=== PATIENT | male | born 1950 | race Caucasian/White ===

== ENCOUNTER 2017-01-22 14:55 | Inpatient (IN) | payer MEDICAID, SELFPAY ==
[2017-01-22 14:55] VITALS: BMI 32.1
[2017-01-22] MEDS ORDERED: Albuterol-Ipratrop 3 mg / 0.5 (3 ml) UD ONE (15:00)
[2017-01-22] MEDS ORDERED: Albuterol-Ipratrop 3 mg / 0.5 (3 ml) UD IH STA (15:12)
[2017-01-22] MEDS ORDERED: Albuterol 0.083% Inhal Sol (2.5 mg/3 mL) UD IH STA (15:12)
[2017-01-22 15:21] LABS: BASO # 0.1 K/uL (0.0-0.2); BASO % 0.5 % (0.0-2.0); EOS % 0.1 % (0.0-4.0); HEMATOCRIT 55.3 % (35.0-51.0); LYMPH % 15.7 % (20.0-40.0); MEAN CELL VOLUME 87.2 fL (80.0-94.0); MEAN CORPUSCULAR HEMOGLOBIN 28.4 pg (27.0-31.0); MEAN CORPUSCULAR HGB CONC 32.5 g/dL (33.0-37.0); MEAN PLATELET VOLUME 9.4 fL (7.2-11.7); MONO # 1.3 K/uL (0.0-0.8); MONO % 10.6 % (0.0-10.0); NRBC % 0.1 % (0.0-2.0); RED CELL DISTRIBUTION WIDTH 14.6 % (11.5-14.5); WHITE BLOOD COUNT 12.6 K/uL (4.8-10.8)
[2017-01-22 15:28] LABS: CHLORIDE 91 mmol/L (98-107); POTASSIUM 3.4 mmol/L (3.6-5.2); SODIUM 140 mmol/L (132-148)
[2017-01-22 15:31] LABS: ALB/GLOB RATIO 0.9 (1.0-2.1); ALKALINE PHOSPHATASE 74 U/L (38-126); ALT/SGPT 24 U/L (21-72); AST/SGOT 30 U/L (17-59); BILIRUBIN,TOTAL 0.9 mg/dL (0.2-1.3); BLOOD UREA NITROGEN 16 mg/dL (9-20); CALCIUM 8.9 mg/dl (8.6-10.4); CARBON DIOXIDE 33 mmol/L (22-30); GFR AFRICAN-AMERICAN > 60; GLUCOSE,RANDOM 203 mg/dL (75-110); TOTAL PROTEIN 8.8 g/dL (6.3-8.3)
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
--- NOTE | 2017-01-22 16:11 | RAD ---
PROCEDURE: CHEST RADIOGRAPH, 1 VIEW HISTORY: SOB COMPARISON: 01/13/2017 FINDINGS: LUNGS: Hazy opacity in the lung bases. Increased vascular congestion. PLEURA: No pneumothorax or pleural fluid seen. CARDIOVASCULAR: Enlarged cardiomediastinal silhouette, stable. OSSEOUS STRUCTURES: The osseous structures demonstrate degenerative changes. VISUALIZED UPPER ABDOMEN: Upper abdomen is suboptimally evaluated. OTHER FINDINGS: Left-sided pacemaker. IMPRESSION: Hazy opacity in the lung bases, likely atelectasis. Increased vascular congestion. Stable cardiomegaly.
[2017-01-22] MEDS ORDERED: Potassium Chloride 20 mEq ER Tab PO STA ×2 (17:37→21:34)
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
[2017-01-22] MEDS ORDERED: (Novolin R) Insulin Human Regular 100 units/ml vial SC SCH (22:00)
[2017-01-22] MEDS: Rosuvastatin Calcium 2.5 mg Tab PO SCH (22:09)
[2017-01-22] MEDS: Pantoprazole 40 mg EC Tab PO SCH (22:09)
[2017-01-22] MEDS: Econazole 1% Cream(15 gm) TOP SCH (22:26)
[2017-01-22] MEDS: (Novolin R) Insulin Human Regular 100 units/ml vial SC SCH (22:27)
[2017-01-23 06:41] LABS: CHLORIDE 88 mmol/L (98-107); POTASSIUM 4.2 mmol/L (3.6-5.2); SODIUM 138 mmol/L (132-148)
[2017-01-23 06:43] LABS: ALB/GLOB RATIO 0.8 (1.0-2.1); AST/SGOT 38 U/L (17-59); BILIRUBIN,TOTAL 1.5 mg/dL (0.2-1.3); CARBON DIOXIDE 37 mmol/L (22-30); CHOLESTEROL 145 mg/dL (0-199); GFR AFRICAN-AMERICAN > 60; TOTAL PROTEIN 8.3 g/dL (6.3-8.3)
[2017-01-23 06:44] LABS: ALKALINE PHOSPHATASE 74 U/L (38-126); ALT/SGPT 37 U/L (21-72); BLOOD UREA NITROGEN 19 mg/dL (9-20); CALCIUM 8.5 mg/dl (8.6-10.4); GLUCOSE,RANDOM 162 mg/dL (75-110)
[2017-01-23 07:15] LABS: THYROID STIMULATING HORMONE 1.64 mIU/L (0.46-4.68)
[2017-01-23 07:24] LABS: BASO % 0.2 % (0.0-2.0); HEMATOCRIT 52.7 % (35.0-51.0); LYMPH # 1.1 K/uL (1.0-4.3); LYMPH % 9.5 % (20.0-40.0); MEAN CORPUSCULAR HEMOGLOBIN 29.4 pg (27.0-31.0); MEAN CORPUSCULAR HGB CONC 33.8 g/dL (33.0-37.0); MEAN PLATELET VOLUME 9.2 fL (7.2-11.7); MONO # 0.7 K/uL (0.0-0.8); MONO % 6.1 % (0.0-10.0); NRBC % 0.3 % (0.0-2.0); PLATELET COUNT 118 K/uL (130-400); RED CELL DISTRIBUTION WIDTH 14.2 % (11.5-14.5)
--- NOTE | 2017-01-23 07:55 | CP.PCM.CON ---
<Loly Brewster - Last Filed: 01/23/17 11:11> History of Present Illness - History of Present Illness History of Present Illness: Cardiology progress note for Dr Amin. Reason for consult: acute on chronic chf. Patient is a 66 y/o with pmh of HTN, dilated cardiomyopathy with LVEF of 10% s/ p AICD, superimposed with diabolic HF, AFib, DM and hld presenting with shortness of breath. Patient was recently discharged about a week ago. Pt denies being non compliance with his meds, denies increased salt intake. States he was diagnosed with shingles of his left forehead, and was prescribed acyclovir and po prednisone, and thinks the shortness of breath is worsened when he started taking these 2 new meds. Currently, patient's seating comfortably, wearing a high flow oxygen at fio2 of 50%, denies cp, reports the shortness of breath has improved. Patient denies palpitation, fever, chills, n/v/d. PMH: HTN, dilated cardiomyopathy with LVEF of 10% s/p biventricular ICD, superimposed with diabolic HF, AFib, DM and hld. PSHx: Rib surgery, spine surgery, stomach surgery, left arm surgery FMHx:2 brothers due to [place] (50 yr old & 60 yr old) Social: denies h/o tobacco, alcohol and illicit drug use. allergies: denies Home meds: please see emr for full list. Review of Systems - Review of Systems All systems: reviewed and no additional remarkable complaints except Review of Systems: As mentioned in HPI. Past Patient History - Infectious Disease Hx of Infectious Diseases: None - Tetanus Immunizations Tetanus Immunization: Unknown - Past Medical History & Family History Past Medical History?: Yes - Past Social History Smoking Status: Never Smoked Alcohol: None Drugs: Denies Home Situation {Lives}: With Family - CARDIAC Hx Cardia Arrhythmia: Yes (atrial flutter) Hx Congestive Heart Failure: Yes Hx Hypercholesterolemia: Yes Hx Hypertension: Yes Hx Pacemaker: Yes (left side) Hx Peripheral Edema: Yes - PULMONARY Hx Asthma: Yes - NEUROLOGICAL Hx Transient Ischemic Attacks (TIA): No - HEENT Hx HEENT Problems: No - RENAL Hx Chronic Kidney Disease: No - ENDOCRINE/METABOLIC Hx Diabetes Mellitus Type 2: Yes - HEMATOLOGICAL/ONCOLOGICAL Hx Blood Disorders: No - INTEGUMENTARY Hx Dermatological Problems: Yes Other/Comment: BLE with brownish discoloration - MUSCULOSKELETAL/RHEUMATOLOGICAL Hx Falls: No - GASTROINTESTINAL Hx Gall Bladder Disease: Yes - GENITOURINARY/GYNECOLOGICAL Hx Genitourinary Disorders: No - PSYCHIATRIC Hx Substance Use: No - SURGICAL HISTORY Hx Cholecystectomy: Yes - ANESTHESIA Hx Anesthesia: Yes Hx Anesthesia Reactions: No Hx Malignant Hyperthermia: No Meds Allergies/Adverse Reactions: Allergies Allergy/AdvReac Type Severity Reaction Status Date / Time No Known Allergies Allergy Verified 01/22/17 15:08 - Medications Medications: Current Medications Acyclovir (Zovirax) 800 mg PO 5XD [facility] Last Admin: 01/22/17 22:25 Dose: 800 mg Aspirin (Ecotrin) 81 mg PO DAILY [facility] Carvedilol (Coreg) 6.25 mg PO BID [facility] Last Admin: 01/22/17 22:09 Dose: 6.25 mg Econazole Nitrate (Spectazole Cr) 1 gm TOP BID [facility] Last Admin: 01/22/17 22:26 Dose: 1 gm Gabapentin (Neurontin) 100 mg PO TID [facility] Last Admin: 01/22/17 22:08 Dose: 100 mg Heparin Sodium (Porcine) (Heparin) 5,000 units SC Q8H [facility] Last Admin: 01/23/17 02:27 Dose: 5,000 units Insulin Human Regular (Novolin R) 0 unit SC ACHS [facility] PRN Reason: Protocol Last Admin: 01/22/17 22:27 Dose: Not Given Losartan Potassium (Cozaar) 50 mg PO DAILY [facility] Oxycodone/Acetaminophen (Percocet 5/325 Mg Tab) 1 tab PO Q4H PRN PRN Reason: Pain, moderate (4-7) Stop: 01/25/17 17:41 Pantoprazole Sodium (Protonix Ec Tab) 40 mg PO DAILY [facility] Last Admin: 01/22/17 22:09 Dose: 40 mg Prednisone (Prednisone Tab) 20 mg PO BID [facility] Last Admin: 01/22/17 22:09 Dose: 20 mg Rivaroxaban (Xarelto) 20 mg PO DAILY [facility] Rosuvastatin Calcium (Crestor) 2.5 mg PO HS [facility] Last Admin: 01/22/17 22:09 Dose: 2.5 mg Spironolactone (Aldactone) 12.5 mg PO BID [facility] Last Admin: 01/22/17 22:25 Dose: 12.5 mg Physical Exam - Constitutional Appears: No Acute Distress, Older Than Stated Age, Chronically Ill - Head Exam Head Exam: ATRAUMATIC, NORMAL INSPECTION, NORMOCEPHALIC - Eye Exam Eye Exam: Normal appearance, PERRL. absent: Scleral icterus - ENT Exam ENT Exam: Mucous Membranes Moist - Neck Exam Neck exam: Positive for: Normal Inspection - Respiratory Exam Respiratory Exam: Clear to Auscultation Bilateral, NORMAL BREATHING PATTERN. absent: Rales, Rhonchi, Wheezes, Respiratory Distress, Stridor - Cardiovascular Exam Cardiovascular Exam: Irregular Rhythm, REGULAR RHYTHM, +S1, +S2 - GI/Abdominal Exam GI & Abdominal Exam: Distended, Firm, Normal Bowel Sounds, Soft. absent: Guarding, Tenderness Additional comments: obese abdomen. - Extremities Exam Extremities exam: Positive for: pedal edema (+2) - Neurological Exam Neurological exam: Alert, Oriented x3 - Psychiatric Exam Psychiatric exam: Normal Affect, Normal Mood - Skin Skin Exam: Dry, Normal Color, Rash (crusted, shingles lesions around the trigeminal nerve distributations, V1.), Warm Results - Vital Signs Recent Vital Signs: Last Vital Signs Temp 98.9 F 01/22/17 23:10 Pulse 74 01/22/17 23:30 Resp 20 01/23/17 03:58 BP 154/91 H 01/22/17 23:10 Pulse Ox 100 01/22/17 23:10 - Labs Result Diagrams: 01/23/17 06:09 01/23/17 06:09 Labs: Laboratory Results - last 24 hr 01/22/17 01/22/17 01/23/17 21:01 21:59 05:29 WBC RBC Hgb Hct MCV MCH MCHC RDW Plt Count MPV Neut % (Auto) Lymph % (Auto) Richardson % (Auto) Eos % (Auto) Baso % (Auto) Neut # Lymph # Richardson # Eos # Baso # Sodium Potassium Chloride Carbon Dioxide Anion Gap BUN Creatinine Est GFR ( Amer) Est GFR (Non-Af Amer) POC Glucose (mg/dL) 143 H Random Glucose Calcium Total Bilirubin AST ALT Alkaline Phosphatase Total Creatine Kinase 43 L 49 L CK-MB (Mass) 1.15 0.97 Troponin I, Quant 0.0840 0.0800 Total Protein Albumin Globulin Albumin/Globulin Ratio Triglycerides Cholesterol LDL Cholesterol Direct HDL Cholesterol TSH 3rd Generation 01/23/17 01/23/17 06:09 06:23 WBC 12.0 H RBC 6.06 H Hgb 17.8 Hct 52.7 H MCV 87.0 MCH 29.4 MCHC 33.8 RDW 14.2 Plt Count 118 L MPV 9.2 Neut % (Auto) 84.2 H Lymph % (Auto) 9.5 L Richardson % (Auto) 6.1 Eos % (Auto) 0.0 Baso % (Auto) 0.2 Neut # 10.1 H Lymph # 1.1 Richardson # 0.7 Eos # 0.0 Baso # 0.0 Sodium 138 Potassium 4.2 Chloride 88 L Carbon Dioxide 37 H Anion Gap 17 BUN 19 Creatinine 1.0 Est GFR ( Amer) > 60 Est GFR (Non-Af Amer) > 60 POC Glucose (mg/dL) 135 H Random Glucose 162 H Calcium 8.5 L Total Bilirubin 1.5 H AST 38 ALT 37 Alkaline Phosphatase 74 Total Creatine Kinase 50 L CK-MB (Mass) 0.94 Troponin I, Quant 0.0770 Total Protein 8.3 Albumin 3.8 Globulin 4.5 H Albumin/Globulin Ratio 0.8 L Triglycerides 106 D Cholesterol 145 LDL Cholesterol Direct 79 HDL Cholesterol 34 TSH 3rd Generation 1.64 - EKG Data EKG Interpreted by: Myself (afib, with left bundle branch blocks, with occasional pvs, with biventricular paced rhythm.) Assessment & Plan - Assessment and Plan (Free Text) Assessment: Patient is a 66 y/o with pmh of HTN, dilated cardiomyopathy with LVEF of 10% s/ p biventricular ICD, superimposed with diabolic HF, AFib, DM and hld readmitted with shortness of breath likely secondary to chf exacerbation. 1) CHF exacerbation 2) Poor EF with LEVF of 10%, and diastolic HF s/p biventricular AICD. 3) htn 4) DM 5) Shingles Plan: - Pro bnp of 4980, with troponin normal x3, ekg with paced ventricular rhythm with occasional PVCs. - Last echo with LVEF of 10%, diastolic dysfunction. - Chest x-ray with vascular congestions - Patient is s/p 80 mg IVP Lasix yesterday, and is saturating well with non rebreather. - will resume lasix at 40 mg bid, continue aldactone, cozaar. - Patient is on crestor for hld, asa and xaretlo for afib/flutter. - Patient is also on acyclovir and prednisone po for shingles. - on protonix for gi prophylaxis, and heparin sc for dvt prophylaxis. Patient seen, examined, will discuss with Dr Bradford. - Date & Time Date: 01/23/17 Time: 07:45 <Quin Bradford - Last Filed: 01/24/17 08:24> Meds - Medications Medications: Current Medications Acyclovir (Zovirax) 800 mg PO 5XD [facility] Last Admin: 01/24/17 08:03 Dose: 800 mg Aspirin (Ecotrin) 81 mg PO DAILY [facility] Last Admin: 01/23/17 10:00 Dose: 81 mg Carvedilol (Coreg) 6.25 mg PO BID [facility] Last Admin: 01/23/17 17:41 Dose: 6.25 mg Econazole Nitrate (Spectazole Cr) 1 gm TOP BID [facility] Last Admin: 01/23/17 17:44 Dose: 1 gm Furosemide (Lasix) 40 mg PO BID [facility] Last Admin: 01/23/17 17:41 Dose: 40 mg Gabapentin (Neurontin) 100 mg PO TID [facility] Last Admin: 01/23/17 17:41 Dose: 100 mg Insulin Human Regular (Novolin R) 0 unit SC ACHS [facility] PRN Reason: Protocol Last Admin: 01/24/17 08:03 Dose: 2 unit Losartan Potassium (Cozaar) 50 mg PO DAILY [facility] Last Admin: 01/23/17 10:00 Dose: 50 mg Oxycodone/Acetaminophen (Percocet 5/325 Mg Tab) 1 tab PO Q4H PRN PRN Reason: Pain, moderate (4-7) Stop: 01/25/17 17:41 Pantoprazole Sodium (Protonix Ec Tab) 40 mg PO DAILY [facility] Last Admin: 01/23/17 10:00 Dose: 40 mg Prednisone (Prednisone Tab) 20 mg PO BID [facility] Last Admin: 01/23/17 17:41 Dose: 20 mg Rivaroxaban (Xarelto) 20 mg PO DAILY [facility] Last Admin: 01/23/17 10:00 Dose: 20 mg Rosuvastatin Calcium (Crestor) 2.5 mg PO HS [facility] Last Admin: 01/23/17 21:25 Dose: 2.5 mg Spironolactone (Aldactone) 12.5 mg PO BID [facility] Last Admin: 01/23/17 17:40 Dose: 12.5 mg Results - Vital Signs Recent Vital Signs: Last Vital Signs Temp 98.0 F 01/23/17 23:05 Pulse 64 01/23/17 23:05 Resp 18 01/24/17 05:09 BP 123/65 01/23/17 23:05 Pulse Ox 97 01/23/17 23:05 - Labs Result Diagrams: 01/23/17 06:09 01/23/17 06:09 Labs: Laboratory Results - last 24 hr 01/23/17 01/23/17 01/23/17 06:09 11:24 16:39 Neutrophils % (Manual) 80 H Band Neutrophils % 9 H Lymphocytes % (Manual) 4 L Reactive Lymphs % 1 H Monocytes % (Manual) 6 Platelet Estimate Slightly decreased L Large Platelets Present Giant Platelets Present RBC Morphology Normal POC Glucose (mg/dL) 136 H 145 H Hemoglobin A1c 8.1 H 01/23/17 01/24/17 20:56 06:19 Neutrophils % (Manual) Band Neutrophils % Lymphocytes % (Manual) Reactive Lymphs % Monocytes % (Manual) Platelet Estimate Large Platelets Giant Platelets RBC Morphology POC Glucose (mg/dL) 188 H 163 H Hemoglobin A1c Attending/Attestation - Attestation I have personally seen and examined this patient.: Yes I have fully participated in the care of the patient.: Yes I have reviewed all pertinent clinical information: Yes Notes (Text): 01/24/17 08:24 aggressive diuresis bnp elevated cont tx zoster
[2017-01-23] MEDS: (Novolin R) Insulin Human Regular 100 units/ml vial SC SCH ×4 (08:07→21:23)
--- NOTE | 2017-01-23 08:35 | RAD ---
PROCEDURE: CHEST RADIOGRAPH, 1 VIEW HISTORY: CHF COMPARISON: 01/22/2017 FINDINGS: LUNGS: Clear. PLEURA: No pneumothorax or pleural fluid seen. CARDIOVASCULAR: Moderate to severe cardiomegaly. OSSEOUS STRUCTURES: No significant abnormalities. VISUALIZED UPPER ABDOMEN: Normal. OTHER FINDINGS: Dual lead pacemaker IMPRESSION: No active disease.
[2017-01-23] MEDS: Pantoprazole 40 mg EC Tab PO SCH (10:00)
[2017-01-23] MEDS: Econazole 1% Cream(15 gm) TOP SCH ×2 (10:11→17:44)
[2017-01-23 11:05] LABS: GIANT PLATELETS PRESENT; LARGE PLATELETS PRESENT; NEUTROPHIL 80 % (50-75); REACTIVE LYMPHOCYTES 1 % (0-0); TOTAL CELLS COUNTED 100
--- NOTE | 2017-01-23 16:11 | CARD ---
APPROVED REPORT EKG Measurement Heart [id number] ID [id number] <Conclusion> Atral sensed, Bi- Ventricular-paced rhythm with occasional premature ventricular complexes Abnormal ECG
--- NOTE | 2017-01-23 17:22 | CP.PCM.PN ---
Subjective - Date & Time of Evaluation Date of Evaluation: 01/23/17 Time of Evaluation: 09:00 - Subjective Subjective: Internal medicine progress note for Dr. Suleman Snider, PGY-1 Pt S & E at bedside. Pt reports use of high flow O2 overnight, rested comfortably. Continues to be unable to open left eye, continues with pain w/pressure. Denies N/V/F/C, SOB, CP, abdominal pain, lower extremity pain. Objective - Vital Signs/Intake and Output Vital Signs (last 24 hours): Temp Pulse Resp BP Pulse Ox 98.4 F 66 20 127/74 99 01/23/17 15:51 01/23/17 16:00 01/23/17 15:51 01/23/17 15:51 01/23/17 15:51 Intake and Output: 01/23/17 01/23/17 06:59 18:59 Intake Total 640 450 Output Total 1500 525 Balance -860 -75 - Medications Medications: Current Medications Acyclovir (Zovirax) 800 mg PO 5XD [facility] Last Admin: 01/23/17 14:59 Dose: 800 mg Aspirin (Ecotrin) 81 mg PO DAILY [facility] Last Admin: 01/23/17 10:00 Dose: 81 mg Carvedilol (Coreg) 6.25 mg PO BID [facility] Last Admin: 01/23/17 10:00 Dose: 6.25 mg Econazole Nitrate (Spectazole Cr) 1 gm TOP BID [facility] Last Admin: 01/23/17 10:11 Dose: 1 gm Furosemide (Lasix) 40 mg PO BID [facility] Last Admin: 01/23/17 10:43 Dose: 40 mg Gabapentin (Neurontin) 100 mg PO TID [facility] Last Admin: 01/23/17 14:59 Dose: 100 mg Insulin Human Regular (Novolin R) 0 unit SC ACHS [facility] PRN Reason: Protocol Last Admin: 01/23/17 12:16 Dose: Not Given Losartan Potassium (Cozaar) 50 mg PO DAILY [facility] Last Admin: 01/23/17 10:00 Dose: 50 mg Oxycodone/Acetaminophen (Percocet 5/325 Mg Tab) 1 tab PO Q4H PRN PRN Reason: Pain, moderate (4-7) Stop: 01/25/17 17:41 Pantoprazole Sodium (Protonix Ec Tab) 40 mg PO DAILY [facility] Last Admin: 01/23/17 10:00 Dose: 40 mg Prednisone (Prednisone Tab) 20 mg PO BID [facility] Last Admin: 01/23/17 10:00 Dose: 20 mg Rivaroxaban (Xarelto) 20 mg PO DAILY [facility] Last Admin: 01/23/17 10:00 Dose: 20 mg Rosuvastatin Calcium (Crestor) 2.5 mg PO HS [facility] Last Admin: 01/22/17 22:09 Dose: 2.5 mg Spironolactone (Aldactone) 12.5 mg PO BID [facility] Last Admin: 01/23/17 10:00 Dose: 12.5 mg - Labs Labs: 01/23/17 06:09 01/23/17 06:09 - Constitutional Appears: Non-toxic, No Acute Distress - Head Exam Additional comments: Left periorbital area with multiple patches of erythematous skin some with scabs , some with vesicles with light yellow fluid in them, area is swollen and tender. Eye is crusted shut. - Eye Exam Additional comments: Unable to assess eyes due to inability to open left eye, Right eye EOMI- pupil reactive - ENT Exam ENT Exam: Mucous Membranes Moist, Normal Exam - Neck Exam Neck Exam: Full ROM, Normal Inspection - Respiratory Exam Respiratory Exam: Decreased Breath Sounds, NORMAL BREATHING PATTERN. absent: Rales, Rhonchi, Wheezes, Respiratory Distress - Cardiovascular Exam Cardiovascular Exam: REGULAR RHYTHM, +S1, +S2 - GI/Abdominal Exam GI & Abdominal Exam: Soft, Normal Bowel Sounds. absent: Distended (obese), Firm , Guarding, Rigid, Tenderness - Extremities Exam Extremities Exam: Full ROM, Normal Inspection - Neurological Exam Neurological Exam: Alert, Awake, Oriented x3 - Psychiatric Exam Psychiatric exam: Normal Affect, Normal Mood - Skin Skin Exam: Dry, Intact, Vesicles (Left periorbital area and Left forehead ), Warm Assessment and Plan - Assessment and Plan (Free Text) Assessment: 1.CHF exacerbation Last Echocardiogram (01/24): Technically difficult study showing dilated LA and LV with severe LV hypokinesia. Estimated LVEF about 10%. Right side catheter artifact noted. Tissue doppler imaging revelas moderate left ventricular diastolic dysfunction. BNP 4980 compared to 3760 on last visit CXR in ER shows moderate venous congestion, cardiomegaly and large hiatal hernia (portable CXR) Repeat AM CXR- No active disease, Trops neg x 3 Cards recs- resum Lasix 40mg BID, cont aldactone, cont cozaar; cont current mgmt Lasix 40mg PO BID Daily weights fluid restriction 1.25L monitor I/Os Head of bed at 45 degrees Cont Aldactone 12.5mg PO BID 2. Herpes Zoster infection Gabapentin 100mg PO TID Continue Acyclovir and Prednisone Percocet 1 Q4H PRN Econazole 1% top BID to area Evaluated by optho outpatient 3.Diabetes 01/14/17: HgbA1C 7.8 A1c 8.1 holding home glimepiride ISS medium dose Accuchecks ACHS 4.HTN (Hypertension) continue home carvedilol 6.25mg BID continue home cozaar 50mg daily 5.HLD (Hyperlipidemia) will give crestor 2.5mg- home medication is simvastatin 10mg Lipid panel: TG 106, Chol 145, LDL 79, HDL 34 6.History of A.flutter continue xarelto 20mg daily per clinic documentation Cont ASA 81mg PO Daily TSH 1.64 7.Prophylaxis no SCDs due to edema patient is on xarelto Protonix 40mg daily 8. Dispo Cont current mgmt Pt still on High Flow O2 DW attending
[2017-01-23] MEDS: Rosuvastatin Calcium 2.5 mg Tab PO SCH (21:25)
[2017-01-24] MEDS: (Novolin R) Insulin Human Regular 100 units/ml vial SC SCH ×4 (08:03→21:50)
--- NOTE | 2017-01-24 08:44 | CP.PCM.PN ---
Subjective - Date & Time of Evaluation Date of Evaluation: 01/24/17 Time of Evaluation: 07:50 - Subjective Subjective: Cardiology progress note for Dr Bradford. Patient denies chest pain, states shortness of breath is improving. Patient c/o left forehead pain, burning sensation. No acute overnight events on tele. On high flow oxygen at 50% fio2. Objective - Vital Signs/Intake and Output Vital Signs (last 24 hours): Temp Pulse Resp BP Pulse Ox 97.8 F 65 20 98/63 L 97 01/24/17 07:35 01/24/17 07:35 01/24/17 07:35 01/24/17 07:35 01/24/17 07:35 Intake and Output: 01/24/17 01/24/17 06:59 18:59 Intake Total 240 Output Total 550 Balance -550 240 - Medications Medications: Current Medications Acyclovir (Zovirax) 800 mg PO 5XD [facility] Last Admin: 01/24/17 08:03 Dose: 800 mg Aspirin (Ecotrin) 81 mg PO DAILY [facility] Last Admin: 01/23/17 10:00 Dose: 81 mg Carvedilol (Coreg) 6.25 mg PO BID [facility] Last Admin: 01/23/17 17:41 Dose: 6.25 mg Econazole Nitrate (Spectazole Cr) 1 gm TOP BID [facility] Last Admin: 01/23/17 17:44 Dose: 1 gm Furosemide (Lasix) 40 mg PO BID [facility] Last Admin: 01/23/17 17:41 Dose: 40 mg Gabapentin (Neurontin) 100 mg PO TID [facility] Last Admin: 01/23/17 17:41 Dose: 100 mg Insulin Human Regular (Novolin R) 0 unit SC ACHS [facility] PRN Reason: Protocol Last Admin: 01/24/17 08:03 Dose: 2 unit Losartan Potassium (Cozaar) 50 mg PO DAILY [facility] Last Admin: 01/23/17 10:00 Dose: 50 mg Oxycodone/Acetaminophen (Percocet 5/325 Mg Tab) 1 tab PO Q4H PRN PRN Reason: Pain, moderate (4-7) Stop: 01/25/17 17:41 Pantoprazole Sodium (Protonix Ec Tab) 40 mg PO DAILY [facility] Last Admin: 01/23/17 10:00 Dose: 40 mg Prednisone (Prednisone Tab) 20 mg PO BID [facility] Last Admin: 01/23/17 17:41 Dose: 20 mg Rivaroxaban (Xarelto) 20 mg PO DAILY [facility] Last Admin: 01/23/17 10:00 Dose: 20 mg Rosuvastatin Calcium (Crestor) 2.5 mg PO HS [facility] Last Admin: 01/23/17 21:25 Dose: 2.5 mg Spironolactone (Aldactone) 12.5 mg PO BID [facility] Last Admin: 01/23/17 17:40 Dose: 12.5 mg - Labs Labs: 01/23/17 06:09 01/23/17 06:09 - Constitutional Appears: No Acute Distress - Head Exam Head Exam: ATRAUMATIC, NORMAL INSPECTION, NORMOCEPHALIC - Eye Exam Eye Exam: EOMI, Normal appearance, PERRL. absent: Scleral icterus - ENT Exam ENT Exam: Mucous Membranes Moist - Neck Exam Neck Exam: Normal Inspection - Respiratory Exam Respiratory Exam: Wheezes, NORMAL BREATHING PATTERN. absent: Rales, Rhonchi, Respiratory Distress, Stridor - Cardiovascular Exam Cardiovascular Exam: Irregular Rhythm, REGULAR RHYTHM, +S1, +S2 - GI/Abdominal Exam GI & Abdominal Exam: Soft, Normal Bowel Sounds. absent: Tenderness - Extremities Exam Extremities Exam: Pedal Edema. absent: Tenderness - Neurological Exam Neurological Exam: Alert, Awake, Oriented x3 - Psychiatric Exam Psychiatric exam: Normal Affect, Normal Mood - Skin Skin Exam: Abrasion, Normal Color, Rash (on the left forhead. ), Warm Additional comments: abrasions on b/l lower extremities. Assessment and Plan - Assessment and Plan (Free Text) Assessment: Patient is a 66 y/o with pmh of HTN, dilated cardiomyopathy with LVEF of 10% s/ p biventricular ICD, superimposed with diabolic HF, AFib, DM and hld readmitted with shortness of breath likely secondary to chf exacerbation from . 1) CHF exacerbation 2) Poor EF with LEVF of 10%, and diastolic HF s/p biventricular AICD. 3) htn 4) DM 5) Shingles Plan: - Continue Lasix at 40 mg bid, continue aldactone, cozaar, asa and crestor. - Continue xaretlo for afib/flutter. - Patient is also on acyclovir, prednisone po and gabapentin for shingles. - on protonix for gi prophylaxis, and heparin sc for dvt prophylaxis. Patient seen, examined, case discussed with Dr Bradford.
[2017-01-24] MEDS: Pantoprazole 40 mg EC Tab PO SCH (10:42)
[2017-01-24] MEDS: Econazole 1% Cream(15 gm) TOP SCH ×2 (10:44→17:08)
[2017-01-24 13:20] LABS: BASO # 0.1 K/uL (0.0-0.2); BASO % 0.5 % (0.0-2.0); HEMATOCRIT 52.8 % (35.0-51.0); LYMPH # 1.4 K/uL (1.0-4.3); LYMPH % 14.5 % (20.0-40.0); MEAN CORPUSCULAR HEMOGLOBIN 29.5 pg (27.0-31.0); MEAN CORPUSCULAR HGB CONC 33.8 g/dL (33.0-37.0); MEAN PLATELET VOLUME 9.3 fL (7.2-11.7); MONO # 0.9 K/uL (0.0-0.8); MONO % 8.8 % (0.0-10.0); RED CELL DISTRIBUTION WIDTH 14.5 % (11.5-14.5)
[2017-01-24 13:28] LABS: CHLORIDE 85 mmol/L (98-107); SODIUM 138 mmol/L (132-148)
[2017-01-24 13:31] LABS: ALB/GLOB RATIO 0.9 (1.0-2.1); ALKALINE PHOSPHATASE 66 U/L (38-126); ALT/SGPT 20 U/L (21-72); AST/SGOT 27 U/L (17-59); BILIRUBIN,TOTAL 1.2 mg/dL (0.2-1.3); BLOOD UREA NITROGEN 31 mg/dL (9-20); CALCIUM 8.2 mg/dl (8.6-10.4); CARBON DIOXIDE 39 mmol/L (22-30); GFR AFRICAN-AMERICAN > 60; GLUCOSE,RANDOM 162 mg/dL (75-110); TOTAL PROTEIN 8.6 g/dL (6.3-8.3)
[2017-01-24] MEDS: Oxycodone/Acetaminophen 5/325 mg Tab PO PRN (14:37)
--- NOTE | 2017-01-24 16:45 | CP.PCM.PN ---
Subjective - Date & Time of Evaluation Date of Evaluation: 01/24/17 Time of Evaluation: 16:27 - Subjective Subjective: PGY-1 note for medicine service Pt seen and examined at bedside. Pt states that his breathing feels better today. He states that he had high flow on throughout the night. Pt's only complaint is of the shingles on his face. He states that the pain is getting to the point of not being tolerable. Denies any fevers, chills, chest pain, nausea vomiting. Objective - Vital Signs/Intake and Output Vital Signs (last 24 hours): Temp Pulse Resp BP Pulse Ox 97.4 F L 61 20 110/70 96 01/24/17 15:56 01/24/17 15:56 01/24/17 15:56 01/24/17 15:56 01/24/17 15:56 Intake and Output: 01/24/17 01/24/17 06:59 18:59 Intake Total 890 Output Total 550 600 Balance -550 290 - Medications Medications: Current Medications Acyclovir (Zovirax) 800 mg PO 5XD [facility] Last Admin: 01/24/17 13:33 Dose: 800 mg Aspirin (Ecotrin) 81 mg PO DAILY [facility] Last Admin: 01/24/17 10:42 Dose: 81 mg Carvedilol (Coreg) 6.25 mg PO BID [facility] Last Admin: 01/24/17 10:46 Dose: 6.25 mg Econazole Nitrate (Spectazole Cr) 1 gm TOP BID [facility] Last Admin: 01/24/17 10:44 Dose: 1 gm Furosemide (Lasix) 40 mg PO BID [facility] Last Admin: 01/24/17 10:46 Dose: 40 mg Gabapentin (Neurontin) 300 mg PO BID [facility] Insulin Human Regular (Novolin R) 0 unit SC ACHS [facility] PRN Reason: Protocol Last Admin: 01/24/17 11:54 Dose: Not Given Losartan Potassium (Cozaar) 50 mg PO DAILY [facility] Last Admin: 01/24/17 10:46 Dose: 50 mg Oxycodone/Acetaminophen (Percocet 5/325 Mg Tab) 1 tab PO Q4H PRN PRN Reason: Pain, moderate (4-7) Stop: 01/25/17 17:41 Last Admin: 01/24/17 14:37 Dose: 1 tab Pantoprazole Sodium (Protonix Ec Tab) 40 mg PO DAILY [facility] Last Admin: 01/24/17 10:42 Dose: 40 mg Prednisone (Prednisone Tab) 20 mg PO BID [facility] Last Admin: 01/24/17 10:43 Dose: 20 mg Rivaroxaban (Xarelto) 20 mg PO DAILY [facility] Last Admin: 01/24/17 10:43 Dose: 20 mg Rosuvastatin Calcium (Crestor) 2.5 mg PO HS [facility] Last Admin: 01/23/17 21:25 Dose: 2.5 mg Spironolactone (Aldactone) 12.5 mg PO BID [facility] Last Admin: 01/24/17 10:42 Dose: 12.5 mg - Labs Labs: 01/24/17 13:17 01/24/17 13:17 - Constitutional Appears: Non-toxic, In Acute Distress - Head Exam Head Exam: ATRAUMATIC, NORMOCEPHALIC - Eye Exam Additional comments: herpes zoster rash extends over his left eye - ENT Exam ENT Exam: Mucous Membranes Moist - Respiratory Exam Respiratory Exam: Decreased Breath Sounds, Clear to Ausculation Bilateral, NORMAL BREATHING PATTERN - Cardiovascular Exam Cardiovascular Exam: +S1, +S2 - GI/Abdominal Exam GI & Abdominal Exam: Soft, Normal Bowel Sounds - Neurological Exam Neurological Exam: Alert, Awake - Skin Skin Exam: Dry, Warm Assessment and Plan - Assessment and Plan (Free Text) Assessment: 1.CHF exacerbation - SOB resolved, no rales on exam - Last Echocardiogram (01/24): Technically difficult study showing dilated LA and LV with severe LV hypokinesia. Estimated LVEF about 10%. Right side catheter artifact noted. Tissue doppler imaging revelas moderate left ventricular diastolic dysfunction. - BNP 4980 compared to 3760 on last visit - CXR in ER shows moderate venous congestion, cardiomegaly and large hiatal hernia (portable CXR) - Repeat AM CXR- No active disease, - Trops neg x 3 - Cards recs- resum Lasix 40mg BID, cont aldactone, cont cozaar; cont current mgmt - Lasix 40mg PO BID - Daily weights - fluid restriction 1.25L - monitor I/Os - Head of bed at 45 degrees - Cont Aldactone 12.5mg PO BID 2. Herpes Zoster infection - Gabapentin 100mg TID increased to 300mg BID - Continue Acyclovir and Prednisone - Percocet 1 Q4H PRN - Econazole 1% top BID to area - Evaluated by optho outpatient 3.Diabetes - 01/14/17: HgbA1C 7.8 - A1c 8.1 - holding home glimepiride - ISS medium dose - Accuchshruthi ROSENS 4.HTN (Hypertension) - continue home carvedilol 6.25mg BID - continue home cozaar 50mg daily 5.HLD (Hyperlipidemia) - will give crestor 2.5mg- home medication is simvastatin 10mg - Lipid panel: TG 106, Chol 145, LDL 79, HDL 34 6.History of A.flutter - continue xarelto 20mg daily per clinic documentation - Cont ASA 81mg PO Daily - TSH 1.64 7.Prophylaxis - no SCDs due to edema - patient is on xarelto - Protonix 40mg daily 8. Dispo Cont current mgmt Pt still on High Flow O2 - f/u with RT DW attending
[2017-01-24] MEDS: Rosuvastatin Calcium 2.5 mg Tab PO SCH (21:50)
[2017-01-25 07:19] LABS: BASO % 0.3 % (0.0-2.0); HEMATOCRIT 52.1 % (35.0-51.0); LYMPH % 16.4 % (20.0-40.0); MEAN CELL VOLUME 87.9 fL (80.0-94.0); MEAN CORPUSCULAR HEMOGLOBIN 28.9 pg (27.0-31.0); MEAN CORPUSCULAR HGB CONC 32.9 g/dL (33.0-37.0); MEAN PLATELET VOLUME 9.6 fL (7.2-11.7); MONO % 8.2 % (0.0-10.0); NRBC % 0.1 % (0.0-2.0); RED CELL DISTRIBUTION WIDTH 14.3 % (11.5-14.5); WHITE BLOOD COUNT 12.1 K/uL (4.8-10.8)
[2017-01-25 07:31] LABS: CHLORIDE 87 mmol/L (98-107)
[2017-01-25 07:32] LABS: POTASSIUM 3.9 mmol/L (3.6-5.2); SODIUM 136 mmol/L (132-148)
[2017-01-25 07:34] LABS: CARBON DIOXIDE 37 mmol/L (22-30); GFR AFRICAN-AMERICAN > 60
[2017-01-25 07:35] LABS: ALB/GLOB RATIO 0.9 (1.0-2.1); ALKALINE PHOSPHATASE 66 U/L (38-126); ALT/SGPT 24 U/L (21-72); AST/SGOT 27 U/L (17-59); BILIRUBIN,TOTAL 0.8 mg/dL (0.2-1.3); BLOOD UREA NITROGEN 37 mg/dL (9-20); GLUCOSE,RANDOM 142 mg/dL (75-110); TOTAL PROTEIN 8.1 g/dL (6.3-8.3)
[2017-01-25] MEDS: (Novolin R) Insulin Human Regular 100 units/ml vial SC SCH ×4 (08:05→22:00)
--- NOTE | 2017-01-25 08:08 | CP.PCM.PN ---
Subjective - Date & Time of Evaluation Date of Evaluation: 01/25/17 Time of Evaluation: 08:00 Objective - Vital Signs/Intake and Output Vital Signs (last 24 hours): Temp Pulse Resp BP Pulse Ox 97.6 F 61 20 135/79 98 01/25/17 07:41 01/25/17 07:41 01/25/17 08:04 01/25/17 07:41 01/25/17 07:41 Intake and Output: 01/25/17 01/25/17 06:59 18:59 Intake Total 120 Output Total 600 Balance -480 - Medications Medications: Current Medications Acyclovir (Zovirax) 800 mg PO 5XD [facility] Last Admin: 01/24/17 19:41 Dose: 800 mg Aspirin (Ecotrin) 81 mg PO DAILY [facility] Last Admin: 01/24/17 10:42 Dose: 81 mg Carvedilol (Coreg) 6.25 mg PO BID [facility] Last Admin: 01/24/17 17:08 Dose: 6.25 mg Econazole Nitrate (Spectazole Cr) 1 gm TOP BID [facility] Last Admin: 01/24/17 17:08 Dose: 1 gm Furosemide (Lasix) 40 mg PO BID [facility] Last Admin: 01/24/17 17:06 Dose: 40 mg Gabapentin (Neurontin) 300 mg PO BID [facility] Last Admin: 01/24/17 17:06 Dose: 300 mg Insulin Human Regular (Novolin R) 0 unit SC ACHS [facility] PRN Reason: Protocol Last Admin: 01/24/17 21:50 Dose: 3 unit Losartan Potassium (Cozaar) 50 mg PO DAILY [facility] Last Admin: 01/24/17 10:46 Dose: 50 mg Oxycodone/Acetaminophen (Percocet 5/325 Mg Tab) 1 tab PO Q4H PRN PRN Reason: Pain, moderate (4-7) Stop: 01/25/17 17:41 Last Admin: 01/24/17 14:37 Dose: 1 tab Pantoprazole Sodium (Protonix Ec Tab) 40 mg PO DAILY [facility] Last Admin: 01/24/17 10:42 Dose: 40 mg Prednisone (Prednisone Tab) 20 mg PO BID [facility] Last Admin: 01/24/17 17:06 Dose: 20 mg Rivaroxaban (Xarelto) 20 mg PO DAILY [facility] Last Admin: 01/24/17 10:43 Dose: 20 mg Rosuvastatin Calcium (Crestor) 2.5 mg PO [facility] Last Admin: 01/24/17 21:50 Dose: 2.5 mg Spironolactone (Aldactone) 12.5 mg PO BID [facility] Last Admin: 01/24/17 17:06 Dose: 12.5 mg - Labs Labs: 01/25/17 06:30 01/25/17 06:30
--- NOTE | 2017-01-25 08:16 | CP.PCM.PN ---
Subjective - Date & Time of Evaluation Date of Evaluation: 01/25/17 Time of Evaluation: 09:19 - Subjective Subjective: Internal medicine progress note for Dr. Mary Snider, PGY-1 Pt S & E at bedside. Pt reports left forehead pain, feels that left eye pain and swelling has improved, LE swelling is better. Did not sleep well. Is eating ok. Denies N/V/ F/C, SOB, CP, abdominal pain, LE pain. Objective - Vital Signs/Intake and Output Vital Signs (last 24 hours): Temp Pulse Resp BP Pulse Ox 97.6 F 61 20 135/79 98 01/25/17 07:41 01/25/17 07:41 01/25/17 08:04 01/25/17 07:41 01/25/17 07:41 Intake and Output: 01/25/17 01/25/17 06:59 18:59 Intake Total 120 Output Total 600 Balance -480 - Medications Medications: Current Medications Acyclovir (Zovirax) 800 mg PO 5XD [facility] Last Admin: 01/24/17 19:41 Dose: 800 mg Aspirin (Ecotrin) 81 mg PO DAILY [facility] Last Admin: 01/24/17 10:42 Dose: 81 mg Carvedilol (Coreg) 6.25 mg PO BID [facility] Last Admin: 01/24/17 17:08 Dose: 6.25 mg Econazole Nitrate (Spectazole Cr) 1 gm TOP BID [facility] Last Admin: 01/24/17 17:08 Dose: 1 gm Furosemide (Lasix) 40 mg PO BID [facility] Last Admin: 01/24/17 17:06 Dose: 40 mg Gabapentin (Neurontin) 300 mg PO BID [facility] Last Admin: 01/24/17 17:06 Dose: 300 mg Insulin Human Regular (Novolin R) 0 unit SC ACHS [facility] PRN Reason: Protocol Last Admin: 01/24/17 21:50 Dose: 3 unit Losartan Potassium (Cozaar) 50 mg PO DAILY [facility] Last Admin: 01/24/17 10:46 Dose: 50 mg Oxycodone/Acetaminophen (Percocet 5/325 Mg Tab) 1 tab PO Q4H PRN PRN Reason: Pain, moderate (4-7) Stop: 01/25/17 17:41 Last Admin: 01/24/17 14:37 Dose: 1 tab Pantoprazole Sodium (Protonix Ec Tab) 40 mg PO DAILY [facility] Last Admin: 01/24/17 10:42 Dose: 40 mg Prednisone (Prednisone Tab) 20 mg PO BID [facility] Last Admin: 01/24/17 17:06 Dose: 20 mg Rivaroxaban (Xarelto) 20 mg PO DAILY [facility] Last Admin: 01/24/17 10:43 Dose: 20 mg Rosuvastatin Calcium (Crestor) 2.5 mg PO HS [facility] Last Admin: 01/24/17 21:50 Dose: 2.5 mg Spironolactone (Aldactone) 12.5 mg PO BID [facility] Last Admin: 01/24/17 17:06 Dose: 12.5 mg - Labs Labs: 01/25/17 06:30 01/25/17 06:30 - Constitutional Appears: Non-toxic, No Acute Distress - Head Exam Head Exam: ATRAUMATIC, NORMAL INSPECTION, NORMOCEPHALIC - Eye Exam Eye Exam: EOMI, Normal appearance, Periorbital tenderness (of left eye- swelling improved) Pupil Exam: NORMAL ACCOMODATION - ENT Exam ENT Exam: Mucous Membranes Moist, Normal Exam - Neck Exam Neck Exam: Full ROM, Normal Inspection - Respiratory Exam Respiratory Exam: Decreased Breath Sounds, Clear to Ausculation Bilateral, NORMAL BREATHING PATTERN. absent: Rales, Rhonchi, Wheezes, Respiratory Distress - Cardiovascular Exam Cardiovascular Exam: REGULAR RHYTHM, +S1, +S2 - GI/Abdominal Exam GI & Abdominal Exam: Soft, Normal Bowel Sounds. absent: Distended (obese), Tenderness - Extremities Exam Extremities Exam: Normal Inspection, Pedal Edema (B/L +1 pitting edema ) - Neurological Exam Neurological Exam: Alert, Awake, CN II-XII Intact, Oriented x3 - Psychiatric Exam Psychiatric exam: Normal Affect, Normal Mood - Skin Skin Exam: Dry, Intact, Rash (over left eye/forehead w/scabbed vesicles, no filled vesicles visible, areas of erythema decreasing, plaster machine tender over rash. Eye crusted shut, eyelid with pain, erythema, and edema- improving), Warm Assessment and Plan - Assessment and Plan (Free Text) Assessment: 1.CHF exacerbation - Continues on Hi Flow O2 - SOB resolved - Last Echocardiogram (01/24): Technically difficult study showing dilated LA and LV with severe LV hypokinesia. Estimated LVEF about 10%. Right side catheter artifact noted. Tissue doppler imaging revelas moderate left ventricular diastolic dysfunction. - BNP 4980 compared to 3760 on last visit - CXR in ER shows moderate venous congestion, cardiomegaly and large hiatal hernia (portable CXR) - Repeat AM CXR- No active disease, - Trops neg x 3 - Cards recs- resum Lasix 40mg BID, cont aldactone, cont cozaar; cont current mgmt - Lasix 40mg PO BID - Daily weights - fluid restriction 1.25L - monitor I/Os - Head of bed at 45 degrees - Cont Aldactone 12.5mg PO BID 2. Herpes Zoster infection -WBC 12.1 from 10 - Gabapentin 100mg TID increased to 300mg BID - Continue Acyclovir and Prednisone - Percocet 1 Q4H PRN - Econazole 1% top BID to area - Evaluated by optho outpatient 3.Diabetes - 01/14/17: HgbA1C 7.8 - A1c 8.1 - holding home glimepiride - ISS medium dose - Accuchecks ACHS 4.HTN (Hypertension) - continue home carvedilol 6.25mg BID - continue home cozaar 50mg daily 5.HLD (Hyperlipidemia) - will give crestor 2.5mg- home medication is simvastatin 10mg - Lipid panel: TG 106, Chol 145, LDL 79, HDL 34 6.History of A.flutter - continue xarelto 20mg daily per clinic documentation - Cont ASA 81mg PO Daily - TSH 1.64 7.Prophylaxis - no SCDs due to edema - patient is on xarelto - Protonix 40mg daily 8. Dispo Cont current mgmt Pt continues on High Flow O2 - f/u with RT DW attending
[2017-01-25] MEDS: Pantoprazole 40 mg EC Tab PO SCH (10:02)
[2017-01-25] MEDS: Oxycodone/Acetaminophen 5/325 mg Tab PO PRN ×2 (10:02→19:39)
[2017-01-25] MEDS: Econazole 1% Cream(15 gm) TOP SCH ×2 (10:06→17:46)
[2017-01-25] MEDS: Rosuvastatin Calcium 2.5 mg Tab PO SCH (22:24)
--- NOTE | 2017-01-26 00:08 | CP.PCM.PN ---
<Silvana Snider - Last Filed: 01/26/17 00:13> Subjective - Date & Time of Evaluation Date of Evaluation: 01/26/17 Time of Evaluation: 00:05 - Subjective Subjective: Internal medicine progress note for Dr. Conde-Silvana Snider, PGY-1 Pt S & E at bedside. Pt reports pain over left forehead, very tender to palpation, LE swollen, reports high urine output. No other complaints. Denies N/V/F/C, SOB, CP, abdominal pain, LE pain. Is eating ok. Having difficulty sleeping during night. Has been napping during day. Tolerating diet. Encourage pt to ask for pain medications as it is PRN. Objective - Vital Signs/Intake and Output Vital Signs (last 24 hours): Temp Pulse Resp BP Pulse Ox 97.5 F L 65 20 126/76 96 01/25/17 15:24 01/25/17 23:00 01/25/17 15:24 01/25/17 17:44 01/25/17 15:24 Intake and Output: 01/25/17 01/26/17 18:59 06:59 Output Total 900 Balance -900 - Medications Medications: Current Medications Acyclovir (Zovirax) 800 mg PO 5XD [facility] Last Admin: 01/25/17 19:41 Dose: 800 mg Aspirin (Ecotrin) 81 mg PO DAILY [facility] Last Admin: 01/25/17 10:02 Dose: 81 mg Carvedilol (Coreg) 6.25 mg PO BID [facility] Last Admin: 01/25/17 17:45 Dose: 6.25 mg Econazole Nitrate (Spectazole Cr) 1 gm TOP BID [facility] Last Admin: 01/25/17 17:46 Dose: 1 gm Furosemide (Lasix) 40 mg PO BID [facility] Last Admin: 01/25/17 17:44 Dose: 40 mg Gabapentin (Neurontin) 300 mg PO BID [facility] Last Admin: 01/25/17 17:44 Dose: 300 mg Insulin Human Regular (Novolin R) 0 unit SC ACHS [facility] PRN Reason: Protocol Last Admin: 01/25/17 17:44 Dose: 3 unit Losartan Potassium (Cozaar) 50 mg PO DAILY [facility] Last Admin: 01/25/17 10:01 Dose: 50 mg Oxycodone/Acetaminophen (Percocet 5/325 Mg Tab) 1 tab PO Q4H PRN PRN Reason: Pain, moderate (4-7) Stop: 01/28/17 19:26 Last Admin: 01/25/17 19:39 Dose: 1 tab Pantoprazole Sodium (Protonix Ec Tab) 40 mg PO DAILY [facility] Last Admin: 01/25/17 10:02 Dose: 40 mg Prednisone (Prednisone Tab) 20 mg PO BID [facility] Last Admin: 01/25/17 17:44 Dose: 20 mg Rivaroxaban (Xarelto) 20 mg PO DAILY [facility] Last Admin: 01/25/17 10:02 Dose: 20 mg Rosuvastatin Calcium (Crestor) 2.5 mg PO HS [facility] Last Admin: 01/25/17 22:24 Dose: 2.5 mg Spironolactone (Aldactone) 12.5 mg PO BID [facility] Last Admin: 01/25/17 17:49 Dose: 12.5 mg - Labs Labs: 01/25/17 06:30 01/25/17 06:30 - Constitutional Appears: Non-toxic, No Acute Distress - Head Exam Head Exam: NORMOCEPHALIC. absent: NORMAL INSPECTION Additional comments: Left forehead with erythematous patchy lesions w/scabs, L eye swollen/ erythematous- improving, tender to palpation, pt above to open eye a little- improved from previous. - Eye Exam Eye Exam: Periorbital tenderness - ENT Exam ENT Exam: Mucous Membranes Moist, Normal Exam - Neck Exam Neck Exam: Full ROM, Normal Inspection - Respiratory Exam Respiratory Exam: Decreased Breath Sounds, Clear to Ausculation Bilateral, NORMAL BREATHING PATTERN. absent: Rales, Rhonchi, Wheezes, Respiratory Distress Additional comments: On high flow O2 - Cardiovascular Exam Cardiovascular Exam: REGULAR RHYTHM, +S1, +S2 - GI/Abdominal Exam GI & Abdominal Exam: Soft, Normal Bowel Sounds. absent: Distended (obese), Tenderness - Extremities Exam Extremities Exam: Pedal Edema. absent: Normal Inspection (B/L 2+ pittting edema w/chronic venous stasis changes of skin) - Neurological Exam Neurological Exam: Alert, Awake, Oriented x3 - Psychiatric Exam Psychiatric exam: Normal Affect, Normal Mood - Skin Skin Exam: Dry, Intact, Normal Color (Excluding chronic venous stasis changes of LE B/L), Warm Assessment and Plan - Assessment and Plan (Free Text) Assessment: 1.CHF exacerbation - Con Hi Flow O2 - Cont Lasix 40mg PO BID - Daily weights - fluid restriction 1.25L - monitor I/Os - Head of bed at 45 degrees - Cont Aldactone 12.5mg PO BID - Last Echocardiogram (01/24): Technically difficult study showing dilated LA and LV with severe LV hypokinesia. Estimated LVEF about 10%. Right side catheter artifact noted. Tissue doppler imaging revelas moderate left ventricular diastolic dysfunction. - BNP 4980 compared to 3760 on last visit - CXR in ER shows moderate venous congestion, cardiomegaly and large hiatal hernia (portable CXR) - Repea CXR- No active disease - Trops neg x 3 - Cards recs- resume Lasix 40mg BID, cont aldactone, cont cozaar; cont current mgmt 2. Herpes Zoster infection - Gabapentin 100mg TID increased to 300mg BID - Continue Acyclovir and Prednisone -Leukocytosis likely 2/2 prednisone - Econazole 1% top BID to area - Percocet 1 Q4H PRN - Encouraged pt to ask for pain medication as needed 3.Diabetes - 01/14/17 - A1C 7.8 - A1c 8.1 - holding home glimepiride - ISS medium dose - Accuchecks ACHS 4.HTN (Hypertension) - B/P 126/76 - continue home carvedilol 6.25mg BID - continue home cozaar 50mg daily 5.HLD - Crestor 2.5mg- home medication is simvastatin 10mg - Lipid panel: TG 106, Chol 145, LDL 79, HDL 34 6.History of A.flutter - continue xarelto 20mg daily per clinic documentation - Cont ASA 81mg PO Daily - TSH 1.64 7.Prophylaxis - no SCDs due to edema - Xarelto - Protonix 40mg daily 8. Dispo Cont current mgmt Cont w/High flow O2 Will DW attending <Maral Gregory V - Last Filed: 01/26/17 09:42> Objective - Vital Signs/Intake and Output Vital Signs (last 24 hours): Temp Pulse Resp BP Pulse Ox 97.6 F 64 18 139/75 97 01/26/17 08:57 01/26/17 08:57 01/26/17 08:57 01/26/17 08:57 01/26/17 08:57 Intake and Output: 01/26/17 01/26/17 06:59 18:59 Output Total 1300 Balance -1300 - Medications Medications: Current Medications Acyclovir (Zovirax) 800 mg PO 5XD [facility] Last Admin: 01/25/17 19:41 Dose: 800 mg Aspirin (Ecotrin) 81 mg PO DAILY [facility] Last Admin: 01/25/17 10:02 Dose: 81 mg Carvedilol (Coreg) 6.25 mg PO BID [facility] Last Admin: 01/25/17 17:45 Dose: 6.25 mg Econazole Nitrate (Spectazole Cr) 1 gm TOP BID [facility] Last Admin: 01/25/17 17:46 Dose: 1 gm Furosemide (Lasix) 40 mg PO BID [facility] Last Admin: 01/25/17 17:44 Dose: 40 mg Gabapentin (Neurontin) 300 mg PO BID [facility] Last Admin: 01/25/17 17:44 Dose: 300 mg Insulin Human Regular (Novolin R) 0 unit SC ACHS [facility] PRN Reason: Protocol Last Admin: 01/25/17 17:44 Dose: 3 unit Losartan Potassium (Cozaar) 50 mg PO DAILY [facility] Last Admin: 01/25/17 10:01 Dose: 50 mg Oxycodone/Acetaminophen (Percocet 5/325 Mg Tab) 1 tab PO Q4H PRN PRN Reason: Pain, moderate (4-7) Stop: 01/28/17 19:26 Last Admin: 01/25/17 19:39 Dose: 1 tab Pantoprazole Sodium (Protonix Ec Tab) 40 mg PO DAILY [facility] Last Admin: 01/25/17 10:02 Dose: 40 mg Prednisone (Prednisone Tab) 20 mg PO BID [facility] Last Admin: 01/25/17 17:44 Dose: 20 mg Rivaroxaban (Xarelto) 20 mg PO DAILY [facility] Last Admin: 01/25/17 10:02 Dose: 20 mg Rosuvastatin Calcium (Crestor) 2.5 mg PO HS [facility] Last Admin: 01/25/17 22:24 Dose: 2.5 mg Spironolactone (Aldactone) 12.5 mg PO BID [facility] Last Admin: 01/25/17 17:49 Dose: 12.5 mg - Labs Labs: 01/26/17 06:13 01/26/17 06:13 Attending/Attestation - Attestation I have personally seen and examined this patient.: Yes I have fully participated in the care of the patient.: Yes I have reviewed all pertinent clinical information, including history, physical exam and plan: Yes Notes (Text): Patient seen, examined, and case discussed with day-time resident. Patient reports mild left pain surrounding eye and going into the scalp. Patient reports he is taking the pain medications. On exam, there is mild redness over the eye. Lesions appears crusting over. Patient is wearing high flow oxygen for comfort. He reports adequate bowel movements. Assessment/Plan 1.Congestive Heart Failure exacerbation, acute on chronic mixed systolic and diastolic * Hi Flow PRnN; Switched to nasal cannula Oxygen 3L * Cont Lasix 40mg PO BID * Cont Aldactone 12.5mg PO BID * Daily weights * fluid restriction 1.25L * monitor I/Os * Head of bed at 45 degrees * Last Echocardiogram (01/24): Technically difficult study showing dilated LA and LV with severe LV hypokinesia. Estimated LVEF about 10%. Right side catheter artifact noted. Tissue doppler imaging revelas moderate left ventricular diastolic dysfunction. * CXR in ER shows moderate venous congestion, cardiomegaly and large hiatal hernia (portable CXR) * Repea CXR (01/23)- No active disease * Trops neg x 3 * Aspirin 81mg PO daily * Coreg 6.25mg PO bid * Cozaar 50mg PO daily * Crestor 2.5mg PO qHS * Cardiology (Dr. Bradford) on board 2. Herpes Zoster infection * Increase Gabapentin 300mg from 2x/day to 3x/day; monitor GFR * Acyclovir 800mg PO 5x a day started on 01/22/17) for 7 days; monitor BUN/Cr * Prednisone 20mg PO bid (started on 01/22/17) * Econazole 1% top BID to area * Percocet 5/325 1 tab Q4H PRN * Encouraged pt to ask for pain medication as needed 3. Diabetes * Uncontrolled; 01/23/17 A1c 8.1 * holding home glimepiride * ISS medium dose * Accuchecks ACHS * Sugars may be influenced while on prednsione * Mid 100s' sugars 4. HTN (Hypertension) * Monitor Vital signs * carvedilol 6.25mg BID hold SBP<100 and HR<60 * Cozaar 50mg daily Hodl SBP,100 5.Hyperlipidemia * Crestor 2.5mg- home medication is simvastatin 10mg * Lipid panel: TG 106, Chol 145, LDL 79, HDL 34 * Will need recommendation for [place]-3 Fa supplementation and encourage exerperience 6.History of Atrialflutter * continue xarelto 20mg daily * Cont ASA 81mg PO Daily * carvedilol 6.25mg BID hold SBP<100 and HR<60 * Thyroid level normal on admission 7.Prophylaxis * no SCDs due to edema * DVT ppx: Xarelto 20mg PO daily * GI ppx: Protonix 40mg daily
[2017-01-26 06:19] LABS: BASO % 0.2 % (0.0-2.0); HEMATOCRIT 51.6 % (35.0-51.0); LYMPH # 1.5 K/uL (1.0-4.3); LYMPH % 13.8 % (20.0-40.0); MEAN CORPUSCULAR HEMOGLOBIN 29.6 pg (27.0-31.0); MEAN CORPUSCULAR HGB CONC 34.1 g/dL (33.0-37.0); MEAN PLATELET VOLUME 9.1 fL (7.2-11.7); MONO # 0.6 K/uL (0.0-0.8); MONO % 5.4 % (0.0-10.0); NRBC % 0.2 % (0.0-2.0); RED CELL DISTRIBUTION WIDTH 14.4 % (11.5-14.5); WHITE BLOOD COUNT 10.7 K/uL (4.8-10.8)
[2017-01-26 06:32] LABS: CHLORIDE 89 mmol/L (98-107); SODIUM 135 mmol/L (132-148)
[2017-01-26 06:33] LABS: POTASSIUM 4.4 mmol/L (3.6-5.2)
[2017-01-26 06:35] LABS: ALB/GLOB RATIO 0.8 (1.0-2.1); ALKALINE PHOSPHATASE 60 U/L (38-126); ALT/SGPT 29 U/L (21-72); AST/SGOT 25 U/L (17-59); BILIRUBIN,TOTAL 0.9 mg/dL (0.2-1.3); BLOOD UREA NITROGEN 30 mg/dL (9-20); CARBON DIOXIDE 36 mmol/L (22-30); GFR AFRICAN-AMERICAN > 60; GLUCOSE,RANDOM 167 mg/dL (75-110); TOTAL PROTEIN 8.2 g/dL (6.3-8.3)
[2017-01-26] MEDS: (Novolin R) Insulin Human Regular 100 units/ml vial SC SCH ×3 (08:00→18:00)
--- NOTE | 2017-01-26 08:58 | CP.PCM.PN ---
Subjective - Date & Time of Evaluation Date of Evaluation: 01/26/17 Time of Evaluation: 08:30 Objective - Vital Signs/Intake and Output Vital Signs (last 24 hours): Temp Pulse Resp BP Pulse Ox 97.6 F 64 18 139/75 97 01/26/17 08:57 01/26/17 08:57 01/26/17 08:57 01/26/17 08:57 01/26/17 08:57 Intake and Output: 01/26/17 01/26/17 06:59 18:59 Output Total 1300 Balance -1300 - Medications Medications: Current Medications Acyclovir (Zovirax) 800 mg PO 5XD [facility] Last Admin: 01/25/17 19:41 Dose: 800 mg Aspirin (Ecotrin) 81 mg PO DAILY [facility] Last Admin: 01/25/17 10:02 Dose: 81 mg Carvedilol (Coreg) 6.25 mg PO BID [facility] Last Admin: 01/25/17 17:45 Dose: 6.25 mg Econazole Nitrate (Spectazole Cr) 1 gm TOP BID [facility] Last Admin: 01/25/17 17:46 Dose: 1 gm Furosemide (Lasix) 40 mg PO BID [facility] Last Admin: 01/25/17 17:44 Dose: 40 mg Gabapentin (Neurontin) 300 mg PO BID [facility] Last Admin: 01/25/17 17:44 Dose: 300 mg Insulin Human Regular (Novolin R) 0 unit SC ACHS [facility] PRN Reason: Protocol Last Admin: 01/25/17 17:44 Dose: 3 unit Losartan Potassium (Cozaar) 50 mg PO DAILY [facility] Last Admin: 01/25/17 10:01 Dose: 50 mg Oxycodone/Acetaminophen (Percocet 5/325 Mg Tab) 1 tab PO Q4H PRN PRN Reason: Pain, moderate (4-7) Stop: 01/28/17 19:26 Last Admin: 01/25/17 19:39 Dose: 1 tab Pantoprazole Sodium (Protonix Ec Tab) 40 mg PO DAILY [facility] Last Admin: 01/25/17 10:02 Dose: 40 mg Prednisone (Prednisone Tab) 20 mg PO BID [facility] Last Admin: 01/25/17 17:44 Dose: 20 mg Rivaroxaban (Xarelto) 20 mg PO DAILY [facility] Last Admin: 01/25/17 10:02 Dose: 20 mg Rosuvastatin Calcium (Crestor) 2.5 mg PO HS [facility] Last Admin: 01/25/17 22:24 Dose: 2.5 mg Spironolactone (Aldactone) 12.5 mg PO BID [facility] Last Admin: 01/25/17 17:49 Dose: 12.5 mg - Labs Labs: 01/26/17 06:13 01/26/17 06:13
[2017-01-26] MEDS: Oxycodone/Acetaminophen 5/325 mg Tab PO PRN (10:49)
[2017-01-26] MEDS: Pantoprazole 40 mg EC Tab PO SCH (10:50)
[2017-01-26] MEDS: Econazole 1% Cream(15 gm) TOP SCH ×2 (10:56→18:04)
[2017-01-26 15:47] VITALS: PULSE 63; RESP 20; TEMP 98.2; O2SAT 94
[2017-01-26 18:07] VITALS: BP 140/82
--- NOTE | 2017-01-26 20:40 | CP.PCM.DIS ---
Provider - Provider Date of Admission: 01/22/17 17:47 Attending physician: Dr. Maral Gregory Primary care physician: Dr. Medina Consults: Cardio- Dr. Bradford Time Spent in preparation of Discharge (in minutes): 45 Diagnosis - Discharge Diagnosis (1) CHF, acute on chronic Status: Acute Comment: Tolerating PO oxygen. Cont Lasix 40mg PO BID. Cont Aldactone 12.5mg PO BID. Last Echocardiogram (01/24): Technically difficult study showing dilated LA and LV with severe LV hypokinesia. Estimated LVEF about 10%. Right side catheter artifact noted. Tissue doppler imaging revelas moderate left ventricular diastolic dysfunction. CXR in ER shows moderate venous congestion, cardiomegaly and large hiatal hernia (portable CXR). Repea CXR (01/23)- No active disease. Trops neg x 3. Aspirin 81mg PO daily. Coreg 6.25mg PO bid. Cozaar 50mg PO daily. Crestor 2.5mg PO qHS. Cardiology (Dr. Bradford) on board - cleared to go home from Dr. Bradford' standpoint (2) Herpes zoster ophthalmicus Status: Acute Comment: Increase Gabapentin 300mg from 2x/day to 3x/day; monitor GFR. Acyclovir 800mg PO 5x a day, to continue until 01/28/17. Percocet 5/325 1 tab Q4H PRN. Encouraged pt to ask for pain medication as needed Hospital Course - Lab Results Lab Results: Most Recent Lab Values WBC 10.7 K/uL (4.8-10.8) 01/26/17 06:13 RBC 5.93 Mil/uL (4.40-5.90) H 01/26/17 06:13 Hgb 17.6 g/dL (12.0-18.0) 01/26/17 06:13 Hct 51.6 % (35.0-51.0) H 01/26/17 06:13 MCV 87.0 fL (80.0-94.0) 01/26/17 06:13 MCH 29.6 pg (27.0-31.0) 01/26/17 06:13 MCHC 34.1 g/dL (33.0-37.0) 01/26/17 06:13 RDW 14.4 % (11.5-14.5) 01/26/17 06:13 Plt Count 148 K/uL (130-400) 01/26/17 06:13 MPV 9.1 fL (7.2-11.7) 01/26/17 06:13 Neut % (Auto) 80.6 % (50.0-75.0) H 01/26/17 06:13 Lymph % (Auto) 13.8 % (20.0-40.0) L 01/26/17 06:13 [place] % (Auto) 5.4 % (0.0-10.0) 01/26/17 06:13 Eos % (Auto) 0.0 % (0.0-4.0) 01/26/17 06:13 Baso % (Auto) 0.2 % (0.0-2.0) 01/26/17 06:13 Neut # 8.6 K/uL (1.8-7.0) H 01/26/17 06:13 Lymph # 1.5 K/uL (1.0-4.3) 01/26/17 06:13 [place] # 0.6 K/uL (0.0-0.8) 01/26/17 06:13 Eos # 0.0 K/uL (0.0-0.7) 01/26/17 06:13 Baso # 0.0 K/uL (0.0-0.2) 01/26/17 06:13 Neutrophils % (Manual) 80 % (50-75) H 01/23/17 06:09 Band Neutrophils % 9 % (0-2) H 01/23/17 06:09 Lymphocytes % (Manual) 4 % (20-40) L 01/23/17 06:09 Reactive Lymphs % 1 % (0-0) H 01/23/17 06:09 Monocytes % (Manual) 6 % (0-10) 01/23/17 06:09 Platelet Estimate Slightly decreased (NORMAL) L 01/23/17 06:09 Large Platelets Present 01/23/17 06:09 Giant Platelets Present 01/23/17 06:09 RBC Morphology Normal 01/23/17 06:09 Sodium 135 mmol/L (132-148) 01/26/17 06:13 Potassium 4.4 mmol/L (3.6-5.2) 01/26/17 06:13 Chloride 89 mmol/L (98-107) L 01/26/17 06:13 Carbon Dioxide 36 mmol/L (22-30) H 01/26/17 06:13 Anion Gap 14 (10-20) 01/26/17 06:13 BUN 30 mg/dL (9-20) H 01/26/17 06:13 Creatinine 0.9 MG/DL (0.8-1.5) 01/26/17 06:13 Est GFR ( Amer) > 60 01/26/17 06:13 Est GFR (Non-Af Amer) > 60 01/26/17 06:13 POC Glucose (mg/dL) 189 mg/dL (65-110) H 01/26/17 16:43 Random Glucose 167 mg/dL (75-110) H 01/26/17 06:13 Hemoglobin A1c 8.1 % (4.2-6.5) H 01/23/17 06:09 Calcium 8.0 mg/dl (8.6-10.4) L 01/26/17 06:13 Total Bilirubin 0.9 mg/dL (0.2-1.3) 01/26/17 06:13 AST 25 U/L (17-59) 01/26/17 06:13 ALT 29 U/L (21-72) 01/26/17 06:13 Alkaline Phosphatase 60 U/L (38-126) 01/26/17 06:13 Total Creatine Kinase 50 U/L (55-170) L 01/23/17 06:09 CK-MB (Mass) 0.94 ng/mL (0.0-3.38) 01/23/17 06:09 Troponin I 0.0650 ng/mL (0.00-0.120) 01/22/17 15:17 Troponin I, Quant 0.0770 ng/mL (0.00-0.120) 01/23/17 06:09 NT-Pro-B Natriuret Pep 4980 pg/mL (0-900) H 01/22/17 15:17 Total Protein 8.2 g/dL (6.3-8.3) 01/26/17 06:13 Albumin 3.6 g/dL (3.5-5.0) 01/26/17 06:13 Globulin 4.5 gm/dL (2.2-3.9) H 01/26/17 06:13 Albumin/Globulin Ratio 0.8 (1.0-2.1) L 01/26/17 06:13 Triglycerides 106 mg/dL (0-149) D 01/23/17 06:09 Cholesterol 145 mg/dL (0-199) 01/23/17 06:09 LDL Cholesterol Direct 79 mg/dL (0-129) 01/23/17 06:09 HDL Cholesterol 34 mg/dL (30-70) 01/23/17 06:09 TSH 3rd Generation 1.64 mIU/L (0.46-4.68) 01/23/17 06:09 - Hospital Course Hospital Course: As per admission documentation: Patient is a 66 year old male with PMHx of HTN, CHF with AICD placement, CAD, Atrial flutter, diabetes, Hyperlipidemia. Patient presents to the hospital today for worsening SOB over the past 3 or 4 days. Patient says he was diagnosed with herpes infection of his left eye. He started acyclovir and prednisone. Patient saw research and development manager who said to continue medications. Patient says whenever he takes the medications he feels more short of breath and dizzy. Patient denies drinking more water than usual. Patient reports being able to walk 3 blocks now, previously able to walk 10 blocks slowly. Patient always sleeps with many pillows. Patient has chronic, mild chest pain. Patient reports associated cough productive of white phlegm. Patient reports blue lips chronically. Patient denies increased leg swelling. Patient denies fever, chills, abdominal pain, nausea, vomiting, diarrhea, constipation, dysuria. Patient was admitted to the hospital for CHF exacerbation management. ROMIs returned negative x 3. BNP elevated at 4980. CXR showed moderate venous congestion initially, but after management showed no active disease. Patient was continued on treatment for his Herpes Zoster infeciton from prior to admission, acyclovir and prednisone, Percocet and econazole. Patient showed improvement of symptoms and was discharged with instructions to followup with Dr. Bradford in 1 week. Patient is to continue acyclovir for 2 more days. Discharge Exam - Head Exam Head Exam: NORMOCEPHALIC. absent: NORMAL INSPECTION - Eye Exam Eye Exam: EOMI, PERRL Pupil Exam: NORMAL ACCOMODATION, PERRL Additional comments: rash still present around eye and along left side of head - Respiratory Exam Respiratory Exam: Clear to PA & Lateral, NORMAL BREATHING PATTERN, UNREMARKABLE. absent: Rales, Rhonchi, Wheezes - Cardiovascular Exam Cardiovascular Exam: REGULAR RHYTHM, +S1, +S2 - GI/Abdominal Exam GI & Abdominal Exam: Normal Bowel Sounds, Soft, Unremarkable. absent: Distended , Firm, Tenderness - Extremities Exam Extremities exam: normal capillary refill, pedal pulses present - Neurological Exam Neurological exam: Alert, CN II-XII Intact, Oriented x3 - Psychiatric Exam Psychiatric exam: Normal Affect, Normal Mood - Skin Skin Exam: Dry, Intact, Normal Color, Warm Discharge Plan - Discharge Medications Prescriptions: Furosemide [Lasix] 40 mg PO BID #60 tablet Gabapentin [Neurontin] 300 mg PO Q8H #90 cap oxyCODONE/Acetaminophen [Percocet 5/325 mg Tab] 1 tab PO Q4H PRN #12 tab PRN Reason: Pain, Moderate (4-7) Acyclovir [Zovirax] 800 mg PO 5XD #10 tab - Follow Up Plan Condition: FAIR Disposition: HOME/ ROUTINE Additional Instructions: Please discharge patient home, as per Dr. Gregory. Patient is followup with his PMD in 1 week. Patient is to followup with cardiology, Dr. Bradford, as per his instructions, on 02/03/17. Patient is to continue taking meds as instructed. If symptoms worsen, please return to the hospital for further evaluation and treatment. Referrals: Quin Bradford MD [Staff Provider] -
--- NOTE | 2017-01-26 20:52 | PCM.HF ---
Heart Failure Core Measure - Heart Failure Ejection Fraction: Less Than 40 % Left Ventricular Function to be assessed after discharge: Yes JOSELUIS Inhibitor Prescribed: No Contraindication/Reason for not providing: ARB given Beta-Elissa Prescribed: Carvedilol Angiotensin II Receptor Elissa Prescribed: Yes AnticoagulationTherapy for Atrial Fibrillation/Atrialflutter: No Contraindication/Reason for not providing: not present Aldosterone Antagonist Prescribed: Yes Hydralazine Nitrate Prescribed: No Contraindication/Reason for not providing: not indicated Implantable Cardioverter Defibrillator Therapy: Yes Cardiac Resynchronization Therapy Prescribed: No Contraindication/Reason for not providing: not indicated - Follow up Will be discharged to: Home Follow Up Date (must be within 7 days from discharge): 02/03/17 Follow Up Time: 09:00
== END 2017-01-26 21:00 | disposition home or self-care (01) | DRG 292 ==
LOC: C.ER 14:55 → C.9E 17:20 → OBSVTOIN 17:47 → C.6T 18:26
PROVIDERS: ADMIT Internal Medicine; ATTEND Internal Medicine
DX: I11.0 Hypertensive heart disease with heart failure (principal); B02.30 Zoster ocular disease, unspecified; I48.91 Unspecified atrial fibrillation; I42.0 Dilated cardiomyopathy; I50.43 Acute on chronic combined systolic (congestive) and diastolic (congestive) heart failure; Z95.810 Presence of automatic (implantable) cardiac defibrillator; I25.10 Atherosclerotic heart disease of native coronary artery without angina pectoris; E11.65 Type 2 diabetes mellitus with hyperglycemia; E78.5 Hyperlipidemia, unspecified; Z79.01 Long term (current) use of anticoagulants; K44.9 Diaphragmatic hernia without obstruction or gangrene; E78.00 Pure hypercholesterolemia, unspecified; J45.909 Unspecified asthma, uncomplicated; D72.829 Elevated white blood cell count, unspecified; T38.0X5A Adverse effect of glucocorticoids and synthetic analogues, initial encounter; Z90.49 Acquired absence of other specified parts of digestive tract; Z79.4 Long term (current) use of insulin

== ENCOUNTER 2017-04-14 12:07 | Inpatient (IN) | payer OTHER ==
[2017-04-14 12:07] VITALS: BMI 32.1
[2017-04-14 13:42] LABS: BASO # 0.1 K/uL (0.0-0.2); BASO % 0.7 % (0.0-2.0); EOS % 0.3 % (0.0-4.0); HEMATOCRIT 48.8 % (35.0-51.0); LYMPH # 1.7 K/uL (1.0-4.3); LYMPH % 16.7 % (20.0-40.0); MEAN CELL VOLUME 88.3 fL (80.0-94.0); MEAN CORPUSCULAR HEMOGLOBIN 29.2 pg (27.0-31.0); MEAN CORPUSCULAR HGB CONC 33.1 g/dL (33.0-37.0); MEAN PLATELET VOLUME 9.3 fL (7.2-11.7); MONO # 0.9 K/uL (0.0-0.8); MONO % 9.2 % (0.0-10.0); RED CELL DISTRIBUTION WIDTH 15.2 % (11.5-14.5)
[2017-04-14 13:49] LABS: CHLORIDE 94 mmol/L (98-107); SODIUM 136 mmol/L (132-148)
[2017-04-14 13:51] LABS: ALKALINE PHOSPHATASE 72 U/L (38-126); AST/SGOT 30 U/L (17-59); BILIRUBIN,TOTAL 2.1 mg/dL (0.2-1.3); CARBON DIOXIDE 35 mmol/L (22-30); GFR AFRICAN-AMERICAN > 60; INR 1.2
[2017-04-14 13:52] LABS: ALB/GLOB RATIO 0.9 (1.0-2.1); ALT/SGPT 16 U/L (21-72); BLOOD UREA NITROGEN 16 mg/dL (9-20); CALCIUM 8.1 mg/dl (8.6-10.4); GLUCOSE,RANDOM 107 mg/dL (75-110); TOTAL PROTEIN 7.5 g/dL (6.3-8.3)
--- NOTE | 2017-04-14 15:08 | RAD ---
PROCEDURE: CHEST RADIOGRAPH, 1 VIEW HISTORY: SOB COMPARISON: None available. FINDINGS: LUNGS: Linear opacity at left base likely subsegmental atelectasis. No pulmonary infiltrate. PLEURA: Nonspecific elevation of left hemidiaphragm. No pleural effusion or pneumothorax. CARDIOVASCULAR: Normal heart size. Permanent pacemaker. OSSEOUS STRUCTURES: No significant abnormalities. VISUALIZED UPPER ABDOMEN: Normal. OTHER FINDINGS: None. IMPRESSION: Possible subsegmental atelectasis at left lung base. No acute infiltrate. No evidence of pulmonary edema.
[2017-04-14 15:20] LABS: RBC URINE < 1 /hpf (0-3); URINE BILIRUBIN NEGATIVE (NEGATIVE); URINE BLOOD NEGATIVE (NEGATIVE); URINE COLOR Straw (YELLOW); URINE GLUCOSE (UA) NORMAL (Normal); URINE KETONE NEGATIVE (NEGATIVE); URINE LEUKOCYTE ESTERASE NEG Leu/uL (Negative); URINE PROTEIN NEGATIVE (NEGATIVE); URINE UROBILINOGEN NORMAL mg/dL (0.2-1.0); WBC URINE < 1 /hpf (0-5)
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
[2017-04-14] MEDS: Rosuvastatin Calcium 2.5 mg Tab PO SCH (21:59)
[2017-04-14] MEDS: (Novolin R) Insulin Human Regular 100 units/ml vial SC SCH (22:01)
[2017-04-15 07:32] LABS: BASO % 0.5 % (0.0-2.0); EOS % 0.6 % (0.0-4.0); HEMATOCRIT 49.2 % (35.0-51.0); LYMPH # 1.8 K/uL (1.0-4.3); LYMPH % 19.8 % (20.0-40.0); MEAN CORPUSCULAR HEMOGLOBIN 29.5 pg (27.0-31.0); MEAN CORPUSCULAR HGB CONC 33.1 g/dL (33.0-37.0); MEAN PLATELET VOLUME 9.9 fL (7.2-11.7); MONO # 1.1 K/uL (0.0-0.8); MONO % 12.7 % (0.0-10.0); NRBC % 0.1 % (0.0-2.0); RED CELL DISTRIBUTION WIDTH 15.3 % (11.5-14.5)
[2017-04-15] MEDS: (Novolin R) Insulin Human Regular 100 units/ml vial SC SCH ×4 (07:54→22:08)
[2017-04-15 08:00] LABS: CHLORIDE 92 mmol/L (98-107)
[2017-04-15 08:01] LABS: POTASSIUM 3.8 mmol/L (3.6-5.2); SODIUM 137 mmol/L (132-148)
[2017-04-15 08:02] LABS: CHOLESTEROL 165 mg/dL (0-199)
[2017-04-15 08:03] LABS: ALB/GLOB RATIO 0.9 (1.0-2.1); ALKALINE PHOSPHATASE 74 U/L (38-126); ALT/SGPT 17 U/L (21-72); AST/SGOT 25 U/L (17-59); BILIRUBIN,TOTAL 1.7 mg/dL (0.2-1.3); BLOOD UREA NITROGEN 21 mg/dL (9-20); CARBON DIOXIDE 39 mmol/L (22-30); GFR AFRICAN-AMERICAN > 60; GLUCOSE,RANDOM 126 mg/dL (75-110); TOTAL PROTEIN 7.6 g/dL (6.3-8.3)
[2017-04-15 08:04] LABS: MAGNESIUM 2.2 mg/dL (1.6-2.3); PHOSPHOROUS 4.1 mg/dL (2.5-4.5)
[2017-04-15 08:25] LABS: THYROID STIMULATING HORMONE 2.92 mIU/L (0.46-4.68)
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
--- NOTE | 2017-04-15 11:48 | CARD ---
APPROVED REPORT EKG Measurement Heart [id number] <Conclusion> Atrial-sensed ventricular-paced rhythm with prolonged AV conduction Abnormal ECG
--- NOTE | 2017-04-15 11:56 | CARD ---
APPROVED REPORT EKG Measurement Heart [id number] <Conclusion> Ventricular-paced rhythm Abnormal ECG
--- NOTE | 2017-04-15 15:16 | CP.PCM.PN ---
<ReinaldoJane - Last Filed: 04/15/17 15:12> Subjective - Date & Time of Evaluation Date of Evaluation: 04/15/17 Time of Evaluation: 07:20 - Subjective Subjective: Patient seen and examined at bedside. Pt reports he can usually walk 3 blocks before becoming SOB but now has difficulty walking due to pain in the left foot. He is severely tender to touch on the left foot. Pt reports associated orthopnea, needing several pillows, cough productive of white phlegm, and dizziness (room spinning). Pt denies fever, chills, chest pain, SOB, palpitations, SOB. Objective - Vital Signs/Intake and Output Vital Signs (last 24 hours): Temp Pulse Resp BP Pulse Ox 97.8 F 75 20 106/59 L 97 04/15/17 07:25 04/15/17 12:30 04/15/17 07:25 04/15/17 09:48 04/15/17 11:42 Intake and Output: 04/15/17 04/15/17 06:59 18:59 Intake Total 420 Output Total 1450 Balance -1030 - Medications Medications: Current Medications Aspirin (Ecotrin) 81 mg PO DAILY [facility] Last Admin: 04/15/17 09:50 Dose: 81 mg Carvedilol (Coreg) 6.25 mg PO BID [facility] Last Admin: 04/15/17 09:51 Dose: 6.25 mg Famotidine (Pepcid) 20 mg PO BID [facility] Last Admin: 04/15/17 09:51 Dose: 20 mg Furosemide (Lasix) 40 mg IVP BID [facility] Last Admin: 04/15/17 09:48 Dose: 40 mg Gabapentin (Neurontin) 300 mg PO Q8H [facility] Last Admin: 04/15/17 09:51 Dose: 300 mg Glimepiride (Amaryl) 2 mg PO DAILY [facility] Last Admin: 04/15/17 09:51 Dose: 2 mg Vancomycin HCl 1 gm/ Sodium (Chloride) 250 mls @ 166.7 mls/hr IVPB Q24H [facility] Last Admin: 04/15/17 14:15 Dose: 166.7 mls/hr Insulin Human Regular (Novolin R) 0 unit SC ACHS [facility] PRN Reason: Protocol Last Admin: 04/15/17 12:41 Dose: 2 unit Losartan Potassium (Cozaar) 50 mg PO DAILY [facility] Last Admin: 04/15/17 09:51 Dose: 50 mg Rivaroxaban (Xarelto) 20 mg PO DAILY [facility] Last Admin: 04/15/17 09:50 Dose: 20 mg Rosuvastatin Calcium (Crestor) 2.5 mg PO HS [facility] Last Admin: 04/14/17 21:59 Dose: 2.5 mg Spironolactone (Aldactone) 12.5 mg PO BID [facility] Last Admin: 04/15/17 09:50 Dose: 12.5 mg Tramadol HCl (Ultram) 50 mg PO Q8H PRN PRN Reason: Pain, moderate (4-7) Last Admin: 04/15/17 09:48 Dose: 50 mg - Labs Labs: 04/15/17 07:15 04/15/17 07:15 PT 13.3 SECONDS (9.7-12.2) H 04/14/17 13:29 INR 1.2 04/14/17 13:29 APTT 34 SECONDS (21-34) 04/14/17 13:29 - Constitutional Appears: Non-toxic, No Acute Distress - Head Exam Head Exam: ATRAUMATIC, NORMAL INSPECTION - Eye Exam Eye Exam: EOMI - ENT Exam ENT Exam: Mucous Membranes Moist - Respiratory Exam Respiratory Exam: Clear to Ausculation Bilateral, NORMAL BREATHING PATTERN. absent: Rales - Cardiovascular Exam Cardiovascular Exam: Irregular Rhythm, REGULAR RHYTHM, +S1, +S2 - GI/Abdominal Exam GI & Abdominal Exam: Soft, Normal Bowel Sounds. absent: Distended, Firm, Guarding, Tenderness - Extremities Exam Additional comments: Change in Pigmentation, Dry Skin. Left leg warm to touch, good pulses, sensation in tact, very tender to touch. - Back Exam Back Exam: NORMAL INSPECTION. absent: CVA tenderness (L), CVA tenderness (R), paraspinal tenderness - Neurological Exam Neurological Exam: Alert, Awake, Oriented x3 - Psychiatric Exam Psychiatric exam: Normal Affect, Normal Mood - Skin Skin Exam: Dry, Intact, Normal Color, Warm Assessment and Plan - Assessment and Plan (Free Text) Assessment: 67 year old male, with PMHx of HTN, CHF with AICD placement, CAD, Atrial flutter, diabetes, Hyperlipidemia, presenting with SOB, leg edema, productive cough with white phlegm x 3 days. Plan: LLE edema Left > Right, Chronic venous changes noted Discolored yellow due to "salt use" US VDL LLE (04.14.17): negative for DVT D-dimer 234 Added Vanc 1gm IVPB daily Podiatry consulted, Dr. Pina help appreciated f/u venous and arterial dopplers CHF exacerbation Admit to tele - Daily weights - fluid restriction 1L - monitor I/Os - Head of bed at 45 degrees - BNP 924 (previous admissions: 12,500, 10,700, 5000, 3760 on last visit) - CXR (04/14/17): atelectasis left lower base. No infiltrate. No pulmonary edema ( see full report) - Trops negative x1, f/u Q6H x 2 - D-dimer 234 - EKG: Rate 80 bpm, ventricularly paced, No acute ST/T wave changes; f/u Q6h x 2 - Cont Aldactone 12.5mg PO BID - Cont Lasix 40mg PO BID - continue home carvedilol 6.25mg BID - continue home cozaar 50mg daily - Last Echocardiogram (01/24): Technically difficult study showing dilated LA and LV with severe LV hypokinesia. Estimated LVEF about 10%. Right side catheter artifact noted. Tissue doppler imaging reveals moderate left ventricular diastolic dysfunction. - Cardiology, Dr. Bradford consulted, help appreciated - f.u reccs Type two Diabetes Mellitus - A1C 7.0 - glimepiride 2mg PO daily - ISS medium - Accuchecks ACHS HTN (Hypertension) - well controlled in ED - continue home carvedilol 6.25mg BID - continue home cozaar 50mg daily - start Lasix 40mng IV BID HLD - Crestor 2.5mg- home medication is simvastatin 10mg History of A.flutter - continue xarelto 20mg daily per clinic documentation - Cont ASA 81mg PO Daily - TSH wnl Prophylaxis - SCDs contraindicated due to edema - Xarelto 20 mg PO Daily - Pepcid 20mg BID <Navin Dorsey - Last Filed: 04/15/17 15:41> Objective - Vital Signs/Intake and Output Vital Signs (last 24 hours): Temp Pulse Resp BP Pulse Ox 97.8 F 75 20 106/59 L 97 04/15/17 07:25 04/15/17 12:30 04/15/17 07:25 04/15/17 09:48 04/15/17 11:42 Intake and Output: 04/15/17 04/15/17 06:59 18:59 Intake Total 420 Output Total 1450 Balance -1030 - Medications Medications: Current Medications Aspirin (Ecotrin) 81 mg PO DAILY [facility] Last Admin: 04/15/17 09:50 Dose: 81 mg Carvedilol (Coreg) 6.25 mg PO BID [facility] Last Admin: 04/15/17 09:51 Dose: 6.25 mg Famotidine (Pepcid) 20 mg PO BID [facility] Last Admin: 04/15/17 09:51 Dose: 20 mg Furosemide (Lasix) 40 mg IVP BID [facility] Last Admin: 04/15/17 09:48 Dose: 40 mg Gabapentin (Neurontin) 300 mg PO Q8H [facility] Last Admin: 04/15/17 09:51 Dose: 300 mg Glimepiride (Amaryl) 2 mg PO DAILY [facility] Last Admin: 04/15/17 09:51 Dose: 2 mg Vancomycin HCl 1 gm/ Sodium (Chloride) 250 mls @ 166.7 mls/hr IVPB Q24H [facility] Last Admin: 04/15/17 14:15 Dose: 166.7 mls/hr Insulin Human Regular (Novolin R) 0 unit SC ACHS [facility] PRN Reason: Protocol Last Admin: 04/15/17 12:41 Dose: 2 unit Losartan Potassium (Cozaar) 50 mg PO DAILY [facility] Last Admin: 04/15/17 09:51 Dose: 50 mg Rivaroxaban (Xarelto) 20 mg PO DAILY [facility] Last Admin: 04/15/17 09:50 Dose: 20 mg Rosuvastatin Calcium (Crestor) 2.5 mg PO HS [facility] Last Admin: 04/14/17 21:59 Dose: 2.5 mg Spironolactone (Aldactone) 12.5 mg PO BID [facility] Last Admin: 04/15/17 09:50 Dose: 12.5 mg Tramadol HCl (Ultram) 50 mg PO Q8H PRN PRN Reason: Pain, moderate (4-7) Last Admin: 04/15/17 09:48 Dose: 50 mg - Labs Labs: 04/15/17 07:15 04/15/17 07:15 PT 13.3 SECONDS (9.7-12.2) H 04/14/17 13:29 INR 1.2 04/14/17 13:29 APTT 34 SECONDS (21-34) 04/14/17 13:29 Attending/Attestation - Attestation I have personally seen and examined this patient.: Yes I have fully participated in the care of the patient.: Yes I have reviewed all pertinent clinical information, including history, physical exam and plan: Yes Notes (Text): 04/15/17 15:33 Patient seen and examined at bedside with the resident Complains of for swelling of the lower extremities and pain in the left foot We will request podiatry consult extremity and start vancomycin for possible cellulitis Further workup or imaging studies as per podiatry Cardiology evaluation seen in appreciated. I discussed the plan of care with the resident I agree with the above history and physical and assessment/plan by the resident.
--- NOTE | 2017-04-15 16:15 | VASCLAB ---
PROCEDURE: Left Lower Extremity Venous Duplex Exam. HISTORY: L>R swell/tender PRIORS: None. TECHNIQUE: Left common femoral, femoral, popliteal and posterior tibial, peroneal and great saphenous veins were evaluated. Flow was assessed with color Doppler, compressibility, assessment of phasic flow and augmentation response. Report prepared by VEENA Ryder, RVT.. FINDINGS: LEFT: 1. Common Femoral Vein: 1.1. Compressibility - Fully compressible: Thrombus - None : Flow - Phasic: Augmentation -Normal: Reflux - None. 2. Femoral Vein: 2.1. Compressibility - Fully compressible: Thrombus - None: Flow - Phasic: Augmentation -Normal: Reflux - None. 3. Popliteal Vein: 3.1. Compressibility - Fully compressible: Thrombus - None: Flow - Phasic: Augmentation -Normal: Reflux - None. 4. Posterior Tibial Vein: 4.1. Compressibility - Fully compressible: Thrombus - None: Flow - Phasic: Augmentation -Normal: Reflux - None. 5. Peroneal Vein: 5.1. Compressibility - Fully compressible: Thrombus - None: Flow - Phasic: Augmentation -Normal: Reflux - None. 6. Great Saphenous Vein: 6.1. Compressibility - Fully compressible: Thrombus - None: Flow - Phasic: Augmentation - Normal: Reflux - None. OTHER FINDINGS: IMPRESSION: No evidence of deep or superficial vein thrombosis of the left lower extremity with excellent venous flow. Normal valve function noted of the left side. Normal venous flow noted in the right common femoral vein.
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
[2017-04-15] MEDS: Lidocaine 5% Patch TD SCH (19:12)
[2017-04-15] MEDS: Rosuvastatin Calcium 2.5 mg Tab PO SCH (21:19)
[2017-04-16 07:20] LABS: BASO % 0.4 % (0.0-2.0); EOS # 0.1 K/uL (0.0-0.7); EOS % 1.2 % (0.0-4.0); HEMATOCRIT 46.6 % (35.0-51.0); LYMPH # 1.9 K/uL (1.0-4.3); LYMPH % 23.7 % (20.0-40.0); MEAN CELL VOLUME 89.1 fL (80.0-94.0); MEAN CORPUSCULAR HEMOGLOBIN 29.7 pg (27.0-31.0); MEAN CORPUSCULAR HGB CONC 33.3 g/dL (33.0-37.0); MEAN PLATELET VOLUME 9.7 fL (7.2-11.7); MONO # 0.9 K/uL (0.0-0.8); MONO % 11.6 % (0.0-10.0); NRBC % 0.1 % (0.0-2.0); RED CELL DISTRIBUTION WIDTH 15.2 % (11.5-14.5); WHITE BLOOD COUNT 8.1 K/uL (4.8-10.8)
[2017-04-16] MEDS: (Novolin R) Insulin Human Regular 100 units/ml vial SC SCH ×4 (07:28→22:00)
[2017-04-16 07:48] LABS: CHLORIDE 91 mmol/L (98-107)
[2017-04-16 07:49] LABS: POTASSIUM 3.9 mmol/L (3.6-5.2); SODIUM 133 mmol/L (132-148)
[2017-04-16 07:51] LABS: ALB/GLOB RATIO 0.9 (1.0-2.1); ALKALINE PHOSPHATASE 71 U/L (38-126); ALT/SGPT 12 U/L (21-72); AST/SGOT 29 U/L (17-59); BILIRUBIN,TOTAL 1.2 mg/dL (0.2-1.3); BLOOD UREA NITROGEN 30 mg/dL (9-20); CARBON DIOXIDE 33 mmol/L (22-30); GFR AFRICAN-AMERICAN > 60; GLUCOSE,RANDOM 121 mg/dL (75-110); TOTAL PROTEIN 7.6 g/dL (6.3-8.3); URIC ACID 11.3 mg/dL (3.5-8.5)
[2017-04-16 07:52] LABS: CALCIUM 7.9 mg/dl (8.6-10.4); MAGNESIUM 2.1 mg/dL (1.6-2.3); PHOSPHOROUS 4.1 mg/dL (2.5-4.5)
--- NOTE | 2017-04-16 09:34 | RAD ---
PROCEDURE: Left Foot Radiographs. HISTORY: left foot pain COMPARISON: None. FINDINGS: BONES: There is no acute fracture or bone destruction. Bone alignment is normal. Diffuse bone demineralization. JOINTS: There is mild degenerative osteoarthrosis in the 1st MTP joint. The remaining joint spaces are preserved. SOFT TISSUES: There is mild dorsal soft tissue swelling. OTHER FINDINGS: There are atherosclerotic vascular calcifications. IMPRESSION: No acute fracture or dislocation. Mild dorsal soft tissue swelling.
--- NOTE | 2017-04-16 13:43 | CP.PCM.PN ---
<ReinaldoJane - Last Filed: 04/16/17 13:41> Subjective - Date & Time of Evaluation Date of Evaluation: 04/16/17 Time of Evaluation: 07:30 - Subjective Subjective: Patient seen and examined at bedside. He reports that the pain in his L foot has improved but only by a small amount. He is able to bear weight on the extremity. He states the lidocaine patch that was applied yesterday is helping the pain. He also reports that he is dizzy. Per nursing overnight his sbp was low. His BP meds were held this morning. Pt reports associated orthopnea, needing several pillows, cough productive of white phlegm, and dizziness (room spinning). Pt denies fever, chills, chest pain, SOB, palpitations, SOB. Objective - Vital Signs/Intake and Output Vital Signs (last 24 hours): Temp Pulse Resp BP Pulse Ox 98.0 F 72 18 104/52 L 99 04/16/17 07:10 04/16/17 08:54 04/16/17 07:10 04/16/17 09:13 04/16/17 07:10 Intake and Output: 04/16/17 04/16/17 06:59 18:59 Intake Total 390 Output Total 600 Balance -210 - Medications Medications: Current Medications Aspirin (Ecotrin) 81 mg PO DAILY [facility] Last Admin: 04/16/17 09:08 Dose: 81 mg Carvedilol (Coreg) 6.25 mg PO BID [facility] Last Admin: 04/15/17 17:42 Dose: 6.25 mg Famotidine (Pepcid) 20 mg PO BID [facility] Last Admin: 04/16/17 09:09 Dose: 20 mg Furosemide (Lasix) 20 mg IVP BID [facility] Gabapentin (Neurontin) 300 mg PO Q8H [facility] Last Admin: 04/16/17 09:08 Dose: 300 mg Glimepiride (Amaryl) 2 mg PO DAILY [facility] Last Admin: 04/16/17 09:08 Dose: 2 mg Vancomycin HCl 1 gm/ Sodium (Chloride) 250 mls @ 166.7 mls/hr IVPB Q24H [facility] Last Admin: 04/15/17 14:15 Dose: 166.7 mls/hr Insulin Human Regular (Novolin R) 0 unit SC ACHS [facility] PRN Reason: Protocol Last Admin: 04/16/17 07:28 Dose: Not Given Lidocaine (Lidoderm) 1 ea TD DAILY [facility] Last Admin: 04/15/17 19:12 Dose: 1 ea Losartan Potassium (Cozaar) 50 mg PO DAILY [facility] Last Admin: 04/15/17 09:51 Dose: 50 mg Rivaroxaban (Xarelto) 20 mg PO DAILY [facility] Last Admin: 04/16/17 09:08 Dose: 20 mg Rosuvastatin Calcium (Crestor) 2.5 mg PO HS [facility] Last Admin: 04/15/17 21:19 Dose: 2.5 mg Spironolactone (Aldactone) 12.5 mg PO BID [facility] Last Admin: 04/16/17 09:14 Dose: 12.5 mg Tramadol HCl (Ultram) 50 mg PO Q8H PRN PRN Reason: Pain, moderate (4-7) Last Admin: 04/15/17 09:48 Dose: 50 mg - Labs Labs: 04/16/17 07:06 04/16/17 07:06 PT 13.3 SECONDS (9.7-12.2) H 04/14/17 13:29 INR 1.2 04/14/17 13:29 APTT 34 SECONDS (21-34) 04/14/17 13:29 - Constitutional Appears: Non-toxic, No Acute Distress, Chronically Ill - Head Exam Head Exam: ATRAUMATIC, NORMAL INSPECTION - Eye Exam Eye Exam: EOMI, Normal appearance, PERRL Pupil Exam: NORMAL ACCOMODATION - ENT Exam ENT Exam: Mucous Membranes Moist - Respiratory Exam Respiratory Exam: Clear to Ausculation Bilateral, NORMAL BREATHING PATTERN. absent: Accessory Muscle Use, Rales, Wheezes, Respiratory Distress - Cardiovascular Exam Cardiovascular Exam: REGULAR RHYTHM, +S1, +S2 - GI/Abdominal Exam GI & Abdominal Exam: Soft, Normal Bowel Sounds. absent: Distended, Firm, Guarding, Tenderness - Extremities Exam Extremities Exam: Pedal Edema, Tenderness Additional comments: Chronic venous stasis changes to lower extremities b/l. Pain on palpation of left lower ankle area. + pulses, ROM intact, sensation intact, decreased erythema and edema compared to yesterday. - Back Exam Back Exam: NORMAL INSPECTION. absent: CVA tenderness (L), CVA tenderness (R), paraspinal tenderness - Neurological Exam Neurological Exam: Alert, Awake, Oriented x3 - Psychiatric Exam Psychiatric exam: Normal Affect, Normal Mood - Skin Skin Exam: Dry, Normal Color, Warm Assessment and Plan - Assessment and Plan (Free Text) Assessment: Assessment: 67 year old male, with PMHx of HTN, CHF with AICD placement, CAD, Atrial flutter, diabetes, Hyperlipidemia, presenting with SOB, leg edema, productive cough with white phlegm x 3 days. Plan: LLE edema Left > Right, Chronic venous changes noted Discolored yellow due to "salt use" D-dimer 234 Added Vanc 1gm IVPB daily (started 04/16) Podiatry consulted, Dr. Pina help appreciated Venous dopplers negative X ray negative f/u arterial dopplers Uric acid 11 CHF exacerbation Admit to tele - Daily weights - fluid restriction 1L - monitor I/Os - Head of bed at 45 degrees - BNP 924 (previous admissions: 12,500, 10,700, 5000, 3760 on last visit) - CXR (04/14/17): atelectasis left lower base. No infiltrate. No pulmonary edema ( see full report) - Trops negative x1, f/u Q6H x 2 - D-dimer 234 - EKG: Rate 80 bpm, ventricularly paced, No acute ST/T wave changes; f/u Q6h x 2 - Cont Aldactone 12.5mg PO BID - Cont Lasix 20mg PO IVPB - decreased dose today per lower Bp readings - continue home carvedilol 6.25mg BID - continue home cozaar 50mg daily - Last Echocardiogram (01/24): Technically difficult study showing dilated LA and LV with severe LV hypokinesia. Estimated LVEF about 10%. Right side catheter artifact noted. Tissue doppler imaging reveals moderate left ventricular diastolic dysfunction. - Cardiology, Dr. Bradford consulted, help appreciated - cleared per cardiology Type two Diabetes Mellitus - A1C 7.0 - glimepiride 2mg PO daily - ISS medium - Accuchecks ACHS HTN (Hypertension) - Low sbp overnight alternating with normal Bp readings , will decrease Lasix dose - continue home carvedilol 6.25mg BID - continue home cozaar 50mg daily - start Lasix 20 IV BID - HOLD BP meds for SBP <100 HLD - Crestor 2.5mg- home medication is simvastatin 10mg History of A.flutter - continue xarelto 20mg daily per clinic documentation - Cont ASA 81mg PO Daily - TSH wnl Prophylaxis - SCDs contraindicated due to edema - Xarelto 20 mg PO Daily - Pepcid 20mg BID <SunitaKyleighnita Garber - Last Filed: 04/16/17 14:15> Objective - Vital Signs/Intake and Output Vital Signs (last 24 hours): Temp Pulse Resp BP Pulse Ox 98.0 F 72 18 104/52 L 99 04/16/17 07:10 04/16/17 08:54 04/16/17 07:10 04/16/17 09:13 04/16/17 07:10 Intake and Output: 04/16/17 04/16/17 06:59 18:59 Intake Total 390 Output Total 600 Balance -210 - Medications Medications: Current Medications Aspirin (Ecotrin) 81 mg PO DAILY [facility] Last Admin: 04/16/17 09:08 Dose: 81 mg Carvedilol (Coreg) 6.25 mg PO BID [facility] Last Admin: 04/16/17 13:50 Dose: Not Given Famotidine (Pepcid) 20 mg PO BID [facility] Last Admin: 04/16/17 09:09 Dose: 20 mg Furosemide (Lasix) 20 mg IVP BID [facility] Gabapentin (Neurontin) 300 mg PO Q8H [facility] Last Admin: 04/16/17 09:08 Dose: 300 mg Glimepiride (Amaryl) 2 mg PO DAILY [facility] Last Admin: 04/16/17 09:08 Dose: 2 mg Vancomycin HCl 1 gm/ Sodium (Chloride) 250 mls @ 166.7 mls/hr IVPB Q24H [facility] Last Admin: 04/15/17 14:15 Dose: 166.7 mls/hr Insulin Human Regular (Novolin R) 0 unit SC ACHS [facility] PRN Reason: Protocol Last Admin: 04/16/17 13:50 Dose: Not Given Lidocaine (Lidoderm) 1 ea TD DAILY [facility] Last Admin: 04/15/17 19:12 Dose: 1 ea Losartan Potassium (Cozaar) 50 mg PO DAILY [facility] Last Admin: 04/16/17 13:50 Dose: Not Given Rivaroxaban (Xarelto) 20 mg PO DAILY [facility] Last Admin: 04/16/17 09:08 Dose: 20 mg Rosuvastatin Calcium (Crestor) 2.5 mg PO HS [facility] Last Admin: 04/15/17 21:19 Dose: 2.5 mg Spironolactone (Aldactone) 12.5 mg PO BID [facility] Last Admin: 04/16/17 09:14 Dose: 12.5 mg Tramadol HCl (Ultram) 50 mg PO Q8H PRN PRN Reason: Pain, moderate (4-7) Last Admin: 04/15/17 09:48 Dose: 50 mg - Labs Labs: 04/16/17 07:06 04/16/17 07:06 PT 13.3 SECONDS (9.7-12.2) H 04/14/17 13:29 INR 1.2 04/14/17 13:29 APTT 34 SECONDS (21-34) 04/14/17 13:29 Attending/Attestation - Attestation I have personally seen and examined this patient.: Yes I have fully participated in the care of the patient.: Yes I have reviewed all pertinent clinical information, including history, physical exam and plan: Yes Notes (Text): 04/16/17 14:14 Patient was seen and examined at bedside with the resident. Denies any shortness of breath but complains of for pain in the left leg. Pain has improved to slightly since yesterday. We will continue antibiotics Patient is evaluated by podiatry and will follow-up recommendations I discussed the plan of care with the resident and agree with the above history and physical and assessment/plan by the resident.
--- NOTE | 2017-04-16 16:54 | CP.PCM.PN ---
Subjective - Date & Time of Evaluation Date of Evaluation: 04/16/17 Time of Evaluation: 16:52 - Subjective Subjective: Pt seen and examined at bedside. Pt with no acute events overnight. Pt resting comfortably with no acute issues. Pt states SOB is much improved along with his foot pain. Denies CP, N/V/D, fevers, chills, headaches. Objective - Vital Signs/Intake and Output Vital Signs (last 24 hours): Temp Pulse Resp BP Pulse Ox 98.1 F 75 20 117/65 94 L 04/16/17 15:13 04/16/17 15:13 04/16/17 15:13 04/16/17 15:13 04/16/17 15:13 Intake and Output: 04/16/17 04/16/17 06:59 18:59 Intake Total 390 Output Total 600 Balance -210 - Medications Medications: Current Medications Aspirin (Ecotrin) 81 mg PO DAILY [facility] Last Admin: 04/16/17 09:08 Dose: 81 mg Carvedilol (Coreg) 6.25 mg PO BID [facility] Last Admin: 04/16/17 13:50 Dose: Not Given Famotidine (Pepcid) 20 mg PO BID [facility] Last Admin: 04/16/17 09:09 Dose: 20 mg Furosemide (Lasix) 20 mg IVP BID [facility] Gabapentin (Neurontin) 300 mg PO Q8H [facility] Last Admin: 04/16/17 09:08 Dose: 300 mg Glimepiride (Amaryl) 2 mg PO DAILY [facility] Last Admin: 04/16/17 09:08 Dose: 2 mg Vancomycin HCl 1 gm/ Sodium (Chloride) 250 mls @ 166.7 mls/hr IVPB Q24H [facility] Last Admin: 04/15/17 14:15 Dose: 166.7 mls/hr Insulin Human Regular (Novolin R) 0 unit SC ACHS [facility] PRN Reason: Protocol Last Admin: 04/16/17 13:50 Dose: Not Given Lidocaine (Lidoderm) 1 ea TD DAILY [facility] Last Admin: 04/15/17 19:12 Dose: 1 ea Losartan Potassium (Cozaar) 50 mg PO DAILY [facility] Last Admin: 04/16/17 13:50 Dose: Not Given Rivaroxaban (Xarelto) 20 mg PO DAILY [facility] Last Admin: 04/16/17 09:08 Dose: 20 mg Rosuvastatin Calcium (Crestor) 2.5 mg PO HS [facility] Last Admin: 04/15/17 21:19 Dose: 2.5 mg Spironolactone (Aldactone) 12.5 mg PO BID [facility] Last Admin: 04/16/17 09:14 Dose: 12.5 mg Tramadol HCl (Ultram) 50 mg PO Q8H PRN PRN Reason: Pain, moderate (4-7) Last Admin: 04/15/17 09:48 Dose: 50 mg - Labs Labs: 04/16/17 07:06 04/16/17 07:06 PT 13.3 SECONDS (9.7-12.2) H 04/14/17 13:29 INR 1.2 04/14/17 13:29 APTT 34 SECONDS (21-34) 04/14/17 13:29 - Constitutional Appears: Well, No Acute Distress - Head Exam Head Exam: ATRAUMATIC, NORMAL INSPECTION, NORMOCEPHALIC - ENT Exam ENT Exam: Mucous Membranes Moist - Respiratory Exam Respiratory Exam: Clear to Ausculation Bilateral, NORMAL BREATHING PATTERN. absent: Rales, Rhonchi - Cardiovascular Exam Cardiovascular Exam: RRR, +S1, +S2 - GI/Abdominal Exam GI & Abdominal Exam: Soft, Normal Bowel Sounds. absent: Tenderness - Extremities Exam Extremities Exam: Pedal Edema Additional comments: +1 edema b/l, chronic venous stasis skin changes b/l - Neurological Exam Neurological Exam: Alert, Awake, Oriented x3 - Psychiatric Exam Psychiatric exam: Normal Affect, Normal Mood - Skin Skin Exam: Intact, Warm Assessment and Plan (1) CHF exacerbation Assessment & Plan: Improvement in symptoms Continue current medical management Pt will follow up as an outpt Status: Acute (2) Cellulitis Assessment & Plan: Continue care as per medical team Status: Acute
[2017-04-16] MEDS: Rosuvastatin Calcium 2.5 mg Tab PO SCH (22:32)
[2017-04-17 06:40] LABS: BASO % 0.6 % (0.0-2.0); EOS # 0.1 K/uL (0.0-0.7); EOS % 1.4 % (0.0-4.0); HEMATOCRIT 45.5 % (35.0-51.0); LYMPH # 1.9 K/uL (1.0-4.3); LYMPH % 23.6 % (20.0-40.0); MEAN CELL VOLUME 88.5 fL (80.0-94.0); MEAN CORPUSCULAR HGB CONC 32.8 g/dL (33.0-37.0); MEAN PLATELET VOLUME 9.6 fL (7.2-11.7); MONO % 12.7 % (0.0-10.0); RED CELL DISTRIBUTION WIDTH 15.2 % (11.5-14.5); WHITE BLOOD COUNT 7.9 K/uL (4.8-10.8)
[2017-04-17 07:04] LABS: CHLORIDE 93 mmol/L (98-107); SODIUM 135 mmol/L (132-148)
[2017-04-17 07:05] LABS: POTASSIUM 3.8 mmol/L (3.6-5.2)
[2017-04-17 07:07] LABS: ALKALINE PHOSPHATASE 79 U/L (38-126); ALT/SGPT 15 U/L (21-72); AST/SGOT 24 U/L (17-59); BILIRUBIN,TOTAL 0.8 mg/dL (0.2-1.3); BLOOD UREA NITROGEN 30 mg/dL (9-20); CARBON DIOXIDE 34 mmol/L (22-30); GFR AFRICAN-AMERICAN > 60; GLUCOSE,RANDOM 114 mg/dL (75-110); PHOSPHOROUS 3.3 mg/dL (2.5-4.5); TOTAL PROTEIN 7.1 g/dL (6.3-8.3)
[2017-04-17 07:08] LABS: CALCIUM 8.1 mg/dl (8.6-10.4); MAGNESIUM 2.1 mg/dL (1.6-2.3)
[2017-04-17] MEDS ORDERED: Sodium Chloride 0.9% 500 ML IV ONE (07:30)
[2017-04-17] MEDS ORDERED: Sodium Chloride 0.9% 250 ML IV ONE (07:45)
[2017-04-17] MEDS: (Novolin R) Insulin Human Regular 100 units/ml vial SC SCH ×4 (08:14→23:00)
--- NOTE | 2017-04-17 10:01 | CP.PCM.PN ---
Subjective - Date & Time of Evaluation Date of Evaluation: 04/17/17 Time of Evaluation: 09:58 - Subjective Subjective: Progress Note for Dr. Bradford Pt seen and examined at bedside. 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 Pt was given NS 250 cc bolus. He improved with only mild residual dizziness. Before this episode, pt states he felt well with no issues. Denies CP, SOB, N/V/D. Objective - Vital Signs/Intake and Output Vital Signs (last 24 hours): Temp Pulse Resp BP Pulse Ox 98.2 F 70 20 149/78 99 04/17/17 07:25 04/17/17 07:25 04/17/17 07:25 04/17/17 07:50 04/17/17 07:25 Intake and Output: 04/17/17 04/17/17 06:59 18:59 Intake Total 640 Output Total 1300 Balance -660 - Medications Medications: Current Medications Aspirin (Ecotrin) 81 mg PO DAILY [facility] Last Admin: 04/16/17 09:08 Dose: 81 mg Carvedilol (Coreg) 6.25 mg PO BID [facility] Last Admin: 04/16/17 18:50 Dose: 6.25 mg Famotidine (Pepcid) 20 mg PO BID [facility] Last Admin: 04/16/17 18:50 Dose: 20 mg Gabapentin (Neurontin) 300 mg PO Q8H [facility] Last Admin: 04/17/17 01:30 Dose: 300 mg Glimepiride (Amaryl) 2 mg PO DAILY [facility] Last Admin: 04/16/17 09:08 Dose: 2 mg Vancomycin HCl 1 gm/ Sodium (Chloride) 250 mls @ 166.7 mls/hr IVPB Q24H [facility] Last Admin: 04/15/17 14:15 Dose: 166.7 mls/hr Insulin Human Regular (Novolin R) 0 unit SC ACHS [facility] PRN Reason: Protocol Last Admin: 04/17/17 08:14 Dose: Not Given Lidocaine (Lidoderm) 1 ea TD DAILY [facility] Last Admin: 04/15/17 19:12 Dose: 1 ea Losartan Potassium (Cozaar) 50 mg PO DAILY [facility] Last Admin: 04/16/17 13:50 Dose: Not Given Rivaroxaban (Xarelto) 20 mg PO DAILY [facility] Last Admin: 04/16/17 09:08 Dose: 20 mg Rosuvastatin Calcium (Crestor) 2.5 mg PO HS [facility] Last Admin: 04/16/17 22:32 Dose: 2.5 mg Spironolactone (Aldactone) 12.5 mg PO BID [facility] Last Admin: 04/16/17 18:50 Dose: 12.5 mg Tramadol HCl (Ultram) 50 mg PO Q8H PRN PRN Reason: Pain, moderate (4-7) Last Admin: 04/15/17 09:48 Dose: 50 mg - Labs Labs: 04/17/17 06:26 04/17/17 06:26 PT 13.3 SECONDS (9.7-12.2) H 04/14/17 13:29 INR 1.2 04/14/17 13:29 APTT 34 SECONDS (21-34) 04/14/17 13:29 - Constitutional Appears: Non-toxic, No Acute Distress - Head Exam Head Exam: ATRAUMATIC, NORMAL INSPECTION, NORMOCEPHALIC - Respiratory Exam Respiratory Exam: Clear to Ausculation Bilateral, NORMAL BREATHING PATTERN. absent: Rales, Rhonchi - Cardiovascular Exam Cardiovascular Exam: RRR, +S1, +S2 - GI/Abdominal Exam GI & Abdominal Exam: Soft, Normal Bowel Sounds. absent: Tenderness - Extremities Exam Extremities Exam: absent: Pedal Edema - Neurological Exam Neurological Exam: Alert, Awake, Oriented x3 - Skin Skin Exam: Intact, Warm Additional comments: Chronic venous stasis skin changes in lower extremities b/l Assessment and Plan (1) CHF exacerbation Assessment & Plan: Hypotensive episode likely due to overdiuresis Will hold lasix at this time due to hypotension When resuming lasix, we will switch to oral lasix Continue current medical management otherwise Status: Acute (2) Cellulitis Assessment & Plan: Continue abx Continue care as per medical team Status: Acute
[2017-04-17] MEDS: Lidocaine 5% Patch TD SCH (10:13)
--- NOTE | 2017-04-17 12:06 | CARD ---
APPROVED REPORT EKG Measurement Heart [id number] CA P231 [id number] <Conclusion> Ventricular-paced rhythm with frequent premature ventricular complexes Abnormal ECG
--- NOTE | 2017-04-17 12:20 | CP.PCM.PN ---
Subjective - Date & Time of Evaluation Date of Evaluation: 04/17/17 Time of Evaluation: 12:16 - Subjective Subjective: 67 y/o male seen beside for bilateral leg pain and left foot pain. Pt appears to be resting comfortably in NAD and is AAOx3. Pt denies of any acute overnight events. Pt denies of any recent F/N/V/C/SOB or chest pain. Pt seen with lidoderm patch on left foot. Objective - Vital Signs/Intake and Output Vital Signs (last 24 hours): Temp Pulse Resp BP Pulse Ox 98.2 F 70 20 149/78 99 04/17/17 07:25 04/17/17 11:03 04/17/17 07:25 04/17/17 07:50 04/17/17 07:25 Intake and Output: 04/17/17 04/17/17 06:59 18:59 Intake Total 640 Output Total 1300 Balance -660 - Medications Medications: Current Medications Aspirin (Ecotrin) 81 mg PO DAILY [facility] Last Admin: 04/17/17 10:14 Dose: 81 mg Carvedilol (Coreg) 6.25 mg PO BID [facility] Last Admin: 04/17/17 10:14 Dose: 6.25 mg Famotidine (Pepcid) 20 mg PO BID [facility] Last Admin: 04/17/17 10:14 Dose: 20 mg Gabapentin (Neurontin) 300 mg PO Q8H [facility] Last Admin: 04/17/17 10:14 Dose: 300 mg Glimepiride (Amaryl) 2 mg PO DAILY [facility] Last Admin: 04/17/17 10:14 Dose: 2 mg Vancomycin HCl 1 gm/ Sodium (Chloride) 250 mls @ 166.7 mls/hr IVPB Q24H [facility] Last Admin: 04/15/17 14:15 Dose: 166.7 mls/hr Insulin Human Regular (Novolin R) 0 unit SC ACHS [facility] PRN Reason: Protocol Last Admin: 04/17/17 08:14 Dose: Not Given Lidocaine (Lidoderm) 1 ea TD DAILY [facility] Last Admin: 04/17/17 10:13 Dose: 1 ea Losartan Potassium (Cozaar) 50 mg PO DAILY [facility] Last Admin: 04/17/17 10:14 Dose: Not Given Rivaroxaban (Xarelto) 20 mg PO DAILY [facility] Last Admin: 04/17/17 10:13 Dose: 20 mg Rosuvastatin Calcium (Crestor) 2.5 mg PO HS [facility] Last Admin: 04/16/17 22:32 Dose: 2.5 mg Spironolactone (Aldactone) 12.5 mg PO BID [facility] Last Admin: 04/17/17 10:13 Dose: 12.5 mg Tramadol HCl (Ultram) 50 mg PO Q8H PRN PRN Reason: Pain, moderate (4-7) Last Admin: 04/15/17 09:48 Dose: 50 mg - Labs Labs: 04/17/17 06:26 04/17/17 06:26 PT 13.3 SECONDS (9.7-12.2) H 04/14/17 13:29 INR 1.2 04/14/17 13:29 APTT 34 SECONDS (21-34) 04/14/17 13:29 - Constitutional Appears: Well, Non-toxic, No Acute Distress - Extremities Exam Additional comments: Bilateral lower extremity exam: VASC- DP pulses palpable BL, skin temp runs warm to warm bl (no increased calor) , cap refill < 3 sec to all digits, 2+ pitting edema noted to distal 1/3 of legs and dorsal feet BL (L>R), mild tenderness on palpation of the posterior calf NEURO- pedal sensation is grossly intact DERM- hyperpigmentation changes noted to anterior shins bl (brawny in color), no open wounds or ulcerations, yellow-tinge discoloration noted to left foot diffusely, no erythema, no ascending cellulitis, no areas of fluctance, no malodor ORTHO- tenderness noted on palpation of dorsal and medial aspect of left 1st MTPJ, tenderness also noted on palpation of dorsum of foot diffusely. - Neurological Exam Neurological Exam: Alert, Awake, Oriented x3 Assessment and Plan - Assessment and Plan (Free Text) Assessment: 67 y/o male seen bedside for bilateral leg pain, left foot pain secondary to gout Plan: Pt evaluated and chart reviewed All questions answered Pt discussed with attending Dr. Pina Labs and vitals reviewed- Uric acid levels continues to stay high (11.3) Pt needs medications for gout Pt does not require any dressing at this point Podiatry to follow patient while in-house
--- NOTE | 2017-04-17 13:57 | CARD ---
APPROVED REPORT EKG Measurement Heart [id number] P73 [id number] <Conclusion> Atrial sensed Ventricular-paced rhythm Frequent PVCs Abnormal ECG
--- NOTE | 2017-04-17 16:22 | CP.PCM.PN ---
<Jane Najera - Last Filed: 04/17/17 16:15> Subjective - Date & Time of Evaluation Date of Evaluation: 04/17/17 Time of Evaluation: 07:10 - Subjective Subjective: Patient seen and examined at bedside. He reports that the pain in his L foot has improved especially with the lidocaine patch. He is able to bear weight on the extremity. He also reports that he is dizzy. Pt reports associated orthopnea, needing several pillows, cough productive of white phlegm, and dizziness (room spinning). Pt denies fever, chills, chest pain, SOB, palpitations, SOB. Rapid Response was called this morning for low bp. First check was 77/42. HR on the monitor was in the 30s. Patient was noted to be paced in the 70s on the radiology orderly. Patient was given a bolus of 250cc NS. His BP improved to 89/ 41 then 150/80. Patient denied SOB or chest pain. Patient was alert and oriented speaking in full sentences on exam. Lungs were clear, HR normal did not sound bradycardic. Likely patient has been over diuresis. We will decrease his dose of Lasix and monitor. Objective - Vital Signs/Intake and Output Vital Signs (last 24 hours): Temp Pulse Resp BP Pulse Ox 98.2 F 70 20 149/78 99 04/17/17 07:25 04/17/17 11:03 04/17/17 07:25 04/17/17 07:50 04/17/17 07:25 Intake and Output: 04/17/17 04/17/17 06:59 18:59 Intake Total 640 Output Total 1300 Balance -660 - Medications Medications: Current Medications Aspirin (Ecotrin) 81 mg PO DAILY [facility] Last Admin: 04/17/17 10:14 Dose: 81 mg Carvedilol (Coreg) 6.25 mg PO BID [facility] Last Admin: 04/17/17 10:14 Dose: 6.25 mg Famotidine (Pepcid) 20 mg PO BID [facility] Last Admin: 04/17/17 10:14 Dose: 20 mg Gabapentin (Neurontin) 300 mg PO Q8H [facility] Last Admin: 04/17/17 10:14 Dose: 300 mg Glimepiride (Amaryl) 2 mg PO DAILY [facility] Last Admin: 04/17/17 10:14 Dose: 2 mg Insulin Human Regular (Novolin R) 0 unit SC [facility] PRN Reason: Protocol Last Admin: 04/17/17 14:38 Dose: Not Given Lidocaine (Lidoderm) 1 ea TD DAILY [facility] Last Admin: 04/17/17 10:13 Dose: 1 ea Losartan Potassium (Cozaar) 50 mg PO DAILY [facility] Last Admin: 04/17/17 10:14 Dose: Not Given Prednisone (Prednisone Tab) 40 mg PO DAILY [facility] Last Admin: 04/17/17 16:10 Dose: 40 mg Rivaroxaban (Xarelto) 20 mg PO DAILY [facility] Last Admin: 04/17/17 10:13 Dose: 20 mg Rosuvastatin Calcium (Crestor) 2.5 mg PO HS [facility] Last Admin: 04/16/17 22:32 Dose: 2.5 mg Spironolactone (Aldactone) 12.5 mg PO BID [facility] Last Admin: 04/17/17 10:13 Dose: 12.5 mg Tramadol HCl (Ultram) 50 mg PO Q8H PRN PRN Reason: Pain, moderate (4-7) Last Admin: 04/15/17 09:48 Dose: 50 mg - Labs Labs: 04/17/17 06:26 04/17/17 06:26 PT 13.3 SECONDS (9.7-12.2) H 04/14/17 13:29 INR 1.2 04/14/17 13:29 APTT 34 SECONDS (21-34) 04/14/17 13:29 - Constitutional Appears: Non-toxic, No Acute Distress, Chronically Ill - Head Exam Head Exam: ATRAUMATIC, NORMAL INSPECTION - Eye Exam Eye Exam: EOMI, Normal appearance, PERRL Pupil Exam: NORMAL ACCOMODATION - ENT Exam ENT Exam: Mucous Membranes Dry - Respiratory Exam Respiratory Exam: Clear to Ausculation Bilateral, NORMAL BREATHING PATTERN. absent: Accessory Muscle Use, Rales, Rhonchi, Wheezes, Respiratory Distress - Cardiovascular Exam Cardiovascular Exam: REGULAR RHYTHM, +S1. absent: Bradycardia, Tachycardia - GI/Abdominal Exam GI & Abdominal Exam: Soft, Normal Bowel Sounds. absent: Distended, Firm, Guarding, Tenderness - Extremities Exam Extremities Exam: Pedal Edema. absent: Calf Tenderness Additional comments: + L foot tenderness, erythema and edema have improved, sensation and ROM intact. palpable pulses - Back Exam Back Exam: NORMAL INSPECTION. absent: CVA tenderness (L), CVA tenderness (R), paraspinal tenderness - Neurological Exam Neurological Exam: Alert, Awake, Oriented x3 - Psychiatric Exam Psychiatric exam: Normal Affect, Normal Mood - Skin Skin Exam: Dry, Intact, Normal Color, Warm Assessment and Plan - Assessment and Plan (Free Text) Assessment: Assessment: 67 year old male, with PMHx of HTN, CHF with AICD placement, CAD, Atrial flutter, diabetes, Hyperlipidemia, presenting with SOB, leg edema, productive cough with white phlegm x 3 days. Plan: GOUT Will start Prednisone 40mg PO daily and Cholicine 1.2 mg PO x 1 dose Left > Right, Chronic venous changes noted Discolored yellow due to "salt use" D-dimer 234 Added Vanc 1gm IVPB daily (started 04/16) - discontinued 04/17 Podiatry consulted, Dr. Pina help appreciated Venous dopplers negative X ray negative f/u arterial dopplers Uric acid 11 CHF exacerbation Admit to tele - Daily weights - fluid restriction 1L - monitor I/Os - Head of bed at 45 degrees - BNP 924 (previous admissions: 12,500, 10,700, 5000, 3760 on last visit) - CXR (04/14/17): atelectasis left lower base. No infiltrate. No pulmonary edema ( see full report) - Trops negative x1, f/u Q6H x 2 - D-dimer 234 - EKG: Rate 80 bpm, ventricularly paced, No acute ST/T wave changes; f/u Q6h x 2 - Cont Aldactone 12.5mg PO BID - Cont Lasix 20mg PO BID - continue home carvedilol 6.25mg BID - continue home cozaar 50mg daily - Last Echocardiogram (01/24): Technically difficult study showing dilated LA and LV with severe LV hypokinesia. Estimated LVEF about 10%. Right side catheter artifact noted. Tissue doppler imaging reveals moderate left ventricular diastolic dysfunction. - Cardiology, Dr. Bradford consulted, help appreciated - cleared per cardiology Type two Diabetes Mellitus - A1C 7.0 - glimepiride 2mg PO daily - ISS medium - Accuchecks ACHS HTN (Hypertension) - Low sbp overnight alternating with normal Bp readings , will decrease Lasix dose - continue home carvedilol 6.25mg BID - continue home cozaar 50mg daily - Lasix 20mg PO BID - HOLD BP meds for SBP <100 HLD - Crestor 2.5mg- home medication is simvastatin 10mg History of A.flutter - continue xarelto 20mg daily per clinic documentation - Cont ASA 81mg PO Daily - TSH wnl Prophylaxis - SCDs contraindicated due to edema - Xarelto 20 mg PO Daily - Pepcid 20mg BID <Navin Dorsey M - Last Filed: 04/17/17 16:37> Objective - Vital Signs/Intake and Output Vital Signs (last 24 hours): Temp Pulse Resp BP Pulse Ox 98.2 F 70 20 149/78 99 04/17/17 07:25 04/17/17 11:03 04/17/17 07:25 04/17/17 07:50 04/17/17 07:25 Intake and Output: 04/17/17 04/17/17 06:59 18:59 Intake Total 640 Output Total 1300 Balance -660 - Medications Medications: Current Medications Aspirin (Ecotrin) 81 mg PO DAILY [facility] Last Admin: 04/17/17 10:14 Dose: 81 mg Carvedilol (Coreg) 6.25 mg PO BID [facility] Last Admin: 04/17/17 10:14 Dose: 6.25 mg Colchicine (Colocrys) 0.6 mg PO DAILY [facility] Famotidine (Pepcid) 20 mg PO BID [facility] Last Admin: 04/17/17 10:14 Dose: 20 mg Gabapentin (Neurontin) 300 mg PO Q8H [facility] Last Admin: 04/17/17 10:14 Dose: 300 mg Glimepiride (Amaryl) 2 mg PO DAILY [facility] Last Admin: 04/17/17 10:14 Dose: 2 mg Insulin Human Regular (Novolin R) 0 unit SC [facility] PRN Reason: Protocol Last Admin: 04/17/17 14:38 Dose: Not Given Lidocaine (Lidoderm) 1 ea TD DAILY [facility] Last Admin: 04/17/17 10:13 Dose: 1 ea Losartan Potassium (Cozaar) 50 mg PO DAILY [facility] Last Admin: 04/17/17 10:14 Dose: Not Given Prednisone (Prednisone Tab) 40 mg PO DAILY [facility] Last Admin: 04/17/17 16:10 Dose: 40 mg Rivaroxaban (Xarelto) 20 mg PO DAILY [facility] Last Admin: 04/17/17 10:13 Dose: 20 mg Rosuvastatin Calcium (Crestor) 2.5 mg PO HS [facility] Last Admin: 04/16/17 22:32 Dose: 2.5 mg Spironolactone (Aldactone) 12.5 mg PO BID [facility] Last Admin: 04/17/17 10:13 Dose: 12.5 mg Tramadol HCl (Ultram) 50 mg PO Q8H PRN PRN Reason: Pain, moderate (4-7) Last Admin: 04/15/17 09:48 Dose: 50 mg - Labs Labs: 04/17/17 06:26 04/17/17 06:26 PT 13.3 SECONDS (9.7-12.2) H 04/14/17 13:29 INR 1.2 04/14/17 13:29 APTT 34 SECONDS (21-34) 04/14/17 13:29 Attending/Attestation - Attestation I have personally seen and examined this patient.: Yes I have fully participated in the care of the patient.: Yes I have reviewed all pertinent clinical information, including history, physical exam and plan: Yes Notes (Text): 04/17/17 16:36 Patient was seen and examined at bedside with the resident Left foot pain is improving However we will start the patient on treatment for acute gout We will stop the antibiotics for cellulitis Patient had a rapid response today when he was dizzy. He was found to be hypotensive earlier today. We will stop the IV Lasix and start the patient on by mouth Lasix as he was taking at home I discussed the plan of care with the resident and agree with the above history and physical and assessment/plan but the resident
[2017-04-17] MEDS: Rosuvastatin Calcium 2.5 mg Tab PO SCH (23:01)
[2017-04-18 07:21] LABS: BASO % 0.2 % (0.0-2.0); HEMATOCRIT 47.6 % (35.0-51.0); LYMPH # 1.2 K/uL (1.0-4.3); LYMPH % 12.5 % (20.0-40.0); MEAN CORPUSCULAR HEMOGLOBIN 29.8 pg (27.0-31.0); MEAN CORPUSCULAR HGB CONC 33.5 g/dL (33.0-37.0); MEAN PLATELET VOLUME 9.6 fL (7.2-11.7); MONO # 0.6 K/uL (0.0-0.8); MONO % 6.5 % (0.0-10.0)
[2017-04-18 07:24] LABS: CHLORIDE 95 mmol/L (98-107); POTASSIUM 4.9 mmol/L (3.6-5.2); SODIUM 139 mmol/L (132-148)
[2017-04-18 07:26] LABS: GFR AFRICAN-AMERICAN > 60
[2017-04-18 07:27] LABS: ALKALINE PHOSPHATASE 101 U/L (38-126); ALT/SGPT 19 U/L (21-72); AST/SGOT 34 U/L (17-59); BILIRUBIN,TOTAL 0.9 mg/dL (0.2-1.3); BLOOD UREA NITROGEN 24 mg/dL (9-20); CARBON DIOXIDE 32 mmol/L (22-30); GLUCOSE,RANDOM 239 mg/dL (75-110); PHOSPHOROUS 2.4 mg/dL (2.5-4.5); TOTAL PROTEIN 8.2 g/dL (6.3-8.3)
[2017-04-18 07:28] LABS: CALCIUM 8.7 mg/dl (8.6-10.4); MAGNESIUM 2.4 mg/dL (1.6-2.3)
[2017-04-18] MEDS: (Novolin R) Insulin Human Regular 100 units/ml vial SC SCH ×2 (08:05→12:15)
[2017-04-18 08:14] VITALS: RESP 18; TEMP 97.4
--- NOTE | 2017-04-18 09:20 | CP.PCM.PN ---
Subjective - Date & Time of Evaluation Date of Evaluation: 04/18/17 Time of Evaluation: 09:16 - Subjective Subjective: Progress Note for Dr. Bradford Pt seen and examined at bedside. Pt with no acute events overnight. Pt doing much better than yesterday when [employer] was called. Denies CP, SOB, N/V/D. Objective - Vital Signs/Intake and Output Vital Signs (last 24 hours): Temp Pulse Resp BP Pulse Ox 97.4 F L 64 18 143/79 99 04/18/17 07:15 04/18/17 07:15 04/18/17 07:15 04/18/17 07:15 04/18/17 07:15 Intake and Output: 04/18/17 04/18/17 06:59 18:59 Intake Total 350 Output Total 750 Balance -400 - Medications Medications: Current Medications Aspirin (Ecotrin) 81 mg PO DAILY [facility] Last Admin: 04/17/17 10:14 Dose: 81 mg Carvedilol (Coreg) 6.25 mg PO BID [facility] Last Admin: 04/17/17 17:41 Dose: 6.25 mg Colchicine (Colocrys) 0.6 mg PO DAILY [facility] Famotidine (Pepcid) 20 mg PO BID [facility] Last Admin: 04/17/17 17:41 Dose: 20 mg Furosemide (Lasix) 40 mg PO BID [facility] Gabapentin (Neurontin) 300 mg PO Q8H [facility] Last Admin: 04/18/17 01:54 Dose: 300 mg Glimepiride (Amaryl) 2 mg PO DAILY [facility] Last Admin: 04/17/17 10:14 Dose: 2 mg Insulin Human Regular (Novolin R) 0 unit SC ACHS [facility] PRN Reason: Protocol Last Admin: 04/18/17 08:05 Dose: 3 unit Lidocaine (Lidoderm) 1 ea TD DAILY [facility] Last Admin: 04/17/17 10:13 Dose: 1 ea Losartan Potassium (Cozaar) 50 mg PO DAILY [facility] Last Admin: 04/17/17 10:14 Dose: Not Given Prednisone (Prednisone Tab) 40 mg PO DAILY [facility] Last Admin: 04/17/17 16:10 Dose: 40 mg Rivaroxaban (Xarelto) 20 mg PO DAILY [facility] Last Admin: 04/17/17 10:13 Dose: 20 mg Rosuvastatin Calcium (Crestor) 2.5 mg PO HS [facility] Last Admin: 04/17/17 23:01 Dose: 2.5 mg Spironolactone (Aldactone) 12.5 mg PO BID [facility] Last Admin: 04/17/17 23:06 Dose: 12.5 mg Tramadol HCl (Ultram) 50 mg PO Q8H PRN PRN Reason: Pain, moderate (4-7) Last Admin: 04/15/17 09:48 Dose: 50 mg - Labs Labs: 04/18/17 07:03 04/18/17 07:03 PT 13.3 SECONDS (9.7-12.2) H 04/14/17 13:29 INR 1.2 04/14/17 13:29 APTT 34 SECONDS (21-34) 04/14/17 13:29 - Constitutional Appears: Well, No Acute Distress - Head Exam Head Exam: ATRAUMATIC, NORMAL INSPECTION, NORMOCEPHALIC - Respiratory Exam Respiratory Exam: Clear to Ausculation Bilateral, NORMAL BREATHING PATTERN. absent: Rales - Cardiovascular Exam Cardiovascular Exam: RRR, +S1, +S2 - GI/Abdominal Exam GI & Abdominal Exam: Soft, Normal Bowel Sounds. absent: Tenderness - Extremities Exam Extremities Exam: Pedal Edema (+1 b/l). absent: Calf Tenderness - Neurological Exam Neurological Exam: Alert, Awake, Oriented x3 - Skin Additional comments: Chronic venous stasis skin changes b/l Assessment and Plan (1) CHF exacerbation Assessment & Plan: Pt improved, now asymptomatic Restart home lasix 40 mg BID Continue current medical regimen Follow up as outpt in 1 month Status: Acute (2) Cellulitis Assessment & Plan: Care as per medical team Status: Acute
[2017-04-18] MEDS: Lidocaine 5% Patch TD SCH (09:44)
[2017-04-18 09:48] VITALS: BP 137/77
--- NOTE | 2017-04-18 11:36 | CP.PCM.PN ---
Subjective - Date & Time of Evaluation Date of Evaluation: 04/18/17 Time of Evaluation: 11:32 - Subjective Subjective: 67 y/o male seen beside for bilateral leg pain and left foot pain secondary to Gout. Pt appears to be resting comfortably in NAD and is AAOx3. Pt denies of any acute overnight events. Pt denies of any recent F/N/V/C/SOB or chest pain. Pt seen with lidoderm patch on left foot. Objective - Vital Signs/Intake and Output Vital Signs (last 24 hours): Temp Pulse Resp BP Pulse Ox 97.4 F L 64 18 137/77 99 04/18/17 07:15 04/18/17 07:15 04/18/17 07:15 04/18/17 09:46 04/18/17 07:15 Intake and Output: 04/18/17 04/18/17 06:59 18:59 Intake Total 350 Output Total 750 Balance -400 - Medications Medications: Current Medications Aspirin (Ecotrin) 81 mg PO DAILY [facility] Last Admin: 04/18/17 09:46 Dose: 81 mg Carvedilol (Coreg) 6.25 mg PO BID [facility] Last Admin: 04/18/17 09:45 Dose: 6.25 mg Colchicine (Colocrys) 0.6 mg PO DAILY [facility] Last Admin: 04/18/17 09:46 Dose: 0.6 mg Famotidine (Pepcid) 20 mg PO BID [facility] Last Admin: 04/18/17 09:45 Dose: 20 mg Furosemide (Lasix) 40 mg PO BID [facility] Last Admin: 04/18/17 09:46 Dose: 40 mg Gabapentin (Neurontin) 300 mg PO Q8H [facility] Last Admin: 04/18/17 09:45 Dose: 300 mg Glimepiride (Amaryl) 2 mg PO DAILY [facility] Last Admin: 04/18/17 09:45 Dose: 2 mg Insulin Human Regular (Novolin R) 0 unit SC ACHS [facility] PRN Reason: Protocol Last Admin: 04/18/17 08:05 Dose: 3 unit Lidocaine (Lidoderm) 1 ea TD DAILY [facility] Last Admin: 04/18/17 09:44 Dose: 1 ea Losartan Potassium (Cozaar) 50 mg PO DAILY [facility] Last Admin: 04/18/17 09:46 Dose: 50 mg Prednisone (Prednisone Tab) 40 mg PO DAILY [facility] Last Admin: 04/18/17 09:48 Dose: 40 mg Rivaroxaban (Xarelto) 20 mg PO DAILY [facility] Last Admin: 04/18/17 09:45 Dose: 20 mg Rosuvastatin Calcium (Crestor) 2.5 mg PO HS [facility] Last Admin: 04/17/17 23:01 Dose: 2.5 mg Spironolactone (Aldactone) 12.5 mg PO BID [facility] Last Admin: 04/18/17 09:46 Dose: 12.5 mg Tramadol HCl (Ultram) 50 mg PO Q8H PRN PRN Reason: Pain, moderate (4-7) Last Admin: 04/15/17 09:48 Dose: 50 mg - Labs Labs: 04/18/17 07:03 04/18/17 07:03 PT 13.3 SECONDS (9.7-12.2) H 04/14/17 13:29 INR 1.2 04/14/17 13:29 APTT 34 SECONDS (21-34) 04/14/17 13:29 - Constitutional Appears: Well, Non-toxic, No Acute Distress - Extremities Exam Additional comments: Bilateral lower extremity exam: VASC- DP pulses palpable BL, skin temp runs warm to warm bl (no increased calor) , cap refill < 3 sec to all digits, 2+ pitting edema noted to distal 1/3 of legs and dorsal feet BL (L>R), mild tenderness on palpation of the posterior calf NEURO- pedal sensation is grossly intact DERM- hyperpigmentation changes noted to anterior shins bl (brawny in color), no open wounds or ulcerations, yellow-tinge discoloration noted to left foot diffusely, no erythema, no ascending cellulitis, no areas of fluctance, no malodor ORTHO- tenderness noted on palpation of dorsal and medial aspect of left 1st MTPJ, tenderness also noted on palpation of dorsum of foot diffusely. - Neurological Exam Neurological Exam: Alert, Awake - Psychiatric Exam Psychiatric exam: Normal Affect, Normal Mood Assessment and Plan - Assessment and Plan (Free Text) Assessment: 67 y/o male seen bedside for bilateral leg pain, left foot pain secondary to gout Plan: Patient seen and evaluated at bedside All the questions and concerns were addressed Patient looks clinically better today Patient is stable to be discharged home from podiatry standpoint Lads and vitals were reviewed Patient will follow up with Dr. Pina upon discharge
--- NOTE | 2017-04-18 11:55 | CP.PCM.DIS ---
Provider - Provider Date of Admission: 04/16/17 16:24 Attending physician: Navin Dorsey MD Primary care physician: Dr. Medina - [facility] Consults: Dr. Pina - podiatry Dr. Bradford - cardiology Time Spent in preparation of Discharge (in minutes): 35 Diagnosis - Discharge Diagnosis (1) Gout Status: Acute Comment: Prednisone and Colchicine. f/u [facility] (2) CHF exacerbation Status: Acute Comment: Conitnue home medications. f/u Dr. Bradford [facility] Course - Lab Results Lab Results: Most Recent Lab Values WBC 10.0 K/uL (4.8-10.8) 04/18/17 07:03 RBC 5.34 Mil/uL (4.40-5.90) 04/18/17 07:03 Hgb 15.9 g/dL (12.0-18.0) 04/18/17 07:03 Hct 47.6 % (35.0-51.0) 04/18/17 07:03 MCV 89.0 fL (80.0-94.0) 04/18/17 07:03 MCH 29.8 pg (27.0-31.0) 04/18/17 07:03 MCHC 33.5 g/dL (33.0-37.0) 04/18/17 07:03 RDW 15.0 % (11.5-14.5) H 04/18/17 07:03 Plt Count 175 K/uL (130-400) 04/18/17 07:03 MPV 9.6 fL (7.2-11.7) 04/18/17 07:03 Neut % (Auto) 80.8 % (50.0-75.0) H 04/18/17 07:03 Lymph % (Auto) 12.5 % (20.0-40.0) L 04/18/17 07:03 [place] % (Auto) 6.5 % (0.0-10.0) 04/18/17 07:03 Eos % (Auto) 0.0 % (0.0-4.0) 04/18/17 07:03 Baso % (Auto) 0.2 % (0.0-2.0) 04/18/17 07:03 Neut # 8.1 K/uL (1.8-7.0) H 04/18/17 07:03 Lymph # 1.2 K/uL (1.0-4.3) 04/18/17 07:03 [place] # 0.6 K/uL (0.0-0.8) 04/18/17 07:03 Eos # 0.0 K/uL (0.0-0.7) 04/18/17 07:03 Baso # 0.0 K/uL (0.0-0.2) 04/18/17 07:03 ESR 39 mm/hr (0-15) H 04/16/17 07:06 PT 13.3 SECONDS (9.7-12.2) H 04/14/17 13:29 INR 1.2 04/14/17 13:29 APTT 34 SECONDS (21-34) 04/14/17 13:29 D-Dimer, Quantitative 235 ng/mlDDU (0-243) 04/14/17 13:29 Sodium 139 mmol/L (132-148) 04/18/17 07:03 Potassium 4.9 mmol/L (3.6-5.2) 04/18/17 07:03 Chloride 95 mmol/L (98-107) L 04/18/17 07:03 Carbon Dioxide 32 mmol/L (22-30) H 04/18/17 07:03 Anion Gap 17 (10-20) 04/18/17 07:03 BUN 24 mg/dL (9-20) H 04/18/17 07:03 Creatinine 1.0 MG/DL (0.8-1.5) 04/18/17 07:03 Est GFR ( Amer) > 60 04/18/17 07:03 Est GFR (Non-Af Amer) > 60 04/18/17 07:03 POC Glucose (mg/dL) 250 mg/dL (65-110) H 04/18/17 11:18 Random Glucose 239 mg/dL (75-110) H 04/18/17 07:03 Hemoglobin A1c 7.0 % (4.2-6.5) H 04/15/17 07:15 Uric Acid 11.3 mg/dL (3.5-8.5) H 04/16/17 07:06 Calcium 8.7 mg/dl (8.6-10.4) 04/18/17 07:03 Phosphorus 2.4 mg/dL (2.5-4.5) L 04/18/17 07:03 Magnesium 2.4 mg/dL (1.6-2.3) H 04/18/17 07:03 Total Bilirubin 0.9 mg/dL (0.2-1.3) 04/18/17 07:03 AST 34 U/L (17-59) 04/18/17 07:03 ALT 19 U/L (21-72) L D 04/18/17 07:03 Alkaline Phosphatase 101 U/L (38-126) 04/18/17 07:03 Total Creatine Kinase 47 U/L (55-170) L 04/17/17 07:48 CK-MB (Mass) 1.00 ng/mL (0.0-3.38) 04/17/17 07:48 Troponin I 0.0490 ng/mL (0.00-0.120) 04/14/17 13:29 Troponin I, Quant 0.0480 ng/mL (0.00-0.120) 04/17/17 07:48 NT-Pro-B Natriuret Pep 924 pg/mL (0-900) H 04/14/17 13:29 Total Protein 8.2 g/dL (6.3-8.3) 04/18/17 07:03 Albumin 4.0 g/dL (3.5-5.0) 04/18/17 07:03 Globulin 4.2 gm/dL (2.2-3.9) H 04/18/17 07:03 Albumin/Globulin Ratio 1.0 (1.0-2.1) 04/18/17 07:03 Triglycerides 141 mg/dL (0-149) D 04/15/17 07:15 Cholesterol 165 mg/dL (0-199) 04/15/17 07:15 LDL Cholesterol Direct 90 mg/dL (0-129) 04/15/17 07:15 HDL Cholesterol 30 mg/dL (30-70) 04/15/17 07:15 Free T4 0.97 ng/dL (0.78-2.19) 04/15/17 07:15 TSH 3rd Generation 2.92 mIU/L (0.46-4.68) 04/15/17 07:15 Urine Color Straw (YELLOW) 04/14/17 15:14 Urine Clarity Clear (Clear) 04/14/17 15:14 Urine pH 8.0 (5.0-8.0) 04/14/17 15:14 Ur Specific [place] 1.004 (1.003-1.030) 04/14/17 15:14 Urine Protein Negative mg/dL (NEGATIVE) 04/14/17 15:14 Urine Glucose (UA) Normal mg/dL (Normal) 04/14/17 15:14 Urine Ketones Negative mg/dL (NEGATIVE) 04/14/17 15:14 Urine Blood Negative (NEGATIVE) 04/14/17 15:14 Urine Nitrate Negative (NEGATIVE) 04/14/17 15:14 Urine Bilirubin Negative (NEGATIVE) 04/14/17 15:14 Urine Urobilinogen Normal mg/dL (0.2-1.0) 04/14/17 15:14 Ur Leukocyte Esterase Neg Brian/uL (Negative) 04/14/17 15:14 Urine WBC (Auto) < 1 /hpf (0-5) 04/14/17 15:14 Urine RBC (Auto) < 1 /hpf (0-3) 04/14/17 15:14 Vancomycin Trough < 5.0 ug/mL (5.0-10.0) L 04/17/17 14:12 - Hospital Course Hospital Course: On admission: Patient is a 67 year old male, with PMHx of HTN, CHF with AICD placement, CAD, Atrial flutter, diabetes, Hyperlipidemia. Patient presents to the hospital today for bilateral leg pain and bilateral leg swelling. He states that the pain and swelling worsened in the past 3 or 4 days. Patient denies drinking more water than usual most days, but admits "slipping up" and drinking excess liquids recently. He states he normally uses a walker to ambulate. Patient reports baseline being able to walk 3 blocks without becoming winded, but recently that has been reduced to only 1/2 block. Also reporting he recently has begun to take breaks on the landing of every floor when he goes up his stairs to his apartment on the third floor. Patient always sleeps with 4 pillows. He further reports associated productive cough of white phlegm, for the past 3 days. He states he has blue lips chronically. Patient denies fever, chills, chest pain, palpitations, abdominal pain, nausea, vomiting, diarrhea, constipation, dysuria. During hospital stay: Patient was started on Vanc 1 gram IV daily for swelling in the Left foot. Podiatry was consulted. Venous dopplers were negative. X ray was negative. Uric acid level was elevated at 11. Prednisone 40mg PO daily and Colchicine were started. Pain and swelling improved. He was continued on Aldactone 12.5mg PO BID, Lasix 20mg PO BID, carvedilol 6.25mg BID, cozaar 50mg daily. He had episode of hypotension which Lasix was held and dosage was decreased. This resolved Patient was cleared by cardiology. BNP was 924 (previous admissions: 12,500, 10,700, 5000, 3760 on last visit) CXR (04/14/17): atelectasis left lower base. No infiltrate. No pulmonary edema (see full report) Last Echocardiogram (01/24): Technically difficult study showing dilated LA and LV with severe LV hypokinesia. Estimated LVEF about 10%. Right side catheter artifact noted. Tissue doppler imaging reveals moderate left ventricular diastolic dysfunction. Patient's home meds for diabetes and hylerpipidemia were continued. Patient was given Xarelto 20mg daily. Patient is stable to be discharged home. He is to follow up in the [facility] with Dr. Medina within 1-2 weeks of discharge for post hospital care. He is to resume all of his home medications and also take the following new medications: 1. Colchicine 0.6 mg one by mouth daily 2. Prednisone taper - take as instructed take 4 10mg tabs once a day for days 1-2 take 3 10mg tabs once a day for days 3-4 take 2 10mg tabs once a day for day 5-6 take 1 10mg tab once a day for day 7-8 All new prescriptions were sent to [facility] (patient's preferred pharmacy). He stated he had enough of his other medications for now. Patient is to return to the ER if symptoms return. All instructions explained to the patient and he agrees. Discharge Exam - Head Exam Head Exam: ATRAUMATIC, NORMAL INSPECTION, NORMOCEPHALIC - Eye Exam Eye Exam: EOMI, Normal appearance Pupil Exam: NORMAL ACCOMODATION - Respiratory Exam Respiratory Exam: Clear to PA & Lateral, NORMAL BREATHING PATTERN. absent: Respiratory Distress - Cardiovascular Exam Cardiovascular Exam: REGULAR RHYTHM, +S1, +S2 - GI/Abdominal Exam GI & Abdominal Exam: Normal Bowel Sounds, Soft. absent: Distended, Firm, Guarding, Tenderness - Extremities Exam Extremities exam: normal inspection, pedal edema - Back Exam Back exam: NORMAL INSPECTION - Neurological Exam Neurological exam: Alert, CN II-XII Intact, Normal Gait, Oriented x3 - Psychiatric Exam Psychiatric exam: Normal Affect, Normal Mood - Skin Skin Exam: Dry, Intact, Normal Color, Warm Discharge Plan - Discharge Medications Prescriptions: Colchicine 0.6 mg PO DAILY #10 tablet predniSONE [Prednisone] See Taper PO DAILY #20 tab - Follow Up Plan Condition: FAIR Disposition: HOME/ ROUTINE Instructions: Prednisone (By mouth), Colchicine (By mouth), Heart Failure (DC) , Cellulitis (DC), Heart Healthy Diet (DC) Additional Instructions: Patient is stable to be discharged home. He is to follow up in the [facility] with Dr. Medina within 1-2 weeks of discharge for post hospital care. He is to resume all of his home medications and also take the following new medications: 1. Colchicine 0.6 mg one by mouth daily 2. Prednisone taper - take as instructed take 4 10mg tabs once a day for days 1-2 take 3 10mg tabs once a day for days 3-4 take 2 10mg tabs once a day for day 5-6 take 1 10mg tab once a day for day 7-8 All new prescriptions were sent to [facility] (patient's preferred pharmacy). He stated he had enough of his other medications for now. Patient is to return to the ER if symptoms return. All instructions explained to the patient and he agrees. El paciente es estable para ser dado de brian en casa. l debe hacer un seguimiento en el [facility] con el Dr. Medina dentro de 1-2 semanas de brian para la atencin post hospital. l debe reanudar todos cecilia medicamentos en casa y tambi n kole los siguientes nuevos medicamentos: 1. Colchicina 0,6 mg kamla por va oral todos los strickland 2. Cncavo de prednisona - kole segn las instrucciones Kole 4 tabletas de 10 mg kamla vez al da kimo los strickland 1-2 Kole 3 tabletas de 10 mg kamla vez al da kimo 3-4 strickland Kole 2 lengetas de 10mg kamla vez al da para el da 5-6 Kole 1 tableta de 10 mg kamla vez al da kimo el da 7-8 Todas las nuevas recetas fueron enviadas a [employer] (la farmacia preferida del paciente). Dijo que francie suficientes de cecilia otros medicamentos por ahora. El paciente debe regresar a la kimberly de emergencias si los sntomas regresan. Todas las instrucciones se explican al paciente y l est de acuerdo. Referrals: Quin Bradford MD [Staff Provider] - Jose Pina DPM [Staff Provider] -
[2017-04-18 15:57] VITALS: PULSE 69; O2SAT 98
--- NOTE | 2017-04-18 17:52 | PCM.HF ---
Heart Failure Core Measure - Heart Failure Left Ventricular Function to be assessed after discharge: Yes JOSELUIS Inhibitor Prescribed: No Contraindication/Reason for not providing: ON ARB Beta-Elissa Prescribed: Carvedilol Angiotensin II Receptor Elissa Prescribed: Yes AnticoagulationTherapy for Atrial Fibrillation/Atrialflutter: Yes Aldosterone Antagonist Prescribed: Yes Hydralazine Nitrate Prescribed: No Contraindication/Reason for not providing: NOT RX BY Implantable Cardioverter Defibrillator Therapy: No Contraindication/Reason for not providing: NOT INDICATED Cardiac Resynchronization Therapy Prescribed: No Contraindication/Reason for not providing: NOT INDICATED - Follow up Will be discharged to: Home Follow Up Date (must be within 7 days from discharge): 04/21/17 Follow Up Time: 09:00
--- NOTE | 2017-04-21 09:20 | VASCLAB ---
PROCEDURE: HISTORY: PAD COMPARISON: None available. TECHNIQUE: Grayscale and duplex Doppler evaluation of the bilateral common femoral, femoral, profunda femoral, popliteal, posterior tibial, anterior tibial and dorsalis pedis arteries was performed. Report prepared by VEENA Marie, RVT FINDINGS: RIGHT LOWER EXTREMITY: * Common Femoral Artery: Peak Systolic Velocity - 117: Doppler Waveform: Triphasic.: Plaque description - * Profunda Femoral Artery: Peak Systolic Velocity - 61: Doppler Waveform: Triphasic.: Plaque description - * Femoral Artery o Proximal Segment: Peak Systolic Velocity - 96: Doppler Waveform: Biphasic: Plaque description - o Middle Segment: Peak Systolic Velocity - 63: Doppler Waveform: Biphasic.: Plaque description - o Distal Segment: Peak Systolic Velocity - 79: Doppler Waveform: Biphasic: Plaque description - * Popliteal Artery o Proximal Segment: Peak Systolic Velocity - 70: Doppler Waveform: Biphasic: Plaque description - o Middle Segment: Peak Systolic Velocity - 79: Doppler Waveform: Biphasic: Plaque description - o Distal Segment: Peak Systolic Velocity - 90: Doppler Waveform: Biphasic: Plaque description - * Posterior Tibial Artery: Peak Systolic Velocity - 62: Doppler Waveform: Biphasic: Plaque description - * Anterior Tibial Artery: Peak Systolic Velocity - 111: Doppler Waveform: Biphasic: Plaque description - * Dorsalis Pedis Artery: Peak Systolic Velocity - 75: Doppler Waveform: Biphasic: Plaque description - LEFT LOWER EXTREMITY: * Common Femoral Artery: Peak Systolic Velocity - 128: Doppler Waveform: Biphasic: Plaque description - * Profunda Femoral Artery: Peak Systolic Velocity - 65: Doppler Waveform: Biphasic: Plaque description - * Femoral Artery o Proximal Segment: Peak Systolic Velocity - 112: Doppler Waveform: Biphasic: Plaque description - o Middle Segment: Peak Systolic Velocity - 108: Doppler Waveform: Biphasic: Plaque description - o Distal Segment: Peak Systolic Velocity - 90: Doppler Waveform: Biphasic: Plaque description - * Popliteal Artery o Proximal Segment: Peak Systolic Velocity - 80: Doppler Waveform: Biphasic: Plaque description - o Middle Segment: Peak Systolic Velocity - 94: Doppler Waveform: Biphasic: Plaque description - o Distal Segment: Peak Systolic Velocity - 129: Doppler Waveform: Biphasic: Plaque description - * Posterior Tibial Artery: Peak Systolic Velocity - 67: Doppler Waveform: Biphasic: Plaque description - * Anterior Tibial Artery: Peak Systolic Velocity - 80: Doppler Waveform: Biphasic: Plaque description - * Dorsalis Pedis Artery: Peak Systolic Velocity - 75: Doppler Waveform: Biphasic: Plaque description - OTHER FINDINGS: None. IMPRESSION: There is no evidence of hemodynamically significant arterial insufficiency in both lower extremities.
== END 2017-04-18 14:06 | disposition home or self-care (01) | DRG 127 ==
LOC: C.ER 12:07 → C.9E 15:18 → C.6T 15:55 → OBSVTOIN 04-16 16:24
PROVIDERS: ADMIT Internal Medicine; ATTEND Internal Medicine
DX: I11.0 Hypertensive heart disease with heart failure (principal); M10.9 Gout, unspecified; L03.90 Cellulitis, unspecified; I50.9 Heart failure, unspecified; E11.9 Type 2 diabetes mellitus without complications; E78.5 Hyperlipidemia, unspecified; I25.10 Atherosclerotic heart disease of native coronary artery without angina pectoris; J45.909 Unspecified asthma, uncomplicated; E78.00 Pure hypercholesterolemia, unspecified; Z95.810 Presence of automatic (implantable) cardiac defibrillator; Z90.49 Acquired absence of other specified parts of digestive tract

== ENCOUNTER 2017-06-30 09:33 | Inpatient (IN) | payer OTHER ==
[2017-06-30 09:51] VITALS: BMI 39.1
[2017-06-30 10:28] LABS: BASO % 0.6 % (0.0-2.0); EOS # 0.1 K/uL (0.0-0.7); EOS % 0.7 % (0.0-4.0); HEMATOCRIT 48.7 % (35.0-51.0); LYMPH # 1.5 K/uL (1.0-4.3); LYMPH % 17.6 % (20.0-40.0); MEAN CELL VOLUME 88.9 fL (80.0-94.0); MEAN CORPUSCULAR HEMOGLOBIN 29.3 pg (27.0-31.0); MEAN PLATELET VOLUME 10.3 fL (7.2-11.7); MONO # 0.8 K/uL (0.0-0.8); MONO % 9.1 % (0.0-10.0); NRBC % 0.1 % (0.0-2.0); RED CELL DISTRIBUTION WIDTH 14.2 % (11.5-14.5); WHITE BLOOD COUNT 8.6 K/uL (4.8-10.8)
--- NOTE | 2017-06-30 10:30 | RAD ---
HISTORY: chest pain COMPARISON: Chest x-ray performed 04/14/17 TECHNIQUE: Chest, one view. FINDINGS: Examination limited by habitus, hypoinflation, and patient obliquity. LUNGS: Mild pulmonary venous congestion. Moderate left consolidation and associated small pleural effusion. Probable small right pleural effusion. No definite pneumothorax. CARDIOVASCULAR: Left-sided AICD. Cardiomegaly. OSSEOUS STRUCTURES: Degenerative changes. VISUALIZED UPPER ABDOMEN: Unremarkable. OTHER FINDINGS: None. IMPRESSION: Hypoinflation. Mild pulmonary venous congestion. Moderate left consolidation and associated small pleural effusion. Probable small right pleural effusion. Cardiomegaly. Left-sided AICD.
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
[2017-06-30 10:33] LABS: CHLORIDE 99 mmol/L (98-107); POTASSIUM 4.1 mmol/L (3.6-5.2); SODIUM 142 mmol/L (132-148)
[2017-06-30 10:35] LABS: GFR AFRICAN-AMERICAN > 60
[2017-06-30 10:36] LABS: ALB/GLOB RATIO 0.8 (1.0-2.1); ALKALINE PHOSPHATASE 90 U/L (38-126); ALT/SGPT 43 U/L (21-72); AST/SGOT 46 U/L (17-59); BILIRUBIN,TOTAL 1.2 mg/dL (0.2-1.3); BLOOD UREA NITROGEN 17 mg/dL (9-20); CARBON DIOXIDE 32 mmol/L (22-30); GLUCOSE,RANDOM 126 mg/dL (75-110); TOTAL PROTEIN 7.5 g/dL (6.3-8.3)
[2017-06-30 10:37] LABS: CALCIUM 8.7 mg/dl (8.6-10.4)
[2017-06-30 14:20] LABS: RBC URINE 2 /hpf (0-3); URINE BACTERIA RARE (<OCC); URINE BILIRUBIN NEGATIVE (NEGATIVE); URINE BLOOD NEGATIVE (NEGATIVE); URINE COLOR Yellow (YELLOW); URINE GLUCOSE (UA) NORMAL (Normal); URINE KETONE NEGATIVE (NEGATIVE); URINE LEUKOCYTE ESTERASE NEG Leu/uL (Negative); URINE PROTEIN 2+ mg/dL (NEGATIVE); WBC URINE 1 /hpf (0-5)
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
[2017-06-30] MEDS: Piperacill/Tazo 3.375gm in Dex 3.375 GM/50 ML BAG IVPB SCH ×2 (15:23→22:56)
[2017-06-30] MEDS: Ciprofloxacin 400mg/200ml D5W 400 MG/200 ML BAG IVPB SCH (16:36)
[2017-06-30] MEDS: (Novolin R) Insulin Human Regular 100 units/ml vial SC SCH ×2 (16:37→22:00)
[2017-06-30] MEDS: Vancomycin 1 gm/NS 200 ml 1 GM/200 ML BAG IVPB SCH (19:37)
--- NOTE | 2017-07-01 01:44 | CON ---
DATE: CARDIOLOGY CONSULTATION REASON FOR CONSULTATION: Exacerbation of congestive heart failure as well as chest pain. HISTORY OF PRESENT ILLNESS: The patient is a 67-year-old male who has a history of dilated cardiomyopathy, most recent echo revealed ejection fraction at the range of 10%. Patient has an ICD and biventricular pacemaker placement. He presents because of shortness of breath, worsening of his leg swelling, productive cough as well as chest discomfort. The patient is unaware of any prior cardiac catheterization or coronary intervention in the past. Patient is unaware of any history of heart attack in the past. SOCIAL HISTORY: Patient is a nonsmoker, nondrinker. MEDICATIONS: Aldactone 12.5 mg twice a day, IV Cipro at 400 mg q. 12 hours, Coreg 6.25 mg twice a day, Cozaar 50 mg once a day, Crestor 5 mg once a day, aspirin 81 mg once a day, Lasix 20 mg twice a day, Neurontin 300 mg p.o. q. 8 hours, vancomycin 1 g intravenously daily, Zosyn 3.375 g intravenously q. 6 hours. REVIEW OF SYSTEMS: No recent discharge of defibrillator according to the patient. No dizziness or syncope. The patient did experience nausea earlier today. PHYSICAL EXAMINATION GENERAL: Patient is an elderly male who does not appear to be in acute respiratory distress. VITAL SIGNS: Blood pressure 138/64, heart rate 83, temperature 97.6, respiration 22. HEENT: Facial edema. NECK: No JVD. CHEST: Absent breath sounds over the left base. HEART: S1 and S2 regular. ABDOMEN: Soft. EXTREMITIES: 2+ pitting edema. LABORATORY DATA: SMA-7; sodium 142, potassium 4.1, chloride 99, CO2 32, glucose 126, BUN 17, creatinine 1.0, proBNP 3020. CBC: WBC 8.6; hemoglobin 16.1; hematocrit 48.7; platelet count 135,000. Influenza type A and B serology is negative. Chest x-ray revealed a significant cardiomegaly and moderate CHF and left lower lobe infiltrate plus possible effusion. EKG revealed atrial sensed biventricular paced rhythm with ventricular bigeminy. ASSESSMENT: 1. The patient with congestive heart failure. 2. Chest pain rule out myocardial infarction. 3. Consider left lower lobe pneumonia. 4. Hypertension and diabetes mellitus. 5. History of atrial flutter. RECOMMENDATIONS: Continue IV Cipro, IV vanco, and IV Zosyn and continue Cozaar at 50 mg once a day, Coreg at 6.25 mg twice a day, Crestor at 5 mg once a day, Xarelto at 20 mg once a day, increase Lasix to 40 mg 10 units twice a day, consider infusion if the patient does not respond to above medical regimen. Roby Banegas MD
[2017-07-01] MEDS: Piperacill/Tazo 3.375gm in Dex 3.375 GM/50 ML BAG IVPB SCH ×4 (03:02→21:33)
[2017-07-01] MEDS: Ciprofloxacin 400mg/200ml D5W 400 MG/200 ML BAG IVPB SCH ×2 (04:05→17:46)
[2017-07-01 07:30] LABS: POTASSIUM 3.8 mmol/L (3.6-5.2)
[2017-07-01 07:32] LABS: ALB/GLOB RATIO 0.8 (1.0-2.1); BILIRUBIN,TOTAL 1.1 mg/dL (0.2-1.3); TOTAL PROTEIN 7.5 g/dL (6.3-8.3)
[2017-07-01 07:33] LABS: CALCIUM 8.2 mg/dl (8.6-10.4)
[2017-07-01 07:36] LABS: BASO % 0.6 % (0.0-2.0); EOS # 0.1 K/uL (0.0-0.7); EOS % 1.3 % (0.0-4.0); HEMATOCRIT 46.8 % (35.0-51.0); LYMPH # 1.2 K/uL (1.0-4.3); LYMPH % 19.3 % (20.0-40.0); MEAN CELL VOLUME 90.4 fL (80.0-94.0); MEAN CORPUSCULAR HEMOGLOBIN 29.2 pg (27.0-31.0); MEAN CORPUSCULAR HGB CONC 32.3 g/dL (33.0-37.0); MEAN PLATELET VOLUME 10.2 fL (7.2-11.7); MONO # 0.7 K/uL (0.0-0.8); MONO % 11.4 % (0.0-10.0); NRBC % 0.2 % (0.0-2.0); RED CELL DISTRIBUTION WIDTH 14.3 % (11.5-14.5); WHITE BLOOD COUNT 6.1 K/uL (4.8-10.8)
[2017-07-01 07:55] LABS: THYROID STIMULATING HORMONE 2.9 mIU/L (0.46-4.68)
[2017-07-01] MEDS: (Novolin R) Insulin Human Regular 100 units/ml vial SC SCH ×4 (08:03→21:34)
--- NOTE | 2017-07-01 10:11 | CP.PCM.PN ---
Subjective - Date & Time of Evaluation Date of Evaluation: 07/01/17 Time of Evaluation: 09:00 - Subjective Subjective: PGY-[address] Evans Baez Patient seen and examined at bedside. Patient complaining of dizziness after his bowel movement this morning. Patient also complaining of chills. On bedside vitals, patient's pulse was in the 30s with an appropriate blood pressure and no mental status changes. EKG ordered which showed pulse 76 and no acute changes from prior EKG. Patient denies fever, headache, chest pain, SOB, abdominal pain, dysuria. Objective - Vital Signs/Intake and Output Vital Signs (last 24 hours): Temp Pulse Resp BP Pulse Ox 98.0 F 80 20 118/72 98 07/01/17 09:03 07/01/17 09:03 07/01/17 09:03 07/01/17 09:03 07/01/17 09:03 Intake and Output: 07/01/17 07/01/17 06:59 18:59 Intake Total 440 Output Total 1300 Balance -860 - Medications Medications: Current Medications Aspirin (Ecotrin) 81 mg PO DAILY [facility] Last Admin: 06/30/17 14:03 Dose: Not Given Carvedilol (Coreg) 6.25 mg PO BID [facility] Last Admin: 06/30/17 19:06 Dose: 6.25 mg Furosemide (Lasix) 40 mg IVP Q12 MAL Gabapentin (Neurontin) 300 mg PO Q8 [facility] Last Admin: 07/01/17 05:28 Dose: 300 mg Ciprofloxacin (Cipro 400mg/200ml Dsw) 400 mg in 200 mls @ 133 mls/hr IVPB Q12H [facility] Last Admin: 07/01/17 04:05 Dose: 133 mls/hr Piperacillin Sod/Tazobactam Sod (Zosyn 3.375 Gm Iv Premix) 3.375 gm in 50 mls @ 100 mls/hr IVPB Q6H [facility] Last Admin: 06/30/17 22:56 Dose: 100 mls/hr Vancomycin/Sodium Chloride (Vancocin) 1 gm in 200 mls @ 133.333 mls/hr IVPB Q24H [facility] Last Admin: 06/30/17 19:37 Dose: 133.333 mls/hr Insulin Human Regular (Novolin R) 0 unit SC ACHS [facility] PRN Reason: Protocol Last Admin: 07/01/17 08:03 Dose: Not Given Losartan Potassium (Cozaar) 50 mg PO DAILY [facility] Last Admin: 06/30/17 15:23 Dose: 50 mg Ondansetron HCl (Zofran Inj) 4 mg IVP Q6H PRN PRN Reason: Nausea/Vomiting Rivaroxaban (Xarelto) 20 mg PO DAILY [facility] Last Admin: 06/30/17 15:23 Dose: 20 mg Rosuvastatin Calcium (Crestor) 5 mg PO HS [facility] Last Admin: 06/30/17 21:48 Dose: 5 mg Spironolactone (Aldactone) 12.5 mg PO BID [facility] - Labs Labs: 07/01/17 06:39 07/01/17 06:39 - Constitutional Appears: No Acute Distress - Head Exam Head Exam: ATRAUMATIC, NORMAL INSPECTION, NORMOCEPHALIC - Eye Exam Eye Exam: EOMI, PERRL - ENT Exam ENT Exam: Mucous Membranes Moist - Respiratory Exam Respiratory Exam: Decreased Breath Sounds (secondary to body habitus), Rales ( Mild Bibasilar rales appreciated on left) - Cardiovascular Exam Cardiovascular Exam: REGULAR RHYTHM, +S1, +S2 - GI/Abdominal Exam GI & Abdominal Exam: Distended, Soft, Normal Bowel Sounds. absent: Tenderness - Extremities Exam Extremities Exam: Pedal Edema (mild trace bilaterally). absent: Tenderness Additional comments: chronic venous stasis changes bilaterally - Neurological Exam Neurological Exam: Alert, Awake, Oriented x3 - Skin Skin Exam: Dry, Intact, Normal Color, Warm Assessment and Plan - Assessment and Plan (Free Text) Plan: Chest Pain Telemetry Consult Cardio- Dr. Bassam SIBLEY negative x 3 EKG- Ventricular paced rhythm, no acute changes TSH 2.9, free T4 0.96 CHF Exacerbation BNP on admission 3020 Strict I/O Head of bed elevated @ 45 degrees Daily weights Spironolactone 12.5mg PO BID Cozaar 50mg PO Daily Coreg 6.25mg PO BID Crestor 5mg PO HS Asa 81mg PO HS Xarelto 20mg PO Daily Lasix increased to 60 mg IV Q12H by Dr. Banegas on 07/01 Left sided Pneumonia Consult ID- Dr. Grossman CXR- Mild pulmonary venous congestion. Small right and left pleural effusions with left consolidation stat influenza, stat strep throat culture f/u urine legionella Ag, strep pneumonia Ag, mycoplasma IgM/IgG Zosyn 3.375gm IVPB Q6h (Started on 06/30/17) Cipro 400mg IVPB Q12h (Started on 06/30/17) Vancomycin 1gm Q24h (Started on 06/30/17) History of CAD Coreg 6.25mg PO BID Crestor 5mg PO HS Asa 81mg PO HS History of Atrial flutter Monitor on telemetry Xarelto 20mg PO Daily History of Hypertension See CHF exacerbation History of Hyperlipidemia Crestor 5mg PO HS Triglycerides 126, T. cholesterol 116, LDL 69, HDL 21 History of DM2 with DM neuropathy RISS accucheck ACHS hold glimepiride HgbA1C 7.2 Neurontin 300mg PO Q8h History of Gout Hold Colchicine Prophylactic Measure On full anticoagulation SCDs Pepcid 20mg PO BID 07/01: Spoken with Dr. Banegas about the patient. Since the patient has a biventricular pacemaker, he should theoretically not be bradycardic. This was proven with the EKG which showed a rate in the 70s and no acute changes. Since his EF is 10%, the vitals machine will not pickle solution maker the appropriate pulse. It is better to use the property assessment monitor when assessing his pulse. Dr. Banegas increased the dose of Lasix. If the patient does not show clinical improvement, then he recommends considering Dobutrex infusion. Case DW Dr. Dilip Madsen PGY-1
--- NOTE | 2017-07-01 11:41 | CARD ---
APPROVED REPORT EKG Measurement Heart [id number] P110 [id number] <Conclusion> Ventricular-paced rhythm Abnormal ECG
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
--- NOTE | 2017-07-01 12:12 | VASCLAB ---
PROCEDURE: Lower Extremity Venous Duplex Exam. HISTORY: Increased Edema PRIORS: Last vascular venous duplex 04/14/2017, normal. TECHNIQUE: Bilateral common femoral, femoral, popliteal and posterior tibial, peroneal and great saphenous veins were evaluated. Flow was assessed with color Doppler, compressibility, assessment of phasic flow and augmentation response. Report prepared by MAAME Cleary FINDINGS: RIGHT: 1. Common Femoral Vein: 1.1. Compressibility - Fully compressible: Thrombus - None : Flow - Phasic: Augmentation -Normal: Reflux - None. 2. Femoral Vein: 2.1. Compressibility - Fully compressible: Thrombus - None : Flow - Phasic: Augmentation -Normal: Reflux - None. 3. Popliteal Vein: 3.1. Compressibility - Fully compressible: Thrombus - None : Flow - Phasic: Augmentation -Normal: Reflux - None. 4. Posterior Tibial Vein: 4.1. Compressibility - Fully compressible: Thrombus - None: Flow - Phasic: Augmentation -Normal: Reflux - None. 5. Peroneal Vein: 5.1. Not visualized. 6. Great Saphenous Vein: 6.1. Compressibility - Fully compressible: Thrombus - None: Flow - Phasic: Augmentation - Normal: Reflux - None. LEFT: 1. Common Femoral Vein: 1.1. Compressibility - Fully compressible: Thrombus - None: Flow - Phasic: Augmentation -Normal: Reflux - None. 2. Femoral Vein: 2.1. Compressibility - Fully compressible: Thrombus - None: Flow - Phasic: Augmentation -Normal: Reflux - None. 3. Popliteal Vein: 3.1. Compressibility - Fully compressible: Thrombus - None : Flow - Phasic: Augmentation -Normal: Reflux - None. 4. Posterior Tibial Vein: 4.1. Compressibility - Fully compressible: Thrombus - None: Flow - Phasic: Augmentation -Normal: Reflux - None. 5. Peroneal Vein: 5.1. Not visualized. 6. Great Saphenous Vein: 6.1. Compressibility - Fully compressible: Thrombus - None: Flow - Phasic: Augmentation - Normal: Reflux - None. OTHER FINDINGS: Bilateral peroneal veins could not be imaged, due to swelling in the calves. Otherwise, normal compressibility of the remaining veins. IMPRESSION: Right: No evidence of deep or superficial vein thrombosis of the right lower extremity. Normal valve function noted of the right side. Left: No evidence of deep or superficial vein thrombosis of the left lower extremity. Normal valve function noted of the left side.
[2017-07-01] MEDS: Vancomycin 1 gm/NS 200 ml 1 GM/200 ML BAG IVPB SCH (19:24)
--- NOTE | 2017-07-01 20:07 | CARD ---
APPROVED REPORT EKG Measurement Heart [id number] <Conclusion> AV dual-paced rhythm with frequent ventricular-paced complexes in a pattern of bigeminy Abnormal ECG
--- NOTE | 2017-07-01 22:21 | PN ---
DATE: SUBJECTIVE: The patient's shortness of breath has slightly improved as well as the leg swelling. The patient's heart rate was reported by machine to be half of his actual heart rate under monitor, because of ventricular bigeminy and undetectable pulse amplitude by the automatic machine. PHYSICAL EXAMINATION: VITAL SIGNS: Blood pressure 146/83, heart rate 69, temperature 98.7, respiration 20. HEENT: Facial edema. CHEST: Absent breath sounds over the bases. HEART: S1 and S2 regularly regular. ABDOMEN: Soft. EXTREMITIES: 2 to 3+ pitting edema. LABORATORY DATA: SMA-7; sodium 138, potassium 0.8, chloride 94, CO2 36, glucose 144, BUN 21, creatinine 1.5. Three sets of troponins are negative. Hemoglobin, hematocrit, and white count are within normal limits. Platelet count today is below normal 116. Venous Doppler of lower extremity, no evidence of DVT. I did request PT and PTT yesterday, however, they are not available on the [employer] database. ASSESSMENT: 1. Congestive heart failure. 2. Consider right lower lobe pneumonia. 3. Ventricular bigeminy. 4. Mild thrombocytopenia. CONDITIONS: Continue Aldactone 12.5 mg twice a day, Coreg 6.25 mg twice a day, Crestor 5 mg once a day, Cozaar 60 mg once a day. Increase Lasix to 60 mg intravenous twice a day. Continue Xarelto 20 mg once a day, IV Zosyn and IV Zithromax. Roby Banegas MD
[2017-07-02] MEDS: Piperacill/Tazo 3.375gm in Dex 3.375 GM/50 ML BAG IVPB SCH ×4 (03:06→21:11)
[2017-07-02] MEDS: Ciprofloxacin 400mg/200ml D5W 400 MG/200 ML BAG IVPB SCH ×2 (03:43→16:34)
[2017-07-02 07:10] LABS: BASO % 0.4 % (0.0-2.0); EOS # 0.1 K/uL (0.0-0.7); EOS % 1.9 % (0.0-4.0); HEMATOCRIT 45.9 % (35.0-51.0); LYMPH # 0.9 K/uL (1.0-4.3); LYMPH % 14.6 % (20.0-40.0); MEAN CELL VOLUME 89.6 fL (80.0-94.0); MEAN CORPUSCULAR HEMOGLOBIN 29.3 pg (27.0-31.0); MEAN CORPUSCULAR HGB CONC 32.6 g/dL (33.0-37.0); MEAN PLATELET VOLUME 10.3 fL (7.2-11.7); MONO # 0.7 K/uL (0.0-0.8); MONO % 10.2 % (0.0-10.0); RED CELL DISTRIBUTION WIDTH 14.2 % (11.5-14.5); WHITE BLOOD COUNT 6.5 K/uL (4.8-10.8)
[2017-07-02 07:37] LABS: CHLORIDE 91 mmol/L (98-107); POTASSIUM 4.3 mmol/L (3.6-5.2); SODIUM 139 mmol/L (132-148)
[2017-07-02 07:39] LABS: ALKALINE PHOSPHATASE 79 U/L (38-126); AST/SGOT 29 U/L (17-59); GFR AFRICAN-AMERICAN > 60
[2017-07-02 07:40] LABS: ALB/GLOB RATIO 0.8 (1.0-2.1); ALT/SGPT 38 U/L (21-72); BLOOD UREA NITROGEN 19 mg/dL (9-20); GLUCOSE,RANDOM 156 mg/dL (75-110); MAGNESIUM 1.7 mg/dL (1.6-2.3); PHOSPHOROUS 4.1 mg/dL (2.5-4.5)
[2017-07-02 07:52] LABS: CARBON DIOXIDE 38 mmol/L (22-30)
[2017-07-02] MEDS: (Novolin R) Insulin Human Regular 100 units/ml vial SC SCH ×4 (08:47→21:30)
--- NOTE | 2017-07-02 10:12 | CP.PCM.PN ---
<Bart Madsen - Last Filed: 07/02/17 17:37> Subjective - Date & Time of Evaluation Date of Evaluation: 07/02/17 Time of Evaluation: 07:50 - Subjective Subjective: PGY-[address] Evans Baez Patient seen and examined at bedside. Patient reports feeling dizzy after moving around. Patient states that he is breathing better than yesterday. Although he is still coughing intermittently, patient says it's improved. Denies fevers, chills, headache, chest pain, abdominal pain, dysuria. Objective - Vital Signs/Intake and Output Vital Signs (last 24 hours): Temp Pulse Resp BP Pulse Ox 98.1 F 80 20 126/63 98 07/02/17 08:42 07/02/17 08:42 07/02/17 08:42 07/02/17 08:42 07/02/17 08:42 Intake and Output: 07/02/17 07/02/17 06:59 18:59 Intake Total 490 Output Total 1200 Balance -710 - Medications Medications: Current Medications Aspirin (Ecotrin) 81 mg PO DAILY [facility] Last Admin: 07/02/17 10:02 Dose: 81 mg Carvedilol (Coreg) 6.25 mg PO BID [facility] Last Admin: 07/02/17 10:02 Dose: 6.25 mg Furosemide (Lasix) 60 mg IVP Q12H [facility] Last Admin: 07/02/17 06:09 Dose: 60 mg Gabapentin (Neurontin) 300 mg PO Q8 [facility] Last Admin: 07/02/17 06:09 Dose: 300 mg Ciprofloxacin (Cipro 400mg/200ml Dsw) 400 mg in 200 mls @ 133 mls/hr IVPB Q12H [facility] Last Admin: 07/02/17 03:43 Dose: 133 mls/hr Piperacillin Sod/Tazobactam Sod (Zosyn 3.375 Gm Iv Premix) 3.375 gm in 50 mls @ 100 mls/hr IVPB Q6H [facility] Last Admin: 07/02/17 10:00 Dose: 100 mls/hr Vancomycin/Sodium Chloride (Vancocin) 1 gm in 200 mls @ 133.333 mls/hr IVPB Q24H [facility] Last Admin: 07/01/17 19:24 Dose: 133.333 mls/hr Insulin Human Regular (Novolin R) 0 unit SC ACHS [facility] PRN Reason: Protocol Last Admin: 07/02/17 08:47 Dose: 1 unit Losartan Potassium (Cozaar) 50 mg PO DAILY [facility] Last Admin: 07/01/17 11:40 Dose: 50 mg Ondansetron HCl (Zofran Inj) 4 mg IVP Q6H PRN PRN Reason: Nausea/Vomiting Last Admin: 07/02/17 10:02 Dose: 4 mg Rivaroxaban (Xarelto) 20 mg PO DAILY [facility] Last Admin: 07/02/17 10:02 Dose: 20 mg Rosuvastatin Calcium (Crestor) 5 mg PO HS [facility] Last Admin: 07/01/17 21:31 Dose: 5 mg Spironolactone (Aldactone) 12.5 mg PO BID [facility] Last Admin: 07/02/17 10:02 Dose: 12.5 mg - Labs Labs: 07/02/17 06:54 07/02/17 06:54 - Constitutional Appears: No Acute Distress - Head Exam Head Exam: ATRAUMATIC, NORMAL INSPECTION, NORMOCEPHALIC - Eye Exam Eye Exam: EOMI, PERRL - ENT Exam ENT Exam: Mucous Membranes Moist - Respiratory Exam Respiratory Exam: Decreased Breath Sounds (secondary to body habitus). absent: Rales, Rhonchi, Wheezes - Cardiovascular Exam Cardiovascular Exam: REGULAR RHYTHM, +S1, +S2 - GI/Abdominal Exam GI & Abdominal Exam: Distended, Soft, Normal Bowel Sounds. absent: Tenderness - Extremities Exam Extremities Exam: absent: Pedal Edema, Tenderness Additional comments: Bilateral chronic venous stasis changes in lower extremities - Neurological Exam Neurological Exam: Alert, Awake, Oriented x3 - Skin Skin Exam: Dry, Intact, Warm Assessment and Plan - Assessment and Plan (Free Text) Plan: Chest Pain Telemetry Consult Cardio- Dr. Bassam SIBLEY negative x 3 EKG- Ventricular paced rhythm, no acute changes TSH 2.9, free T4 0.96 CHF Exacerbation BNP on admission 3020 Strict I/O Head of bed elevated @ 45 degrees Daily weights Spironolactone 12.5mg PO BID Cozaar 50mg PO Daily Coreg 6.25mg PO BID Crestor 5mg PO HS Asa 81mg PO HS Xarelto 20mg PO Daily Lasix increased to 60 mg IV Q12H by Dr. Banegas on 07/01 Left sided Pneumonia Consult ID- Dr. Grossman CXR- Mild pulmonary venous congestion. Small right and left pleural effusions with left consolidation stat influenza, stat strep throat culture f/u urine legionella Ag, strep pneumonia Ag, mycoplasma IgM/IgG Zosyn 3.375gm IVPB Q6h (Started on 06/30/17) Cipro 400mg IVPB Q12h (Started on 06/30/17) Vancomycin 1gm Q24h (Started on 06/30/17) History of CAD Coreg 6.25mg PO BID Crestor 5mg PO HS Asa 81mg PO HS History of Atrial flutter Monitor on telemetry Xarelto 20mg PO Daily History of Hypertension See CHF exacerbation History of Hyperlipidemia Crestor 5mg PO HS Triglycerides 126, T. cholesterol 116, LDL 69, HDL 21 History of DM2 with DM neuropathy RISS accucheck ACHS hold glimepiride HgbA1C 7.2 Neurontin 300mg PO Q8h History of Gout Hold Colchicine Prophylactic Measure On full anticoagulation SCDs Pepcid 20mg PO BID 07/01: Spoken with Dr. Banegas about the patient. Since the patient has a biventricular pacemaker, he should theoretically not be bradycardic. This was proven with the EKG which showed a rate in the 70s and no acute changes. Since his EF is 10%, the vitals machine will not picker packer the appropriate pulse. It is better to use the nutrition and dietetics instructor when assessing his pulse. Dr. Banegas increased the dose of Lasix. If the patient does not show clinical improvement, then he recommends considering Dobutrex infusion. Case DW Dr. Dilip Madsen PGY-1 <Evans Baez - Last Filed: 07/02/17 18:01> Objective - Vital Signs/Intake and Output Vital Signs (last 24 hours): Temp Pulse Resp BP Pulse Ox 97.5 F L 70 20 91/52 L 92 L 07/02/17 16:00 07/02/17 16:00 07/02/17 16:00 07/02/17 16:00 07/02/17 16:00 Intake and Output: 07/02/17 07/02/17 06:59 18:59 Intake Total 490 400 Output Total 1200 700 Balance -710 -300 - Medications Medications: Current Medications Aspirin (Ecotrin) 81 mg PO DAILY [facility] Last Admin: 07/02/17 10:02 Dose: 81 mg Carvedilol (Coreg) 6.25 mg PO BID [facility] Last Admin: 07/02/17 10:02 Dose: 6.25 mg Furosemide (Lasix) 60 mg IVP Q12H [facility] Last Admin: 07/02/17 06:09 Dose: 60 mg Gabapentin (Neurontin) 300 mg PO Q8 [facility] Last Admin: 07/02/17 13:25 Dose: 300 mg Ciprofloxacin (Cipro 400mg/200ml Dsw) 400 mg in 200 mls @ 133 mls/hr IVPB Q12H [facility] Last Admin: 07/02/17 16:34 Dose: 133 mls/hr Piperacillin Sod/Tazobactam Sod (Zosyn 3.375 Gm Iv Premix) 3.375 gm in 50 mls @ 100 mls/hr IVPB Q6H [facility] Last Admin: 07/02/17 15:17 Dose: 100 mls/hr Vancomycin/Sodium Chloride (Vancocin) 1 gm in 200 mls @ 133.333 mls/hr IVPB Q24H [facility] Last Admin: 07/01/17 19:24 Dose: 133.333 mls/hr Insulin Human Regular (Novolin R) 0 unit SC ACHS [facility] PRN Reason: Protocol Last Admin: 07/02/17 13:03 Dose: Not Given Losartan Potassium (Cozaar) 50 mg PO DAILY [facility] Last Admin: 07/02/17 11:52 Dose: 50 mg Ondansetron HCl (Zofran Inj) 4 mg IVP Q6H PRN PRN Reason: Nausea/Vomiting Last Admin: 07/02/17 10:02 Dose: 4 mg Pantoprazole Sodium (Protonix Ec Tab) 40 mg PO DAILY [facility] Last Admin: 07/02/17 15:17 Dose: 40 mg Rivaroxaban (Xarelto) 20 mg PO DAILY [facility] Last Admin: 07/02/17 10:02 Dose: 20 mg Rosuvastatin Calcium (Crestor) 5 mg PO HS [facility] Last Admin: 07/01/17 21:31 Dose: 5 mg Saccharomyces Boulardii (Florastor) 250 mg PO BID [facility] Spironolactone (Aldactone) 12.5 mg PO BID [facility] Last Admin: 07/02/17 10:02 Dose: 12.5 mg - Labs Labs: 07/02/17 06:54 07/02/17 06:54 Attending/Attestation - Attestation I have personally seen and examined this patient.: Yes I have fully participated in the care of the patient.: Yes I have reviewed all pertinent clinical information, including history, physical exam and plan: Yes Notes (Text): 07/02/17 17:51 Patient was seen and examined at 3 PM ROS: SOB is much better NO chest pain Cough now is dry and nonproductive Leg swelling is less Moving his bowels Still with some dizziness when he gets upto walk Exam: Resp: CTA B/L, NO R/R/W Cardio: NS1 and NS2, NO M/R/G Ext: 1+ Pitting Edema of the extremities from feet to just below the bilateral tibia Assessments: Chest Pain: Resolved. TOÑITO x 3 negative CHF Exacerbation: improved with the Lasix 60 mg IV Q12H Left Pneumonia: Cipro, Vanco, Zosyn as this is HCAP with risk for MultiDrugResistance. Blood Culture is negative to date. CA: ASA, Coreg, Crestor Hx Aflutter: Xarelto Hx HTN: Cozaar, Spirnalactone, Coreg Hx HLD: Crestor Hx DM 2: RISS for now Hx Diabetic Neuropathy: Gabapentin Hx Gout PT ordered. Evans Ragland D.O.
[2017-07-02] MEDS: Pantoprazole 40 mg EC Tab PO SCH (15:17)
[2017-07-02] MEDS: Vancomycin 1 gm/NS 200 ml 1 GM/200 ML BAG IVPB SCH (18:38)
[2017-07-02] MEDS: Saccharomyces Boulardi 250 mg Cap PO SCH (18:39)
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
--- NOTE | 2017-07-02 19:11 | PN ---
DATE: SUBJECTIVE: The patient denies chest pain. His shortness of breath and leg swelling has improved. PHYSICAL EXAMINATION: VITAL SIGNS: Blood pressure 99/67, heart rate 88, temperature 98.1, respiration 20. HEENT: Improved facial edema. NECK: No JVD. CHEST: Absent breath sounds over the bases. HEART: S1 and S2 regular. EXTREMITIES: 2+ pitting edema. LABORATORY DATA: Hemoglobin, hematocrit, and white count are within normal limits. Platelet count has declined to 111,000. SMA-7: Sodium 139, potassium 4.3, chloride 91, CO2 38, glucose 156, BUN 19, creatinine 1.4. ASSESSMENT: 1. Dilated cardiomyopathy. 2. Consider left lower lobe pneumonia. 3. History of hypertension and diabetes mellitus. 4. History of atrial flutter. RECOMMENDATIONS: Continue Aldactone 12.5 mg twice a day, IV Cipro 400 mg q. 12 hours and IV Zosyn 3.375 g q. 6 hours. Continue Lasix at 60 mg twice a day, aspirin 81 mg once a day, Crestor at 5 mg once a day, Cozaar at 50 mg once a day, Coreg at 6.25 mg twice a day, and Xarelto at 20 mg once a day. Roby Banegas MD
[2017-07-03] MEDS: Piperacill/Tazo 3.375gm in Dex 3.375 GM/50 ML BAG IVPB SCH ×4 (03:26→21:17)
[2017-07-03] MEDS: Ciprofloxacin 400mg/200ml D5W 400 MG/200 ML BAG IVPB SCH ×2 (04:07→16:27)
[2017-07-03 06:55] LABS: BASO % 0.5 % (0.0-2.0); EOS # 0.1 K/uL (0.0-0.7); EOS % 0.8 % (0.0-4.0); HEMATOCRIT 45.4 % (35.0-51.0); LYMPH # 1.2 K/uL (1.0-4.3); LYMPH % 14.7 % (20.0-40.0); MEAN CELL VOLUME 90.1 fL (80.0-94.0); MEAN CORPUSCULAR HEMOGLOBIN 29.9 pg (27.0-31.0); MEAN CORPUSCULAR HGB CONC 33.2 g/dL (33.0-37.0); MEAN PLATELET VOLUME 9.6 fL (7.2-11.7); MONO # 0.6 K/uL (0.0-0.8); MONO % 7.7 % (0.0-10.0); RED CELL DISTRIBUTION WIDTH 14.3 % (11.5-14.5); WHITE BLOOD COUNT 8.2 K/uL (4.8-10.8)
[2017-07-03 07:25] LABS: POTASSIUM 4.9 mmol/L (3.6-5.2)
[2017-07-03 07:28] LABS: ALB/GLOB RATIO 0.8 (1.0-2.1); BILIRUBIN,TOTAL 0.8 mg/dL (0.2-1.3); CALCIUM 7.9 mg/dl (8.6-10.4); PHOSPHOROUS 3.4 mg/dL (2.5-4.5); TOTAL PROTEIN 6.9 g/dL (6.3-8.3)
[2017-07-03 07:29] LABS: MAGNESIUM 1.7 mg/dL (1.6-2.3)
[2017-07-03] MEDS: (Novolin R) Insulin Human Regular 100 units/ml vial SC SCH ×4 (08:20→22:39)
--- NOTE | 2017-07-03 09:40 | CP.PCM.PN ---
<Bart Madsen S - Last Filed: 07/03/17 14:56> Subjective - Date & Time of Evaluation Date of Evaluation: 07/03/17 Time of Evaluation: 07:40 - Subjective Subjective: PGY-[address] Evans Baez Patient seen and examined at bedside. Patient complaining of dizziness and feeling unwell. This fatigue began after receiving his morning dose of IV Lasix at around 6AM this morning. His SBP was below 100 so his morning blood pressure medications were held. Objective - Vital Signs/Intake and Output Vital Signs (last 24 hours): Temp Pulse Resp BP Pulse Ox 98.0 F 76 20 98/65 L 96 07/03/17 08:30 07/03/17 08:30 07/03/17 08:30 07/03/17 08:30 07/03/17 08:30 Intake and Output: 07/03/17 07/03/17 06:59 18:59 Intake Total 650 Output Total 600 Balance 50 - Medications Medications: Current Medications Aspirin (Ecotrin) 81 mg PO DAILY [facility] Last Admin: 07/02/17 10:02 Dose: 81 mg Carvedilol (Coreg) 6.25 mg PO BID [facility] Last Admin: 07/03/17 09:19 Dose: Not Given Furosemide (Lasix) 60 mg IVP Q12H [facility] Last Admin: 07/03/17 06:10 Dose: 60 mg Gabapentin (Neurontin) 300 mg PO Q8 [facility] Last Admin: 07/03/17 06:10 Dose: 300 mg Ciprofloxacin (Cipro 400mg/200ml Dsw) 400 mg in 200 mls @ 133 mls/hr IVPB Q12H [facility] Last Admin: 07/03/17 04:07 Dose: 133 mls/hr Piperacillin Sod/Tazobactam Sod (Zosyn 3.375 Gm Iv Premix) 3.375 gm in 50 mls @ 100 mls/hr IVPB Q6H [facility] Last Admin: 07/03/17 08:21 Dose: 100 mls/hr Vancomycin/Sodium Chloride (Vancocin) 1 gm in 200 mls @ 133.333 mls/hr IVPB Q24H [facility] Last Admin: 07/02/17 18:38 Dose: 133.333 mls/hr Insulin Human Regular (Novolin R) 0 unit SC ACHS [facility] PRN Reason: Protocol Last Admin: 07/03/17 08:20 Dose: 1 unit Losartan Potassium (Cozaar) 50 mg PO DAILY [facility] Last Admin: 07/03/17 09:19 Dose: Not Given Ondansetron HCl (Zofran Inj) 4 mg IVP Q6H PRN PRN Reason: Nausea/Vomiting Last Admin: 07/02/17 10:02 Dose: 4 mg Pantoprazole Sodium (Protonix Ec Tab) 40 mg PO DAILY [facility] Last Admin: 07/02/17 15:17 Dose: 40 mg Rivaroxaban (Xarelto) 20 mg PO DAILY [facility] Last Admin: 07/02/17 10:02 Dose: 20 mg Rosuvastatin Calcium (Crestor) 5 mg PO HS [facility] Last Admin: 07/02/17 21:11 Dose: 5 mg Saccharomyces Boulardii (Florastor) 250 mg PO BID [facility] Last Admin: 07/02/17 18:39 Dose: 250 mg Spironolactone (Aldactone) 12.5 mg PO BID [facility] Last Admin: 07/03/17 09:19 Dose: Not Given - Labs Labs: 07/03/17 06:44 07/03/17 06:44 - Constitutional Appears: No Acute Distress - Head Exam Head Exam: ATRAUMATIC, NORMAL INSPECTION, NORMOCEPHALIC - Eye Exam Eye Exam: EOMI, PERRL - ENT Exam ENT Exam: Mucous Membranes Moist - Respiratory Exam Respiratory Exam: absent: Rales, Rhonchi, Wheezes Additional comments: Coarse Breath Sounds bilaterally - Cardiovascular Exam Cardiovascular Exam: REGULAR RHYTHM, +S1, +S2 - GI/Abdominal Exam GI & Abdominal Exam: Distended, Soft, Normal Bowel Sounds. absent: Tenderness - Extremities Exam Extremities Exam: absent: Pedal Edema, Tenderness Additional comments: Chronic venous stasis changes - Neurological Exam Neurological Exam: Alert, Awake, Oriented x3 Assessment and Plan - Assessment and Plan (Free Text) Plan: Chest Pain Telemetry Consult Cardio- Dr. Bassam SIBLEY negative x 3 EKG- Ventricular paced rhythm, no acute changes TSH 2.9, free T4 0.96 Acute on Chronic Systolic CHF BNP on admission 3020 Strict I/O Head of bed elevated @ 45 degrees Daily weights Spironolactone 12.5mg PO BID Cozaar 50mg PO Daily Coreg 6.25mg PO BID Asa 81mg PO HS Lasix increased to 60 mg IV Q12H by Dr. Banegas on 07/01. Lasix switched to 40 mg PO BID on 07/03 Healthcare Associated Left sided Pneumonia Consult ID- Dr. Grossman CXR- Mild pulmonary venous congestion. Small right and left pleural effusions with left consolidation stat influenza, stat strep throat culture f/u urine legionella Ag, strep pneumonia Ag, mycoplasma IgM/IgG Zosyn 3.375gm IVPB Q6h (Started on 06/30/17) Cipro 400mg IVPB Q12h (Started on 06/30/17) Vancomycin 1gm Q24h (Started on 06/30/17) History of CAD Coreg 6.25mg PO BID Crestor 5mg PO HS Asa 81mg PO HS History of Atrial flutter Monitor on telemetry Xarelto 20mg PO Daily History of Hypertension See CHF exacerbation History of Hyperlipidemia Crestor 5mg PO HS Triglycerides 126, T. cholesterol 116, LDL 69, HDL 21 History of DM2 with DM neuropathy RISS accucheck ACHS HgbA1C 7.2 Neurontin 300mg PO Q8h History of Gout Hold Colchicine Prophylactic Measure On full anticoagulation SCDs Pepcid 20mg PO BID 07/01: Spoken with Dr. Banegas about the patient. Since the patient has a biventricular pacemaker, he should theoretically not be bradycardic. This was proven with the EKG which showed a rate in the 70s and no acute changes. Since his EF is 10%, the vitals machine will not picking machine operator the appropriate pulse. It is better to use the compliance monitor when assessing his pulse. Dr. Banegas increased the dose of Lasix. If the patient does not show clinical improvement, then he recommends considering Dobutrex infusion. 07/03: Patient feeling unwell after morning dose of IV lasix, and BUN/Cr are creeping up. SBP was under 100. Held morning BP meds in accordance with parameters. Switched IV Lasix to oral [address] Case DW Dr. Dilip Madsen PGY-1 <Evans Baez - Last Filed: 07/03/17 18:14> Objective - Vital Signs/Intake and Output Vital Signs (last 24 hours): Temp Pulse Resp BP Pulse Ox 98.9 F 62 18 124/72 98 07/03/17 16:00 07/03/17 16:00 07/03/17 16:00 07/03/17 17:33 07/03/17 16:00 Intake and Output: 07/03/17 07/03/17 06:59 18:59 Intake Total 650 400 Output Total 600 800 Balance 50 -400 - Medications Medications: Current Medications Aspirin (Ecotrin) 81 mg PO DAILY [facility] Last Admin: 07/03/17 09:43 Dose: 81 mg Carvedilol (Coreg) 6.25 mg PO BID [facility] Last Admin: 07/03/17 17:33 Dose: 6.25 mg Furosemide (Lasix) 40 mg PO BID [facility] Last Admin: 07/03/17 17:33 Dose: 40 mg Gabapentin (Neurontin) 300 mg PO Q8 [facility] Last Admin: 07/03/17 13:57 Dose: 300 mg Ciprofloxacin (Cipro 400mg/200ml Dsw) 400 mg in 200 mls @ 133 mls/hr IVPB Q12H [facility] Last Admin: 07/03/17 16:27 Dose: 133 mls/hr Piperacillin Sod/Tazobactam Sod (Zosyn 3.375 Gm Iv Premix) 3.375 gm in 50 mls @ 100 mls/hr IVPB Q6H [facility] Last Admin: 07/03/17 15:52 Dose: 100 mls/hr Vancomycin/Sodium Chloride (Vancocin) 1 gm in 200 mls @ 133.333 mls/hr IVPB Q24H [facility] Last Admin: 07/02/17 18:38 Dose: 133.333 mls/hr Insulin Human Regular (Novolin R) 0 unit SC ACHS [facility] PRN Reason: Protocol Last Admin: 07/03/17 16:19 Dose: Not Given Losartan Potassium (Cozaar) 50 mg PO DAILY [facility] Last Admin: 07/03/17 09:19 Dose: Not Given Ondansetron HCl (Zofran Inj) 4 mg IVP Q6H PRN PRN Reason: Nausea/Vomiting Last Admin: 07/02/17 10:02 Dose: 4 mg Pantoprazole Sodium (Protonix Ec Tab) 40 mg PO DAILY [facility] Last Admin: 07/03/17 09:43 Dose: 40 mg Rivaroxaban (Xarelto) 20 mg PO DAILY [facility] Last Admin: 07/03/17 09:43 Dose: 20 mg Rosuvastatin Calcium (Crestor) 5 mg PO HS [facility] Last Admin: 07/02/17 21:11 Dose: 5 mg Saccharomyces Boulardii (Florastor) 250 mg PO BID [facility] Last Admin: 07/03/17 17:33 Dose: 250 mg Spironolactone (Aldactone) 12.5 mg PO BID [facility] Last Admin: 07/03/17 17:33 Dose: 12.5 mg - Labs Labs: 07/03/17 06:44 07/03/17 06:44 Attending/Attestation - Attestation I have personally seen and examined this patient.: Yes I have fully participated in the care of the patient.: Yes I have reviewed all pertinent clinical information, including history, physical exam and plan: Yes Notes (Text): 07/03/17 18:10 Patient was seen and examined at 2:15 PM 07/03/17 ROS: SOB is much better NO chest pain Cough now is dry and is occasional Leg swelling is less Moving his bowels Still with some dizziness when he gets up to walk Exam: Resp: CTA B/L, Faint bibasilar rales Cardio: NS1 and NS2, NO M/R/G Ext: Non-pitting Edema of the extremities from feet to just below the bilateral tibia. Chronic venous insufficiency changes Assessments: Chest Pain: Resolved. TOÑITO x 3 negative CHF Exacerbation: improved with the Lasix 60 mg IV Q12H. However this caused YURIY and therefore the Lasix was changed to 40 mg PO Q12H. Left Pneumonia: Cipro, Vanco, Zosyn as this is HCAP with risk for MultiDrugResistance. Blood Culture is negative to date. CAD: ASA, Coreg, Crestor Hx Aflutter: Xarelto Hx HTN: Cozaar, Spirnalactone, Coreg Hx HLD: Crestor Hx DM 2: RISS for now Hx Diabetic Neuropathy: Gabapentin Hx Gout Patient is receiving PT Evans Baez D.O.
[2017-07-03] MEDS: Pantoprazole 40 mg EC Tab PO SCH (09:43)
[2017-07-03] MEDS: Saccharomyces Boulardi 250 mg Cap PO SCH ×2 (09:43→17:33)
[2017-07-03] MEDS: Vancomycin 1 gm/NS 200 ml 1 GM/200 ML BAG IVPB SCH (19:03)
[2017-07-04 00:15] VITALS: RESP 20
[2017-07-04] MEDS: Piperacill/Tazo 3.375gm in Dex 3.375 GM/50 ML BAG IVPB SCH ×2 (03:07→10:00)
[2017-07-04] MEDS: Ciprofloxacin 400mg/200ml D5W 400 MG/200 ML BAG IVPB SCH (03:44)
--- NOTE | 2017-07-04 06:35 | PN ---
SUBJECTIVE: The patient's shortness of breath is improving. No retrosternal chest pain. PHYSICAL EXAMINATION VITAL SIGNS: Blood pressure 124/72, heart rate 62, temperature 98.9, respirations 18. HEENT: Normocephalic. CHEST: Absent breath sounds over the bases. HEART: S1, S2, regular. EXTREMITIES: 2+ pitting edema. LABORATORY DATA: White count, platelet count, hemoglobin, and hematocrit are within normal limits today. Today's BUN and creatinine are 25 and 1.8, glucose is elevated at 184. Blood cultures negative after three days. ASSESSMENT: 1. The patient with congestive heart failure. 2. Pneumonia. 3. History of atrial flutter. 4. Diabetes mellitus. 5. Status post biventricular pacemaker/implantable cardioverter-defibrillator. 6. Prerenal azotemia. RECOMMENDATIONS: Case was discussed with medical team including Dr. Evans Baez. IV Lasix was discontinued and the patient was placed on oral Lasix at 40 mg twice a day instead. Continue aspirin at 81 mg once a day, Coreg at 6.25 mg twice a day, Cozaar at 50 mg once a day, Crestor at 5 mg once a day. Continue IV vancomycin and IV Zosyn. Roby Banegas MD
[2017-07-04 07:24] LABS: BASO # 0.1 K/uL (0.0-0.2); BASO % 0.6 % (0.0-2.0); EOS # 0.1 K/uL (0.0-0.7); EOS % 0.9 % (0.0-4.0); HEMATOCRIT 45.7 % (35.0-51.0); LYMPH # 1.2 K/uL (1.0-4.3); LYMPH % 14.1 % (20.0-40.0); MEAN CELL VOLUME 90.3 fL (80.0-94.0); MEAN CORPUSCULAR HEMOGLOBIN 29.6 pg (27.0-31.0); MEAN CORPUSCULAR HGB CONC 32.8 g/dL (33.0-37.0); MEAN PLATELET VOLUME 9.6 fL (7.2-11.7); MONO # 0.8 K/uL (0.0-0.8); MONO % 10.1 % (0.0-10.0); RED CELL DISTRIBUTION WIDTH 14.3 % (11.5-14.5); WHITE BLOOD COUNT 8.3 K/uL (4.8-10.8)
[2017-07-04 08:04] LABS: POTASSIUM 4.4 mmol/L (3.6-5.2)
[2017-07-04 08:07] LABS: ALB/GLOB RATIO 0.8 (1.0-2.1); BILIRUBIN,TOTAL 0.8 mg/dL (0.2-1.3); MAGNESIUM 1.8 mg/dL (1.6-2.3); PHOSPHOROUS 3.5 mg/dL (2.5-4.5); TOTAL PROTEIN 7.4 g/dL (6.3-8.3)
[2017-07-04] MEDS: (Novolin R) Insulin Human Regular 100 units/ml vial SC SCH ×2 (08:24→12:34)
[2017-07-04] MEDS: Saccharomyces Boulardi 250 mg Cap PO SCH (10:04)
[2017-07-04] MEDS: Pantoprazole 40 mg EC Tab PO SCH (10:05)
--- NOTE | 2017-07-04 11:24 | CP.PCM.PN ---
Subjective - Date & Time of Evaluation Date of Evaluation: 07/04/17 Time of Evaluation: 11:15 - Subjective Subjective: Patient was seen and examined at 11:15 AM 07/04/17 ROS: SOB is much better and continues to improve NO chest pain Cough now is dry and is occasional Leg swelling is less Moving his bowels States that he is no longer experiencing dizziness Right Knee Pain Exam: Resp: CTA B/L, Faint bibasilar rales Cardio: NS1 and NS2, NO M/R/G Ext: Non-pitting Edema of the extremities from feet to just below the bilateral tibia. Chronic venous insufficiency changes. NO erythema/NO edema of the bilateral knees and nontender to palpation. Assessments: Chest Pain: Resolved. TOÑITO x 3 negative CHF Exacerbation: improved with the Lasix 60 mg IV Q12H. However this caused YURIY and therefore the Lasix was changed to 40 mg PO Q12H 07/03/17 Acute Renal Insufficiency: Improved to 22/1.5 Left Pneumonia: Cipro, Vanco, Zosyn as this is HCAP with risk for MultiDrugResistance. Blood Culture is negative to date. NO fevers CAD: ASA, Coreg, Crestor Hx Aflutter: Xarelto Hx HTN: Cozaar, Spirnalactone, Coreg Hx HLD: Crestor and he is on Simvastatin at home Hx DM 2: RISS for now. He is on Glimepiride at home Hx Diabetic Neuropathy: Gabapentin Hx Gout: he is on Colchicine at home The patient's presenting complaints have improved. His edema of the legs has improved. He is NO longer experiencing any chest pain. His cultures are negative to date. There are NO fevers. Patient is stable for discharge. The following instructions were explained to patient and a copy provided to him: 1). Please schedule follow up with [facility] who are your Primary Care Physicians. Schedule follow up to take place in the next 7 to 10 days by calling [phone]. Through them you will need to follow up with Cardiology for your history of Hear Failure, Atrial Flutter. 2). You stated that you did not know which home medications that you needed therefore you were provided with the following prescriptions upon discharge. Please only have the prescriptions filled for the medications that you do not have: Lasix 40 mg, 1 tablet by mouth 2x/day (7 AM and & 5 PM), Disp #60, NO refills Spironolactone 12.5 mg, 1 tablet by mouth 2x/day (7 AM and 5 PM), Disp #60, NO refills Simvastatin 10 mg, 1 tablet by mouth 1x/day (dinner), Disp #30, NO refills Xarelto 20 mg, 1 tablet by mouth 1x/day (9 AM), Disp #30, NO refills Losartan 50 mg, 1 tablet by mouth 1x/day (1 PM), Disp #30, NO refills Coreg 6.25 mg, 1 tablet by mouth 2x/day (9 AM and 9 PM), Disp #60, NO refills Glimepiride 2 mg, 1 tablet by mouth 1x/day (breakfast), Disp #30, NO refills Gabapentin 300 mg, 1 tablet by mouth 3x/day (7 AM, 1 PM, 7 PM), Disp #90, NO refills Colchicine 0.6 mg, 1 tablet by mouth 1x/day (1 PM), Disp #30, NO refills 3). You were given a new prescription for the following new medication to finish treatment for your pneumonia: Doxycycline 100 mg, 1 tablet by mouth 2x/day (breakfast and dinner), Disp #12, NO refills 4). Please make sure that you are taking the following medications that can be purchased without a prescription: Asprin 81 mg, 1 tablet by mouth 1x/day (breakfast) Probiotic, 1 tablet by mouth (lunch) for the next 36 days: please ask your pharmacist which one he/she recommends. 5). Please follow the dietary recommendations for Heart Failure. 6). Please make sure to weigh yourself everyday and notify the [facility] should your weight increase by more than 4 pounds above your baseline. 7). Please take care and be well. Evans Baez D.O. Objective - Vital Signs/Intake and Output Vital Signs (last 24 hours): Temp Pulse Resp BP Pulse Ox 98.5 F 88 20 137/70 98 07/04/17 08:12 07/04/17 10:02 07/04/17 08:12 07/04/17 10:04 07/04/17 08:12 Intake and Output: 07/04/17 07/04/17 06:59 18:59 Intake Total 450 Output Total 1250 Balance -800 - Medications Medications: Current Medications Aspirin (Ecotrin) 81 mg PO DAILY [facility] Last Admin: 07/04/17 10:05 Dose: 81 mg Carvedilol (Coreg) 6.25 mg PO BID [facility] Last Admin: 07/04/17 10:05 Dose: 6.25 mg Furosemide (Lasix) 40 mg PO BID [facility] Last Admin: 07/04/17 10:04 Dose: 40 mg Gabapentin (Neurontin) 300 mg PO Q8 [facility] Last Admin: 07/04/17 05:40 Dose: 300 mg Ciprofloxacin (Cipro 400mg/200ml Dsw) 400 mg in 200 mls @ 133 mls/hr IVPB Q12H [facility] Last Admin: 07/04/17 03:44 Dose: 133 mls/hr Piperacillin Sod/Tazobactam Sod (Zosyn 3.375 Gm Iv Premix) 3.375 gm in 50 mls @ 100 mls/hr IVPB Q6H [facility] Last Admin: 07/04/17 10:00 Dose: 100 mls/hr Vancomycin/Sodium Chloride (Vancocin) 1 gm in 200 mls @ 133.333 mls/hr IVPB Q24H [facility] Last Admin: 07/03/17 19:03 Dose: 133.333 mls/hr Insulin Human Regular (Novolin R) 0 unit SC ACHS [facility] PRN Reason: Protocol Last Admin: 07/04/17 08:24 Dose: 1 unit Losartan Potassium (Cozaar) 50 mg PO DAILY [facility] Last Admin: 07/04/17 10:04 Dose: 50 mg Ondansetron HCl (Zofran Inj) 4 mg IVP Q6H PRN PRN Reason: Nausea/Vomiting Last Admin: 07/02/17 10:02 Dose: 4 mg Pantoprazole Sodium (Protonix Ec Tab) 40 mg PO DAILY [facility] Last Admin: 07/04/17 10:05 Dose: 40 mg Rivaroxaban (Xarelto) 20 mg PO DAILY [facility] Last Admin: 07/04/17 10:05 Dose: 20 mg Rosuvastatin Calcium (Crestor) 5 mg PO HS [facility] Last Admin: 07/03/17 21:17 Dose: 5 mg Saccharomyces Boulardii (Florastor) 250 mg PO BID [facility] Last Admin: 07/04/17 10:04 Dose: 250 mg Spironolactone (Aldactone) 12.5 mg PO BID [facility] Last Admin: 07/04/17 10:05 Dose: 12.5 mg - Labs Labs: 07/04/17 07:10 07/04/17 07:10
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
[2017-07-04 13:47] VITALS: BP 102/67; PULSE 67; TEMP 98.7; O2SAT 97
--- NOTE | 2017-07-04 17:42 | PCM.HF ---
Heart Failure Core Measure - Heart Failure Ejection Fraction: Less Than 40 % (lvef <10) JOSELUIS Inhibitor Prescribed: No Contraindication/Reason for not providing: arb Beta-Elissa Prescribed: Carvedilol Angiotensin II Receptor Elissa Prescribed: Yes AnticoagulationTherapy for Atrial Fibrillation/Atrialflutter: Yes Aldosterone Antagonist Prescribed: No Contraindication/Reason for not providing: RENAL DYSFUNCTION Hydralazine Nitrate Prescribed: No Contraindication/Reason for not providing: NOT RX BY MD Implantable Cardioverter Defibrillator Therapy: Yes Cardiac Resynchronization Therapy Prescribed: No Contraindication/Reason for not providing: HAS PACEMAKER - Follow up Will be discharged to: Home Follow Up Date (must be within 7 days from discharge): 07/08/17 Follow Up Time: 09:00
--- NOTE | 2017-07-17 18:45 | CARD ---
APPROVED REPORT EKG Measurement Heart [id number] <Conclusion> Ventricular-paced rhythm with frequent AV dual-paced complexes in a pattern of bigeminy Abnormal ECG
--- NOTE | 2017-07-17 18:46 | CARD ---
APPROVED REPORT EKG Measurement Heart [id number] [id number] <Conclusion> Marked sinus bradycardia with marked sinus arrhythmia with frequent AV dual-paced complexes and with occasional premature sathya [id number] Abnormal ECG
== END 2017-07-04 14:06 | disposition home or self-care (01) | DRG 544 ==
LOC: C.ER 09:33 → C.9E 11:20 → C.6T 16:45 → OBSVTOIN 07-01 13:49
PROVIDERS: ADMIT Family Medicine; ATTEND Family Medicine
DX: I11.0 Hypertensive heart disease with heart failure (principal); J18.9 Pneumonia, unspecified organism; I48.92 Unspecified atrial flutter; E11.40 Type 2 diabetes mellitus with diabetic neuropathy, unspecified; I42.0 Dilated cardiomyopathy; I25.10 Atherosclerotic heart disease of native coronary artery without angina pectoris; I50.9 Heart failure, unspecified; J45.909 Unspecified asthma, uncomplicated; E78.00 Pure hypercholesterolemia, unspecified; Z95.0 Presence of cardiac pacemaker; Z90.49 Acquired absence of other specified parts of digestive tract; Z79.01 Long term (current) use of anticoagulants; Z79.4 Long term (current) use of insulin; M10.9 Gout, unspecified

== ENCOUNTER 2017-07-17 10:46 | Observation (INO) | payer OTHER, SELFPAY ==
[2017-07-17 10:55] VITALS: BMI 38.7
--- NOTE | 2017-07-17 11:50 | RAD ---
PROCEDURE: CHEST RADIOGRAPH, 1 VIEW HISTORY: Shortness of breath COMPARISON: 06/30/2017 FINDINGS: LUNGS: Elevated left hemidiaphragm. Moderate venous congestion. Left hilar and infrahilar consolidative changes. PLEURA: As above. CARDIOVASCULAR: Cardiomegaly. Left-sided pacemaker. OSSEOUS STRUCTURES: No significant abnormalities. VISUALIZED UPPER ABDOMEN: Normal. OTHER FINDINGS: None. IMPRESSION: Elevated left hemidiaphragm. Moderate venous congestion. Left hilar and infrahilar consolidative changes.
[2017-07-17 11:52] LABS: BASO % 0.6 % (0.0-2.0); EOS # 0.1 K/uL (0.0-0.7); HEMATOCRIT 52.5 % (35.0-51.0); LYMPH # 1.6 K/uL (1.0-4.3); LYMPH % 19.9 % (20.0-40.0); MEAN CELL VOLUME 87.6 fL (80.0-94.0); MEAN CORPUSCULAR HEMOGLOBIN 29.4 pg (27.0-31.0); MEAN CORPUSCULAR HGB CONC 33.5 g/dL (33.0-37.0); MONO # 0.6 K/uL (0.0-0.8); MONO % 7.8 % (0.0-10.0); NRBC % 0.1 % (0.0-2.0); RED CELL DISTRIBUTION WIDTH 14.1 % (11.5-14.5); WHITE BLOOD COUNT 8.3 K/uL (4.8-10.8)
[2017-07-17 12:06] LABS: CHLORIDE 99 mmol/L (98-107)
[2017-07-17 12:07] LABS: POTASSIUM 4.6 mmol/L (3.6-5.2); SODIUM 140 mmol/L (132-148)
[2017-07-17 12:09] LABS: ALB/GLOB RATIO 0.8 (1.0-2.1); ALKALINE PHOSPHATASE 83 U/L (38-126); AST/SGOT 37 U/L (17-59); BILIRUBIN,TOTAL 1.2 mg/dL (0.2-1.3); BLOOD UREA NITROGEN 15 mg/dL (9-20); CARBON DIOXIDE 29 mmol/L (22-30); GFR AFRICAN-AMERICAN > 60; GLUCOSE,RANDOM 90 mg/dL (75-110); TOTAL PROTEIN 8.8 g/dL (6.3-8.3)
[2017-07-17 12:10] LABS: ALT/SGPT 28 U/L (21-72); CALCIUM 8.5 mg/dl (8.6-10.4)
[2017-07-17 12:47] LABS: INR 1.2
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
[2017-07-17] MEDS ORDERED: Aspirin 325 mg EC Tablets PO ONE (16:03)
[2017-07-17] MEDS: (Novolin R) Insulin Human Regular 100 units/ml vial SC SCH ×2 (16:26→21:42)
[2017-07-18 02:43] VITALS: RESP 20
--- NOTE | 2017-07-18 07:38 | RAD ---
HISTORY: sob COMPARISON: Portable chest 07/17/2017. TECHNIQUE: Chest PA and lateral FINDINGS: Pacemaker/defibrillator again noted in position. LUNGS: The paired may diaphragm appears elevated however there is no acute infiltrate appreciated bilaterally. PLEURA: No significant pleural effusion identified. No pneumothorax apparent. CARDIOVASCULAR: Cardiomediastinal silhouette appears stable. OSSEOUS STRUCTURES: No significant abnormalities. VISUALIZED UPPER ABDOMEN: Normal. OTHER FINDINGS: None. IMPRESSION: Elevated left hemidiaphragm appears stable. No interval infiltrate pleural effusion or pneumothorax identified.
[2017-07-18] MEDS: (Novolin R) Insulin Human Regular 100 units/ml vial SC SCH ×2 (07:57→13:18)
[2017-07-18 08:11] LABS: BASO % 0.5 % (0.0-2.0); EOS # 0.1 K/uL (0.0-0.7); EOS % 1.2 % (0.0-4.0); HEMATOCRIT 51.4 % (35.0-51.0); LYMPH # 1.9 K/uL (1.0-4.3); MEAN CELL VOLUME 88.4 fL (80.0-94.0); MEAN CORPUSCULAR HEMOGLOBIN 29.7 pg (27.0-31.0); MEAN CORPUSCULAR HGB CONC 33.6 g/dL (33.0-37.0); MEAN PLATELET VOLUME 9.3 fL (7.2-11.7); MONO # 0.9 K/uL (0.0-0.8); MONO % 11.8 % (0.0-10.0); NRBC % 0.1 % (0.0-2.0); WHITE BLOOD COUNT 7.5 K/uL (4.8-10.8)
[2017-07-18 08:23] LABS: CHLORIDE 95 mmol/L (98-107); POTASSIUM 4.6 mmol/L (3.6-5.2); SODIUM 138 mmol/L (132-148)
[2017-07-18 08:25] LABS: CARBON DIOXIDE 34 mmol/L (22-30); GFR AFRICAN-AMERICAN > 60
[2017-07-18 08:26] LABS: ALB/GLOB RATIO 0.8 (1.0-2.1); ALKALINE PHOSPHATASE 85 U/L (38-126); ALT/SGPT 26 U/L (21-72); AST/SGOT 35 U/L (17-59); BLOOD UREA NITROGEN 23 mg/dL (9-20); CALCIUM 8.6 mg/dl (8.6-10.4); GLUCOSE,RANDOM 117 mg/dL (75-110); MAGNESIUM 1.8 mg/dL (1.6-2.3); PHOSPHOROUS 4.4 mg/dL (2.5-4.5); TOTAL PROTEIN 8.4 g/dL (6.3-8.3)
[2017-07-18] MEDS ORDERED: Ammonium Lactate 12% Lotion (225 g) EXT SCH (10:00)
--- NOTE | 2017-07-18 10:59 | VASCLAB ---
PROCEDURE: Lower Extremity Venous Duplex Exam. HISTORY: B/L leg swelling/pain, r/o dvt PRIORS: None. TECHNIQUE: Bilateral common femoral, femoral, popliteal and posterior tibial, peroneal and great saphenous veins were evaluated. Flow was assessed with color Doppler, compressibility, assessment of phasic flow and augmentation response. Report prepared by Jose Espinal, BS, RVT FINDINGS: RIGHT: 1. Common Femoral Vein: 1.1. Compressibility - Fully compressible: Thrombus - None : Flow - Phasic: Augmentation -Normal: Reflux - None. 2. Femoral Vein: 2.1. Compressibility - Fully compressible: Thrombus - None : Flow - Phasic: Augmentation -Normal: Reflux - None. 3. Popliteal Vein: 3.1. Compressibility - Fully compressible: Thrombus - None : Flow - Phasic: Augmentation -Normal: Reflux - None. 4. Posterior Tibial Vein: 4.1. Compressibility - Fully compressible: Thrombus - None: Flow - Phasic: Augmentation -Normal: Reflux - None. 5. Peroneal Vein: 5.1. Compressibility - Fully compressible: Thrombus - None: Flow - Phasic: Augmentation -Normal: Reflux - None. 6. Great Saphenous Vein: 6.1. Compressibility - Fully compressible: Thrombus - None: Flow - Phasic: Augmentation - Normal: Reflux - None. LEFT: 1. Common Femoral Vein: 1.1. Compressibility - Fully compressible: Thrombus - None: Flow - Phasic: Augmentation -Normal: Reflux - None. 2. Femoral Vein: 2.1. Compressibility - Fully compressible: Thrombus - None: Flow - Phasic: Augmentation -Normal: Reflux - None. 3. Popliteal Vein: 3.1. Compressibility - Fully compressible: Thrombus - None : Flow - Phasic: Augmentation -Normal: Reflux - None. 4. Posterior Tibial Vein: 4.1. Compressibility - Fully compressible: Thrombus - None: Flow - Phasic: Augmentation -Normal: Reflux - None. 5. Peroneal Vein: 5.1. Compressibility - Fully compressible: Thrombus - None: Flow - Phasic: Augmentation -Normal: Reflux - None. 6. Great Saphenous Vein: 6.1. Compressibility - Fully compressible: Thrombus - None: Flow - Phasic: Augmentation - Normal: Reflux - None. OTHER FINDINGS: Right: None significant. Left: None significant. IMPRESSION: Right: No evidence of deep or superficial vein thrombosis of the right lower extremity. Normal valve function noted of the right side. Left: No evidence of deep or superficial vein thrombosis of the left lower extremity. Normal valve function noted of the left side.
[2017-07-18 12:51] VITALS: PULSE 70
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
--- NOTE | 2017-07-18 18:47 | CARD ---
APPROVED REPORT EKG Measurement Heart [id number] TN P97 [id number] <Conclusion> Ventricular-paced rhythm Abnormal ECG
[2017-07-18 23:30] VITALS: BP 132/82; TEMP 98.1
[2017-07-24 09:04] VITALS: O2SAT 97
--- NOTE | 2017-07-31 07:20 | PCM.HF ---
Heart Failure Core Measure - Heart Failure Ejection Fraction: Less Than 40 % Left Ventricular Function to be assessed after discharge: Yes JOSELUIS Inhibitor Prescribed: No Contraindication/Reason for not providing: ARB instead Beta-Elissa Prescribed: Carvedilol Angiotensin II Receptor Elissa Prescribed: Yes AnticoagulationTherapy for Atrial Fibrillation/Atrialflutter: Yes Aldosterone Antagonist Prescribed: Yes Hydralazine Nitrate Prescribed: No Contraindication/Reason for not providing: not needed Implantable Cardioverter Defibrillator Therapy: Yes Cardiac Resynchronization Therapy Prescribed: Yes - Follow up Will be discharged to: Home Follow Up Date (must be within 7 days from discharge): 07/25/17 Follow Up Time: 09:00
== END 2017-07-18 14:53 | disposition home or self-care (01) ==
LOC: C.ER 10:46 → C.9E 14:45 → C.6T 16:26
PROVIDERS: ADMIT Hospitalist; ATTEND Hospitalist
DX: I11.0 Hypertensive heart disease with heart failure (principal); I50.9 Heart failure, unspecified; E11.9 Type 2 diabetes mellitus without complications; J45.909 Unspecified asthma, uncomplicated; E78.5 Hyperlipidemia, unspecified; M10.9 Gout, unspecified; I48.92 Unspecified atrial flutter; I87.8 Other specified disorders of veins; Z95.810 Presence of automatic (implantable) cardiac defibrillator
CPT/HCPCS: 36415; 71010; 71020; 80053; 82550; 82553; 82948; 83036; 83735; 83880; 84100; 84484; 85025; 85610; 85730; 87040; 93005; 93970; 96374; 99285; G0378; J1940

== ENCOUNTER 2017-09-29 08:21 | Emergency (ER) | payer OTHER ==
[2017-09-29 08:21] VITALS: BMI 38.7
[2017-09-29] MEDS ORDERED: Oxycodone/Acetaminophen 5/325 mg Tab PO STA (08:57)
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
[2017-09-29] MEDS ORDERED: Oxycodone/Acetaminophen 5/325 mg Tab ONE (09:12)
--- NOTE | 2017-09-29 09:22 | RAD ---
PROCEDURE: Radiographs of the Chest and Right Ribs. HISTORY: R rib pain COMPARISON: 07/18/2017 TECHNIQUE: Frontal radiograph of the chest and multiple oblique radiographs of the right ribs were obtained. FINDINGS: RIGHT RIBS: No fracture or focal lesion visualized. LUNGS: Clear. PLEURA: No evidence of pleural effusion or pneumothorax. Nonspecific elevation of left hemidiaphragm persists without change. CARDIOVASCULAR: Normal-sized heart. AICD noted. OTHER FINDINGS: None. IMPRESSION: No evidence of right rib fracture. No infiltrate/effusion.
[2017-09-29 10:30] LABS: BASO % 0.5 % (0.0-2.0); EOS # 0.1 K/uL (0.0-0.7); EOS % 0.6 % (0.0-4.0); MEAN PLATELET VOLUME 9.7 fL (7.2-11.7)
[2017-09-29 10:37] LABS: HEMATOCRIT 53.6 % (35.0-51.0); LYMPH # 1.9 K/uL (1.0-4.3); LYMPH % 19.8 % (20.0-40.0); MEAN CELL VOLUME 86.8 fL (80.0-94.0); MEAN CORPUSCULAR HEMOGLOBIN 29.7 pg (27.0-31.0); MEAN CORPUSCULAR HGB CONC 34.2 g/dL (33.0-37.0); MONO % 10.7 % (0.0-10.0); NRBC % 0.2 % (0.0-2.0); RED CELL DISTRIBUTION WIDTH 15.4 % (11.5-14.5); WHITE BLOOD COUNT 9.6 K/uL (4.8-10.8)
[2017-09-29 10:39] LABS: INR 1.2
[2017-09-29 11:02] LABS: ALKALINE PHOSPHATASE 84 U/L (38-126); ALT/SGPT 43 U/L (21-72); AST/SGOT 37 U/L (17-59); BILIRUBIN,TOTAL 1.2 mg/dL (0.2-1.3); BLOOD UREA NITROGEN 19 mg/dL (9-20); CALCIUM 8.1 mg/dl (8.6-10.4); CARBON DIOXIDE 34 mmol/L (22-30); CHLORIDE 95 mmol/L (98-107); GFR AFRICAN-AMERICAN > 60; GLUCOSE,RANDOM 126 mg/dL (75-110); POTASSIUM 3.6 mmol/L (3.6-5.2); SODIUM 136 mmol/L (132-148); TOTAL PROTEIN 9.5 g/dL (6.3-8.3)
[2017-09-29 11:05] LABS: ALB/GLOB RATIO 0.7 (1.0-2.1)
[2017-09-29 11:40] VITALS: TEMP 98.1
--- NOTE | 2017-09-29 12:27 | CT ---
PROCEDURE: CT HEAD WITHOUT CONTRAST. HISTORY: dizziness COMPARISON: 10/18/2016 TECHNIQUE: Axial computed tomography images were obtained through the head/brain without intravenous contrast. Radiation dose: Total exam DLP = 1146.64 mGy-cm. This CT exam was performed using one or more of the following dose reduction techniques: Automated exposure control, adjustment of the mA and/or kV according to patient size, and/or use of iterative reconstruction technique. FINDINGS: HEMORRHAGE: No intracranial hemorrhage. BRAIN: No mass effect or edema. Mild diffuse age-appropriate cerebral atrophy. No evidence of acute infarct. VENTRICLES: Unremarkable. No hydrocephalus. CALVARIUM: Unremarkable. PARANASAL SINUSES: Unremarkable as visualized. No significant inflammatory changes. MASTOID AIR CELLS: Unremarkable as visualized. No inflammatory changes. OTHER FINDINGS: None. IMPRESSION: No intracranial mass, hemorrhage or evidence of acute infarct. No significant interval change.
[2017-09-29 14:18] VITALS: RESP 20
[2017-09-29 17:11] LABS: TROPONIN I 0.045 ng/mL (0.00-0.120)
[2017-09-29 17:29] VITALS: O2SAT 97
[2017-09-29 18:01] VITALS: BP 125/71; PULSE 64
--- NOTE | 2017-09-30 19:01 | CARD ---
APPROVED REPORT EKG Measurement Heart [id number] <Conclusion> Ventricular-paced rhythm Abnormal ECG
== END 2017-09-29 18:09 | disposition home or self-care (01) ==
LOC: C.ER 08:21
DX: R07.81 Pleurodynia (principal)
CPT/HCPCS: 36415; 70450; 71101; 80053; 82550; 82553; 82948; 83880; 84484; 85025; 85610; 85730; 93005; 96374; 99285; J1940

== ENCOUNTER 2018-02-11 13:10 | Inpatient (IN) | payer MEDICAID, OTHER ==
[2018-02-11 13:23] VITALS: BMI 35.4
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
[2018-02-11 14:24] LABS: BASO % 0.5 % (0.0-2.0); EOS # 0.1 K/uL (0.0-0.7); EOS % 1.2 % (0.0-4.0); HEMOGLOBIN 16.4 g/dL (12.0-18.0); LYMPH % 27.5 % (20.0-40.0); MEAN CELL VOLUME 88.6 fL (80.0-94.0); MEAN CORPUSCULAR HEMOGLOBIN 30.1 pg (27.0-31.0); MEAN CORPUSCULAR HGB CONC 33.9 g/dL (33.0-37.0); MEAN PLATELET VOLUME 9.8 fL (7.2-11.7); MONO # 0.8 K/uL (0.0-0.8); MONO % 10.5 % (0.0-10.0); NEUT # 4.3 K/uL (1.8-7.0); NEUT % 60.3 % (50.0-75.0); NRBC % 0.1 % (0.0-2.0); RBC 5.46 Mil/uL (4.40-5.90); RED CELL DISTRIBUTION WIDTH 14.2 % (11.5-14.5); WHITE BLOOD COUNT 7.2 K/uL (4.8-10.8)
[2018-02-11 14:48] LABS: ALB/GLOB RATIO 0.8 (1.0-2.1); ALBUMIN 3.6 g/dL (3.5-5.0); ALT/SGPT 35 U/L (21-72); AST/SGOT 39 U/L (17-59); BLOOD UREA NITROGEN 15 mg/dL (9-20); CALCIUM 8.1 mg/dl (8.6-10.4); GFR AFRICAN-AMERICAN > 60; GFR NON-AFRICAN AMERICAN > 60
--- NOTE | 2018-02-11 14:50 | RAD ---
PROCEDURE: CHEST RADIOGRAPH, 1 VIEW HISTORY: SOB COMPARISON: Chest radiograph dated 09/29/2017. FINDINGS: LUNGS: Clear. PLEURA: Stable elevation of the left hemidiaphragm. No pneumothorax or pleural fluid seen. CARDIOVASCULAR: Left subclavian access AICD/ pacemaker redemonstrated. Cardiomediastinal silhouette stably enlarged. OSSEOUS STRUCTURES: Unchanged. VISUALIZED UPPER ABDOMEN: Normal. OTHER FINDINGS: None. IMPRESSION: No active disease.
[2018-02-11 14:58] LABS: B-TYPE NATRIURETIC PEPTIDE 1610 pg/mL (0-900)
[2018-02-11] MEDS ORDERED: Iohexol 350mg/ml 100 ML ONE (15:49)
--- NOTE | 2018-02-11 17:10 | CT ---
PROCEDURE: CT Chest with contrast (Pulmonary Angiogram) HISTORY: SOB COMPARISON: Comparison made with CTA move chest dated 02/19/2016 TECHNIQUE: Axial computed tomography images were obtained of the chest in the pulmonary arterial phase of enhancement. Coronal and sagittal reformatted images were created and reviewed. Intravenous contrast dose: 100 cc Visipaque 320 Radiation dose: Total exam DLP = 684.11 mGy-cm. This CT exam was performed using one or more of the following dose reduction techniques: Automated exposure control, adjustment of the mA and/or kV according to patient size, and/or use of iterative reconstruction technique. Note that the examination is somewhat limited due to crossing streak and beam hardening artifact arising from pacemaker battery pack is left anterior chest wall. FINDINGS: PULMONARY ARTERIES: The visualized pulmonary trunk, the right and left main, lobar and subsegmental branches of the pulmonary arteries are well opacified with no definitive large filling defects seen to suggest acute central pulmonary embolus. AORTA: Ascending thoracic aorta measures approximately 3.5 cm. Descending thoracic aorta measures approximately 3.16 cm. LUNGS: Mild passive/dependent type atelectasis both posterior lung feels lower lobe greater than the upper lobes. There is an elliptical shaped density in the left lingular region that may represent chronic atelectasis or scarring and was present on the prior exam. There are ground-glass opacities are present suggesting air trapping. PLEURAL SPACES: No effusion or pneumothorax. Eventration of the left hemidiaphragm HEART: Heart remains enlarged. LYMPH NODES: Multiple small nonspecific mediastinal lymph nodes are again seen. There is also a 19 mm right hilar lymph node - nonspecific. Clinical correlation recommended. There is a small hiatal hernia. BONES, CHEST WALL: Re- demonstrated is mild to moderate chronic anterior wedge deformity of the T12 segment with minor chronic anterior wedging of the T11 segment. Chronic superior endplate deformity of the T6 segment. Mild multilevel degenerative spondylosis of the thoracic. Chronic appearing Schmorl's node changes involving the inferior T10 and to a lesser degree on superior T11 segments. OTHER FINDINGS: Minor changes of bilateral gynecomastia. Apparent post cholecystectomy changes however clinical correlation with surgical history. Mild dehiscence right anterior abdominal wall. IMPRESSION: Limited study due to crossing streak and beam hardening artifact arising from pacemaker battery pack. No evidence of acute central pulmonary embolus. Cardiomegaly. Ground-glass opacity seen in the upper lung zones possibly representing air trapping. Mild bibasilar atelectasis on. There is an elliptical shaped subsegmental area of atelectasis and or scarring in the left lingular region.
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
[2018-02-11 19:59] LABS: CK-MB 1.52 ng/mL (0.0-3.38); TROPONIN I 0.078 ng/mL (0.00-0.120)
[2018-02-11] MEDS ORDERED: Glucagon Recombinant 1 mg Inj IM PRN (20:55)
[2018-02-11] MEDS ORDERED: Dextrose 50% SYRINGE Inj (50 ml) IV PRN (20:55)
[2018-02-11] MEDS ORDERED: (Novolin R) Insulin Human Regular 100 units/ml vial SC SCH (22:00)
[2018-02-12 07:10] LABS: BASO # 0.1 K/uL (0.0-0.2); BASO % 0.7 % (0.0-2.0); EOS # 0.1 K/uL (0.0-0.7); EOS % 1.5 % (0.0-4.0); HEMOGLOBIN 16.1 g/dL (12.0-18.0); LYMPH # 2.5 K/uL (1.0-4.3); LYMPH % 29.5 % (20.0-40.0); MEAN CELL VOLUME 89.1 fL (80.0-94.0); MEAN CORPUSCULAR HEMOGLOBIN 30.4 pg (27.0-31.0); MEAN CORPUSCULAR HGB CONC 34.1 g/dL (33.0-37.0); MEAN PLATELET VOLUME 9.9 fL (7.2-11.7); MONO # 1.1 K/uL (0.0-0.8); MONO % 12.5 % (0.0-10.0); NEUT # 4.7 K/uL (1.8-7.0); NEUT % 55.8 % (50.0-75.0); NRBC % 0.1 % (0.0-2.0); RBC 5.32 Mil/uL (4.40-5.90); RED CELL DISTRIBUTION WIDTH 14.1 % (11.5-14.5); WHITE BLOOD COUNT 8.4 K/uL (4.8-10.8)
--- NOTE | 2018-02-12 09:19 | CP.PCM.PN ---
<Dao Bates - Last Filed: 02/12/18 10:48> Subjective - Date & Time of Evaluation Date of Evaluation: 02/12/18 Time of Evaluation: 09:05 - Subjective Subjective: PGY-[address] Mckenzie. No acute events noted overnight. Patient was initially seen walking with PT in hallway - he stated he was breathing better today but became dizzy during his walk. 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 He denied chest pain or abdominal pain. He denied fevers, chills, nausea, vomiting. Objective - Vital Signs/Intake and Output Vital Signs (last 24 hours): Temp Pulse Resp BP Pulse Ox 97.4 F L 79 20 110/64 96 02/12/18 07:30 02/12/18 07:30 02/12/18 07:30 02/12/18 07:30 02/12/18 07:30 Intake and Output: 02/12/18 02/12/18 06:59 18:59 Intake Total 240 Output Total 1400 Balance -1160 - Medications Medications: Current Medications Aspirin (Aspirin Chewable) 81 mg PO DAILY [facility] Carvedilol (Coreg) 6.25 mg PO TID [facility] Colchicine (Colocrys) 0.6 mg PO DAILY [facility] Dextrose (Dextrose 50% Inj) 0 ml IV STAT PRN; Protocol PRN Reason: Hypoglycemia Protocol Dextrose (Glutose 15) 0 gm PO ONCE PRN; Protocol PRN Reason: Hypoglycemia Protocol Furosemide (Lasix) 40 mg IVP BID [facility] Gabapentin (Neurontin) 300 mg PO Q8H [facility] Last Admin: 02/12/18 02:15 Dose: 300 mg Glimepiride (Amaryl) 2 mg PO DAILY [facility] Glucagon (Glucagen Diagnostic Kit) 0 mg IM STAT PRN; Protocol PRN Reason: Hypoglycemia Protocol Dextrose (Dextrose 5% In Water 1000 Ml) 1,000 mls @ 0 mls/hr IV .Q0M PRN; Protocol; Per Protocol PRN Reason: Hypoglycemia Protocol Losartan Potassium (Cozaar) 50 mg PO DAILY [facility] Pantoprazole Sodium (Protonix Ec Tab) 40 mg PO DAILY [facility] Rivaroxaban (Xarelto) 20 mg PO DAILY [facility] Rosuvastatin Calcium (Crestor) 10 mg PO HS [facility] Last Admin: 02/11/18 21:25 Dose: 10 mg Spironolactone (Aldactone) 12.5 mg PO BID [facility] Last Admin: 02/11/18 18:42 Dose: 12.5 mg - Labs Labs: 02/12/18 06:57 02/11/18 14:18 - Additional Findings Additional findings: - Constitutional Appears: No Acute Distress, Chronically Ill - Head Exam Head Exam: ATRAUMATIC, NORMAL INSPECTION - Eye Exam Eye Exam: EOMI, Normal appearance, PERRL Pupil Exam: NORMAL ACCOMODATION - ENT Exam ENT Exam: Mucous Membranes Moist - Respiratory Exam Respiratory Exam: Clear to Auscultation Bilateral, NORMAL BREATHING PATTERN. absent: Rales, Rhonchi, Wheezes, Stridor - Cardiovascular Exam Cardiovascular Exam: REGULAR RHYTHM, RRR, +S1, +S2 - GI/Abdominal Exam GI & Abdominal Exam: Distended, Firm, Normal Bowel Sounds. absent: Tenderness Additional comments: Central obese abdomen - Extremities Exam Extremities exam: Positive for: pedal edema (+1 up to knees bilateral LE) Additional comments: chronic lymphadema-related changes - Neurological Exam Neurological exam: Alert, Oriented x3 - Psychiatric Exam Psychiatric exam: Normal Affect, Normal Mood - Skin Skin Exam: Dry, Intact Additional comments: chronic lymphadema-related changes Assessment and Plan - Assessment and Plan (Free Text) Assessment: Shortness of breath secondary to CHF Exacerbation - Lead Ramp Service Man consult, Dr Dudley - Tele Observation - TOÑITO negative x 2 - BNP on admission 1610 - D-dimer 889 - CT chest:Limited study due to crossing streak and beam hardening artifact arising from pacemaker battery pack. No evidence of acute central pulmonary embolus. Cardiomegaly. Ground-glass opacity seen in the upper lung zones possibly representing air trapping. Mild bibasilar atelectasis on. There is an elliptical shaped subsegmental area of atelectasis and or scarring in the left lingular region. - f/u venous doppler - Chest X-ray: No active disease - f/u repeat cxr 02/13/18 - Strict I/O - Head of bed elevated @ 45 degrees - Daily weights - ECHO (01/13/17): Dilated LA and LV with severe LV hypokinesia; estimated LV EF 10%; right side catheter artifact noted; tissue doppler imaging reveals moderate left ventricular diastolic dysfunction. - f/u ECHO - AICD needs to be interrogated Meds: - Home Medications * Spironolactone 12.5mg PO BID * Cozaar 50mg PO Daily * Coreg 6.25mg PO TID (increased from BID) * Crestor 10mg PO HS * Asa 81mg PO HS * Xarelto 20mg PO Daily - Lasix 40mg IVP BID (patient was on home lasix 40mg PO QD) Elevated D-Dimer - D-dimer 889 - CT chest: No evidence of acute central pulmonary embolus. History of CAD - Home medications: * Coreg 6.25mg PO TID (increased from BID) * Start Crestor 10mg PO HS (was not on home statin) * Asa 81mg PO HS History of Atrial flutter - Monitor on telemetry - Home Medication * Xarelto 20mg PO Daily History of Hypertension - (02/04/18) TSH 3.69; Free T4 1.24 - Home medications * Spironolactone 12.5mg PO BID * Cozaar 50mg PO Daily * Coreg 6.25mg PO TID History of HLD - (02/04/18) Triglycerides 121; Total Cholesterol 158; LDL 100; HDL 25 Was not on home statin Start Crestor 10mg PO HS History of DM2 - accucheck ACHS - Continue home medication glimepiride 2mg daily - Hypoglycemia protcol - (02/04/18) HgbA1C 8.1 Peripheral Neuropathy - continue home medication Gabapentin 300mg q8h Prophylactic Measure - On full anticoagulation - SCDs - Protonix 40mg daily <MagalyPeter H - Last Filed: 02/12/18 15:35> Objective - Vital Signs/Intake and Output Vital Signs (last 24 hours): Temp Pulse Resp BP Pulse Ox 95 F L 84 20 125/79 96 02/12/18 09:41 02/12/18 12:50 02/12/18 07:30 02/12/18 09:39 02/12/18 07:30 Intake and Output: 02/12/18 02/12/18 06:59 18:59 Intake Total 240 400 Output Total 1400 Balance -1160 400 - Medications Medications: Current Medications Aspirin (Aspirin Chewable) 81 mg PO DAILY [facility] Last Admin: 02/12/18 09:40 Dose: 81 mg Carvedilol (Coreg) 6.25 mg PO TID [facility] Last Admin: 02/12/18 13:28 Dose: 6.25 mg Colchicine (Colocrys) 0.6 mg PO DAILY [facility] Last Admin: 02/12/18 09:46 Dose: 0.6 mg Dextrose (Dextrose 50% Inj) 0 ml IV STAT PRN; Protocol PRN Reason: Hypoglycemia Protocol Dextrose (Glutose 15) 0 gm PO ONCE PRN; Protocol PRN Reason: Hypoglycemia Protocol Furosemide (Lasix) 40 mg IVP BID [facility] Last Admin: 02/12/18 09:39 Dose: 40 mg Gabapentin (Neurontin) 300 mg PO Q8H [facility] Last Admin: 02/12/18 09:39 Dose: 300 mg Glimepiride (Amaryl) 2 mg PO DAILY [facility] Last Admin: 02/12/18 09:40 Dose: 2 mg Glucagon (Glucagen Diagnostic Kit) 0 mg IM STAT PRN; Protocol PRN Reason: Hypoglycemia Protocol Dextrose (Dextrose 5% In Water 1000 Ml) 1,000 mls @ 0 mls/hr IV .Q0M PRN; Protocol; Per Protocol PRN Reason: Hypoglycemia Protocol Losartan Potassium (Cozaar) 50 mg PO DAILY [facility] Last Admin: 02/12/18 09:39 Dose: 50 mg Pantoprazole Sodium (Protonix Ec Tab) 40 mg PO DAILY [facility] Last Admin: 02/12/18 09:39 Dose: 40 mg Rivaroxaban (Xarelto) 20 mg PO DAILY [facility] Last Admin: 02/12/18 09:46 Dose: 20 mg Rosuvastatin Calcium (Crestor) 10 mg PO HS [facility] Last Admin: 02/11/18 21:25 Dose: 10 mg Spironolactone (Aldactone) 12.5 mg PO BID [facility] Last Admin: 02/12/18 09:46 Dose: 12.5 mg - Labs Labs: 02/12/18 06:57 02/12/18 06:57 Attending/Attestation - Attestation I have personally seen and examined this patient.: Yes I have fully participated in the care of the patient.: Yes I have reviewed all pertinent clinical information, including history, physical exam and plan: Yes Notes (Text): 02/12/18 15:35 Medical attending: Patient was seen and examined by me, agrees the above note by the medical appointment scheduler. The patient was ambulating with physical therapy. He is able to stand and walk however it was slow. He appeared somewhat short of breath as he was walking. He was able to speak in full sentences. With regards to his CHF and low ejection fraction, he has a history of pacer/ AICD.He explained to us that overnight the IV Lasix he thinks did help him. On examination he still has some lower extremity edema. So can continue with the diuresis. Overnight he had a CTA done which did not show a pulmonary embolism. Review of the telemetry shows that remains in atrial fibrillation, he is on Xarelto or anticoagulation. thank you Cordell Mckenzie
[2018-02-12] MEDS: Pantoprazole 40 mg EC Tab PO SCH (09:39)
[2018-02-12 09:47] LABS: ALB/GLOB RATIO 0.8 (1.0-2.1); ALBUMIN 3.7 g/dL (3.5-5.0); AST/SGOT 54 U/L (17-59); BLOOD UREA NITROGEN 16 mg/dL (9-20); CALCIUM 8.8 mg/dl (8.6-10.4); GFR AFRICAN-AMERICAN > 60; GFR NON-AFRICAN AMERICAN > 60
[2018-02-12] MEDS ORDERED: Enoxaparin 40 mg Syringe SC SCH (10:00)
[2018-02-12 10:22] LABS: ALT/SGPT 27 U/L (21-72)
[2018-02-12] MEDS ORDERED: Perflutren Lipid Microsphere 1.5 ML SUS IV ONE (10:57)
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
--- NOTE | 2018-02-13 07:08 | CP.PCM.PN ---
<Dao Bates R - Last Filed: 02/13/18 12:42> Subjective - Date & Time of Evaluation Date of Evaluation: 02/13/18 Time of Evaluation: 07:04 - Subjective Subjective: PGY-[address] Mckenzie. No acute events noted overnight. Patient stated his breathing is slightly better than before. Yesterday he ambulated but became dizzy. Will try again today. In no acute distress. Made of aware of AICD interoggation. Denies all other prompts on review of system. Objective - Vital Signs/Intake and Output Vital Signs (last 24 hours): Temp Pulse Resp BP Pulse Ox 97.4 F L 72 20 131/68 97 02/13/18 00:00 02/13/18 04:09 02/13/18 00:00 02/13/18 00:00 02/13/18 00:00 Intake and Output: 02/13/18 02/13/18 06:59 18:59 Output Total 275 Balance -275 - Medications Medications: Current Medications Aspirin (Aspirin Chewable) 81 mg PO DAILY [facility] Last Admin: 02/12/18 09:40 Dose: 81 mg Carvedilol (Coreg) 6.25 mg PO TID [facility] Last Admin: 02/12/18 18:41 Dose: 6.25 mg Colchicine (Colocrys) 0.6 mg PO DAILY [facility] Last Admin: 02/12/18 09:46 Dose: 0.6 mg Dextrose (Dextrose 50% Inj) 0 ml IV STAT PRN; Protocol PRN Reason: Hypoglycemia Protocol Dextrose (Glutose 15) 0 gm PO ONCE PRN; Protocol PRN Reason: Hypoglycemia Protocol Furosemide (Lasix) 40 mg IVP BID [facility] Last Admin: 02/12/18 18:42 Dose: 40 mg Gabapentin (Neurontin) 300 mg PO Q8H [facility] Last Admin: 02/13/18 02:15 Dose: 300 mg Glimepiride (Amaryl) 2 mg PO DAILY [facility] Last Admin: 02/12/18 09:40 Dose: 2 mg Glucagon (Glucagen Diagnostic Kit) 0 mg IM STAT PRN; Protocol PRN Reason: Hypoglycemia Protocol Dextrose (Dextrose 5% In Water 1000 Ml) 1,000 mls @ 0 mls/hr IV .Q0M PRN; Protocol; Per Protocol PRN Reason: Hypoglycemia Protocol Losartan Potassium (Cozaar) 50 mg PO DAILY [facility] Last Admin: 02/12/18 09:39 Dose: 50 mg Pantoprazole Sodium (Protonix Ec Tab) 40 mg PO DAILY [facility] Last Admin: 02/12/18 09:39 Dose: 40 mg Rivaroxaban (Xarelto) 20 mg PO DAILY [facility] Last Admin: 02/12/18 09:46 Dose: 20 mg Rosuvastatin Calcium (Crestor) 10 mg PO HS [facility] Last Admin: 02/12/18 21:44 Dose: 10 mg Spironolactone (Aldactone) 12.5 mg PO BID [facility] Last Admin: 02/12/18 18:42 Dose: 12.5 mg - Labs Labs: 02/12/18 06:57 02/12/18 06:57 - Additional Findings Additional findings: - Constitutional Appears: No Acute Distress, Chronically Ill - Head Exam Head Exam: ATRAUMATIC, NORMAL INSPECTION - Eye Exam Eye Exam: EOMI, Normal appearance, PERRL Pupil Exam: NORMAL ACCOMODATION - ENT Exam ENT Exam: Mucous Membranes Moist - Respiratory Exam Respiratory Exam: Clear to Auscultation Bilateral, NORMAL BREATHING PATTERN. absent: Rales, Rhonchi, Wheezes, Stridor - Cardiovascular Exam Cardiovascular Exam: REGULAR RHYTHM, RRR, +S1, +S2 - GI/Abdominal Exam GI & Abdominal Exam: Distended, Firm, Normal Bowel Sounds. absent: Tenderness Additional comments: Central obese abdomen - Extremities Exam Extremities exam: Positive for: pedal edema (+1 up to knees bilateral LE) Additional comments: chronic lymphadema-related changes - Neurological Exam Neurological exam: Alert, Oriented x3 - Psychiatric Exam Psychiatric exam: Normal Affect, Normal Mood - Skin Skin Exam: Dry, Intact Additional comments: chronic lymphadema-related changes Assessment and Plan - Assessment and Plan (Free Text) Assessment: Shortness of breath secondary to CHF Exacerbation - Heart Coordinator consult, Dr Dudley -Device interrrogation (made aware) -Diurese -Increase carvedilol - Tele Observation - TOÑITO negative x 2 - BNP on admission 1610 - Strict I/O - Head of bed elevated @ 45 degrees - Daily weights - AICD needs to be interrogated Imaging: ECHO 01/13/17: * Dilated LA and LV with severe LV hypokinesia; estimated LV EF 10%; right side catheter artifact noted; tissue doppler imaging reveals moderate left ventricular diastolic dysfunction. ECHO 02/11/18: * Techinically limited and difficult study. LV systolic function is borderline. Dilated LA. Consider other modalities like MUGA or LUC to assess LV systolic function. CT chest 02/11/18: * Limited study due to crossing streak and beam hardening artifact arising from pacemaker battery pack. No evidence of acute central pulmonary embolus. Cardiomegaly. Ground-glass opacity seen in the upper lung zones possibly representing air trapping. Mild bibasilar atelectasis on. There is an elliptical shaped subsegmental area of atelectasis and or scarring in the left lingular region. Venous Doppler LE B/L 02/11/18: * Negative for DVT Chest X-ray 02/11/18: * No active disease Chest X-ray 02/13/18: * No active pulmonary disease Meds: - Home Medications * Spironolactone 12.5mg PO BID * Cozaar 50mg PO Daily * Coreg 6.25mg PO TID (increased from BID) * Crestor 10mg PO HS * Asa 81mg PO HS * Xarelto 20mg PO Daily - Lasix 40mg IVP BID (patient was on home lasix 40mg PO QD) Dizziness F/U Head CT w/o contrast F/U orthostatic vitals Elevated D-Dimer - D-dimer 889 - CT chest: No evidence of acute central pulmonary embolus. History of CAD - Home medications: * Coreg 6.25mg PO TID (increased from BID) * Start Crestor 10mg PO HS (was not on home statin) * Asa 81mg PO HS History of Atrial flutter - Monitor on telemetry - Home Medication * Xarelto 20mg PO Daily History of Hypertension - (02/04/18) TSH 3.69; Free T4 1.24 - Home medications * Spironolactone 12.5mg PO BID * Cozaar 50mg PO Daily * Coreg 6.25mg PO TID History of HLD - (02/04/18) Triglycerides 121; Total Cholesterol 158; LDL 100; HDL 25 Was not on home statin Start Crestor 10mg PO HS History of DM2 - accucheck ACHS - Continue home medication glimepiride 2mg daily - Hypoglycemia protcol - (02/04/18) HgbA1C 8.1 Peripheral Neuropathy - continue home medication Gabapentin 300mg q8h Prophylactic Measure - On full anticoagulation - SCDs - Protonix 40mg daily <Cordell Mckenzie H - Last Filed: 02/13/18 13:53> Objective - Vital Signs/Intake and Output Vital Signs (last 24 hours): Temp Pulse Resp BP Pulse Ox 97.3 F L 75 20 118/74 98 02/13/18 07:45 02/13/18 07:45 02/13/18 07:45 02/13/18 09:21 02/13/18 07:45 Intake and Output: 02/13/18 02/13/18 06:59 18:59 Output Total 275 Balance -275 - Medications Medications: Current Medications Aspirin (Aspirin Chewable) 81 mg PO DAILY [facility] Last Admin: 02/13/18 09:20 Dose: 81 mg Carvedilol (Coreg) 6.25 mg PO TID [facility] Last Admin: 02/13/18 13:28 Dose: 6.25 mg Colchicine (Colocrys) 0.6 mg PO DAILY [facility] Last Admin: 02/13/18 09:21 Dose: 0.6 mg Dextrose (Dextrose 50% Inj) 0 ml IV STAT PRN; Protocol PRN Reason: Hypoglycemia Protocol Dextrose (Glutose 15) 0 gm PO ONCE PRN; Protocol PRN Reason: Hypoglycemia Protocol Furosemide (Lasix) 40 mg IVP BID [facility] Last Admin: 02/13/18 09:21 Dose: 40 mg Gabapentin (Neurontin) 300 mg PO Q8H [facility] Last Admin: 02/13/18 09:21 Dose: 300 mg Glimepiride (Amaryl) 2 mg PO DAILY [facility] Last Admin: 02/13/18 09:21 Dose: 2 mg Glucagon (Glucagen Diagnostic Kit) 0 mg IM STAT PRN; Protocol PRN Reason: Hypoglycemia Protocol Dextrose (Dextrose 5% In Water 1000 Ml) 1,000 mls @ 0 mls/hr IV .Q0M PRN; Protocol; Per Protocol PRN Reason: Hypoglycemia Protocol Losartan Potassium (Cozaar) 50 mg PO DAILY [facility] Last Admin: 02/13/18 09:20 Dose: 50 mg Pantoprazole Sodium (Protonix Ec Tab) 40 mg PO DAILY [facility] Last Admin: 02/13/18 09:21 Dose: 40 mg Rivaroxaban (Xarelto) 20 mg PO DAILY [facility] Last Admin: 02/13/18 09:20 Dose: 20 mg Rosuvastatin Calcium (Crestor) 10 mg PO HS [facility] Last Admin: 02/12/18 21:44 Dose: 10 mg Spironolactone (Aldactone) 12.5 mg PO BID [facility] Last Admin: 02/13/18 09:29 Dose: 12.5 mg - Labs Labs: 02/13/18 08:34 02/13/18 08:34 Attending/Attestation - Attestation I have personally seen and examined this patient.: Yes I have fully participated in the care of the patient.: Yes I have reviewed all pertinent clinical information, including history, physical exam and plan: Yes Notes (Text): 02/13/18 13:53 Medical attending: Patient was seen and examined by me, agrees the above note by medical technician. The patient reported that his breathing was better than he came to the hospital. He remains on IV Lasix at this time. He was evaluated by cardiology, where currently pending interrogation of his pacer/ICD. The patient reports that he has headaches from time to time. He also has dizziness whenever he tries to walk. As mentioned before this patient has a very low ejection fraction it may be that he's having orthostasis whenever he tries to walk. Were to check orthostatic blood pressures. Also will get a CT scan of the head without contrast as well I did see the patient walk with PT yesterday, he needed assistance at that time Thank you very much, Cordell Mckenzie
--- NOTE | 2018-02-13 07:39 | CARD ---
APPROVED REPORT EXAM: Two-dimensional and M-mode echocardiogram with Doppler, color Doppler with contrast. Other Information Quality : Technically LimitedRhythm : Technically limited study due to body habitus. INDICATION Dizziness and Vertigo Chest Pain Congestive Heart Failure Echo Enhancing Agent Indication: Endocardial border delineation Agent/Amount Used: Definity Surgery/Intervention ICD/Pacemaker: RISK FACTORS Diabetes M-Mode DIMENSIONS Left Atrium (MM)4.45 (2.5-4.0cm)Aortic Root3.58 (2.2-3.7cm) Aortic Cusp Exc.2.19 (1.5-2.0cm) Mitral Valve MV E Ffklpfmi80.6cm/sMV A Howwkibp88.2cm/sE/A ratio1.2 TDI E/Lateral E'0.0E/Medial E'0.0 Tricuspid Valve TR Peak Umntzihq690zi/sTR Peak Gr.[id number] <Conclusion> Technically limited and difficult study. LV systolic function is borderline. Dilated LA. Consider other modalities like MUGA or LUC to assess LV systolic function.
--- NOTE | 2018-02-13 08:01 | CARD ---
APPROVED REPORT EKG Measurement Heart [id number] [id number] <Conclusion> Ventricular-paced rhythm in a pattern of bigeminy Abnormal ECG
[2018-02-13 08:38] LABS: BASO % 0.5 % (0.0-2.0); EOS # 0.1 K/uL (0.0-0.7); EOS % 1.3 % (0.0-4.0); HEMOGLOBIN 16.9 g/dL (12.0-18.0); LYMPH # 2.2 K/uL (1.0-4.3); LYMPH % 27.5 % (20.0-40.0); MEAN CELL VOLUME 88.9 fL (80.0-94.0); MEAN CORPUSCULAR HEMOGLOBIN 30.6 pg (27.0-31.0); MEAN CORPUSCULAR HGB CONC 34.4 g/dL (33.0-37.0); MEAN PLATELET VOLUME 9.9 fL (7.2-11.7); MONO # 0.7 K/uL (0.0-0.8); MONO % 8.8 % (0.0-10.0); NEUT # 4.9 K/uL (1.8-7.0); NEUT % 61.9 % (50.0-75.0); NRBC % 0.1 % (0.0-2.0); RBC 5.54 Mil/uL (4.40-5.90); RED CELL DISTRIBUTION WIDTH 14.1 % (11.5-14.5); WHITE BLOOD COUNT 7.9 K/uL (4.8-10.8)
[2018-02-13 08:55] LABS: ALB/GLOB RATIO 0.8 (1.0-2.1); ALBUMIN 3.7 g/dL (3.5-5.0); ALT/SGPT 31 U/L (21-72); AST/SGOT 46 U/L (17-59); BLOOD UREA NITROGEN 21 mg/dL (9-20); CALCIUM 8.3 mg/dl (8.6-10.4); GFR AFRICAN-AMERICAN > 60; GFR NON-AFRICAN AMERICAN > 60
[2018-02-13] MEDS: Pantoprazole 40 mg EC Tab PO SCH (09:21)
--- NOTE | 2018-02-13 10:54 | RAD ---
HISTORY: acute exacerbation of chronic CHF COMPARISON: 02/11/2018 FINDINGS: LUNGS: No active pulmonary disease. PLEURA: Elevated left hemidiaphragm. No pleural effusion. No pneumothorax. CARDIOVASCULAR: Limited evaluation due to oblique positioning. No cardiomegaly. Permanent pacemaker/AICD. OSSEOUS STRUCTURES: No significant abnormalities. VISUALIZED UPPER ABDOMEN: Normal. OTHER FINDINGS: None. IMPRESSION: No acute infiltrate.
--- NOTE | 2018-02-13 14:24 | CT ---
PROCEDURE: CT scan brain dated 02/13/2018. HISTORY: Dizziness. Lightheadedness. COMPARISON: Comparison CT scan 09/29/2017. TECHNIQUE: Axial computed tomography images were obtained through the head/brain without intravenous contrast. Radiation dose: Total exam DLP = 998.53 mGy-cm. This CT exam was performed using one or more of the following dose reduction techniques: Automated exposure control, adjustment of the mA and/or kV according to patient size, and/or use of iterative reconstruction technique. FINDINGS: HEMORRHAGE: No acute parenchymal, subarachnoid or extra-axial hemorrhage. BRAIN: No evidence of large acute infarct. There appears to be some mild diffuse/confluent chronic periventricular white matter ischemic changes that extend peripherally into the deep white matter both cerebral hemispheres. Note that the possibility of a small hyperacute infarct cannot be completely excluded on this study if there is any concern, recommend followup MRI of the brain with diffusion imaging. Mild age-appropriate volume loss. VENTRICLES: No obstructive hydrocephalus. CALVARIUM: There are no acute calvarial fractures. PARANASAL SINUSES: Minor mucosal thickening seen within the right maxillary sinus and few ethmoid air cells. . The MASTOID AIR CELLS: Unremarkable as visualized. No inflammatory changes. OTHER FINDINGS: None. IMPRESSION: No acute intracranial hemorrhage. Mild chronic white matter ischemic changes. Mild generalized volume loss. Consider followup studies such as MRI with diffusion imaging if further evaluation is required as detailed above.
--- NOTE | 2018-02-13 19:22 | VASCLAB ---
PROCEDURE: Lower Extremity Venous Duplex Exam. HISTORY: elevated ddimer PRIORS: Lower extremity ultrasound dated 07/17/2017. TECHNIQUE: Bilateral common femoral, femoral, popliteal and posterior tibial, peroneal and great saphenous veins were evaluated. Flow was assessed with color Doppler, compressibility, assessment of phasic flow and augmentation response. Report prepared by Jose Espinal, BS, RVT FINDINGS: RIGHT: 1. Common Femoral Vein: 1.1. Compressibility - Fully compressible: Thrombus - None : Flow - Phasic: Augmentation -Normal: Reflux - None. 2. Femoral Vein: 2.1. Compressibility - Fully compressible: Thrombus - None : Flow - Phasic: Augmentation -Normal: Reflux - None. 3. Popliteal Vein: 3.1. Compressibility - Fully compressible: Thrombus - None : Flow - Phasic: Augmentation -Normal: Reflux - None. 4. Posterior Tibial Vein: 4.1. Compressibility - Fully compressible: Thrombus - None: Flow - Phasic: Augmentation -Normal: Reflux - None. 5. Peroneal Vein: 5.1. Compressibility - Fully compressible: Thrombus - None: Flow - Phasic: Augmentation -Normal: Reflux - None. 6. Great Saphenous Vein: 6.1. Compressibility - Fully compressible: Thrombus - None: Flow - Phasic: Augmentation - Normal: Reflux - Severe. LEFT: 1. Common Femoral Vein: 1.1. Compressibility - Fully compressible: Thrombus - None: Flow - Phasic: Augmentation -Normal: Reflux - None. 2. Femoral Vein: 2.1. Compressibility - Fully compressible: Thrombus - None: Flow - Phasic: Augmentation -Normal: Reflux - None. 3. Popliteal Vein: 3.1. Compressibility - Fully compressible: Thrombus - None : Flow - Phasic: Augmentation -Normal: Reflux - None. 4. Posterior Tibial Vein: 4.1. Compressibility - Fully compressible: Thrombus - None: Flow - Phasic: Augmentation -Normal: Reflux - None. 5. Peroneal Vein: 5.1. Compressibility - Fully compressible: Thrombus - None: Flow - Phasic: Augmentation -Normal: Reflux - None. 6. Great Saphenous Vein: 6.1. Compressibility - Fully compressible: Thrombus - None: Flow - Phasic: Augmentation - Normal: Reflux - None. OTHER FINDINGS: Right: None significant. Left: None significant. IMPRESSION: Right: No evidence of deep or superficial vein thrombosis of the right lower extremity. Valvular incompetence of the right greater saphenous vein. Left: No evidence of deep or superficial vein thrombosis of the left lower extremity. Normal valve function noted of the left side.
[2018-02-14 06:59] LABS: ALB/GLOB RATIO 0.8 (1.0-2.1); ALBUMIN 3.4 g/dL (3.5-5.0); ALT/SGPT 31 U/L (21-72); AST/SGOT 31 U/L (17-59); BLOOD UREA NITROGEN 25 mg/dL (9-20); GFR AFRICAN-AMERICAN > 60; GFR NON-AFRICAN AMERICAN > 60
[2018-02-14 07:09] LABS: BASO % 0.4 % (0.0-2.0); EOS # 0.1 K/uL (0.0-0.7); EOS % 1.4 % (0.0-4.0); HEMOGLOBIN 15.3 g/dL (12.0-18.0); LYMPH # 2.6 K/uL (1.0-4.3); LYMPH % 32.9 % (20.0-40.0); MEAN CELL VOLUME 88.7 fL (80.0-94.0); MEAN CORPUSCULAR HEMOGLOBIN 30.2 pg (27.0-31.0); MONO # 0.8 K/uL (0.0-0.8); MONO % 10.6 % (0.0-10.0); NEUT # 4.3 K/uL (1.8-7.0); NEUT % 54.7 % (50.0-75.0); NRBC % 0.2 % (0.0-2.0); RBC 5.06 Mil/uL (4.40-5.90); RED CELL DISTRIBUTION WIDTH 14.1 % (11.5-14.5); WHITE BLOOD COUNT 7.8 K/uL (4.8-10.8)
--- NOTE | 2018-02-14 09:26 | CP.PCM.PN ---
<Dao Bates R - Last Filed: 02/14/18 11:23> Subjective - Date & Time of Evaluation Date of Evaluation: 02/14/18 Time of Evaluation: 09:19 - Subjective Subjective: PGY-[address] Mckenzie. No acute events noted overnight. Patient stated his breathing is slightly better than before. In no acute distress. Still complains of dizziness. Denies all other prompts on review of system. Objective - Vital Signs/Intake and Output Vital Signs (last 24 hours): Temp Pulse Resp BP Pulse Ox 97.4 F L 47 L 20 105/68 96 02/14/18 09:03 02/14/18 09:03 02/14/18 09:03 02/14/18 09:03 02/14/18 09:03 Intake and Output: 02/14/18 02/14/18 06:59 18:59 Intake Total 550 Output Total 1000 Balance -450 - Medications Medications: Current Medications Aspirin (Aspirin Chewable) 81 mg PO DAILY [facility] Last Admin: 02/13/18 09:20 Dose: 81 mg Carvedilol (Coreg) 6.25 mg PO TID [facility] Last Admin: 02/13/18 18:11 Dose: 6.25 mg Colchicine (Colocrys) 0.6 mg PO DAILY [facility] Last Admin: 02/13/18 09:21 Dose: 0.6 mg Dextrose (Dextrose 50% Inj) 0 ml IV STAT PRN; Protocol PRN Reason: Hypoglycemia Protocol Dextrose (Glutose 15) 0 gm PO ONCE PRN; Protocol PRN Reason: Hypoglycemia Protocol Furosemide (Lasix) 40 mg IVP BID [facility] Last Admin: 02/13/18 18:10 Dose: 40 mg Gabapentin (Neurontin) 300 mg PO Q8H [facility] Last Admin: 02/14/18 01:55 Dose: 300 mg Glimepiride (Amaryl) 2 mg PO DAILY [facility] Last Admin: 02/13/18 09:21 Dose: 2 mg Glucagon (Glucagen Diagnostic Kit) 0 mg IM STAT PRN; Protocol PRN Reason: Hypoglycemia Protocol Dextrose (Dextrose 5% In Water 1000 Ml) 1,000 mls @ 0 mls/hr IV .Q0M PRN; Protocol; Per Protocol PRN Reason: Hypoglycemia Protocol Losartan Potassium (Cozaar) 50 mg PO DAILY [facility] Last Admin: 02/13/18 09:20 Dose: 50 mg Pantoprazole Sodium (Protonix Ec Tab) 40 mg PO DAILY [facility] Last Admin: 02/13/18 09:21 Dose: 40 mg Rivaroxaban (Xarelto) 20 mg PO DAILY [facility] Last Admin: 02/13/18 09:20 Dose: 20 mg Rosuvastatin Calcium (Crestor) 10 mg PO HS [facility] Last Admin: 02/13/18 22:26 Dose: 10 mg Spironolactone (Aldactone) 12.5 mg PO BID [facility] Last Admin: 02/13/18 18:11 Dose: 12.5 mg - Labs Labs: 02/14/18 06:29 02/14/18 06:29 - Additional Findings Additional findings: - Constitutional Appears: No Acute Distress, Chronically Ill - Head Exam Head Exam: ATRAUMATIC, NORMAL INSPECTION - Eye Exam Eye Exam: EOMI, Normal appearance, PERRL Pupil Exam: NORMAL ACCOMODATION - ENT Exam ENT Exam: Mucous Membranes Moist - Respiratory Exam Respiratory Exam: Clear to Auscultation Bilateral, NORMAL BREATHING PATTERN. absent: Rales, Rhonchi, Wheezes, Stridor - Cardiovascular Exam Cardiovascular Exam: REGULAR RHYTHM, RRR, +S1, +S2 - GI/Abdominal Exam GI & Abdominal Exam: Distended, Firm, Normal Bowel Sounds. absent: Tenderness Additional comments: Central obese abdomen - Extremities Exam Extremities exam: Positive for: pedal edema (+1 up to knees bilateral LE) Additional comments: chronic lymphadema-related changes - Neurological Exam Neurological exam: Alert, Oriented x3 - Psychiatric Exam Psychiatric exam: Normal Affect, Normal Mood - Skin Skin Exam: Dry, Intact Additional comments: chronic lymphadema-related changes Assessment and Plan - Assessment and Plan (Free Text) Assessment: Shortness of breath secondary to CHF Exacerbation - Community Midwife consult, Dr Dudley -Device interrrogation (made aware) -Diurese -Increase carvedilol - Tele - TOÑITO negative x 2 - BNP on admission 1610 - Strict I/O - Head of bed elevated @ 45 degrees - Daily weights - AICD needs to be interrogated - Spoke to Dr Dudley 02/14/18 who said he will call the medical physics teacher today so they can send a tech to interrogate the device Imaging: ECHO 01/13/17: * Dilated LA and LV with severe LV hypokinesia; estimated LV EF 10%; right side catheter artifact noted; tissue doppler imaging reveals moderate left ventricular diastolic dysfunction. ECHO 02/11/18: * Techinically limited and difficult study. LV systolic function is borderline. Dilated LA. Consider other modalities like MUGA or LUC to assess LV systolic function. CT chest 02/11/18: * Limited study due to crossing streak and beam hardening artifact arising from pacemaker battery pack. No evidence of acute central pulmonary embolus. Cardiomegaly. Ground-glass opacity seen in the upper lung zones possibly representing air trapping. Mild bibasilar atelectasis on. There is an elliptical shaped subsegmental area of atelectasis and or scarring in the left lingular region. Venous Doppler LE B/L 02/11/18: * Negative for DVT Chest X-ray 02/11/18: * No active disease Chest X-ray 02/13/18: * No active pulmonary disease Meds: - Home Medications * Spironolactone 12.5mg PO BID * Cozaar 50mg PO Daily * Coreg 6.25mg PO TID (increased from BID) * Crestor 10mg PO HS * Asa 81mg PO HS * Xarelto 20mg PO Daily - Lasix 40mg IVP BID (patient was on home lasix 40mg PO QD) - discontinued due to rising BUN and low BP Dizziness Head CT w/o contrast - No acute intracranial hemorrhage. Mild chronic white matter ischemic changes. Mild generalized volume loss. Lying BP - 100/61, Sitting BP 113/60, Standing BP 122/60 Elevated D-Dimer - D-dimer 889 - CT chest: No evidence of acute central pulmonary embolus. History of CAD - Home medications: * Coreg 6.25mg PO TID (increased from BID) * Start Crestor 10mg PO HS (was not on home statin) * Asa 81mg PO HS History of Atrial flutter - Monitor on telemetry - Home Medication * Xarelto 20mg PO Daily History of Hypertension - (02/04/18) TSH 3.69; Free T4 1.24 - Home medications * Spironolactone 12.5mg PO BID * Cozaar 50mg PO Daily - holding for now due to low BP (discontinued lasix as well) * Coreg 6.25mg PO TID History of HLD - (02/04/18) Triglycerides 121; Total Cholesterol 158; LDL 100; HDL 25 Was not on home statin Start Crestor 10mg PO HS History of DM2 - accucheck ACHS - Continue home medication glimepiride 2mg daily - Hypoglycemia protcol - (02/04/18) HgbA1C 8.1 Peripheral Neuropathy - continue home medication Gabapentin 300mg q8h Prophylactic Measure - On full anticoagulation - SCDs - Protonix 40mg daily - PT/OT <Cordell Mckenzie H - Last Filed: 02/14/18 17:42> Objective - Vital Signs/Intake and Output Vital Signs (last 24 hours): Temp Pulse Resp BP Pulse Ox 98.1 F 64 20 103/69 96 02/14/18 15:14 02/14/18 15:54 02/14/18 15:14 02/14/18 15:14 02/14/18 15:54 Intake and Output: 02/14/18 02/14/18 06:59 18:59 Intake Total 550 600 Output Total 1000 200 Balance -450 400 - Medications Medications: Current Medications Aspirin (Aspirin Chewable) 81 mg PO DAILY [facility] Last Admin: 02/14/18 10:01 Dose: 81 mg Carvedilol (Coreg) 6.25 mg PO TID [facility] Last Admin: 02/14/18 14:33 Dose: 6.25 mg Colchicine (Colocrys) 0.6 mg PO DAILY [facility] Last Admin: 02/14/18 10:02 Dose: 0.6 mg Dextrose (Dextrose 50% Inj) 0 ml IV STAT PRN; Protocol PRN Reason: Hypoglycemia Protocol Dextrose (Glutose 15) 0 gm PO ONCE PRN; Protocol PRN Reason: Hypoglycemia Protocol Gabapentin (Neurontin) 300 mg PO Q8H [facility] Last Admin: 02/14/18 10:01 Dose: 300 mg Glimepiride (Amaryl) 2 mg PO DAILY [facility] Last Admin: 02/14/18 10:02 Dose: 2 mg Glucagon (Glucagen Diagnostic Kit) 0 mg IM STAT PRN; Protocol PRN Reason: Hypoglycemia Protocol Dextrose (Dextrose 5% In Water 1000 Ml) 1,000 mls @ 0 mls/hr IV .Q0M PRN; Protocol; Per Protocol PRN Reason: Hypoglycemia Protocol Losartan Potassium (Cozaar) 50 mg PO DAILY [facility] Last Admin: 02/14/18 10:02 Dose: Not Given Pantoprazole Sodium (Protonix Ec Tab) 40 mg PO DAILY [facility] Last Admin: 02/14/18 10:08 Dose: 40 mg Rivaroxaban (Xarelto) 20 mg PO DAILY [facility] Last Admin: 02/14/18 10:01 Dose: 20 mg Rosuvastatin Calcium (Crestor) 10 mg PO HS [facility] Last Admin: 02/13/18 22:26 Dose: 10 mg Spironolactone (Aldactone) 12.5 mg PO BID [facility] Last Admin: 02/14/18 10:01 Dose: 12.5 mg - Labs Labs: 02/14/18 06:29 02/14/18 06:29 Attending/Attestation - Attestation I have personally seen and examined this patient.: Yes I have fully participated in the care of the patient.: Yes I have reviewed all pertinent clinical information, including history, physical exam and plan: Yes Notes (Text): 02/14/18 17:39 Medical attending: Patient was seen and examined by me. Agree with the above note by the resident The patient was not in any distress. He was ambulating slowly in room due to headache. Review of vital signs show the blood pressure is mildly low so will hold off on Lasix as well as Cozaar today. His HR was stable, he was not in rapid atrial fibrillation, continue with the PO coreg for now. He just had a CT scan of the head which showed no acute proccess however he does have chronic At this time still waiting for interrogation of pacer/AICD His breathings is reported to be easier than when he came in Continue with the PT thank you Cordell Mckenzie
[2018-02-14] MEDS: Pantoprazole 40 mg EC Tab PO SCH (10:08)
[2018-02-15 08:44] LABS: BASO % 0.7 % (0.0-2.0); EOS # 0.1 K/uL (0.0-0.7); EOS % 1.2 % (0.0-4.0); HEMOGLOBIN 16.9 g/dL (12.0-18.0); LYMPH # 1.9 K/uL (1.0-4.3); LYMPH % 30.6 % (20.0-40.0); MEAN CELL VOLUME 89.1 fL (80.0-94.0); MEAN CORPUSCULAR HEMOGLOBIN 30.6 pg (27.0-31.0); MEAN CORPUSCULAR HGB CONC 34.3 g/dL (33.0-37.0); MEAN PLATELET VOLUME 9.8 fL (7.2-11.7); MONO # 0.7 K/uL (0.0-0.8); MONO % 10.8 % (0.0-10.0); NEUT # 3.6 K/uL (1.8-7.0); NEUT % 56.7 % (50.0-75.0); NRBC % 0.2 % (0.0-2.0); RBC 5.54 Mil/uL (4.40-5.90); RED CELL DISTRIBUTION WIDTH 14.4 % (11.5-14.5); WHITE BLOOD COUNT 6.3 K/uL (4.8-10.8)
[2018-02-15 09:11] LABS: ALB/GLOB RATIO 0.8 (1.0-2.1); ALBUMIN 3.8 g/dL (3.5-5.0); ALT/SGPT 20 U/L (21-72); AST/SGOT 37 U/L (17-59); BLOOD UREA NITROGEN 23 mg/dL (9-20); CALCIUM 8.9 mg/dl (8.6-10.4); GFR AFRICAN-AMERICAN > 60; GFR NON-AFRICAN AMERICAN > 60
[2018-02-15] MEDS: Pantoprazole 40 mg EC Tab PO SCH (09:59)
--- NOTE | 2018-02-15 09:59 | CP.PCM.PN ---
Addendum entered and electronically signed by Johanna Sotelo DO 02/15/18 10:06 : Medications on discharged will have to be discussed with patient as he is currently normotensive (low side 100/60) and increasing renal function, just on Coreg. Will need to determine what diuretics to continue patient on (lasix vs aldactone). Original Note: <Johanna Sotelo - Last Filed: 02/15/18 09:57> Subjective - Date & Time of Evaluation Date of Evaluation: 02/15/18 Time of Evaluation: 09:00 - Subjective Subjective: Medicine Note for Hospitalist Service- Dr. Altamirano Patient was seen and examined at bedside. Patient reports this morning he became extremely SOB during ambulation, so he placed himself on NC. Patient reports he is tolerating diet, ambulating with oxygen, without any other complaints expect SOB. Objective - Vital Signs/Intake and Output Vital Signs (last 24 hours): Temp Pulse Resp BP Pulse Ox 97.4 F L 79 18 93/62 L 98 02/15/18 07:55 02/15/18 08:07 02/15/18 07:55 02/15/18 07:55 02/15/18 07:55 Intake and Output: 02/15/18 02/15/18 06:59 18:59 Intake Total 240 Output Total 1400 Balance -1160 - Medications Medications: Current Medications Aspirin (Aspirin Chewable) 81 mg PO DAILY [facility] Last Admin: 02/14/18 10:01 Dose: 81 mg Carvedilol (Coreg) 6.25 mg PO TID [facility] Last Admin: 02/14/18 17:55 Dose: Not Given Colchicine (Colocrys) 0.6 mg PO DAILY [facility] Last Admin: 02/14/18 10:02 Dose: 0.6 mg Dextrose (Dextrose 50% Inj) 0 ml IV STAT PRN; Protocol PRN Reason: Hypoglycemia Protocol Dextrose (Glutose 15) 0 gm PO ONCE PRN; Protocol PRN Reason: Hypoglycemia Protocol Gabapentin (Neurontin) 300 mg PO Q8H [facility] Last Admin: 02/15/18 03:10 Dose: Not Given Glimepiride (Amaryl) 2 mg PO DAILY [facility] Last Admin: 02/14/18 10:02 Dose: 2 mg Glucagon (Glucagen Diagnostic Kit) 0 mg IM STAT PRN; Protocol PRN Reason: Hypoglycemia Protocol Dextrose (Dextrose 5% In Water 1000 Ml) 1,000 mls @ 0 mls/hr IV .Q0M PRN; Protocol; Per Protocol PRN Reason: Hypoglycemia Protocol Losartan Potassium (Cozaar) 50 mg PO DAILY [facility] Last Admin: 02/14/18 10:02 Dose: Not Given Pantoprazole Sodium (Protonix Ec Tab) 40 mg PO DAILY [facility] Last Admin: 02/14/18 10:08 Dose: 40 mg Rivaroxaban (Xarelto) 20 mg PO DAILY [facility] Last Admin: 02/14/18 10:01 Dose: 20 mg Rosuvastatin Calcium (Crestor) 10 mg PO HS [facility] Last Admin: 02/14/18 21:24 Dose: 10 mg Spironolactone (Aldactone) 12.5 mg PO BID [facility] Last Admin: 02/14/18 17:55 Dose: Not Given - Labs Labs: 02/15/18 08:37 02/15/18 08:37 - Constitutional Appears: No Acute Distress - Head Exam Head Exam: NORMAL INSPECTION, NORMOCEPHALIC - Eye Exam Eye Exam: Normal appearance Pupil Exam: NORMAL ACCOMODATION - ENT Exam ENT Exam: Mucous Membranes Moist, Normal Exam - Respiratory Exam Respiratory Exam: Decreased Breath Sounds - Cardiovascular Exam Cardiovascular Exam: REGULAR RHYTHM, RRR - GI/Abdominal Exam GI & Abdominal Exam: Soft, Normal Bowel Sounds. absent: Distended, Tenderness Additional comments: obese abdomen - Extremities Exam Extremities Exam: Normal Inspection. absent: Pedal Edema, Tenderness Additional comments: chronic lymphadema-related changes - Neurological Exam Neurological Exam: Alert, Awake, Oriented x3 - Psychiatric Exam Psychiatric exam: Normal Affect, Normal Mood - Skin Skin Exam: Dry, Intact, Normal Color, Warm Assessment and Plan - Assessment and Plan (Free Text) Plan: Shortness of breath secondary to CHF Exacerbation - System Analyst consult, Dr Dudley - PENDING Device interrrogation (made aware) - Spoke to Dr Dudley 02/14/18 who said he will call the plastic duplicator so they can send a tech to interrogate the device - Tele - TOÑITO x3 negative - BNP on admission 1610 - Strict I/O - Head of bed elevated @ 45 degrees - Daily weights Imaging: ECHO 01/13/17: * Dilated LA and LV with severe LV hypokinesia; estimated LV EF 10%; right side catheter artifact noted; tissue doppler imaging reveals moderate left ventricular diastolic dysfunction. ECHO 02/11/18: * Techinically limited and difficult study. LV systolic function is borderline. Dilated LA. Consider other modalities like MUGA or LUC to assess LV systolic function. CT chest 02/11/18: * Limited study due to crossing streak and beam hardening artifact arising from pacemaker battery pack. No evidence of acute central pulmonary embolus. Cardiomegaly. Ground-glass opacity seen in the upper lung zones possibly representing air trapping. Mild bibasilar atelectasis on. There is an elliptical shaped subsegmental area of atelectasis and or scarring in the left lingular region. Venous Doppler LE B/L 02/11/18: * Negative for DVT Chest X-ray 02/11/18: * No active disease Chest X-ray 02/13/18: * No active pulmonary disease Meds: - Home Medications * Spironolactone 12.5mg PO BID (HELD due to hypotension) * Cozaar 50mg PO Daily (HELD due to hypotension) * Coreg 6.25mg PO TID (increased from BID) * Crestor 10mg PO HS * Asa 81mg PO HS * Xarelto 20mg PO Daily - Lasix 40mg IVP BID (patient was on home lasix 40mg PO QD) - discontinued due to rising BUN and low BP Dizziness Head CT w/o contrast - No acute intracranial hemorrhage. Mild chronic white matter ischemic changes. Mild generalized volume loss. Lying BP - 100/61, Sitting BP 113/60, Standing BP 122/60 Elevated D-Dimer - D-dimer 889 - CT chest: No evidence of acute central pulmonary embolus. History of CAD - Home medications: * Coreg 6.25mg PO TID (increased from BID) * Start Crestor 10mg PO HS (was not on home statin) * Asa 81mg PO HS History of Atrial flutter - Monitor on telemetry - Home Medication * Xarelto 20mg PO Daily History of Hypertension - (02/04/18) TSH 3.69; Free T4 1.24 - Home medications * Spironolactone 12.5mg PO BID (HELD due to hypotension) * Cozaar 50mg PO Daily - holding for now due to low BP (discontinued lasix as well) * Coreg 6.25mg PO TID History of HLD - (02/04/18) Triglycerides 121; Total Cholesterol 158; LDL 100; HDL 25 Was not on home statin Start Crestor 10mg PO HS History of DM2 - accucheck ACHS - Continue home medication glimepiride 2mg daily - Hypoglycemia protcol - (02/04/18) HgbA1C 8.1 Peripheral Neuropathy - continue home medication Gabapentin 300mg q8h Prophylactic Measure - On full anticoagulation - SCDs - Protonix 40mg daily - PT/OT - will have PT eval again to see if patient qualifies for home O2 Disposition: Pending AICD interrogation (last interrogation was early 2016) and for PT reevaluation to see if patient qualifies for home O2. Dr. Dudley, who said he will call the plastic duplicator so they can send a tech to interrogate the device (spoke to him on 02/14/18). DW Dr. Altamirano, Johanna Sotelo DO, PGY-1 <Cordell Altamirano - Last Filed: 02/15/18 10:37> Objective - Vital Signs/Intake and Output Vital Signs (last 24 hours): Temp Pulse Resp BP Pulse Ox 97.4 F L 79 18 144/87 98 02/15/18 07:55 02/15/18 08:07 02/15/18 07:55 02/15/18 10:03 02/15/18 07:55 Intake and Output: 02/15/18 02/15/18 06:59 18:59 Intake Total 240 Output Total 1400 Balance -1160 - Medications Medications: Current Medications Aspirin (Aspirin Chewable) 81 mg PO DAILY [facility] Last Admin: 02/15/18 09:59 Dose: 81 mg Carvedilol (Coreg) 6.25 mg PO TID [facility] Last Admin: 02/15/18 09:59 Dose: 6.25 mg Colchicine (Colocrys) 0.6 mg PO DAILY [facility] Last Admin: 02/15/18 09:59 Dose: 0.6 mg Dextrose (Dextrose 50% Inj) 0 ml IV STAT PRN; Protocol PRN Reason: Hypoglycemia Protocol Dextrose (Glutose 15) 0 gm PO ONCE PRN; Protocol PRN Reason: Hypoglycemia Protocol Gabapentin (Neurontin) 300 mg PO Q8H [facility] Last Admin: 02/15/18 09:59 Dose: 300 mg Glimepiride (Amaryl) 2 mg PO DAILY [facility] Last Admin: 02/15/18 09:59 Dose: 2 mg Glucagon (Glucagen Diagnostic Kit) 0 mg IM STAT PRN; Protocol PRN Reason: Hypoglycemia Protocol Dextrose (Dextrose 5% In Water 1000 Ml) 1,000 mls @ 0 mls/hr IV .Q0M PRN; Protocol; Per Protocol PRN Reason: Hypoglycemia Protocol Losartan Potassium (Cozaar) 50 mg PO DAILY [facility] Last Admin: 02/14/18 10:02 Dose: Not Given Pantoprazole Sodium (Protonix Ec Tab) 40 mg PO DAILY [facility] Last Admin: 02/15/18 09:59 Dose: 40 mg Rivaroxaban (Xarelto) 20 mg PO DAILY [facility] Last Admin: 02/15/18 10:02 Dose: 20 mg Rosuvastatin Calcium (Crestor) 10 mg PO HS [facility] Last Admin: 02/14/18 21:24 Dose: 10 mg Spironolactone (Aldactone) 12.5 mg PO BID [facility] Last Admin: 02/15/18 09:59 Dose: 12.5 mg - Labs Labs: 02/15/18 08:37 02/15/18 08:37 Attending/Attestation - Attestation I have personally seen and examined this patient.: Yes I have fully participated in the care of the patient.: Yes I have reviewed all pertinent clinical information, including history, physical exam and plan: Yes Notes (Text): 02/15/18 10:35 Medical attending: Patient was seen and examined by me. The patient reported his headache is less and dizziness is less - however he also explains he is scared to walk. [place] will need home oxygen considering his situation. On telemetry his HR is 70s and paced at this time. The patient's BP is higher now, so will restart the Cozzar as well as Lasix. thank you Cordell altamirano
[2018-02-16 07:38] LABS: BASO % 0.5 % (0.0-2.0); EOS # 0.1 K/uL (0.0-0.7); EOS % 1.5 % (0.0-4.0); HEMOGLOBIN 15.9 g/dL (12.0-18.0); LYMPH # 2.1 K/uL (1.0-4.3); LYMPH % 29.6 % (20.0-40.0); MEAN CELL VOLUME 88.9 fL (80.0-94.0); MEAN CORPUSCULAR HEMOGLOBIN 30.6 pg (27.0-31.0); MEAN CORPUSCULAR HGB CONC 34.4 g/dL (33.0-37.0); MEAN PLATELET VOLUME 9.8 fL (7.2-11.7); MONO # 0.8 K/uL (0.0-0.8); NEUT % 57.4 % (50.0-75.0); NRBC % 0.1 % (0.0-2.0); RBC 5.2 Mil/uL (4.40-5.90)
[2018-02-16 07:58] LABS: ALB/GLOB RATIO 0.8 (1.0-2.1); ALBUMIN 3.6 g/dL (3.5-5.0); ALT/SGPT 30 U/L (21-72); AST/SGOT 41 U/L (17-59); BLOOD UREA NITROGEN 25 mg/dL (9-20); CALCIUM 8.4 mg/dl (8.6-10.4); GFR AFRICAN-AMERICAN > 60; GFR NON-AFRICAN AMERICAN > 60
--- NOTE | 2018-02-16 10:45 | CP.PCM.PCO ---
<Julia Marlow - Last Filed: 02/16/18 10:41> Physician Communication Note - Physician Communication Note Physician Communication Note: As per discussion with PT initial eval, pt will need home O2 due to desat <Kervin Oshea - Last Filed: 02/19/18 11:02> Attending/Attestation - Attestation I have personally seen and examined this patient.: Yes I have fully participated in the care of the patient.: Yes I have reviewed all pertinent clinical information: Yes Notes (Text): I agree with resident's documentation 02/19/18 11:01
[2018-02-16] MEDS: Pantoprazole 40 mg EC Tab PO SCH (10:47)
--- NOTE | 2018-02-16 18:27 | CP.PCM.PN ---
<HoraceJayne vincentaruna E - Last Filed: 02/16/18 20:02> Subjective - Date & Time of Evaluation Date of Evaluation: 02/16/18 Time of Evaluation: 09:10 - Subjective Subjective: Medicine progress note ( Dr. Oshea's service) Patient was seen and examined at bedside. Patient reports improving symptoms. Patient denies chest pain, SOB, palpitations, fever, chills, and difficulty ambulating. As per physical therapy, patient is unable to maintain adequate oxygen saturation when ambulating without oxygen, therefore, recommendation for home oxygen use. Objective - Vital Signs/Intake and Output Vital Signs (last 24 hours): Temp Pulse Resp BP Pulse Ox 97.7 F 88 20 101/63 99 02/16/18 15:00 02/16/18 15:00 02/16/18 15:00 02/16/18 15:00 02/16/18 15:00 Intake and Output: 02/16/18 02/16/18 06:59 18:59 Intake Total 240 Output Total 1400 Balance -1160 - Medications Medications: Current Medications Aspirin (Aspirin Chewable) 81 mg PO DAILY [facility] Last Admin: 02/16/18 10:49 Dose: 81 mg Carvedilol (Coreg) 6.25 mg PO TID [facility] Last Admin: 02/16/18 18:05 Dose: 6.25 mg Colchicine (Colocrys) 0.6 mg PO DAILY [facility] Last Admin: 02/16/18 10:46 Dose: 0.6 mg Dextrose (Dextrose 50% Inj) 0 ml IV STAT PRN; Protocol PRN Reason: Hypoglycemia Protocol Dextrose (Glutose 15) 0 gm PO ONCE PRN; Protocol PRN Reason: Hypoglycemia Protocol Furosemide (Lasix) 40 mg IVP Q12 [facility] Last Admin: 02/16/18 10:48 Dose: 40 mg Gabapentin (Neurontin) 300 mg PO Q8H [facility] Last Admin: 02/16/18 18:05 Dose: 300 mg Glimepiride (Amaryl) 2 mg PO DAILY [facility] Last Admin: 02/16/18 10:48 Dose: 2 mg Glucagon (Glucagen Diagnostic Kit) 0 mg IM STAT PRN; Protocol PRN Reason: Hypoglycemia Protocol Dextrose (Dextrose 5% In Water 1000 Ml) 1,000 mls @ 0 mls/hr IV .Q0M PRN; Protocol; Per Protocol PRN Reason: Hypoglycemia Protocol Losartan Potassium (Cozaar) 50 mg PO DAILY [facility] Last Admin: 02/16/18 10:49 Dose: 50 mg Pantoprazole Sodium (Protonix Ec Tab) 40 mg PO DAILY [facility] Last Admin: 02/16/18 10:47 Dose: 40 mg Rivaroxaban (Xarelto) 20 mg PO DAILY [facility] Last Admin: 02/16/18 10:46 Dose: 20 mg Rosuvastatin Calcium (Crestor) 10 mg PO HS [facility] Last Admin: 02/15/18 21:17 Dose: 10 mg Spironolactone (Aldactone) 12.5 mg PO BID [facility] Last Admin: 02/16/18 18:05 Dose: 12.5 mg - Labs Labs: 02/16/18 07:26 02/16/18 07:26 - Constitutional Appears: Well, No Acute Distress - Head Exam Head Exam: ATRAUMATIC, NORMAL INSPECTION - Eye Exam Eye Exam: EOMI, Normal appearance - ENT Exam ENT Exam: Mucous Membranes Moist - Respiratory Exam Respiratory Exam: Clear to Ausculation Bilateral, NORMAL BREATHING PATTERN. absent: Rhonchi, Wheezes - Cardiovascular Exam Cardiovascular Exam: REGULAR RHYTHM, +S1, +S2 Additional comments: Paced - GI/Abdominal Exam GI & Abdominal Exam: Soft, Normal Bowel Sounds. absent: Distended, Firm, Guarding, Rigid, Tenderness - Extremities Exam Extremities Exam: Pedal Edema. absent: Tenderness - Neurological Exam Neurological Exam: Alert, Awake, Oriented x3 - Psychiatric Exam Psychiatric exam: Normal Affect - Skin Skin Exam: Normal Color Assessment and Plan (1) Acute exacerbation of CHF (congestive heart failure) Assessment & Plan: Property Inspector, Dr. Dudley---> Help appreciated Imaging: ECHO 01/13/17: * Dilated LA and LV with severe LV hypokinesia; estimated LV EF 10%; right side catheter artifact noted; tissue doppler imaging reveals moderate left ventricular diastolic dysfunction. -AICD placement (a year ago) * Plans for interrogation 02/16/18 or 02/17/18 ECHO 02/11/18: * Techinically limited and difficult study. LV systolic function is borderline. Dilated LA. Consider other modalities like MUGA or LUC to assess LV systolic function. CT chest 02/11/18: * Limited study due to crossing streak and beam hardening artifact arising from pacemaker battery pack. No evidence of acute central pulmonary embolus. Cardiomegaly. Ground-glass opacity seen in the upper lung zones possibly representing air trapping. Mild bibasilar atelectasis on. There is an elliptical shaped subsegmental area of atelectasis and or scarring in the left lingular region. Chest X-ray 02/11/18: * No active disease Chest X-ray 02/13/18: * No active pulmonary disease Medications: * Lasix 40mg IV daily * Cozaar 50mg PO daily * Aldactone 12.5mg PO BID * Fluid restriction- 1,000ml * Aspirin 81mg PO daily * Coreg 6.25mg PO TID Status: Acute (2) Tenderness of right calf Assessment & Plan: Venous Doppler LE B/L 02/11/18: * Negative for DVT Status: Acute (3) Dizziness Assessment & Plan: Elevated D-dimer on admission: * - CT chest: No evidence of acute central pulmonary embolus. Head CT w/o contrast - No acute intracranial hemorrhage. Mild chronic white matter ischemic changes. Mild generalized volume loss. Orthostatic Vitals signs: Lying BP - 100/61, Sitting BP 113/60, Standing BP 122/ 60 Status: Acute (4) History of atrial flutter Assessment & Plan: - Monitor on telemetry - Home Medication * Xarelto 20mg PO Daily Status: Acute (5) History of hypertension Assessment & Plan: - Home medications * Spironolactone 12.5mg PO BID (HELD due to hypotension) * Cozaar 50mg PO Daily - holding for now due to low BP (discontinued lasix as well) * Coreg 6.25mg PO T Status: Acute (6) History of diabetes mellitus Assessment & Plan: -(02/04/18) HgbA1C 8.1 -accucheck ACHS - Continue home medication glimepiride 2mg daily - Hypoglycemia protocol Status: Acute (7) Peripheral neuropathy Assessment & Plan: - continue home medication Gabapentin 300mg q8h Status: Acute (8) Prophylactic measure Assessment & Plan: - Protonix 40mg daily -Xarelto 20mg PO daily - PT/OT, PT recommendation for home O2 All plans reviewed and discussed with Nurys Cabrera Status: Acute <Kervin Oshea - Last Filed: 02/18/18 10:57> Objective - Vital Signs/Intake and Output Vital Signs (last 24 hours): Temp Pulse Resp BP Pulse Ox 97.4 F L 72 20 104/54 L 95 02/17/18 15:12 02/17/18 16:51 02/17/18 15:12 02/17/18 15:12 02/17/18 15:12 - Medications Medications: Current Medications Aspirin (Aspirin Chewable) 81 mg PO DAILY [facility] Last Admin: 02/17/18 10:42 Dose: 81 mg Carvedilol (Coreg) 6.25 mg PO BID [facility] Last Admin: 02/17/18 17:57 Dose: 6.25 mg Colchicine (Colocrys) 0.6 mg PO DAILY [facility] Last Admin: 02/17/18 10:42 Dose: 0.6 mg Dextrose (Dextrose 50% Inj) 0 ml IV STAT PRN; Protocol PRN Reason: Hypoglycemia Protocol Dextrose (Glutose 15) 0 gm PO ONCE PRN; Protocol PRN Reason: Hypoglycemia Protocol Furosemide (Lasix) 40 mg IVP DAILY [facility] Last Admin: 02/17/18 10:46 Dose: Not Given Gabapentin (Neurontin) 300 mg PO Q8H [facility] Last Admin: 02/17/18 17:57 Dose: 300 mg Glimepiride (Amaryl) 2 mg PO DAILY [facility] Last Admin: 02/17/18 10:42 Dose: 2 mg Glucagon (Glucagen Diagnostic Kit) 0 mg IM STAT PRN; Protocol PRN Reason: Hypoglycemia Protocol Dextrose (Dextrose 5% In Water 1000 Ml) 1,000 mls @ 0 mls/hr IV .Q0M PRN; Protocol; Per Protocol PRN Reason: Hypoglycemia Protocol Losartan Potassium (Cozaar) 50 mg PO DAILY [facility] Last Admin: 02/17/18 10:45 Dose: Not Given Pantoprazole Sodium (Protonix Ec Tab) 40 mg PO DAILY [facility] Last Admin: 02/17/18 10:41 Dose: 40 mg Rivaroxaban (Xarelto) 20 mg PO DAILY [facility] Last Admin: 02/17/18 10:42 Dose: 20 mg Rosuvastatin Calcium (Crestor) 10 mg PO HS [facility] Last Admin: 02/16/18 21:07 Dose: 10 mg Spironolactone (Aldactone) 12.5 mg PO BID [facility] Last Admin: 02/17/18 17:57 Dose: 12.5 mg - Labs Labs: 02/17/18 07:34 02/17/18 07:34 Attending/Attestation - Attestation I have personally seen and examined this patient.: Yes I have fully participated in the care of the patient.: Yes I have reviewed all pertinent clinical information, including history, physical exam and plan: Yes Notes (Text): Patient seen and examined He is feeling better. Discussed with resident 1) Acute exacerbation of CHF continue home meds lasix,cozaar,aldactone,asprin and coreg 2.History of atrial flutter * Xarelto 20mg PO Daily 3 History of hypertension 4. History of diabetes mellitus glimepiride 2mg daily 5. Peripheral neuropathy Gabapentin 300mg q8h As per PT O2 AT RA AT REST : 88% O2 AT RA WHILE AMBULATING : 83% O2 WHILE AMBULATING W/3L O2: 95% Patient need home oxygen. Discussed with CW d/w Resident. I agree with the documentation of the resident's assessment and the plan
[2018-02-17 07:48] LABS: BASO % 0.3 % (0.0-2.0); EOS # 0.1 K/uL (0.0-0.7); EOS % 1.4 % (0.0-4.0); HEMOGLOBIN 16.1 g/dL (12.0-18.0); LYMPH # 2.3 K/uL (1.0-4.3); LYMPH % 29.3 % (20.0-40.0); MEAN CELL VOLUME 88.9 fL (80.0-94.0); MEAN CORPUSCULAR HEMOGLOBIN 30.3 pg (27.0-31.0); MEAN CORPUSCULAR HGB CONC 34.1 g/dL (33.0-37.0); MEAN PLATELET VOLUME 9.7 fL (7.2-11.7); MONO # 0.9 K/uL (0.0-0.8); MONO % 10.9 % (0.0-10.0); NEUT # 4.7 K/uL (1.8-7.0); NEUT % 58.1 % (50.0-75.0); NRBC % 0.1 % (0.0-2.0); RBC 5.3 Mil/uL (4.40-5.90); RED CELL DISTRIBUTION WIDTH 14.3 % (11.5-14.5)
[2018-02-17 08:08] LABS: ALB/GLOB RATIO 0.9 (1.0-2.1); ALBUMIN 3.8 g/dL (3.5-5.0); ALT/SGPT 23 U/L (21-72); AST/SGOT 40 U/L (17-59); BLOOD UREA NITROGEN 29 mg/dL (9-20); CALCIUM 8.4 mg/dl (8.6-10.4); GFR AFRICAN-AMERICAN > 60; GFR NON-AFRICAN AMERICAN 55
[2018-02-17] MEDS: Pantoprazole 40 mg EC Tab PO SCH (10:41)
[2018-02-17 16:03] VITALS: RESP 20
--- NOTE | 2018-02-17 16:38 | CP.PCM.PN ---
<Julia Marlow E - Last Filed: 02/17/18 17:12> Subjective - Date & Time of Evaluation Date of Evaluation: 02/17/18 Time of Evaluation: 07:40 - Subjective Subjective: Medicine progress note ( Dr. Oshea's service) Patient was seen and examined at bedside. Patient reports that he is doing well , with improving symptoms. Patient admits to dizziness but denies chest pain, SOB, palpitations, cough. Patient continues to work with physical and occupational therapy. Patient is aware that he will be needing home oxygen upon discharge. Objective - Vital Signs/Intake and Output Vital Signs (last 24 hours): Temp Pulse Resp BP Pulse Ox 97.4 F L 70 20 104/54 L 95 02/17/18 15:12 02/17/18 15:12 02/17/18 15:12 02/17/18 15:12 02/17/18 15:12 Intake and Output: 02/17/18 02/17/18 06:59 18:59 Intake Total 200 Output Total 200 Balance 0 - Medications Medications: Current Medications Aspirin (Aspirin Chewable) 81 mg PO DAILY [facility] Last Admin: 02/17/18 10:42 Dose: 81 mg Carvedilol (Coreg) 6.25 mg PO TID [facility] Last Admin: 02/17/18 14:12 Dose: Not Given Colchicine (Colocrys) 0.6 mg PO DAILY [facility] Last Admin: 02/17/18 10:42 Dose: 0.6 mg Dextrose (Dextrose 50% Inj) 0 ml IV STAT PRN; Protocol PRN Reason: Hypoglycemia Protocol Dextrose (Glutose 15) 0 gm PO ONCE PRN; Protocol PRN Reason: Hypoglycemia Protocol Furosemide (Lasix) 40 mg IVP DAILY [facility] Last Admin: 02/17/18 10:46 Dose: Not Given Gabapentin (Neurontin) 300 mg PO Q8H [facility] Last Admin: 02/17/18 10:41 Dose: 300 mg Glimepiride (Amaryl) 2 mg PO DAILY [facility] Last Admin: 02/17/18 10:42 Dose: 2 mg Glucagon (Glucagen Diagnostic Kit) 0 mg IM STAT PRN; Protocol PRN Reason: Hypoglycemia Protocol Dextrose (Dextrose 5% In Water 1000 Ml) 1,000 mls @ 0 mls/hr IV .Q0M PRN; Protocol; Per Protocol PRN Reason: Hypoglycemia Protocol Losartan Potassium (Cozaar) 50 mg PO DAILY [facility] Last Admin: 02/17/18 10:45 Dose: Not Given Pantoprazole Sodium (Protonix Ec Tab) 40 mg PO DAILY [facility] Last Admin: 02/17/18 10:41 Dose: 40 mg Rivaroxaban (Xarelto) 20 mg PO DAILY [facility] Last Admin: 02/17/18 10:42 Dose: 20 mg Rosuvastatin Calcium (Crestor) 10 mg PO HS [facility] Last Admin: 02/16/18 21:07 Dose: 10 mg Spironolactone (Aldactone) 12.5 mg PO BID [facility] Last Admin: 02/17/18 10:45 Dose: Not Given - Labs Labs: 02/17/18 07:34 02/17/18 07:34 - Constitutional Appears: No Acute Distress - Head Exam Head Exam: ATRAUMATIC - Eye Exam Eye Exam: EOMI - ENT Exam ENT Exam: Mucous Membranes Moist - Respiratory Exam Respiratory Exam: Clear to Ausculation Bilateral, NORMAL BREATHING PATTERN. absent: Rhonchi, Wheezes, Respiratory Distress - Cardiovascular Exam Cardiovascular Exam: REGULAR RHYTHM, +S1, +S2 - GI/Abdominal Exam GI & Abdominal Exam: Soft, Normal Bowel Sounds. absent: Distended, Firm, Guarding, Rigid, Tenderness - Extremities Exam Extremities Exam: Pedal Edema Additional comments: Mild pedal edema - Neurological Exam Neurological Exam: Alert, Awake, Oriented x3 - Psychiatric Exam Psychiatric exam: Normal Affect - Skin Skin Exam: Normal Color Assessment and Plan (1) Acute exacerbation of CHF (congestive heart failure) Assessment & Plan: Card Player, Dr. Dudley---> Help appreciated Imaging: ECHO 01/13/17: * Dilated LA and LV with severe LV hypokinesia; estimated LV EF 10%; right side catheter artifact noted; tissue doppler imaging reveals moderate left ventricular diastolic dysfunction. -AICD placement (a year ago) * Plans for interrogation 02/16/18 or 02/17/18 ECHO 02/11/18: * Techinically limited and difficult study. LV systolic function is borderline. Dilated LA. Consider other modalities like MUGA or LUC to assess LV systolic function. CT chest 02/11/18: * Limited study due to crossing streak and beam hardening artifact arising from pacemaker battery pack. No evidence of acute central pulmonary embolus. Cardiomegaly. Ground-glass opacity seen in the upper lung zones possibly representing air trapping. Mild bibasilar atelectasis on. There is an elliptical shaped subsegmental area of atelectasis and or scarring in the left lingular region. Chest X-ray 02/11/18: * No active disease Chest X-ray 02/13/18: * No active pulmonary disease Medications: * Lasix 40mg IV daily * Cozaar 50mg PO daily * Aldactone 12.5mg PO BID * Fluid restriction- 1,000ml * Aspirin 81mg PO daily * Coreg 6.25mg PO TID Status: Acute (2) Tenderness of right calf Assessment & Plan: Venous Doppler LE B/L 02/11/18: * Negative for DVT Status: Acute (3) Dizziness Assessment & Plan: Elevated D-dimer on admission: * - CT chest: No evidence of acute central pulmonary embolus. Head CT w/o contrast - No acute intracranial hemorrhage. Mild chronic white matter ischemic changes. Mild generalized volume loss. Orthostatic Vitals signs: Lying BP - 100/61, Sitting BP 113/60, Standing BP 122/ 60 Status: Acute (4) History of atrial flutter Assessment & Plan: - Monitor on telemetry - Home Medication * Xarelto 20mg PO Daily Status: Acute (5) History of hypertension Assessment & Plan: - Home medications * Spironolactone 12.5mg PO BID * Cozaar 50mg PO Daily Status: Acute (6) History of diabetes mellitus Assessment & Plan: -(02/04/18) HgbA1C 8.1 -accucheck ACHS - Continue home medication glimepiride 2mg daily - Hypoglycemia protocol Status: Acute (7) Peripheral neuropathy Assessment & Plan: - continue home medication Gabapentin 300mg q8h Status: Acute (8) Prophylactic measure Assessment & Plan: - Protonix 40mg daily -Xarelto 20mg PO daily - PT/OT, PT recommends discharge with home O2 Disposition: manager wind working on setting up home oxygen All plans reviewed and discussed with Nurys Cabrera Status: Acute <Kervin Oshea - Last Filed: 02/18/18 10:59> Objective - Vital Signs/Intake and Output Vital Signs (last 24 hours): Temp Pulse Resp BP Pulse Ox 97.7 F 72 20 105/62 98 02/18/18 07:00 02/18/18 07:46 02/18/18 07:00 02/18/18 10:00 02/18/18 07:00 Intake and Output: 02/18/18 02/18/18 06:59 18:59 Intake Total 100 Output Total 1250 Balance -1150 - Medications Medications: Current Medications Aspirin (Aspirin Chewable) 81 mg PO DAILY [facility] Last Admin: 02/18/18 10:00 Dose: 81 mg Carvedilol (Coreg) 6.25 mg PO BID [facility] Last Admin: 02/18/18 10:01 Dose: 6.25 mg Colchicine (Colocrys) 0.6 mg PO DAILY [facility] Last Admin: 02/18/18 10:01 Dose: 0.6 mg Dextrose (Dextrose 50% Inj) 0 ml IV STAT PRN; Protocol PRN Reason: Hypoglycemia Protocol Dextrose (Glutose 15) 0 gm PO ONCE PRN; Protocol PRN Reason: Hypoglycemia Protocol Furosemide (Lasix) 40 mg IVP DAILY [facility] Last Admin: 02/18/18 10:00 Dose: 40 mg Gabapentin (Neurontin) 300 mg PO Q8H [facility] Last Admin: 02/18/18 10:02 Dose: 300 mg Glimepiride (Amaryl) 2 mg PO DAILY [facility] Last Admin: 02/18/18 10:01 Dose: 2 mg Glucagon (Glucagen Diagnostic Kit) 0 mg IM STAT PRN; Protocol PRN Reason: Hypoglycemia Protocol Dextrose (Dextrose 5% In Water 1000 Ml) 1,000 mls @ 0 mls/hr IV .Q0M PRN; Protocol; Per Protocol PRN Reason: Hypoglycemia Protocol Losartan Potassium (Cozaar) 50 mg PO DAILY [facility] Last Admin: 02/18/18 10:03 Dose: 50 mg Pantoprazole Sodium (Protonix Ec Tab) 40 mg PO DAILY [facility] Last Admin: 02/17/18 10:41 Dose: 40 mg Rivaroxaban (Xarelto) 20 mg PO DAILY [facility] Last Admin: 02/18/18 10:00 Dose: 20 mg Rosuvastatin Calcium (Crestor) 10 mg PO HS [facility] Last Admin: 02/16/18 21:07 Dose: 10 mg Spironolactone (Aldactone) 12.5 mg PO BID [facility] Last Admin: 02/18/18 10:00 Dose: 12.5 mg - Labs Labs: 02/18/18 07:44 02/18/18 07:44 Attending/Attestation - Attestation I have personally seen and examined this patient.: Yes I have fully participated in the care of the patient.: Yes I have reviewed all pertinent clinical information, including history, physical exam and plan: Yes Notes (Text): Patient seen and examined No ncomplain.sitting onchair,has chronic edema,denies sob 1) Acute exacerbation of CHF continue home meds lasix,cozaar,aldactone,asprin and coreg 2.History of atrial flutter * Xarelto 20mg PO Daily 3 History of hypertension 4. History of diabetes mellitus glimepiride 2mg daily 5. Peripheral neuropathy Gabapentin 300mg q8h As per PT O2 AT RA AT REST : 88% O2 AT RA WHILE AMBULATING : 83% O2 WHILE AMBULATING W/3L O2: 95% Patient need home oxygen. CW working on home oxygen d/w Resident. I agree with the documentation of the resident's assessment and the plan
[2018-02-18 07:57] LABS: BASO # 0.1 K/uL (0.0-0.2); BASO % 0.8 % (0.0-2.0); EOS # 0.1 K/uL (0.0-0.7); EOS % 2.1 % (0.0-4.0); LYMPH # 2.4 K/uL (1.0-4.3); LYMPH % 33.1 % (20.0-40.0); MEAN CELL VOLUME 89.3 fL (80.0-94.0); MEAN CORPUSCULAR HEMOGLOBIN 30.3 pg (27.0-31.0); MEAN PLATELET VOLUME 9.9 fL (7.2-11.7); MONO # 0.9 K/uL (0.0-0.8); MONO % 11.9 % (0.0-10.0); NEUT # 3.8 K/uL (1.8-7.0); NEUT % 52.1 % (50.0-75.0); NRBC % 0.1 % (0.0-2.0); RBC 5.27 Mil/uL (4.40-5.90); WHITE BLOOD COUNT 7.2 K/uL (4.8-10.8)
[2018-02-18 08:09] LABS: ALB/GLOB RATIO 0.8 (1.0-2.1); ALBUMIN 3.6 g/dL (3.5-5.0); ALT/SGPT 19 U/L (21-72); AST/SGOT 35 U/L (17-59); BLOOD UREA NITROGEN 28 mg/dL (9-20); CALCIUM 8.3 mg/dl (8.6-10.4); GFR AFRICAN-AMERICAN > 60; GFR NON-AFRICAN AMERICAN > 60
[2018-02-18] MEDS: Pantoprazole 40 mg EC Tab PO SCH (10:00)
--- NOTE | 2018-02-18 15:04 | CP.PCM.PN ---
<Julia Marlow E - Last Filed: 02/18/18 15:07> Subjective - Date & Time of Evaluation Date of Evaluation: 02/18/18 Time of Evaluation: 07:20 - Subjective Subjective: Medicine progress note ( Dr. sOhea's service) Patient was seen and examined at bedside. Patient reports that he is doing well , with improving symptoms. Patient denies chest pain, SOB, palpitations, cough. Patient continues to work with physical and occupational therapy. Patient has no new complaints or any acute issues. Objective - Vital Signs/Intake and Output Vital Signs (last 24 hours): Temp Pulse Resp BP Pulse Ox 97.7 F 72 20 105/62 98 02/18/18 07:00 02/18/18 07:46 02/18/18 07:00 02/18/18 10:00 02/18/18 07:00 Intake and Output: 02/18/18 02/18/18 06:59 18:59 Intake Total 100 Output Total 1250 Balance -1150 - Medications Medications: Current Medications Aspirin (Aspirin Chewable) 81 mg PO DAILY [facility] Last Admin: 02/18/18 10:00 Dose: 81 mg Carvedilol (Coreg) 6.25 mg PO BID [facility] Last Admin: 02/18/18 10:01 Dose: 6.25 mg Colchicine (Colocrys) 0.6 mg PO DAILY [facility] Last Admin: 02/18/18 10:01 Dose: 0.6 mg Dextrose (Dextrose 50% Inj) 0 ml IV STAT PRN; Protocol PRN Reason: Hypoglycemia Protocol Dextrose (Glutose 15) 0 gm PO ONCE PRN; Protocol PRN Reason: Hypoglycemia Protocol Furosemide (Lasix) 40 mg IVP DAILY [facility] Last Admin: 02/18/18 10:00 Dose: 40 mg Gabapentin (Neurontin) 300 mg PO Q8H [facility] Last Admin: 02/18/18 10:02 Dose: 300 mg Glimepiride (Amaryl) 2 mg PO DAILY [facility] Last Admin: 02/18/18 10:01 Dose: 2 mg Glucagon (Glucagen Diagnostic Kit) 0 mg IM STAT PRN; Protocol PRN Reason: Hypoglycemia Protocol Dextrose (Dextrose 5% In Water 1000 Ml) 1,000 mls @ 0 mls/hr IV .Q0M PRN; Protocol; Per Protocol PRN Reason: Hypoglycemia Protocol Losartan Potassium (Cozaar) 50 mg PO DAILY [facility] Last Admin: 02/18/18 10:03 Dose: 50 mg Pantoprazole Sodium (Protonix Ec Tab) 40 mg PO DAILY [facility] Last Admin: 02/17/18 10:41 Dose: 40 mg Rivaroxaban (Xarelto) 20 mg PO DAILY [facility] Last Admin: 02/18/18 10:00 Dose: 20 mg Rosuvastatin Calcium (Crestor) 10 mg PO HS [facility] Last Admin: 02/16/18 21:07 Dose: 10 mg Spironolactone (Aldactone) 12.5 mg PO BID [facility] Last Admin: 02/18/18 10:00 Dose: 12.5 mg - Labs Labs: 02/18/18 07:44 02/18/18 07:44 - Constitutional Appears: Well, No Acute Distress - Head Exam Head Exam: ATRAUMATIC, NORMAL INSPECTION - Eye Exam Eye Exam: EOMI - ENT Exam ENT Exam: Mucous Membranes Moist - Respiratory Exam Respiratory Exam: Clear to Ausculation Bilateral, NORMAL BREATHING PATTERN. absent: Rhonchi, Wheezes - Cardiovascular Exam Cardiovascular Exam: REGULAR RHYTHM, +S1, +S2 - GI/Abdominal Exam GI & Abdominal Exam: Soft, Normal Bowel Sounds. absent: Distended, Firm, Guarding, Rigid, Tenderness, Diminished Bowel Sounds - Extremities Exam Extremities Exam: Pedal Edema Additional comments: Non-pitting edema - Neurological Exam Neurological Exam: Alert, Awake, Oriented x3 - Psychiatric Exam Psychiatric exam: Normal Affect - Skin Skin Exam: Normal Color Assessment and Plan (1) Acute exacerbation of CHF (congestive heart failure) Assessment & Plan: Electric Hoist Operator, Dr. Dudley---> Help appreciated Imaging: ECHO 01/13/17: * Dilated LA and LV with severe LV hypokinesia; estimated LV EF 10%; right side catheter artifact noted; tissue doppler imaging reveals moderate left ventricular diastolic dysfunction. -AICD placement (a year ago) * Plans for interrogation 02/16/18 or 02/17/18 ECHO 02/11/18: * Techinically limited and difficult study. LV systolic function is borderline. Dilated LA. Consider other modalities like MUGA or LUC to assess LV systolic function. CT chest 02/11/18: * Limited study due to crossing streak and beam hardening artifact arising from pacemaker battery pack. No evidence of acute central pulmonary embolus. Cardiomegaly. Ground-glass opacity seen in the upper lung zones possibly representing air trapping. Mild bibasilar atelectasis on. There is an elliptical shaped subsegmental area of atelectasis and or scarring in the left lingular region. Chest X-ray 02/11/18: * No active disease Chest X-ray 02/13/18: * No active pulmonary disease Medications: * Lasix 40mg IV daily * Cozaar 50mg PO daily * Aldactone 12.5mg PO BID * Fluid restriction- 1,000ml * Aspirin 81mg PO daily * Coreg 6.25mg PO BID Status: Acute (2) Tenderness of right calf Assessment & Plan: Venous Doppler LE B/L 02/11/18: * Negative for DVT Status: Acute (3) Dizziness Assessment & Plan: Elevated D-dimer on admission: * - CT chest: No evidence of acute central pulmonary embolus. Head CT w/o contrast - No acute intracranial hemorrhage. Mild chronic white matter ischemic changes. Mild generalized volume loss. Orthostatic Vitals signs: Lying BP - 100/61, Sitting BP 113/60, Standing BP 122/ 60 Status: Acute (4) History of atrial flutter Assessment & Plan: - Monitor on telemetry - Home Medication * Xarelto 20mg PO Daily Status: Acute (5) History of hypertension Assessment & Plan: - Home medications * Spironolactone 12.5mg PO BID * Cozaar 50mg PO Daily Status: Acute (6) History of diabetes mellitus Assessment & Plan: -(02/04/18) HgbA1C 8.1 -accucheck ACHS - Continue home medication glimepiride 2mg daily - Hypoglycemia protocol - Crestor 10mg PO HS Status: Acute (7) Peripheral neuropathy Assessment & Plan: - continue home medication Gabapentin 300mg q8h Status: Acute (8) Prophylactic measure Assessment & Plan: GI: Protonix 40mg daily DVT: Xarelto 20mg PO daily PT/OT, PT recommends discharge with home O2 Disposition: product design manager working on setting up home oxygen All plans reviewed and discussed with Nurys Cabrera Status: Acute <Kervin Oshea - Last Filed: 02/18/18 15:52> Objective - Vital Signs/Intake and Output Vital Signs (last 24 hours): Temp Pulse Resp BP Pulse Ox 97.7 F 72 20 105/62 98 02/18/18 07:00 02/18/18 07:46 02/18/18 07:00 02/18/18 10:00 02/18/18 07:00 Intake and Output: 02/18/18 02/18/18 06:59 18:59 Intake Total 100 Output Total 1250 Balance -1150 - Medications Medications: Current Medications Aspirin (Aspirin Chewable) 81 mg PO DAILY [facility] Last Admin: 02/18/18 10:00 Dose: 81 mg Carvedilol (Coreg) 6.25 mg PO BID [facility] Last Admin: 02/18/18 10:01 Dose: 6.25 mg Colchicine (Colocrys) 0.6 mg PO DAILY [facility] Last Admin: 02/18/18 10:01 Dose: 0.6 mg Dextrose (Dextrose 50% Inj) 0 ml IV STAT PRN; Protocol PRN Reason: Hypoglycemia Protocol Dextrose (Glutose 15) 0 gm PO ONCE PRN; Protocol PRN Reason: Hypoglycemia Protocol Furosemide (Lasix) 40 mg IVP DAILY [facility] Last Admin: 02/18/18 10:00 Dose: 40 mg Gabapentin (Neurontin) 300 mg PO Q8H [facility] Last Admin: 02/18/18 10:02 Dose: 300 mg Glimepiride (Amaryl) 2 mg PO DAILY [facility] Last Admin: 02/18/18 10:01 Dose: 2 mg Glucagon (Glucagen Diagnostic Kit) 0 mg IM STAT PRN; Protocol PRN Reason: Hypoglycemia Protocol Dextrose (Dextrose 5% In Water 1000 Ml) 1,000 mls @ 0 mls/hr IV .Q0M PRN; Protocol; Per Protocol PRN Reason: Hypoglycemia Protocol Losartan Potassium (Cozaar) 50 mg PO DAILY [facility] Last Admin: 02/18/18 10:03 Dose: 50 mg Pantoprazole Sodium (Protonix Ec Tab) 40 mg PO DAILY [facility] Last Admin: 02/18/18 10:00 Dose: 40 mg Rivaroxaban (Xarelto) 20 mg PO DAILY [facility] Last Admin: 02/18/18 10:00 Dose: 20 mg Rosuvastatin Calcium (Crestor) 10 mg PO HS [facility] Last Admin: 02/16/18 21:07 Dose: 10 mg Spironolactone (Aldactone) 12.5 mg PO BID [facility] Last Admin: 02/18/18 10:00 Dose: 12.5 mg - Labs Labs: 02/18/18 07:44 02/18/18 07:44 Attending/Attestation - Attestation I have personally seen and examined this patient.: Yes I have fully participated in the care of the patient.: Yes I have reviewed all pertinent clinical information, including history, physical exam and plan: Yes Notes (Text): Patient seen and examined No complain.sitting on the chair,has chronic edema,denies sob 1) Acute exacerbation of CHF continue home meds lasix,cozaar,aldactone,asprin and coreg 2.History of atrial flutter Xarelto 20mg PO Daily 3 History of hypertension 4. History of diabetes mellitus glimepiride 2mg daily 5. Peripheral neuropathy Gabapentin 300mg q8h O2 AT RA AT REST : 88% O2 AT RA WHILE AMBULATING : 83% O2 WHILE AMBULATING W/3L O2: 95% Patient need home oxygen. CW working on home oxygen patient will be discharged home once home oxygen is arranged d/w Resident. I agree with the documentation of the resident's assessment and the plan
[2018-02-19 08:00] LABS: BASO # 0.1 K/uL (0.0-0.2); BASO % 0.8 % (0.0-2.0); EOS # 0.1 K/uL (0.0-0.7); EOS % 1.5 % (0.0-4.0); HEMOGLOBIN 15.8 g/dL (12.0-18.0); LYMPH # 2.1 K/uL (1.0-4.3); MEAN CORPUSCULAR HEMOGLOBIN 30.6 pg (27.0-31.0); MONO # 0.7 K/uL (0.0-0.8); MONO % 10.5 % (0.0-10.0); NEUT # 3.8 K/uL (1.8-7.0); NEUT % 56.2 % (50.0-75.0); NRBC % 0.3 % (0.0-2.0); RBC 5.16 Mil/uL (4.40-5.90); RED CELL DISTRIBUTION WIDTH 13.8 % (11.5-14.5); WHITE BLOOD COUNT 6.8 K/uL (4.8-10.8)
[2018-02-19 08:22] LABS: ALB/GLOB RATIO 0.8 (1.0-2.1); ALBUMIN 3.5 g/dL (3.5-5.0); ALT/SGPT 24 U/L (21-72); AST/SGOT 37 U/L (17-59); BLOOD UREA NITROGEN 29 mg/dL (9-20); CALCIUM 8.3 mg/dl (8.6-10.4); GFR AFRICAN-AMERICAN > 60; GFR NON-AFRICAN AMERICAN 55
[2018-02-19] MEDS: Pantoprazole 40 mg EC Tab PO SCH (10:05)
--- NOTE | 2018-02-19 18:14 | CP.PCM.PN ---
<Julia Marlow E - Last Filed: 02/19/18 18:12> Subjective - Date & Time of Evaluation Date of Evaluation: 02/19/18 Time of Evaluation: 07:20 - Subjective Subjective: Medicine progress note ( Dr. Oshea's service) Patient was seen and examined at bedside. Patient reports that he is doing well , with improving symptoms. Patient denies chest pain, SOB, palpitations, cough. Patient continues to work with physical and occupational therapy. Patient has no new complaints or any acute issues. Objective - Vital Signs/Intake and Output Vital Signs (last 24 hours): Temp Pulse Resp BP Pulse Ox 97.5 F L 70 20 113/77 98 02/19/18 15:00 02/19/18 15:00 02/19/18 15:00 02/19/18 15:00 02/19/18 15:00 Intake and Output: 02/19/18 02/19/18 06:59 18:59 Intake Total 300 Balance 300 - Medications Medications: Current Medications Aspirin (Aspirin Chewable) 81 mg PO DAILY [facility] Last Admin: 02/19/18 10:03 Dose: 81 mg Carvedilol (Coreg) 6.25 mg PO BID [facility] Last Admin: 02/19/18 17:56 Dose: 6.25 mg Colchicine (Colocrys) 0.6 mg PO DAILY [facility] Last Admin: 02/19/18 10:03 Dose: 0.6 mg Dextrose (Dextrose 50% Inj) 0 ml IV STAT PRN; Protocol PRN Reason: Hypoglycemia Protocol Dextrose (Glutose 15) 0 gm PO ONCE PRN; Protocol PRN Reason: Hypoglycemia Protocol Furosemide (Lasix) 40 mg IVP DAILY [facility] Last Admin: 02/19/18 10:03 Dose: 40 mg Gabapentin (Neurontin) 300 mg PO Q8H [facility] Last Admin: 02/19/18 17:55 Dose: 300 mg Glimepiride (Amaryl) 2 mg PO DAILY [facility] Last Admin: 02/19/18 10:03 Dose: 2 mg Glucagon (Glucagen Diagnostic Kit) 0 mg IM STAT PRN; Protocol PRN Reason: Hypoglycemia Protocol Dextrose (Dextrose 5% In Water 1000 Ml) 1,000 mls @ 0 mls/hr IV .Q0M PRN; Protocol; Per Protocol PRN Reason: Hypoglycemia Protocol Losartan Potassium (Cozaar) 50 mg PO DAILY [facility] Last Admin: 02/19/18 10:04 Dose: 50 mg Pantoprazole Sodium (Protonix Ec Tab) 40 mg PO DAILY [facility] Last Admin: 02/19/18 10:05 Dose: 40 mg Rivaroxaban (Xarelto) 20 mg PO DAILY [facility] Last Admin: 02/19/18 10:03 Dose: 20 mg Rosuvastatin Calcium (Crestor) 10 mg PO HS [facility] Last Admin: 02/18/18 21:20 Dose: 10 mg Spironolactone (Aldactone) 12.5 mg PO BID [facility] Last Admin: 02/19/18 17:55 Dose: 12.5 mg - Labs Labs: 02/19/18 07:46 02/19/18 07:46 - Constitutional Appears: Well, No Acute Distress - Head Exam Head Exam: ATRAUMATIC - Eye Exam Eye Exam: EOMI, Normal appearance - ENT Exam ENT Exam: Mucous Membranes Moist - Respiratory Exam Respiratory Exam: NORMAL BREATHING PATTERN. absent: Prolonged Expiratory Phase , Rhonchi, Wheezes, Respiratory Distress - Cardiovascular Exam Cardiovascular Exam: REGULAR RHYTHM, +S1, +S2 - GI/Abdominal Exam GI & Abdominal Exam: Soft, Normal Bowel Sounds. absent: Distended, Guarding, Rigid, Tenderness - Extremities Exam Extremities Exam: Pedal Edema. absent: Calf Tenderness, Tenderness Additional comments: Non-pitting edema - Neurological Exam Neurological Exam: Alert, Awake, Oriented x3 - Psychiatric Exam Psychiatric exam: Normal Affect - Skin Skin Exam: Normal Color Assessment and Plan (1) Acute exacerbation of CHF (congestive heart failure) Assessment & Plan: International Student Counselor, Dr. Dudley---> Help appreciated Imaging: ECHO 01/13/17: * Dilated LA and LV with severe LV hypokinesia; estimated LV EF 10%; right side catheter artifact noted; tissue doppler imaging reveals moderate left ventricular diastolic dysfunction. -AICD placement (a year ago) * Plans for interrogation 02/16/18 or 02/17/18 ECHO 02/11/18: * Techinically limited and difficult study. LV systolic function is borderline. Dilated LA. Consider other modalities like MUGA or LUC to assess LV systolic function. CT chest 02/11/18: * Limited study due to crossing streak and beam hardening artifact arising from pacemaker battery pack. No evidence of acute central pulmonary embolus. Cardiomegaly. Ground-glass opacity seen in the upper lung zones possibly representing air trapping. Mild bibasilar atelectasis on. There is an elliptical shaped subsegmental area of atelectasis and or scarring in the left lingular region. Chest X-ray 02/11/18: * No active disease Chest X-ray 02/13/18: * No active pulmonary disease Medications: * Lasix 40mg IV daily * Cozaar 50mg PO daily * Aldactone 12.5mg PO BID * Fluid restriction- 1,000ml * Aspirin 81mg PO daily * Coreg 6.25mg PO BID Status: Acute (2) Tenderness of right calf Assessment & Plan: Venous Doppler LE B/L 02/11/18: * Negative for DVT Status: Acute (3) Dizziness Assessment & Plan: Elevated D-dimer on admission: * - CT chest: No evidence of acute central pulmonary embolus. Head CT w/o contrast - No acute intracranial hemorrhage. Mild chronic white matter ischemic changes. Mild generalized volume loss. Orthostatic Vitals signs: Lying BP - 100/61, Sitting BP 113/60, Standing BP 122/ 60 Status: Acute (4) History of atrial flutter Assessment & Plan: - Monitor on telemetry - Home Medication * Xarelto 20mg PO Daily Status: Acute (5) History of hypertension Assessment & Plan: - Home medications * Spironolactone 12.5mg PO BID * Cozaar 50mg PO Daily Status: Acute (6) History of diabetes mellitus Assessment & Plan: -(02/04/18) HgbA1C 8.1 -accucheck ACHS - Continue home medication glimepiride 2mg daily - Hypoglycemia protocol - Crestor 10mg PO HS Status: Acute (7) Peripheral neuropathy Assessment & Plan: - continue home medication Gabapentin 300mg q8h Status: Acute (8) Prophylactic measure Assessment & Plan: GI: Protonix 40mg daily DVT: Xarelto 20mg PO daily PT/OT, PT recommends discharge with home O2 Disposition: awaiting home oxygen set -up; window caser is assisting with this process Status: Acute <Kervin Oshea - Last Filed: 02/20/18 14:43> Objective - Vital Signs/Intake and Output Vital Signs (last 24 hours): Temp Pulse Resp BP Pulse Ox 98.1 F 73 20 135/75 94 L 02/20/18 08:02 02/20/18 08:02 02/20/18 08:02 02/20/18 10:00 02/20/18 08:02 Intake and Output: 02/20/18 02/20/18 06:59 18:59 Intake Total 650 Output Total 1750 Balance -1100 - Medications Medications: Current Medications Aspirin (Aspirin Chewable) 81 mg PO DAILY [facility] Last Admin: 02/20/18 09:52 Dose: 81 mg Carvedilol (Coreg) 6.25 mg PO BID [facility] Last Admin: 02/20/18 09:53 Dose: 6.25 mg Colchicine (Colocrys) 0.6 mg PO DAILY [facility] Last Admin: 02/20/18 09:55 Dose: 0.6 mg Furosemide (Lasix) 40 mg PO BID [facility] Last Admin: 02/20/18 10:00 Dose: 40 mg Gabapentin (Neurontin) 300 mg PO Q8H [facility] Last Admin: 02/20/18 09:53 Dose: 300 mg Insulin Human Regular (Novolin R) 0 unit SC ACHS [facility] PRN Reason: Protocol Last Admin: 02/20/18 11:43 Dose: 4 unit Losartan Potassium (Cozaar) 25 mg PO DAILY [facility] Last Admin: 02/20/18 10:50 Dose: 25 mg Rivaroxaban (Xarelto) 20 mg PO DAILY [facility] Last Admin: 02/20/18 09:57 Dose: 20 mg Rosuvastatin Calcium (Crestor) 10 mg PO HS [facility] Last Admin: 02/19/18 21:17 Dose: 10 mg Spironolactone (Aldactone) 12.5 mg PO BID [facility] Last Admin: 02/20/18 09:55 Dose: 12.5 mg - Labs Labs: 02/20/18 06:05 02/20/18 13:44 Attending/Attestation - Attestation I have personally seen and examined this patient.: Yes I have fully participated in the care of the patient.: Yes I have reviewed all pertinent clinical information, including history, physical exam and plan: Yes Notes (Text): Patient seen and examined by me No complain.sitting on the chair,has chronic edema,denies sob 1) Acute exacerbation of CHF continue home meds lasix,cozaar,aldactone,asprin and coreg 2.History of atrial flutter Xarelto 20mg PO Daily 3 History of hypertension 4. History of diabetes mellitus glimepiride 2mg daily 5. Peripheral neuropathy Gabapentin 300mg q8h O2 AT RA AT REST : 88% O2 AT RA WHILE AMBULATING : 83% O2 WHILE AMBULATING W/3L O2: 95% Patient need home oxygen. CW working on home oxygen patient will be discharged home once home oxygen is arranged d/w Resident. I agree with the documentation of the resident's assessment and the plan
[2018-02-20 06:22] LABS: BASO # 0.1 K/uL (0.0-0.2); BASO % 0.7 % (0.0-2.0); EOS # 0.1 K/uL (0.0-0.7); EOS % 1.4 % (0.0-4.0); HEMOGLOBIN 15.5 g/dL (12.0-18.0); LYMPH # 2.1 K/uL (1.0-4.3); LYMPH % 25.2 % (20.0-40.0); MEAN CELL VOLUME 89.3 fL (80.0-94.0); MEAN CORPUSCULAR HEMOGLOBIN 30.5 pg (27.0-31.0); MEAN CORPUSCULAR HGB CONC 34.1 g/dL (33.0-37.0); MONO % 11.7 % (0.0-10.0); NEUT # 5.1 K/uL (1.8-7.0); NRBC % 0.1 % (0.0-2.0); RBC 5.08 Mil/uL (4.40-5.90); RED CELL DISTRIBUTION WIDTH 13.6 % (11.5-14.5); WHITE BLOOD COUNT 8.3 K/uL (4.8-10.8)
[2018-02-20 06:45] LABS: ALB/GLOB RATIO 0.9 (1.0-2.1); ALBUMIN 3.6 g/dL (3.5-5.0); ALT/SGPT 23 U/L (21-72); AST/SGOT 34 U/L (17-59); BLOOD UREA NITROGEN 26 mg/dL (9-20); CALCIUM 8.1 mg/dl (8.6-10.4); GFR AFRICAN-AMERICAN > 60; GFR NON-AFRICAN AMERICAN 55
[2018-02-20] MEDS ORDERED: Dextrose 50% SYRINGE Inj (50 ml) IV STA (07:37)
[2018-02-20] MEDS ORDERED: (Novolin R) Insulin Human Regular 100 units/ml vial IV ONE (07:37)
[2018-02-20 08:03] VITALS: PULSE 73; TEMP 98.1
[2018-02-20 08:10] VITALS: O2SAT 94
[2018-02-20] MEDS: Pantoprazole 40 mg EC Tab PO SCH (09:52)
[2018-02-20 09:58] VITALS: BP 135/75
[2018-02-20] MEDS ORDERED: Sod Polystyrene Sulf 15 gm/60 ml Susp PO ONE (10:15)
[2018-02-20] MEDS ORDERED: (Novolin R) Insulin Human Regular 100 units/ml vial SC SCH (11:30)
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
[2018-02-20] MEDS ORDERED: Albuterol-Ipratrop 3 mg / 0.5 (3 ml) UD INH ONE (11:59)
[2018-02-20 14:14] LABS: BLOOD UREA NITROGEN 28 mg/dL (9-20); CALCIUM 8.5 mg/dl (8.6-10.4); GFR AFRICAN-AMERICAN > 60; GFR NON-AFRICAN AMERICAN > 60
== END 2018-02-20 14:54 | disposition home or self-care (01) | DRG 292 ==
LOC: C.ER 13:10 → C.9E 17:51 → C.6T 18:39 → OBSVTOIN 02-14 22:45
PROVIDERS: ADMIT Hospitalist; ATTEND Hospitalist
DX: I11.0 Hypertensive heart disease with heart failure (principal); J98.11 Atelectasis; I50.33 Acute on chronic diastolic (congestive) heart failure; E66.9 Obesity, unspecified; Z68.38 Body mass index [BMI] 38.0-38.9, adult; E11.649 Type 2 diabetes mellitus with hypoglycemia without coma; E78.5 Hyperlipidemia, unspecified; I25.10 Atherosclerotic heart disease of native coronary artery without angina pectoris; I42.0 Dilated cardiomyopathy; I48.91 Unspecified atrial fibrillation; I49.3 Ventricular premature depolarization; J45.909 Unspecified asthma, uncomplicated; K21.9 Gastro-esophageal reflux disease without esophagitis; Z95.810 Presence of automatic (implantable) cardiac defibrillator; Z99.81 Dependence on supplemental oxygen; Z79.4 Long term (current) use of insulin

== ENCOUNTER 2018-05-09 11:46 | Inpatient (IN) | payer MEDICAID, OTHER ==
[2018-05-09 13:17] LABS: BASO % 0.5 % (0.0-2.0); EOS % 0.6 % (0.0-4.0); HEMOGLOBIN 16.5 g/dL (12.0-18.0); LYMPH # 2.2 K/uL (1.0-4.3); LYMPH % 26.5 % (20.0-40.0); MEAN CELL VOLUME 87.3 fL (80.0-94.0); MEAN CORPUSCULAR HEMOGLOBIN 29.8 pg (27.0-31.0); MEAN CORPUSCULAR HGB CONC 34.1 g/dL (33.0-37.0); MONO # 1.1 K/uL (0.0-0.8); MONO % 12.7 % (0.0-10.0); NEUT # 5.1 K/uL (1.8-7.0); NEUT % 59.7 % (50.0-75.0); NRBC % 0.1 % (0.0-2.0); RBC 5.53 Mil/uL (4.40-5.90); RED CELL DISTRIBUTION WIDTH 14.2 % (11.5-14.5); WHITE BLOOD COUNT 8.5 K/uL (4.8-10.8)
[2018-05-09 13:26] LABS: INR 1.5
[2018-05-09 13:30] LABS: ALB/GLOB RATIO 0.9 (1.0-2.1); ALBUMIN 3.9 g/dL (3.5-5.0); ALT/SGPT 32 U/L (21-72); AST/SGOT 29 U/L (17-59); BLOOD UREA NITROGEN 16 mg/dL (9-20); CALCIUM 8.5 mg/dl (8.6-10.4); GFR AFRICAN-AMERICAN > 60; GFR NON-AFRICAN AMERICAN > 60
[2018-05-09 13:42] LABS: B-TYPE NATRIURETIC PEPTIDE 1380 pg/mL (0-900); CK-MB 1.02 ng/mL (0.0-3.38)
--- NOTE | 2018-05-09 14:07 | RAD ---
PROCEDURE: CHEST RADIOGRAPH, 1 VIEW HISTORY: SOB COMPARISON: Comparison chest dated 02/13/2018. . FINDINGS: LUNGS: Increased opacity in the left lower lobe consistent with an area of atelectasis and or infiltrate. . Mild central pulmonary venous congestive changes. Questionable bilateral effusions. PLEURA: No pneumothorax or pleural fluid seen. CARDIOVASCULAR: Marked cardiomegaly. . No change multi lead pacemaker/ defibrillator. OSSEOUS STRUCTURES: No significant abnormalities. VISUALIZED UPPER ABDOMEN: Normal. OTHER FINDINGS: None. IMPRESSION: Increased opacity in the left lower lobe consistent with an area of atelectasis and or infiltrate. . Mild central pulmonary venous congestive changes. Questionable bilateral effusions.
[2018-05-09] MEDS ORDERED: Vancomycin 1 GM 1 GM/250 ML BAG IV STA (14:18)
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
[2018-05-09] MEDS ORDERED: Cefepime IV 1 gm in Dextrose 1 GM/50 ML BAG IVPB STA (14:19)
[2018-05-09] MEDS ORDERED: Vancomycin 1 gm/NS 200 ml 1 GM/200 ML BAG IVPB STA (14:31)
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
[2018-05-09 16:41] VITALS: BMI 40.1
[2018-05-09] MEDS ORDERED: Oxycodone/Acetaminophen 5/325 mg Tab PO PRN (16:58)
[2018-05-09] MEDS ORDERED: Piperacillin/Tazobact 3.375 gm 100 ML IVPB ONE (17:08)
[2018-05-09] MEDS: Piperacill/Tazo 3.375gm in Dex 3.375 GM/50 ML BAG IVPB SCH ×2 (17:11→22:15)
[2018-05-09] MEDS ORDERED: Glucagon Recombinant 1 mg Inj IM PRN (17:26)
[2018-05-09] MEDS ORDERED: Dextrose 50% SYRINGE Inj (50 ml) IV PRN (17:26)
--- NOTE | 2018-05-09 18:47 | CT ---
EXAM: CT Chest Without Intravenous Contrast EXAM DATE/TIME: 05/09/2018 4:47 PM CLINICAL HISTORY: 68 years old, male; Signs and symptoms; Shortness of breath; Additional info: Pneumonia, assess for pleural effusion TECHNIQUE: Axial computed tomography images of the chest without intravenous contrast. All CT scans at this facility use at least one of these dose optimization techniques: automated exposure control; mA and/or kV adjustment per patient size (includes targeted exams where dose is matched to clinical indication); or iterative reconstruction. Coronal and sagittal reformatted images were created and reviewed. COMPARISON: CT - CHEST W/CONTRAST 2016-02-19 19:39 FINDINGS: Artifacts: Motion artifact degrades image quality. Lungs and pleural spaces: Trachea and main bronchi are patent. There is dependent atelectasis bilaterally. There is subsegmental atelectasis in the left upper lobe. There is linear scarring in the lingula. There is no lobar or segmental consolidation. There are no effusions. Mediastinum: The esophagus is unremarkable. There is shotty mediastinal nodes.Renee are not optimally evaluated without contrast material. Heart and vasculature: There is elevation of the left hemidiaphragm with shift of the heart and mediastinal structures to the left. The heart is mildly enlarged. There are coronary artery calcifications. There is no pericardial effusion.Aorta and main pulmonary artery are normal in caliber. Thyroid: Thyroid is not optimally demonstrated. Bones/joints: Bony structures are osteopenic. There are degenerative changes. There are bridging syndesmophytes and osteophytes at multiple levels. There are wedge compression deformities T11 and T12. There are old rib fractures. Soft tissues: There is mild gynecomastia. Upper abdomen: There are no acute abnormalities in the visualized portion of the abdomen. Gallbladder is absent. Pancreas is mildly atrophic. Tubes, lines and devices: There is streak artifact from a pacemaker in the There is streak artifact from pacemaker leads. IMPRESSION: Slightly limited by patient motion, subsegmental atelectasis/scarring in the left upper lobe, scarring in the lingula, no lobar or segmental consolidation; mild cardiomegaly with pacemaker; elevated left diaphragm Additional nonemergent findings as described above.
[2018-05-09 19:51] LABS: CK-MB 1.19 ng/mL (0.0-3.38); TROPONIN I 0.064 ng/mL (0.00-0.120)
[2018-05-10 01:18] VITALS: RESP 20
[2018-05-10 01:34] LABS: CK-MB 1.1 ng/mL (0.0-3.38); TROPONIN I 0.054 ng/mL (0.00-0.120)
[2018-05-10] MEDS: Piperacill/Tazo 3.375gm in Dex 3.375 GM/50 ML BAG IVPB SCH ×4 (05:21→22:14)
[2018-05-10 07:50] LABS: BASO % 0.5 % (0.0-2.0); EOS # 0.1 K/uL (0.0-0.7); EOS % 1.3 % (0.0-4.0); HEMOGLOBIN 15.9 g/dL (12.0-18.0); LYMPH # 1.3 K/uL (1.0-4.3); MEAN CELL VOLUME 87.6 fL (80.0-94.0); MEAN CORPUSCULAR HEMOGLOBIN 29.4 pg (27.0-31.0); MEAN CORPUSCULAR HGB CONC 33.5 g/dL (33.0-37.0); MEAN PLATELET VOLUME 9.7 fL (7.2-11.7); MONO # 0.9 K/uL (0.0-0.8); MONO % 11.1 % (0.0-10.0); NEUT # 5.6 K/uL (1.8-7.0); NEUT % 71.1 % (50.0-75.0); NRBC % 0.1 % (0.0-2.0); RBC 5.4 Mil/uL (4.40-5.90); RED CELL DISTRIBUTION WIDTH 14.3 % (11.5-14.5); WHITE BLOOD COUNT 7.8 K/uL (4.8-10.8)
[2018-05-10 08:08] LABS: ALB/GLOB RATIO 0.8 (1.0-2.1); ALBUMIN 3.6 g/dL (3.5-5.0); ALT/SGPT 29 U/L (21-72); AST/SGOT 34 U/L (17-59); BLOOD UREA NITROGEN 17 mg/dL (9-20); GFR AFRICAN-AMERICAN > 60; GFR NON-AFRICAN AMERICAN > 60; HDL CHOLESTEROL 25 mg/dL (30-70)
[2018-05-10 08:21] LABS: LDL CHOLESTEROL 79 mg/dL (0-129)
[2018-05-10] MEDS: Metoprolol Succinate 50 mg XL Tab PO SCH (09:42)
[2018-05-10] MEDS: Pantoprazole 40 mg EC Tab PO SCH (09:42)
--- NOTE | 2018-05-10 10:04 | CP.PCM.PN ---
<Sonia Melara - Last Filed: 05/10/18 09:58> Subjective - Date & Time of Evaluation Date of Evaluation: 05/10/18 Time of Evaluation: 07:00 - Subjective Subjective: PGY2- Progress Note for Dr. Mckenzie Patient seen and examined at bedside. Patient still admits to pain in both legs. Patient denies any chest pain, shortness of breath, abdominal pain, nausea , vomiting, constipation, or diarrhea. Objective - Vital Signs/Intake and Output Vital Signs (last 24 hours): Temp Pulse Resp BP Pulse Ox 97.5 F L 56 L 20 129/71 90 L 05/10/18 04:25 05/10/18 04:25 05/10/18 04:25 05/10/18 09:48 05/10/18 04:25 Intake and Output: 05/10/18 05/10/18 06:59 18:59 Intake Total 538 Output Total 700 Balance -162 - Medications Medications: Current Medications Aspirin (Aspirin Chewable) 81 mg PO DAILY [facility] Last Admin: 05/10/18 09:43 Dose: 81 mg Colchicine (Colocrys) 0.6 mg PO DAILY [facility] Last Admin: 05/10/18 09:43 Dose: 0.6 mg Dextrose (Dextrose 50% Inj) 0 ml IV STAT PRN; Protocol PRN Reason: Hypoglycemia Protocol Dextrose (Glutose 15) 15 gm PO ONCE PRN; Protocol PRN Reason: Hypoglycemia Protocol Furosemide (Lasix) 40 mg IVP BID [facility] Last Admin: 05/10/18 09:48 Dose: 40 mg Gabapentin (Neurontin) 300 mg PO Q8 [facility] Last Admin: 05/10/18 06:02 Dose: 300 mg Glimepiride (Amaryl) 2 mg PO DAILY [facility] Last Admin: 05/10/18 09:43 Dose: 2 mg Glucagon (Glucagen Diagnostic Kit) 0 mg IM STAT PRN; Protocol PRN Reason: Hypoglycemia Protocol Hydrochlorothiazide (Hydrodiuril) 25 mg PO DAILY [facility] Last Admin: 05/10/18 09:43 Dose: 25 mg Piperacillin Sod/Tazobactam Sod (Zosyn 3.375 Gm Iv Premix) 3.375 gm in 50 mls @ 100 mls/hr IVPB Q6H [facility] PRN Reason: Protocol Last Admin: 05/10/18 05:21 Dose: 100 mls/hr Vancomycin/Sodium Chloride (Vancomycin 1 Gm/Ns 200 Ml) 1 gm in 200 mls @ 133.333 mls/hr IVPB Q24H MAL PRN Reason: Protocol Stop: 05/15/18 16:01 Dextrose (Dextrose 5% In Water 1000 Ml) 1,000 mls @ 0 mls/hr IV .Q0M PRN; Protocol; Per Protocol PRN Reason: Hypoglycemia Protocol Losartan Potassium (Cozaar) 25 mg PO DAILY [facility] Last Admin: 05/10/18 09:46 Dose: 25 mg Metoprolol Succinate (Toprol Xl) 50 mg PO DAILY [facility] Last Admin: 05/10/18 09:42 Dose: 50 mg Oxycodone/Acetaminophen (Percocet 5/325 Mg Tab) 1 tab PO Q6H PRN PRN Reason: Pain, severe (8-10) Stop: 05/12/18 16:59 Pantoprazole Sodium (Protonix Ec Tab) 40 mg PO DAILY [facility] Last Admin: 05/10/18 09:42 Dose: 40 mg Rivaroxaban (Xarelto) 20 mg PO DAILY [facility] Last Admin: 05/10/18 09:42 Dose: 20 mg Rosuvastatin Calcium (Crestor) 5 mg PO HS [facility] Last Admin: 05/09/18 22:05 Dose: 5 mg Spironolactone (Aldactone) 12.5 mg PO BID [facility] Last Admin: 05/09/18 18:46 Dose: 12.5 mg - Labs Labs: 05/10/18 07:43 05/10/18 07:43 PT 16.0 SECONDS (9.7-12.2) H 05/09/18 13:04 INR 1.5 05/09/18 13:04 APTT 38 SECONDS (21-34) H 05/09/18 13:04 - Additional Findings Additional findings: - Constitutional Appears: Non-toxic, No Acute Distress - Head Exam Head Exam: ATRAUMATIC, NORMAL INSPECTION, NORMOCEPHALIC - Eye Exam Eye Exam: EOMI, Normal appearance - ENT Exam ENT Exam: Mucous Membranes Moist - Respiratory Exam Respiratory Exam: Decreased Breath Sounds (R more decreased than left ), NORMAL BREATHING PATTERN - Cardiovascular Exam Cardiovascular Exam: RRR, +S1, +S2. absent: REGULAR RHYTHM - GI/Abdominal Exam GI & Abdominal Exam: Normal Bowel Sounds, Soft. absent: Tenderness - Extremities Exam Extremities exam: Positive for: pedal edema, tenderness. Negative for: normal inspection Additional comments: LE edema, erythema from below knees through feet - Back Exam Back exam: NORMAL INSPECTION Additional comments: midline scar - Neurological Exam Neurological exam: Alert, CN II-XII Intact, Oriented x3 - Skin Skin Exam: Mottled, Warm Additional comments: erythematous and edematous LE Assessment and Plan - Assessment and Plan (Free Text) Assessment: LE Edema 2/2 systolic CHF and cellulitis component - Tele Observation - Troponin I .05 -repeat TOÑITO x 2 with EKGs - BNP on admission 1380 - Chest X-ray: lower lobe atelectasis or infiltrate, pulmonary venous congestion , questionable bilateral pleural effusions - Strict I/O - Head of bed elevated @ 45 degrees - Daily weights * Spironolactone 12.5mg PO BID * Cozaar 25mg PO Daily * Metoprolol Succinate 50mg po daily * Crestor 5mg PO HS * Asa 81mg PO HS * Xarelto 20mg PO Daily * Percoset 1 tab q6h for pain * HCTZ 25mg po daily * Lasix 40mg ivp q12h * Vanco 1g q24h * Zosyn 3.375 q6h Shortness of breath - Chest X-ray: lower lobe atelectasis or infiltrate, pulmonary venous congestion , questionable bilateral pleural effusions - Chest CT: slightly limited by patient motion, subsegmental atelectasis/ scarring in the left upper lobe, scarring in the lingula, no lobar or segmental consolidation, mild cardiomegaly with pacemenaker, elevated diaphragm History of CAD * Crestor 5mg PO HS * Asa 81mg PO HS * Metoprolol Succinate 50mg po daily History of Atrial flutter - Monitor on telemetry * Xarelto 20mg PO Daily History of Hypertension * Spironolactone 12.5mg PO BID * Cozaar 25mg PO Daily * Coreg can increase colchicine levels so switched to Metoprolol Succinate 50mg po daily * HCTZ 25mg po daily -TSH:2.02 free T4:1.04 History of HLD * Crestor 5mg PO HS -lipid panel: Triglycerides 142, Cholesterol 136, LDL 79, HDL 25 History of DM2 - accucheck ACHS - Continue home medication glimepiride 2mg daily - Hypoglycemia protocol -f/u HgA1C Peripheral Neuropathy - continue home medication Gabapentin 300mg q8h Gout -Colchicine .6mg po daily Prophylactic Measure - On full anticoagulation - SCDs contraindicated due to LE edema - Protonix 40mg daily <Cordell Mckenzie - Last Filed: 05/10/18 11:08> Objective - Vital Signs/Intake and Output Vital Signs (last 24 hours): Temp Pulse Resp BP Pulse Ox 97.5 F L 56 L 20 129/71 90 L 05/10/18 04:25 05/10/18 04:25 05/10/18 04:25 05/10/18 09:48 05/10/18 04:25 Intake and Output: 05/10/18 05/10/18 06:59 18:59 Intake Total 538 Output Total 700 Balance -162 - Medications Medications: Current Medications Aspirin (Aspirin Chewable) 81 mg PO DAILY [facility] Last Admin: 05/10/18 09:43 Dose: 81 mg Colchicine (Colocrys) 0.6 mg PO DAILY [facility] Last Admin: 05/10/18 09:43 Dose: 0.6 mg Dextrose (Dextrose 50% Inj) 0 ml IV STAT PRN; Protocol PRN Reason: Hypoglycemia Protocol Dextrose (Glutose 15) 15 gm PO ONCE PRN; Protocol PRN Reason: Hypoglycemia Protocol Furosemide (Lasix) 60 mg IVP BID [facility] Gabapentin (Neurontin) 300 mg PO Q8 [facility] Last Admin: 05/10/18 06:02 Dose: 300 mg Glimepiride (Amaryl) 2 mg PO DAILY [facility] Last Admin: 05/10/18 09:43 Dose: 2 mg Glucagon (Glucagen Diagnostic Kit) 0 mg IM STAT PRN; Protocol PRN Reason: Hypoglycemia Protocol Hydrochlorothiazide (Hydrodiuril) 25 mg PO DAILY [facility] Last Admin: 05/10/18 09:43 Dose: 25 mg Piperacillin Sod/Tazobactam Sod (Zosyn 3.375 Gm Iv Premix) 3.375 gm in 50 mls @ 100 mls/hr IVPB Q6H [facility] PRN Reason: Protocol Last Admin: 05/10/18 10:30 Dose: 100 mls/hr Vancomycin/Sodium Chloride (Vancomycin 1 Gm/Ns 200 Ml) 1 gm in 200 mls @ 133.333 mls/hr IVPB Q24H [facility] PRN Reason: Protocol Stop: 05/15/18 16:01 Dextrose (Dextrose 5% In Water 1000 Ml) 1,000 mls @ 0 mls/hr IV .Q0M PRN; Protocol; Per Protocol PRN Reason: Hypoglycemia Protocol Losartan Potassium (Cozaar) 25 mg PO DAILY [facility] Last Admin: 05/10/18 09:46 Dose: 25 mg Metoprolol Succinate (Toprol Xl) 50 mg PO DAILY [facility] Last Admin: 05/10/18 09:42 Dose: 50 mg Oxycodone/Acetaminophen (Percocet 5/325 Mg Tab) 1 tab PO Q6H PRN PRN Reason: Pain, severe (8-10) Stop: 05/12/18 16:59 Pantoprazole Sodium (Protonix Ec Tab) 40 mg PO DAILY [facility] Last Admin: 05/10/18 09:42 Dose: 40 mg Rivaroxaban (Xarelto) 20 mg PO DAILY [facility] Last Admin: 05/10/18 09:42 Dose: 20 mg Rosuvastatin Calcium (Crestor) 5 mg PO HS [facility] Last Admin: 05/09/18 22:05 Dose: 5 mg Spironolactone (Aldactone) 12.5 mg PO BID [facility] Last Admin: 05/10/18 10:27 Dose: 12.5 mg - Labs Labs: 05/10/18 07:43 05/10/18 07:43 PT 16.0 SECONDS (9.7-12.2) H 05/09/18 13:04 INR 1.5 05/09/18 13:04 APTT 38 SECONDS (21-34) H 05/09/18 13:04 Attending/Attestation - Attestation I have personally seen and examined this patient.: Yes I have fully participated in the care of the patient.: Yes I have reviewed all pertinent clinical information, including history, physical exam and plan: Yes Notes (Text): 05/10/18 11:06 Medical attending: Patient was seen and examined by me. Agree with the above note by the resident The patient explained he felt only slightly improved. Breathing was ok and he denied chest pain. On review of the telemetry he is currently paced right now His leg swelling is minimal improved he says. Will increase Lasix, conintue with HCTZ The CT scan was negative for infiltrates and negative for pleural effusions thank you Cordell Mckenzie
[2018-05-10] MEDS: Vancomycin 1 gm/NS 200 ml 1 GM/200 ML BAG IVPB SCH (16:41)
[2018-05-11] MEDS: Piperacill/Tazo 3.375gm in Dex 3.375 GM/50 ML BAG IVPB SCH ×4 (05:39→22:00)
[2018-05-11 07:26] LABS: BASO # 0.1 K/uL (0.0-0.2); BASO % 0.7 % (0.0-2.0); EOS # 0.2 K/uL (0.0-0.7); EOS % 2.6 % (0.0-4.0); HEMOGLOBIN 16.3 g/dL (12.0-18.0); LYMPH # 1.7 K/uL (1.0-4.3); LYMPH % 21.1 % (20.0-40.0); MEAN CELL VOLUME 87.6 fL (80.0-94.0); MEAN CORPUSCULAR HEMOGLOBIN 29.6 pg (27.0-31.0); MEAN CORPUSCULAR HGB CONC 33.8 g/dL (33.0-37.0); MEAN PLATELET VOLUME 9.7 fL (7.2-11.7); MONO # 0.8 K/uL (0.0-0.8); MONO % 10.3 % (0.0-10.0); NEUT # 5.1 K/uL (1.8-7.0); NEUT % 65.3 % (50.0-75.0); NRBC % 0.1 % (0.0-2.0); RBC 5.52 Mil/uL (4.40-5.90); RED CELL DISTRIBUTION WIDTH 14.5 % (11.5-14.5); WHITE BLOOD COUNT 7.9 K/uL (4.8-10.8)
[2018-05-11 07:52] LABS: ALB/GLOB RATIO 0.8 (1.0-2.1); ALBUMIN 3.6 g/dL (3.5-5.0); ALT/SGPT 22 U/L (21-72); AST/SGOT 35 U/L (17-59); BLOOD UREA NITROGEN 22 mg/dL (9-20); CALCIUM 7.9 mg/dl (8.6-10.4); GFR AFRICAN-AMERICAN > 60; GFR NON-AFRICAN AMERICAN > 60
[2018-05-11] MEDS: Metoprolol Succinate 50 mg XL Tab PO SCH (09:47)
[2018-05-11] MEDS: Pantoprazole 40 mg EC Tab PO SCH (09:47)
[2018-05-11] MEDS: Vancomycin 1 gm/NS 200 ml 1 GM/200 ML BAG IVPB SCH (18:23)
--- NOTE | 2018-05-11 18:43 | CP.PCM.PN ---
<Carol Ann Maria - Last Filed: 05/11/18 18:40> Subjective - Date & Time of Evaluation Date of Evaluation: 05/11/18 Time of Evaluation: 18:40 - Subjective Subjective: PGY-[address] Oshea. Patient was seen and examined today at bedside. Nurse reports to overnight events. Patient reports bilateral leg pain has lessened. Denies any chest pain, shortness of breath, abdominal pain, nausea, vomiting, constipation, diarrhea. Objective - Vital Signs/Intake and Output Vital Signs (last 24 hours): Temp Pulse Resp BP Pulse Ox 98.2 F 82 20 109/71 94 L 05/11/18 15:23 05/11/18 16:00 05/11/18 15:23 05/11/18 18:24 05/11/18 15:23 Intake and Output: 05/11/18 05/11/18 06:59 18:59 Intake Total 770 Output Total 2024 1550 Balance -1255 -1550 - Medications Medications: Current Medications Aspirin (Aspirin Chewable) 81 mg PO DAILY [facility] Last Admin: 05/11/18 09:47 Dose: 81 mg Colchicine (Colocrys) 0.6 mg PO DAILY [facility] Last Admin: 05/11/18 09:47 Dose: 0.6 mg Dextrose (Dextrose 50% Inj) 0 ml IV STAT PRN; Protocol PRN Reason: Hypoglycemia Protocol Dextrose (Glutose 15) 15 gm PO ONCE PRN; Protocol PRN Reason: Hypoglycemia Protocol Furosemide (Lasix) 60 mg IVP BID [facility] Last Admin: 05/11/18 18:24 Dose: 60 mg Gabapentin (Neurontin) 300 mg PO Q8 [facility] Last Admin: 05/11/18 14:31 Dose: 300 mg Glimepiride (Amaryl) 2 mg PO DAILY [facility] Last Admin: 05/11/18 09:47 Dose: 2 mg Glucagon (Glucagen Diagnostic Kit) 0 mg IM STAT PRN; Protocol PRN Reason: Hypoglycemia Protocol Hydrochlorothiazide (Hydrodiuril) 25 mg PO DAILY [facility] Last Admin: 05/11/18 09:47 Dose: 25 mg Piperacillin Sod/Tazobactam Sod (Zosyn 3.375 Gm Iv Premix) 3.375 gm in 50 mls @ 100 mls/hr IVPB Q6H [facility] PRN Reason: Protocol Last Admin: 05/11/18 18:23 Dose: 100 mls/hr Vancomycin/Sodium Chloride (Vancomycin 1 Gm/Ns 200 Ml) 1 gm in 200 mls @ 133.333 mls/hr IVPB Q24H MAL PRN Reason: Protocol Stop: 05/15/18 16:01 Last Admin: 05/11/18 18:23 Dose: 133.333 mls/hr Dextrose (Dextrose 5% In Water 1000 Ml) 1,000 mls @ 0 mls/hr IV .Q0M PRN; Protocol; Per Protocol PRN Reason: Hypoglycemia Protocol Losartan Potassium (Cozaar) 25 mg PO DAILY [facility] Last Admin: 05/11/18 09:47 Dose: 25 mg Metoprolol Succinate (Toprol Xl) 50 mg PO DAILY [facility] Last Admin: 05/11/18 09:47 Dose: 50 mg Oxycodone/Acetaminophen (Percocet 5/325 Mg Tab) 1 tab PO Q6H PRN PRN Reason: Pain, severe (8-10) Stop: 05/12/18 16:59 Pantoprazole Sodium (Protonix Ec Tab) 40 mg PO DAILY [facility] Last Admin: 05/11/18 09:47 Dose: 40 mg Rivaroxaban (Xarelto) 20 mg PO DAILY [facility] Last Admin: 05/11/18 09:47 Dose: 20 mg Rosuvastatin Calcium (Crestor) 5 mg PO HS [facility] Last Admin: 05/10/18 21:12 Dose: 5 mg Spironolactone (Aldactone) 12.5 mg PO BID [facility] Last Admin: 05/11/18 18:24 Dose: 12.5 mg - Labs Labs: 05/11/18 07:12 05/11/18 07:12 PT 16.0 SECONDS (9.7-12.2) H 05/09/18 13:04 INR 1.5 05/09/18 13:04 APTT 38 SECONDS (21-34) H 05/09/18 13:04 - Constitutional Appears: Well, No Acute Distress - Head Exam Head Exam: ATRAUMATIC, NORMAL INSPECTION, NORMOCEPHALIC - Eye Exam Eye Exam: EOMI, Normal appearance, PERRL - ENT Exam ENT Exam: Mucous Membranes Moist, Normal Exam - Respiratory Exam Respiratory Exam: Clear to Ausculation Bilateral, NORMAL BREATHING PATTERN - Cardiovascular Exam Cardiovascular Exam: REGULAR RHYTHM, +S1, +S2. absent: Murmur - GI/Abdominal Exam GI & Abdominal Exam: Soft, Normal Bowel Sounds. absent: Tenderness - Extremities Exam Extremities Exam: Pedal Edema Additional comments: 2+ pedal edema bilaterally. skin erythematous from below knee to feet, cool to touch. Blanching when apply pressure. pedal pulses present - Neurological Exam Neurological Exam: Alert, Awake, CN II-XII Intact, Oriented x3 - Psychiatric Exam Psychiatric exam: Normal Affect, Normal Mood - Skin Skin Exam: Dry, Erythema, Mottled Additional comments: lower extremities edematous and erythematous, but cool to touch. Assessment and Plan - Assessment and Plan (Free Text) Plan: LE Edema 2/2 systolic CHF and cellulitis component - Tele Observation - TOÑITO and EKGs negative x3 - BNP on admission 1380 - Chest X-ray: lower lobe atelectasis or infiltrate, pulmonary venous congestion , questionable bilateral pleural effusions - Strict I/O - Head of bed elevated @ 45 degrees - Daily weights * Spironolactone 12.5mg PO BID * Cozaar 25mg PO Daily * Metoprolol Succinate 50mg po daily * Crestor 5mg PO HS * Asa 81mg PO HS * Xarelto 20mg PO Daily * Percoset 1 tab q6h for pain * HCTZ 25mg po daily * Lasix increased to 60 from 40mg ivp q12h * Vanco 1g q24h * Zosyn 3.375 q6h PT consulted for gait eval and treat. possible discharge home tomorrow. Shortness of breath 2/2 systolic CHF exacerbation - Chest X-ray: lower lobe atelectasis or infiltrate, pulmonary venous congestion , questionable bilateral pleural effusions - Chest CT: slightly limited by patient motion, subsegmental atelectasis/ scarring in the left upper lobe, scarring in the lingula, no lobar or segmental consolidation, mild cardiomegaly with pacemenaker, elevated diaphragm History of CAD * Crestor 5mg PO HS * Asa 81mg PO HS * Metoprolol Succinate 50mg po daily History of Atrial flutter - Monitor on telemetry * Xarelto 20mg PO Daily History of Hypertension * Spironolactone 12.5mg PO BID * Cozaar 25mg PO Daily * Coreg can increase colchicine levels so switched to Metoprolol Succinate 50mg po daily * HCTZ 25mg po daily -TSH:2.02 free T4:1.04 History of HLD * Crestor 5mg PO HS -lipid panel: Triglycerides 142, Cholesterol 136, LDL 79, HDL 25 History of DM2 - accucheck ACHS - Continue home medication glimepiride 2mg daily - Hypoglycemia protocol - A1c: 7.6 (05/10/18) Peripheral Neuropathy - continue home medication Gabapentin 300mg q8h Gout -Colchicine .6mg po daily Prophylactic Measure - On full anticoagulation - SCDs contraindicated due to LE edema - Protonix 40mg daily Carol Ann Maria PGY-1. Plan discussed with Dr. Oshea. <Kervin Oshea - Last Filed: 05/12/18 20:45> Objective - Vital Signs/Intake and Output Vital Signs (last 24 hours): Temp Pulse Resp BP Pulse Ox 98.2 F 82 20 109/71 94 L 05/11/18 15:23 05/11/18 16:00 05/11/18 15:23 05/11/18 18:24 05/11/18 15:23 Intake and Output: 05/11/18 05/12/18 18:59 06:59 Output Total 1550 Balance -1550 - Medications Medications: Current Medications Aspirin (Aspirin Chewable) 81 mg PO DAILY [facility] Last Admin: 05/11/18 09:47 Dose: 81 mg Colchicine (Colocrys) 0.6 mg PO DAILY [facility] Last Admin: 05/11/18 09:47 Dose: 0.6 mg Dextrose (Dextrose 50% Inj) 0 ml IV STAT PRN; Protocol PRN Reason: Hypoglycemia Protocol Dextrose (Glutose 15) 15 gm PO ONCE PRN; Protocol PRN Reason: Hypoglycemia Protocol Furosemide (Lasix) 60 mg IVP BID [facility] Last Admin: 05/11/18 18:24 Dose: 60 mg Gabapentin (Neurontin) 300 mg PO Q8 [facility] Last Admin: 05/11/18 14:31 Dose: 300 mg Glimepiride (Amaryl) 2 mg PO DAILY [facility] Last Admin: 05/11/18 09:47 Dose: 2 mg Glucagon (Glucagen Diagnostic Kit) 0 mg IM STAT PRN; Protocol PRN Reason: Hypoglycemia Protocol Hydrochlorothiazide (Hydrodiuril) 25 mg PO DAILY [facility] Last Admin: 05/11/18 09:47 Dose: 25 mg Piperacillin Sod/Tazobactam Sod (Zosyn 3.375 Gm Iv Premix) 3.375 gm in 50 mls @ 100 mls/hr IVPB Q6H [facility] PRN Reason: Protocol Last Admin: 05/11/18 18:23 Dose: 100 mls/hr Vancomycin/Sodium Chloride (Vancomycin 1 Gm/Ns 200 Ml) 1 gm in 200 mls @ 133.333 mls/hr IVPB Q24H MAL PRN Reason: Protocol Stop: 05/15/18 16:01 Last Admin: 05/11/18 18:23 Dose: 133.333 mls/hr Dextrose (Dextrose 5% In Water 1000 Ml) 1,000 mls @ 0 mls/hr IV .Q0M PRN; Protocol; Per Protocol PRN Reason: Hypoglycemia Protocol Losartan Potassium (Cozaar) 25 mg PO DAILY [facility] Last Admin: 05/11/18 09:47 Dose: 25 mg Metoprolol Succinate (Toprol Xl) 50 mg PO DAILY [facility] Last Admin: 05/11/18 09:47 Dose: 50 mg Oxycodone/Acetaminophen (Percocet 5/325 Mg Tab) 1 tab PO Q6H PRN PRN Reason: Pain, severe (8-10) Stop: 05/12/18 16:59 Pantoprazole Sodium (Protonix Ec Tab) 40 mg PO DAILY [facility] Last Admin: 05/11/18 09:47 Dose: 40 mg Rivaroxaban (Xarelto) 20 mg PO DAILY [facility] Last Admin: 05/11/18 09:47 Dose: 20 mg Rosuvastatin Calcium (Crestor) 5 mg PO HS [facility] Last Admin: 05/10/18 21:12 Dose: 5 mg Spironolactone (Aldactone) 12.5 mg PO BID [facility] Last Admin: 05/11/18 18:24 Dose: 12.5 mg - Labs Labs: 05/11/18 07:12 05/11/18 07:12 PT 16.0 SECONDS (9.7-12.2) H 05/09/18 13:04 INR 1.5 05/09/18 13:04 APTT 38 SECONDS (21-34) H 05/09/18 13:04 Attending/Attestation - Attestation I have personally seen and examined this patient.: Yes I have fully participated in the care of the patient.: Yes I have reviewed all pertinent clinical information, including history, physical exam and plan: Yes Notes (Text): Patient is improving.His edema is improving,no fever,no leukocytosis we will continue current mes.possible discharge tomorrow Assessment and the plan discussed and I agree with the r=discharge plan
--- NOTE | 2018-05-11 19:54 | CARD ---
APPROVED REPORT EKG Measurement Heart [id number] P90 [id number] <Conclusion> Ventricular-paced rhythm in a pattern of bigeminy Abnormal ECG
--- NOTE | 2018-05-11 23:23 | CARD ---
APPROVED REPORT EKG Measurement Heart [id number] <Conclusion> Ventricular-paced rhythm in a pattern of bigeminy Abnormal ECG
--- NOTE | 2018-05-11 23:29 | CARD ---
APPROVED REPORT EKG Measurement Heart [id number] P95 [id number] <Conclusion> Ventricular-paced rhythm with occasional premature ventricular complexes Abnormal ECG
[2018-05-12] MEDS: Piperacill/Tazo 3.375gm in Dex 3.375 GM/50 ML BAG IVPB SCH (05:45)
[2018-05-12 07:55] LABS: BASO % 0.6 % (0.0-2.0); EOS # 0.2 K/uL (0.0-0.7); EOS % 3.3 % (0.0-4.0); HEMOGLOBIN 16.5 g/dL (12.0-18.0); LYMPH # 1.7 K/uL (1.0-4.3); LYMPH % 24.1 % (20.0-40.0); MEAN CELL VOLUME 87.5 fL (80.0-94.0); MEAN CORPUSCULAR HEMOGLOBIN 29.7 pg (27.0-31.0); MEAN PLATELET VOLUME 9.3 fL (7.2-11.7); MONO # 0.7 K/uL (0.0-0.8); MONO % 10.1 % (0.0-10.0); NEUT # 4.3 K/uL (1.8-7.0); NEUT % 61.9 % (50.0-75.0); NRBC % 0.1 % (0.0-2.0); RBC 5.56 Mil/uL (4.40-5.90); RED CELL DISTRIBUTION WIDTH 14.1 % (11.5-14.5)
[2018-05-12 08:14] LABS: ALB/GLOB RATIO 0.9 (1.0-2.1); ALBUMIN 3.9 g/dL (3.5-5.0); CALCIUM 8.2 mg/dl (8.6-10.4)
--- NOTE | 2018-05-12 08:16 | CP.PCM.PN ---
Subjective - Date & Time of Evaluation Date of Evaluation: 05/12/18 Time of Evaluation: 08:14 - Subjective Subjective: PGY-[address] Oshea. Patient was seen and examined today at bedside. Nurse reports to overnight events. Patient reports bilateral leg pain has lessened. Denies any chest pain, shortness of breath, abdominal pain, nausea, vomiting, constipation, diarrhea. Objective - Vital Signs/Intake and Output Vital Signs (last 24 hours): Temp Pulse Resp BP Pulse Ox 98.4 F 84 20 120/64 95 05/11/18 23:00 05/12/18 01:26 05/11/18 23:00 05/11/18 23:00 05/11/18 23:00 Intake and Output: 05/12/18 05/12/18 06:59 18:59 Intake Total 910 Output Total 1750 Balance -840 - Medications Medications: Current Medications Aspirin (Aspirin Chewable) 81 mg PO DAILY [facility] Last Admin: 05/11/18 09:47 Dose: 81 mg Colchicine (Colocrys) 0.6 mg PO DAILY [facility] Last Admin: 05/11/18 09:47 Dose: 0.6 mg Dextrose (Dextrose 50% Inj) 0 ml IV STAT PRN; Protocol PRN Reason: Hypoglycemia Protocol Dextrose (Glutose 15) 15 gm PO ONCE PRN; Protocol PRN Reason: Hypoglycemia Protocol Furosemide (Lasix) 60 mg IVP BID [facility] Last Admin: 05/11/18 18:24 Dose: 60 mg Gabapentin (Neurontin) 300 mg PO Q8 [facility] Last Admin: 05/12/18 05:45 Dose: 300 mg Glimepiride (Amaryl) 2 mg PO DAILY [facility] Last Admin: 05/11/18 09:47 Dose: 2 mg Glucagon (Glucagen Diagnostic Kit) 0 mg IM STAT PRN; Protocol PRN Reason: Hypoglycemia Protocol Hydrochlorothiazide (Hydrodiuril) 25 mg PO DAILY [facility] Last Admin: 05/11/18 09:47 Dose: 25 mg Piperacillin Sod/Tazobactam Sod (Zosyn 3.375 Gm Iv Premix) 3.375 gm in 50 mls @ 100 mls/hr IVPB Q6H MAL PRN Reason: Protocol Last Admin: 05/12/18 05:45 Dose: 100 mls/hr Vancomycin/Sodium Chloride (Vancomycin 1 Gm/Ns 200 Ml) 1 gm in 200 mls @ 133.333 mls/hr IVPB Q24H MAL PRN Reason: Protocol Stop: 05/15/18 16:01 Last Admin: 05/11/18 18:23 Dose: 133.333 mls/hr Dextrose (Dextrose 5% In Water 1000 Ml) 1,000 mls @ 0 mls/hr IV .Q0M PRN; Protocol; Per Protocol PRN Reason: Hypoglycemia Protocol Losartan Potassium (Cozaar) 25 mg PO DAILY [facility] Last Admin: 05/11/18 09:47 Dose: 25 mg Metoprolol Succinate (Toprol Xl) 50 mg PO DAILY [facility] Last Admin: 05/11/18 09:47 Dose: 50 mg Oxycodone/Acetaminophen (Percocet 5/325 Mg Tab) 1 tab PO Q6H PRN PRN Reason: Pain, severe (8-10) Stop: 05/12/18 16:59 Pantoprazole Sodium (Protonix Ec Tab) 40 mg PO DAILY [facility] Last Admin: 05/11/18 09:47 Dose: 40 mg Rivaroxaban (Xarelto) 20 mg PO DAILY [facility] Last Admin: 05/11/18 09:47 Dose: 20 mg Rosuvastatin Calcium (Crestor) 5 mg PO HS [facility] Last Admin: 05/11/18 22:00 Dose: 5 mg Spironolactone (Aldactone) 12.5 mg PO BID [facility] Last Admin: 05/11/18 18:24 Dose: 12.5 mg - Labs Labs: 05/12/18 07:45 05/11/18 07:12 PT 16.0 SECONDS (9.7-12.2) H 05/09/18 13:04 INR 1.5 05/09/18 13:04 APTT 38 SECONDS (21-34) H 05/09/18 13:04 - Constitutional Appears: Well, No Acute Distress - Head Exam Head Exam: ATRAUMATIC, NORMAL INSPECTION, NORMOCEPHALIC - ENT Exam ENT Exam: Mucous Membranes Moist, Normal Exam - Respiratory Exam Respiratory Exam: Clear to Ausculation Bilateral, NORMAL BREATHING PATTERN - Cardiovascular Exam Cardiovascular Exam: REGULAR RHYTHM, +S1, +S2. absent: Murmur Additional comments: AICD - GI/Abdominal Exam GI & Abdominal Exam: Soft, Normal Bowel Sounds. absent: Tenderness - Extremities Exam Extremities Exam: Full ROM, Pedal Edema. absent: Joint Swelling Additional comments: Erythema and edema in bilateral lower extremities from below the knee to foot 2+ pitting edema - Neurological Exam Neurological Exam: Alert, Awake, CN II-XII Intact, Normal Gait, Oriented x3 - Psychiatric Exam Psychiatric exam: Normal Affect, Normal Mood - Skin Skin Exam: Dry, Intact, Normal Color, Warm Additional comments: except noted above regarding bilateral LE
[2018-05-12 08:53] VITALS: PULSE 41; TEMP 98.1; O2SAT 98
[2018-05-12] MEDS: Pantoprazole 40 mg EC Tab PO SCH (09:43)
[2018-05-12] MEDS: Metoprolol Succinate 50 mg XL Tab PO SCH (09:47)
[2018-05-12 09:48] VITALS: BP 119/60
--- NOTE | 2018-05-12 15:51 | IP.NPCORE ---
Heart Failure Core Measure - Heart Failure Ejection Fraction: Less Than 40 % JOSELUIS Inhibitor Prescribed: No Contraindication/Reason for not providing: on ARB Beta-Elissa Prescribed: Metoprolol Succinate Angiotensin II Receptor Elissa Prescribed: Yes AnticoagulationTherapy for Atrial Fibrillation/Atrialflutter: Yes Aldosterone Antagonist Prescribed: Yes Hydralazine Nitrate Prescribed: No Contraindication/Reason for not providing: bp runnning low Implantable Cardioverter Defibrillator Therapy: No Contraindication/Reason for not providing: pt has pace maker Cardiac Resynchronization Therapy Prescribed: No Contraindication/Reason for not providing: pt has pacemaker - Follow up Will be discharged to: Home Follow Up Date (must be within 7 days from discharge): 05/18/18 Follow Up Time: 09:00
--- NOTE | 2018-05-12 15:58 | CP.PCM.DIS ---
Provider - Provider Date of Admission: 05/09/18 15:30 Attending physician: Kervin Oshea MD Time Spent in preparation of Discharge (in minutes): 60 Hospital Course - Lab Results Lab Results: Micro Results 05/09/18 15:45 Blood Blood Culture - Preliminary NO GROWTH AFTER 3 DAYS 05/09/18 15:45 Blood Blood Culture - Preliminary NO GROWTH AFTER 3 DAYS Most Recent Lab Values WBC 7.0 K/uL (4.8-10.8) 05/12/18 07:45 RBC 5.56 Mil/uL (4.40-5.90) 05/12/18 07:45 Hgb 16.5 g/dL (12.0-18.0) 05/12/18 07:45 Hct 48.6 % (35.0-51.0) 05/12/18 07:45 MCV 87.5 fL (80.0-94.0) 05/12/18 07:45 MCH 29.7 pg (27.0-31.0) 05/12/18 07:45 MCHC 34.0 g/dL (33.0-37.0) 05/12/18 07:45 RDW 14.1 % (11.5-14.5) 05/12/18 07:45 Plt Count 156 K/uL (130-400) 05/12/18 07:45 MPV 9.3 fL (7.2-11.7) 05/12/18 07:45 Neut % (Auto) 61.9 % (50.0-75.0) 05/12/18 07:45 Lymph % (Auto) 24.1 % (20.0-40.0) 05/12/18 07:45 [place] % (Auto) 10.1 % (0.0-10.0) H 05/12/18 07:45 Eos % (Auto) 3.3 % (0.0-4.0) 05/12/18 07:45 Baso % (Auto) 0.6 % (0.0-2.0) 05/12/18 07:45 Neut # (Auto) 4.3 K/uL (1.8-7.0) 05/12/18 07:45 Lymph # (Auto) 1.7 K/uL (1.0-4.3) 05/12/18 07:45 [place] # (Auto) 0.7 K/uL (0.0-0.8) 05/12/18 07:45 Eos # (Auto) 0.2 K/uL (0.0-0.7) 05/12/18 07:45 Baso # (Auto) 0.0 K/uL (0.0-0.2) 05/12/18 07:45 PT 16.0 SECONDS (9.7-12.2) H 05/09/18 13:04 INR 1.5 05/09/18 13:04 APTT 38 SECONDS (21-34) H 05/09/18 13:04 Sodium 139 mmol/L (132-148) 05/12/18 07:45 Potassium 4.1 mmol/L (3.6-5.2) 05/12/18 07:45 Chloride 90 mmol/L (98-107) L 05/12/18 07:45 Carbon Dioxide 39 mmol/L (22-30) H 05/12/18 07:45 Anion Gap 14 (10-20) 05/12/18 07:45 BUN 26 mg/dL (9-20) H 05/12/18 07:45 Creatinine 1.5 mg/dL (0.8-1.5) 05/12/18 07:45 Est GFR ( Amer) 56 05/12/18 07:45 Est GFR (Non-Af Amer) 47 05/12/18 07:45 POC Glucose (mg/dL) 199 mg/dL (65-110) H 05/12/18 12:26 Random Glucose 162 mg/dL (75-110) H 05/12/18 07:45 Hemoglobin A1c 7.6 % (4.2-6.5) H 05/10/18 07:43 Calcium 8.2 mg/dl (8.6-10.4) L 05/12/18 07:45 Phosphorus 3.9 mg/dL (2.5-4.5) 05/12/18 07:45 Magnesium 2.0 mg/dL (1.6-2.3) 05/12/18 07:45 Total Bilirubin 1.1 mg/dL (0.2-1.3) 05/12/18 07:45 AST 42 U/L (17-59) 05/12/18 07:45 ALT 30 U/L (21-72) 05/12/18 07:45 Alkaline Phosphatase 92 U/L (38-126) 05/12/18 07:45 Total Creatine Kinase 66 U/L (55-170) 05/10/18 00:50 CK-MB (Mass) 1.10 ng/mL (0.0-3.38) 05/10/18 00:50 Troponin I 0.0540 ng/mL (0.00-0.120) 05/10/18 00:50 NT-Pro-B Natriuret Pep 1380 pg/mL (0-900) H 05/09/18 13:04 Total Protein 8.2 g/dL (6.3-8.3) 05/12/18 07:45 Albumin 3.9 g/dL (3.5-5.0) 05/12/18 07:45 Globulin 4.3 gm/dL (2.2-3.9) H 05/12/18 07:45 Albumin/Globulin Ratio 0.9 (1.0-2.1) L 05/12/18 07:45 Triglycerides 142 mg/dL (0-149) 05/10/18 07:43 Cholesterol 136 mg/dL (0-199) 05/10/18 07:43 LDL Cholesterol Direct 79 mg/dL (0-129) 05/10/18 07:43 HDL Cholesterol 25 mg/dL (30-70) L 05/10/18 07:43 Free T4 1.04 ng/dL (0.78-2.19) 05/10/18 07:43 TSH 3rd Generation 2.02 mIU/L (0.46-4.68) 05/10/18 07:43 - Hospital Course Hospital Course: 68 year old M with PMHx of HTN, CHF with AICD, a flutter, CAD, DMII, HLD, gout who presents today for worsening lower extremity edema, erythema, and pain. Patient says he noticed it about 3 days ago and it has progressively been getting worse. Patient also admits to subjective fevers for the past 3 days. Patient also says he has some right arm tingling for the past week. Patient has shortness of breath, but says it is not worse than his baseline. Patient denies cough, chest pain, abdominal pain, nausea, vomiting, constipation, or diarrhea. Patient came through the ED complaining of chest pain and increased bilateral lower extremity edema. CXR showed lower lobe atelectasis or infiltrate, pulmonary venous congestion, and questionable bilateral pleural effusions. Chest CT was benign ROMIs and EKGs were negative x3, BNP on admission 1380. We measured his daily weights and gave him his home medications and additional Lasix to help the fluid overload. PT was consulted and recommended home PT however, noted he was able to ambulate well with his existing cane. We also continued his home medication for his history of CAD, aflutter, HTN, HLD , DM2, peripheral neuropathy, and gout. Because of his history of gout, Coreg (which can increase colchicine levels) was replaced with metoprolol. Patient is stable for discharge home as per Dr. Oshea. Patient should resume all home medications, except carvedilol which has been switched to metoprolol. Patient should additionally take the medication below as prescribed. Patient should make an appointment with the [facility] for follow up within the next week. Patient should return to ED immediately if symptoms return of worsen. Instructions discussed with patient who understood and agreed. Metoprolol 50mg by mouth daily Hydrochlorothiazide 25mg by mouth daily This is a summary of the patients hospital course. Please refer to the EMR for more details. - Date & Time of H&P Date of H&P: 05/12/18 Time of H&P: 12:56 Discharge Exam - Head Exam Head Exam: ATRAUMATIC, NORMAL INSPECTION, NORMOCEPHALIC - Eye Exam Eye Exam: EOMI, Normal appearance, PERRL - ENT Exam ENT Exam: Mucous Membranes Moist, Normal Exam - Respiratory Exam Respiratory Exam: Clear to PA & Lateral, NORMAL BREATHING PATTERN, UNREMARKABLE - Cardiovascular Exam Cardiovascular Exam: REGULAR RHYTHM, +S1, +S2. absent: Systolic Murmur - GI/Abdominal Exam GI & Abdominal Exam: Normal Bowel Sounds, Soft. absent: Tenderness - Extremities Exam Extremities exam: full ROM, pedal pulses present Additional comments: lower extremity edema bilaterally - Neurological Exam Neurological exam: Alert, CN II-XII Intact, Normal Gait, Oriented x3, Reflexes Normal - Psychiatric Exam Psychiatric exam: Normal Affect, Normal Mood - Skin Skin Exam: Dry, Intact, Normal Color, Warm Discharge Plan - Discharge Medications Prescriptions: hydroCHLOROthiazide [Hydrodiuril] 25 mg PO DAILY #30 tab Metoprolol Succinate XL [Toprol XL] 50 mg PO DAILY #30 tab - Follow Up Plan Condition: STABLE Disposition: HOME/ ROUTINE Instructions: Heart Healthy Diet, Diabetes Exchange Diet, Heart Failure, Adult (DC), Carbohydrate Counting Diet, Dependent Edema (DC), Diabetes Diet , Cellulitis (Skin Infection), Adult (DC), Hydrochlorothiazide, Metoprolol, Heart Failure (DC), Heart Failure (GEN), Pacemaker (DC), Pacemaker (GEN), Pulmonary Edema (DC), Pulmonary Edema (GEN), Cellulitis (DC), Ascites (DC), Ascites (GEN) Additional Instructions: Patient is stable for discharge home as per Dr. Oshea. Patient should resume all home medications, except carvedilol which has been switched to metoprolol. Patient should additionally take the medication below as prescribed. Patient should make an appointment with the [facility] for follow up within the next week. Patient should return to ED immediately if symptoms return of worsen. Instructions discussed with patient who understood and agreed. Metoprolol 50mg by mouth daily Hydrochlorothiazide 25mg by mouth daily El paciente est estable para el brian domiciliaria segn el Dr. Oshea. El paciente debe reanudar todos los medicamentos en el hogar, excepto el carvedilol , que se mitchell cambiado a metoprolol. El paciente tambin debe jonathan el medicamento a continuacin segn lo prescrito. El paciente debe hacer kamla bonita con el centro de monae del vecindario para un seguimiento dentro de la prxima semana. El paciente debe regresar a la kimberly de emergencias inmediatamente si los sntomas vuelven a empeorar. Instrucciones discutidas con el paciente que entendi y estuvo de acuerdo. Metoprolol 50 mg por va oral al da Hidroclorotiazida 25 mg por va oral al da Referrals: [facility] at [facility] [Outside]
== END 2018-05-12 14:53 | disposition home or self-care (01) | DRG 292 ==
LOC: C.ER 11:46 → C.9E 15:30 → C.6T 19:22
PROVIDERS: ADMIT Internal Medicine; ATTEND Internal Medicine
DX: I11.0 Hypertensive heart disease with heart failure (principal); L03.119 Cellulitis of unspecified part of limb; I48.92 Unspecified atrial flutter; I50.23 Acute on chronic systolic (congestive) heart failure; E78.00 Pure hypercholesterolemia, unspecified; E11.42 Type 2 diabetes mellitus with diabetic polyneuropathy; I25.10 Atherosclerotic heart disease of native coronary artery without angina pectoris; J45.909 Unspecified asthma, uncomplicated; M10.9 Gout, unspecified; Z95.0 Presence of cardiac pacemaker; Z99.81 Dependence on supplemental oxygen

== ENCOUNTER 2018-11-07 21:52 | Observation (INO) | payer OTHER ==
[2018-11-07 21:52] VITALS: BMI 40.3
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
[2018-11-07 22:29] LABS: BASO # 0.1 K/uL (0.0-0.2); BASO % 0.6 % (0.0-2.0); EOS % 0.2 % (0.0-4.0); HEMOGLOBIN 16.6 g/dL (12.0-18.0); LYMPH % 18.9 % (20.0-40.0); MEAN CORPUSCULAR HEMOGLOBIN 28.8 pg (27.0-31.0); MEAN CORPUSCULAR HGB CONC 34.1 g/dL (33.0-37.0); MEAN PLATELET VOLUME 9.1 fL (7.2-11.7); MONO % 9.2 % (0.0-10.0); NEUT # 7.6 K/uL (1.8-7.0); NEUT % 71.1 % (50.0-75.0); NRBC % 0.1 % (0.0-2.0); RBC 5.74 Mil/uL (4.40-5.90); RED CELL DISTRIBUTION WIDTH 14.9 % (11.5-14.5); WHITE BLOOD COUNT 10.7 K/uL (4.8-10.8)
[2018-11-07 22:30] LABS: MEAN CELL VOLUME 84.5 fL (80.0-94.0)
[2018-11-07 22:36] LABS: INR 1.4; PROTHROMBIN TIME 15.4 SECONDS (9.7-12.2)
[2018-11-07 23:00] LABS: ALBUMIN 3.8 g/dL (3.5-5.0); ALT/SGPT 26 U/L (21-72); AST/SGOT 34 U/L (17-59); BLOOD UREA NITROGEN 18 mg/dL (9-20); CALCIUM 7.9 mg/dl (8.6-10.4); CK-MB 0.78 ng/mL (0.0-3.38); GFR NON-AFRICAN AMERICAN 50
[2018-11-07 23:16] LABS: B-TYPE NATRIURETIC PEPTIDE 1570 pg/mL (0-900)
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
[2018-11-08] MEDS ORDERED: Glucagon Recombinant 1 mg Inj IM PRN (04:39)
[2018-11-08] MEDS ORDERED: Dextrose 50% SYRINGE Inj (50 ml) IV PRN (04:39)
[2018-11-08 08:06] LABS: HDL CHOLESTEROL 29 mg/dL (30-70)
[2018-11-08 08:17] LABS: LDL CHOLESTEROL 67 mg/dL (0-129)
[2018-11-08] MEDS: (Novolin R) Insulin Human Regular 100 units/ml vial SC SCH ×4 (08:32→21:37)
--- NOTE | 2018-11-08 08:39 | CP.PCM.PN ---
<Kalyan Tompkins - Last Filed: 11/08/18 13:34> Subjective - Date & Time of Evaluation Date of Evaluation: 11/08/18 Time of Evaluation: 08:36 - Subjective Subjective: PGY2 Medicine Note for Dr. Dilip Baez Patient seen and examined this morning at bedside. Patient was admitted overnight for CHF exacerbation and gout flare of left knee. Patient is refusing to wake up and answer questions but allowed to be examined. ROS unobtainable. Objective - Vital Signs/Intake and Output Vital Signs (last 24 hours): Temp Pulse Resp BP Pulse Ox 97.5 F L 85 20 100/58 L 97 11/08/18 03:56 11/08/18 04:15 11/08/18 03:56 11/08/18 06:23 11/08/18 03:56 - Medications Medications: Current Medications Acetaminophen (Tylenol 325mg Tab) 650 mg PO Q6 PRN PRN Reason: Pain, moderate (4-7) Aspirin (Aspirin Chewable) 81 mg PO DAILY [facility] Colchicine (Colocrys) 0.6 mg PO DAILY [facility] Dextrose (Dextrose 50% Inj) 0 ml IV STAT PRN; Protocol PRN Reason: Hypoglycemia Protocol Dextrose (Glutose 15) 0 gm PO ONCE PRN; Protocol PRN Reason: Hypoglycemia Protocol Famotidine (Pepcid) 20 mg PO BID MAL Furosemide (Lasix) 40 mg PO BID MAL Gabapentin (Neurontin) 300 mg PO Q8H [facility] Last Admin: 11/08/18 04:49 Dose: 300 mg Glimepiride (Amaryl) 2 mg PO DAILY [facility] Glucagon (Glucagen Diagnostic Kit) 0 mg IM STAT PRN; Protocol PRN Reason: Hypoglycemia Protocol Hydrochlorothiazide (Hydrodiuril) 25 mg PO DAILY [facility] Dextrose (Dextrose 5% In Water 1000 Ml) 1,000 mls @ 0 mls/hr IV .Q0M PRN; Protocol PRN Reason: Hypoglycemia Protocol Insulin Human Regular (Novolin R) 0 unit SC ACHS [facility]; Protocol Last Admin: 11/08/18 08:32 Dose: 3 units Losartan Potassium (Cozaar) 25 mg PO DAILY [facility] Metoprolol Succinate (Toprol Xl) 50 mg PO DAILY [facility] Rivaroxaban (Xarelto) 20 mg PO DAILY [facility] Rosuvastatin Calcium (Crestor) 5 mg PO HS [facility] Spironolactone (Aldactone) 12.5 mg PO BID MAL - Labs Labs: 11/07/18 22:24 11/07/18 22:24 PT 15.4 SECONDS (9.7-12.2) H 11/07/18 22:24 INR 1.4 11/07/18 22:24 APTT 33 SECONDS (21-34) 11/07/18 22:24 - Constitutional Appears: Non-toxic, No Acute Distress - Head Exam Head Exam: ATRAUMATIC, NORMOCEPHALIC - Eye Exam Eye Exam: Normal appearance - ENT Exam ENT Exam: Mucous Membranes Moist - Neck Exam Neck Exam: absent: Lymphadenopathy, Tenderness - Respiratory Exam Respiratory Exam: Decreased Breath Sounds, NORMAL BREATHING PATTERN. absent: Rales, Rhonchi, Wheezes, Respiratory Distress - Cardiovascular Exam Cardiovascular Exam: REGULAR RHYTHM, +S1, +S2. absent: Gallop, Rubs, Murmur - GI/Abdominal Exam GI & Abdominal Exam: Soft, Normal Bowel Sounds. absent: Distended, Firm, Guarding, Rigid, Tenderness, Rebound - Extremities Exam Extremities Exam: Joint Swelling (left knee - no erythema, warm to touch but no temperature difference compared to right knee), Pedal Edema - Neurological Exam Additional comments: refused to wake up - Skin Skin Exam: Dry, Warm Additional comments: chronic venous stasis changes in lower extremities b/l Assessment and Plan - Assessment and Plan (Free Text) Plan: Systolic CHF exacerbation - monitor on tele - Troponin neg x1 - BNP: 1570 - CXR: pulmonary venous congestion, f/u official report - ECHO 02/25: borderline LV systolic funciton - I/Os - Head of bed elevated @ 45 degrees - Daily weights - continue home meds: * Spironolactone 12.5mg PO BID * Cozaar 25mg PO Daily * Metoprolol Succinate 50mg po daily * Crestor 5mg PO HS * Aspirin 81mg PO HS * Xarelto 20mg PO Daily - on hold for possible knee aspiration tomorrow * HCTZ 25mg po daily * Lasix 40mg PO BID Gout - XRay Knee: no deformities, no fractures, no effusions, no soft tissues swelling, f/u official read - Colchicine 0.6mg po daily - Decadron 10mg PO daily - Ice pack to be applied to left knee q4h for 30 min at a time. History of CAD - continue home meds: * Crestor 5mg PO HS * Aspirin 81mg PO HS * Metoprolol Succinate 50mg po daily History of Atrial flutter - Monitor on tele - pt with AICD - continue home meds: * Xarelto 20mg PO Daily - on hold for possible knee aspiration tomorrow History of HTN - continue home meds * Spironolactone 12.5mg PO BID * Cozaar 25mg PO Daily * Metoprolol Succinate 50mg po daily * HCTZ 25mg po daily History of HLD Lipid Panel: HDL 29, LDL 67, Trigly 116 - continue home meds * Crestor 5mg PO HS Uncontrolled Diabetes type 2 - HbA1c 9.2 - accucheck ACHS - medium dose sliding scale - Continue home glimepiride 2mg daily - Hypoglycemia protocol Peripheral Neuropathy - continue home medication Gabapentin 300mg q8h PPx GI: pepcid DVT: xarelto - on hold; Lovenox 40mg SC daily while xarelto on hold HHD Case discussed with Dr. Dilip Tompkins PGY2 <Evans Baez - Last Filed: 11/11/18 00:57> Objective - Vital Signs/Intake and Output Vital Signs (last 24 hours): Temp Pulse Resp BP Pulse Ox 97.4 F L 70 20 113/68 95 11/10/18 23:40 11/10/18 23:40 11/10/18 23:40 11/10/18 23:40 11/10/18 23:40 Intake and Output: 11/10/18 11/11/18 18:59 06:59 Output Total 1000 Balance -1000 - Medications Medications: Current Medications Acetaminophen (Tylenol 325mg Tab) 650 mg PO Q6 PRN PRN Reason: Pain, moderate (4-7) Last Admin: 11/08/18 22:52 Dose: 650 mg Aspirin (Aspirin Chewable) 81 mg PO DAILY [facility] Last Admin: 11/10/18 09:30 Dose: 81 mg Colchicine (Colocrys) 0.6 mg PO DAILY [facility] Last Admin: 11/10/18 09:29 Dose: 0.6 mg Dextrose (Dextrose 50% Inj) 0 ml IV STAT PRN; Protocol PRN Reason: Hypoglycemia Protocol Dextrose (Glutose 15) 0 gm PO ONCE PRN; Protocol PRN Reason: Hypoglycemia Protocol Famotidine (Pepcid) 20 mg PO BID [facility] Last Admin: 11/10/18 18:14 Dose: 20 mg Furosemide (Lasix) 40 mg PO BID [facility] Last Admin: 11/10/18 18:14 Dose: 40 mg Gabapentin (Neurontin) 300 mg PO Q8H [facility] Last Admin: 11/10/18 21:16 Dose: 300 mg Glimepiride (Amaryl) 2 mg PO Q24H [facility] Glucagon (Glucagen Diagnostic Kit) 0 mg IM STAT PRN; Protocol PRN Reason: Hypoglycemia Protocol Hydrochlorothiazide (Hydrodiuril) 25 mg PO DAILY [facility] Last Admin: 11/10/18 09:29 Dose: 25 mg Insulin Human Regular (Novolin R) 0 unit SC ACHS [facility]; Protocol Last Admin: 11/10/18 21:17 Dose: 3 units Losartan Potassium (Cozaar) 25 mg PO DAILY [facility] Last Admin: 11/10/18 09:30 Dose: 25 mg Metformin HCl (Glucophage) 500 mg PO DAILY [facility] Metoprolol Succinate (Toprol Xl) 50 mg PO DAILY [facility] Last Admin: 11/10/18 09:29 Dose: 50 mg Prednisone (Prednisone Tab) 50 mg PO ONCE ONE Stop: 11/11/18 10:01 Prednisone (Prednisone Tab) 40 mg PO ONCE ONE Stop: 11/12/18 10:01 Prednisone (Prednisone Tab) 30 mg PO ONCE ONE Stop: 11/13/18 10:01 Prednisone (Prednisone Tab) 20 mg PO ONCE ONE Stop: 11/14/18 10:01 Prednisone (Prednisone Tab) 10 mg PO ONCE ONE Stop: 11/15/18 10:01 Rivaroxaban (Xarelto) 20 mg PO DAILY [facility] Last Admin: 11/10/18 10:14 Dose: Not Given Rosuvastatin Calcium (Crestor) 5 mg PO HS [facility] Last Admin: 11/10/18 21:16 Dose: 5 mg Spironolactone (Aldactone) 12.5 mg PO BID [facility] Last Admin: 11/10/18 18:14 Dose: 12.5 mg - Labs Labs: 11/10/18 07:40 11/10/18 07:40 PT 15.4 SECONDS (9.7-12.2) H 11/07/18 22:24 INR 1.4 11/07/18 22:24 APTT 33 SECONDS (21-34) 11/07/18 22:24 Attending/Attestation - Attestation I have personally seen and examined this patient.: Yes I have fully participated in the care of the patient.: Yes I have reviewed all pertinent clinical information, including history, physical exam and plan: Yes Notes (Text): 11/11/18 00:57 This is a late entry. Care of this patient was gone over in detail with resident Dr. Carmina Nugent. Evans Baez D.O.
[2018-11-08 09:10] LABS: SQUAMOUS EPITHIAL 2 /hpf (0-5); URINE BILIRUBIN NEGATIVE (NEGATIVE); URINE BLOOD 1+ (NEGATIVE); URINE CLARITY Clear (Clear); URINE COLOR Yellow (YELLOW); URINE GLUCOSE (UA) NORMAL (Normal); URINE LEUKOCYTE ESTERASE 1+ Leu/uL (Negative); URINE PROTEIN NEGATIVE (NEGATIVE)
[2018-11-08] MEDS: Enoxaparin 40 mg Syringe SC SCH (10:18)
--- NOTE | 2018-11-08 10:24 | RAD ---
Date of service: 11/07/2018 PROCEDURE: CHEST RADIOGRAPH, 1 VIEW HISTORY: chronic sob COMPARISON: 05/09/2018. FINDINGS: LUNGS: Limited portable examination due to patient rotation to the right. There is mild pulmonary venous congestion. PLEURA: No pneumothorax or pleural effusion. CARDIOVASCULAR: The heart is normal in size. No aortic atherosclerotic calcifications present. There is stable position of left-sided permanent pacing device. OSSEOUS STRUCTURES: Within normal limits for the patient's age. VISUALIZED UPPER ABDOMEN: Normal. OTHER FINDINGS: There is chronic elevation of the left hemidiaphragm. IMPRESSION: No acute findings.
[2018-11-08] MEDS: Metoprolol Succinate 50 mg XL Tab PO SCH (10:25)
--- NOTE | 2018-11-08 11:12 | RAD ---
Date of service: 11/08/2018 PROCEDURE: Left Knee Radiographs. HISTORY: Pain. COMPARISON: None. FINDINGS: BONES: Bone alignment and mineralization are normal. There is no acute displaced fracture or bone destruction. JOINTS: There is mild tricompartmental degenerative osteoarthrosis with reduced joint spaces, marginal osteophytes and tibial spiking, worse in the medial compartment. JOINT EFFUSION: There is a large suprapatellar joint effusion. OTHER FINDINGS: None. IMPRESSION: No acute fracture or dislocation. Large suprapatellar joint effusion.
[2018-11-09] MEDS: (Novolin R) Insulin Human Regular 100 units/ml vial SC SCH ×6 (02:11→22:03)
[2018-11-09 06:34] LABS: BASO % 0.1 % (0.0-2.0); LYMPH # 1.5 K/uL (1.0-4.3); LYMPH % 9.3 % (20.0-40.0); MEAN CELL VOLUME 87.7 fL (80.0-94.0); MEAN CORPUSCULAR HEMOGLOBIN 28.9 pg (27.0-31.0); MEAN CORPUSCULAR HGB CONC 32.9 g/dL (33.0-37.0); MEAN PLATELET VOLUME 10.3 fL (7.2-11.7); MONO # 0.7 K/uL (0.0-0.8); MONO % 4.5 % (0.0-10.0); NEUT # 13.4 K/uL (1.8-7.0); NEUT % 86.1 % (50.0-75.0); NRBC % 0.1 % (0.0-2.0); PLATELET COUNT 169 K/uL (130-400); RBC 5.89 Mil/uL (4.40-5.90); RED CELL DISTRIBUTION WIDTH 14.8 % (11.5-14.5); WHITE BLOOD COUNT 15.6 K/uL (4.8-10.8)
[2018-11-09 06:47] LABS: ALB/GLOB RATIO 0.9 (1.0-2.1); ALBUMIN 3.8 g/dL (3.5-5.0); ALT/SGPT 24 U/L (21-72); AST/SGOT 34 U/L (17-59); BLOOD UREA NITROGEN 36 mg/dL (9-20); CALCIUM 8.1 mg/dl (8.6-10.4); GFR NON-AFRICAN AMERICAN 50
[2018-11-09 08:21] LABS: BANDS 4 % (0-2); LYMPHOCYTE 8 % (20-40); MONOCYTE 2 % (0-10); NEUTROPHIL 84 % (50-75); PLATELET ESTIMATE NORMAL (NORMAL); REACTIVE LYMPHOCYTES 2 % (0-0); TOTAL CELLS COUNTED 100
[2018-11-09 08:22] LABS: LARGE PLATELETS PRESENT
[2018-11-09] MEDS: Metoprolol Succinate 50 mg XL Tab PO SCH (10:11)
[2018-11-09] MEDS: Enoxaparin 40 mg Syringe SC SCH (10:13)
[2018-11-09] MEDS ORDERED: (Novolog) Insulin Aspart, Recombinant 100 u/ml 10 ml vial SC ONE (11:19)
--- NOTE | 2018-11-09 11:30 | CP.PCM.PN ---
<Catie Hopper P - Last Filed: 11/09/18 22:35> Subjective - Date & Time of Evaluation Date of Evaluation: 11/09/18 Time of Evaluation: 11:30 - Subjective Subjective: PGY-[address] Dilip Baez. Paged this AM for glucose of 480. Patient given 12 units of regular insulin as per protocol. Patient seen and examined this morning. Patient sitting in chair, talking on the phone. States he had an episode of dysarthria and black out of vision 2 hours prior to examination that lasted for approximately 30 minutes. Patient did not tell his nurse about this episode. Patient states symptoms have completely resolved at the time of exam. States has mild L knee pain. Denies fever, current chills, chest pain, shortness of breath. Objective - Vital Signs/Intake and Output Vital Signs (last 24 hours): Temp Pulse Resp BP Pulse Ox 97.9 F 64 20 148/68 95 11/09/18 07:55 11/09/18 07:55 11/09/18 07:55 11/09/18 10:13 11/09/18 07:56 - Medications Medications: Current Medications Acetaminophen (Tylenol 325mg Tab) 650 mg PO Q6 PRN PRN Reason: Pain, moderate (4-7) Last Admin: 11/08/18 22:52 Dose: 650 mg Aspirin (Aspirin Chewable) 81 mg PO DAILY [facility] Last Admin: 11/09/18 10:13 Dose: 81 mg Colchicine (Colocrys) 0.6 mg PO DAILY [facility] Last Admin: 11/09/18 10:11 Dose: 0.6 mg Dexamethasone (Decadron) 8 mg PO DAILY [facility] Last Admin: 11/09/18 10:16 Dose: 8 mg Dexamethasone (Decadron) 2 mg PO DAILY [facility] Last Admin: 11/09/18 10:16 Dose: 2 mg Dextrose (Dextrose 50% Inj) 0 ml IV STAT PRN; Protocol PRN Reason: Hypoglycemia Protocol Dextrose (Glutose 15) 0 gm PO ONCE PRN; Protocol PRN Reason: Hypoglycemia Protocol Enoxaparin Sodium (Lovenox) 40 mg SC DAILY [facility] Last Admin: 11/09/18 10:13 Dose: 40 mg Famotidine (Pepcid) 20 mg PO BID [facility] Last Admin: 11/09/18 10:11 Dose: 20 mg Furosemide (Lasix) 40 mg PO BID [facility] Last Admin: 11/09/18 10:13 Dose: 40 mg Gabapentin (Neurontin) 300 mg PO Q8H [facility] Last Admin: 11/09/18 04:27 Dose: 300 mg Glimepiride (Amaryl) 2 mg PO DAILY [facility] Last Admin: 11/09/18 10:11 Dose: 2 mg Glucagon (Glucagen Diagnostic Kit) 0 mg IM STAT PRN; Protocol PRN Reason: Hypoglycemia Protocol Hydrochlorothiazide (Hydrodiuril) 25 mg PO DAILY [facility] Last Admin: 11/09/18 10:13 Dose: 25 mg Dextrose (Dextrose 5% In Water 1000 Ml) 1,000 mls @ 0 mls/hr IV .Q0M PRN; Protocol PRN Reason: Hypoglycemia Protocol Insulin Human Regular (Novolin R) 0 unit SC [facility]; Protocol Last Admin: 11/09/18 06:49 Dose: 12 units Losartan Potassium (Cozaar) 25 mg PO DAILY [facility] Last Admin: 11/09/18 10:11 Dose: 25 mg Metoprolol Succinate (Toprol Xl) 50 mg PO DAILY [facility] Last Admin: 11/09/18 10:11 Dose: 50 mg Rivaroxaban (Xarelto) 20 mg PO DAILY [facility] Rosuvastatin Calcium (Crestor) 5 mg PO HS [facility] Last Admin: 11/08/18 21:06 Dose: 5 mg Spironolactone (Aldactone) 12.5 mg PO BID [facility] Last Admin: 11/09/18 10:11 Dose: 12.5 mg - Labs Labs: 11/09/18 06:24 11/09/18 06:24 PT 15.4 SECONDS (9.7-12.2) H 11/07/18 22:24 INR 1.4 11/07/18 22:24 APTT 33 SECONDS (21-34) 11/07/18 22:24 - Constitutional Appears: No Acute Distress - Head Exam Head Exam: ATRAUMATIC, NORMOCEPHALIC - Eye Exam Eye Exam: EOMI, PERRL - ENT Exam ENT Exam: Mucous Membranes Moist - Neck Exam Neck Exam: Full ROM - Respiratory Exam Respiratory Exam: Clear to Ausculation Bilateral. absent: Rales, Rhonchi, Wheezes - Cardiovascular Exam Cardiovascular Exam: REGULAR RHYTHM, +S1, +S2 - GI/Abdominal Exam GI & Abdominal Exam: Soft, Normal Bowel Sounds. absent: Distended, Guarding, Rigid, Tenderness - Extremities Exam Extremities Exam: Full ROM Additional comments: L knee mild tenderness to palpation. No significant swelling. No warmth or erythema. - Neurological Exam Neurological Exam: Alert, Awake, CN II-XII Intact, Oriented x3. absent: Motor Sensory Deficit Neuro motor strength exam: Left Upper Extremity: 5, Right Upper Extremity: 5, Left Lower Extremity: 5, Right Lower Extremity: 5 - Psychiatric Exam Psychiatric exam: Normal Affect, Normal Mood - Skin Additional comments: chronic venous stasis changes to bilateral lower extremities. Assessment and Plan - Assessment and Plan (Free Text) Plan: L knee Gout - XRay Knee 11/08: No fracture or dislocation. Large suprapatellar effusion. - Colchicine 0.6mg po daily - Decadron 10mg PO daily - Ice pack to be applied to left knee q4h for 30 min at a time. Transient episode of dysarthria/loss of vision -Head CT without contrast 11/09: generalized atrophy, non-specific white mater changes. No hemorrhage. (see full report) -No neurological deficits at time of exam -Monitor History of CAD - continue home meds: * Crestor 5mg PO HS * Aspirin 81mg PO HS * Metoprolol Succinate 50mg po daily History of Atrial flutter - pt with AICD - continue home meds: * Xarelto 20mg PO Daily - on hold for possible knee aspiration tomorrow History of HTN - continue home meds * Spironolactone 12.5mg PO BID * Cozaar 25mg PO Daily * Metoprolol Succinate 50mg po daily * HCTZ 25mg po daily History of HLD Lipid Panel: HDL 29, LDL 67, Trigly 116 - continue home meds * Crestor 5mg PO HS Uncontrolled Diabetes type 2 - HbA1c 9.2 - accucheck ACHS - medium dose sliding scale - Continue home glimepiride 2mg daily - Hypoglycemia protocol Peripheral Neuropathy - continue home medication Gabapentin 300mg q8h PPx GI: pepcid DVT: xarelto - restart on 11/10; Lovenox 40mg SC daily while xarelto on hold HHD Case discussed with Dr. Dilip Hopper, PGY-1 <Evans Baez - Last Filed: 11/11/18 00:56> Objective - Vital Signs/Intake and Output Vital Signs (last 24 hours): Temp Pulse Resp BP Pulse Ox 97.4 F L 70 20 113/68 95 11/10/18 23:40 11/10/18 23:40 11/10/18 23:40 11/10/18 23:40 11/10/18 23:40 Intake and Output: 11/10/18 11/11/18 18:59 06:59 Output Total 1000 Balance -1000 - Medications Medications: Current Medications Acetaminophen (Tylenol 325mg Tab) 650 mg PO Q6 PRN PRN Reason: Pain, moderate (4-7) Last Admin: 11/08/18 22:52 Dose: 650 mg Aspirin (Aspirin Chewable) 81 mg PO DAILY [facility] Last Admin: 11/10/18 09:30 Dose: 81 mg Colchicine (Colocrys) 0.6 mg PO DAILY [facility] Last Admin: 11/10/18 09:29 Dose: 0.6 mg Dextrose (Dextrose 50% Inj) 0 ml IV STAT PRN; Protocol PRN Reason: Hypoglycemia Protocol Dextrose (Glutose 15) 0 gm PO ONCE PRN; Protocol PRN Reason: Hypoglycemia Protocol Famotidine (Pepcid) 20 mg PO BID [facility] Last Admin: 11/10/18 18:14 Dose: 20 mg Furosemide (Lasix) 40 mg PO BID [facility] Last Admin: 11/10/18 18:14 Dose: 40 mg Gabapentin (Neurontin) 300 mg PO Q8H [facility] Last Admin: 11/10/18 21:16 Dose: 300 mg Glimepiride (Amaryl) 2 mg PO Q24H [facility] Glucagon (Glucagen Diagnostic Kit) 0 mg IM STAT PRN; Protocol PRN Reason: Hypoglycemia Protocol Hydrochlorothiazide (Hydrodiuril) 25 mg PO DAILY [facility] Last Admin: 11/10/18 09:29 Dose: 25 mg Insulin Human Regular (Novolin R) 0 unit SC ACHS [facility]; Protocol Last Admin: 11/10/18 21:17 Dose: 3 units Losartan Potassium (Cozaar) 25 mg PO DAILY [facility] Last Admin: 11/10/18 09:30 Dose: 25 mg Metformin HCl (Glucophage) 500 mg PO DAILY [facility] Metoprolol Succinate (Toprol Xl) 50 mg PO DAILY [facility] Last Admin: 11/10/18 09:29 Dose: 50 mg Prednisone (Prednisone Tab) 50 mg PO ONCE ONE Stop: 11/11/18 10:01 Prednisone (Prednisone Tab) 40 mg PO ONCE ONE Stop: 11/12/18 10:01 Prednisone (Prednisone Tab) 30 mg PO ONCE ONE Stop: 11/13/18 10:01 Prednisone (Prednisone Tab) 20 mg PO ONCE ONE Stop: 11/14/18 10:01 Prednisone (Prednisone Tab) 10 mg PO ONCE ONE Stop: 11/15/18 10:01 Rivaroxaban (Xarelto) 20 mg PO DAILY [facility] Last Admin: 11/10/18 10:14 Dose: Not Given Rosuvastatin Calcium (Crestor) 5 mg PO HS [facility] Last Admin: 11/10/18 21:16 Dose: 5 mg Spironolactone (Aldactone) 12.5 mg PO BID [facility] Last Admin: 11/10/18 18:14 Dose: 12.5 mg - Labs Labs: 11/10/18 07:40 11/10/18 07:40 PT 15.4 SECONDS (9.7-12.2) H 11/07/18 22:24 INR 1.4 11/07/18 22:24 APTT 33 SECONDS (21-34) 11/07/18 22:24 Attending/Attestation - Attestation I have personally seen and examined this patient.: Yes I have fully participated in the care of the patient.: Yes I have reviewed all pertinent clinical information, including history, physical exam and plan: Yes Notes (Text): 11/11/18 00:56 This is a late entry. Care of this patient was gone over in detail with resident Dr. Frida Hopper. Evans Baez D.O.
--- NOTE | 2018-11-09 13:28 | CARD ---
APPROVED REPORT Date of service: 11/07/2018 EKG Measurement Heart [id number] <Conclusion> Ventricular-paced rhythm Abnormal ECG
--- NOTE | 2018-11-09 14:31 | CT ---
Date of service: 11/09/2018 PROCEDURE: CT HEAD WITHOUT CONTRAST. HISTORY: episode of dysarthria and loss of vision COMPARISON: Noncontrast head CT 02/13/18 TECHNIQUE: Axial computed tomography images were obtained through the head/brain without intravenous contrast. Radiation dose: Total exam DLP = 1258.32 mGy-cm. This CT exam was performed using one or more of the following dose reduction techniques: Automated exposure control, adjustment of the mA and/or kV according to patient size, and/or use of iterative reconstruction technique. FINDINGS: Streak artifact obscures evaluation of the skull base. HEMORRHAGE: No intracranial hemorrhage. BRAIN: Diffuse atrophy with prominence of the ventricles and sulci noted. No mass effect or edema. Bilateral basal ganglia calcifications. Scattered periventricular and subcortical white matter hypodensities, which are nonspecific, but often seen with chronic microvascular ischemic disease. Please note that MRI with diffusion imaging is more sensitive in the detection of acute ischemic event. VENTRICLES: No hydrocephalus. CALVARIUM: Unremarkable. PARANASAL SINUSES: Unremarkable as visualized. No significant inflammatory changes. MASTOID AIR CELLS: Unremarkable as visualized. No inflammatory changes. OTHER FINDINGS: None. IMPRESSION: Generalized atrophy. Nonspecific white matter changes.
[2018-11-10] MEDS: (Novolin R) Insulin Human Regular 100 units/ml vial SC SCH ×4 (06:34→21:17)
[2018-11-10 07:47] LABS: HEMOGLOBIN 17.2 g/dL (12.0-18.0); LYMPH # 1.2 K/uL (1.0-4.3); LYMPH % 7.7 % (20.0-40.0); MEAN CORPUSCULAR HEMOGLOBIN 28.9 pg (27.0-31.0); MEAN CORPUSCULAR HGB CONC 32.9 g/dL (33.0-37.0); MONO # 0.8 K/uL (0.0-0.8); MONO % 4.8 % (0.0-10.0); NEUT % 87.5 % (50.0-75.0); PLATELET COUNT 173 K/uL (130-400); RBC 5.93 Mil/uL (4.40-5.90); WHITE BLOOD COUNT 16.1 K/uL (4.8-10.8)
[2018-11-10 08:07] LABS: ALBUMIN 3.9 g/dL (3.5-5.0); ALT/SGPT 24 U/L (21-72); AST/SGOT 28 U/L (17-59); BLOOD UREA NITROGEN 44 mg/dL (9-20); CALCIUM 8.2 mg/dl (8.6-10.4); GFR NON-AFRICAN AMERICAN 55
[2018-11-10 09:10] LABS: ANISOCYTOSIS SLIGHT; BANDS 1 % (0-2); HYPOCHROMIC SLIGHT; LYMPHOCYTE 5 % (20-40); MONOCYTE 3 % (0-10); NEUTROPHIL 91 % (50-75); PLATELET ESTIMATE NORMAL (NORMAL); TOTAL CELLS COUNTED 100
[2018-11-10 09:11] LABS: LARGE PLATELETS PRESENT; POLYCHROMIC SLIGHT
[2018-11-10] MEDS: Metoprolol Succinate 50 mg XL Tab PO SCH (09:29)
[2018-11-10] MEDS ORDERED: (Novolin R) Insulin Human Regular 100 units/ml vial SC ONE (11:42)
--- NOTE | 2018-11-10 14:15 | CP.PCM.DIS ---
Provider - Provider Date of Admission: 11/08/18 02:59 Attending physician: Dre Serrano MD Time Spent in preparation of Discharge (in minutes): 35 Hospital Course - Lab Results Lab Results: Most Recent Lab Values WBC 16.1 K/uL (4.8-10.8) H 11/10/18 07:40 RBC 5.93 Mil/uL (4.40-5.90) H 11/10/18 07:40 Hgb 17.2 g/dL (12.0-18.0) 11/10/18 07:40 Hct 52.2 % (35.0-51.0) H 11/10/18 07:40 MCV 88.0 fL (80.0-94.0) 11/10/18 07:40 MCH 28.9 pg (27.0-31.0) 11/10/18 07:40 MCHC 32.9 g/dL (33.0-37.0) L 11/10/18 07:40 RDW 15.0 % (11.5-14.5) H 11/10/18 07:40 Plt Count 173 K/uL (130-400) 11/10/18 07:40 MPV 10.0 fL (7.2-11.7) 11/10/18 07:40 Neut % (Auto) 87.5 % (50.0-75.0) H 11/10/18 07:40 Lymph % (Auto) 7.7 % (20.0-40.0) L 11/10/18 07:40 [place] % (Auto) 4.8 % (0.0-10.0) 11/10/18 07:40 Eos % (Auto) 0.0 % (0.0-4.0) 11/10/18 07:40 Baso % (Auto) 0.0 % (0.0-2.0) 11/10/18 07:40 Neut # (Auto) 14.0 K/uL (1.8-7.0) H 11/10/18 07:40 Lymph # (Auto) 1.2 K/uL (1.0-4.3) 11/10/18 07:40 [place] # (Auto) 0.8 K/uL (0.0-0.8) 11/10/18 07:40 Eos # (Auto) 0.0 K/uL (0.0-0.7) 11/10/18 07:40 Baso # (Auto) 0.0 K/uL (0.0-0.2) 11/10/18 07:40 Neutrophils % (Manual) 91 % (50-75) H 11/10/18 07:40 Band Neutrophils % 1 % (0-2) 11/10/18 07:40 Lymphocytes % (Manual) 5 % (20-40) L 11/10/18 07:40 Reactive Lymphs % 2 % (0-0) H 11/09/18 06:24 Monocytes % (Manual) 3 % (0-10) 11/10/18 07:40 Platelet Estimate Normal (NORMAL) 11/10/18 07:40 Large Platelets Present 11/10/18 07:40 RBC Morphology Normal 11/09/18 06:24 Polychromasia Slight 11/10/18 07:40 Hypochromasia (manual) Slight 11/10/18 07:40 Anisocytosis (manual) Slight 11/10/18 07:40 PT 15.4 SECONDS (9.7-12.2) H 11/07/18 22:24 INR 1.4 11/07/18 22:24 APTT 33 SECONDS (21-34) 11/07/18 22:24 Sodium 134 mmol/L (132-148) 11/10/18 07:40 Potassium 4.5 mmol/L (3.6-5.2) 11/10/18 07:40 Chloride 91 mmol/L (98-107) L 11/10/18 07:40 Carbon Dioxide 35 mmol/L (22-30) H 11/10/18 07:40 Anion Gap 12 (10-20) 11/10/18 07:40 BUN 44 mg/dL (9-20) H 11/10/18 07:40 Creatinine 1.3 mg/dL (0.8-1.5) 11/10/18 07:40 Est GFR ( Amer) > 60 11/10/18 07:40 Est GFR (Non-Af Amer) 55 11/10/18 07:40 POC Glucose (mg/dL) 473 mg/dL (65-110) H* 11/10/18 11:08 Random Glucose 504 mg/dL (75-110) H* 11/10/18 07:40 Hemoglobin A1c 9.2 % (4.2-6.5) H D 11/08/18 07:42 Uric Acid 11.0 mg/dL (3.5-8.5) H 11/08/18 07:42 Calcium 8.2 mg/dl (8.6-10.4) L 11/10/18 07:40 Total Bilirubin 0.6 mg/dL (0.2-1.3) 11/10/18 07:40 AST 28 U/L (17-59) 11/10/18 07:40 ALT 24 U/L (21-72) 11/10/18 07:40 Alkaline Phosphatase 101 U/L (38-126) 11/10/18 07:40 Total Creatine Kinase 74 U/L (55-170) 11/07/18 22:24 CK-MB (Mass) 0.78 ng/mL (0.0-3.38) 11/07/18 22:24 Troponin I 0.0720 ng/mL (0.00-0.120) 11/07/18 22:24 NT-Pro-B Natriuret Pep 1570 pg/mL (0-900) H 11/07/18 22:24 Total Protein 7.9 g/dL (6.3-8.3) 11/10/18 07:40 Albumin 3.9 g/dL (3.5-5.0) 11/10/18 07:40 Globulin 4.0 gm/dL (2.2-3.9) H 11/10/18 07:40 Albumin/Globulin Ratio 1.0 (1.0-2.1) 11/10/18 07:40 Triglycerides 116 mg/dL (0-149) 11/08/18 07:42 Cholesterol 120 mg/dL (0-199) 11/08/18 07:42 LDL Cholesterol Direct 67 mg/dL (0-129) 11/08/18 07:42 HDL Cholesterol 29 mg/dL (30-70) L 11/08/18 07:42 Urine Color Yellow (YELLOW) 11/08/18 08:42 Urine Clarity Clear (Clear) 11/08/18 08:42 Urine pH 5.0 (5.0-8.0) 11/08/18 08:42 Ur Specific [place] 1.012 (1.003-1.030) 11/08/18 08:42 Urine Protein Negative mg/dL (NEGATIVE) 11/08/18 08:42 Urine Glucose (UA) Normal mg/dL (Normal) 11/08/18 08:42 Urine Ketones Negative mg/dL (NEGATIVE) 11/08/18 08:42 Urine Blood 1+ (NEGATIVE) H 11/08/18 08:42 Urine Nitrate Negative (NEGATIVE) 11/08/18 08:42 Urine Bilirubin Negative (NEGATIVE) 11/08/18 08:42 Urine Urobilinogen 2.0 mg/dL (0.2-1.0) 11/08/18 08:42 Ur Leukocyte Esterase 1+ Brian/uL (Negative) H 11/08/18 08:42 Urine WBC (Auto) 11 /hpf (0-5) H 11/08/18 08:42 Urine RBC (Auto) 6 /hpf (0-3) H 11/08/18 08:42 Ur Squamous Epith Cells 2 /hpf (0-5) 11/08/18 08:42 Hyaline Casts 6-10 /lpf (0-2) H 11/08/18 08:42 Influenza Typ A,B (EIA) Negative for flu a/b (NEGATIVE) 11/07/18 22:30 Discharge Exam - Head Exam Head Exam: ATRAUMATIC, NORMOCEPHALIC Discharge Plan - Follow Up Plan Condition: GOOD Disposition: HOME/ ROUTINE
[2018-11-10 15:31] VITALS: RESP 20
--- NOTE | 2018-11-10 23:05 | CP.PCM.PN ---
<Catie Hopper P - Last Filed: 11/10/18 23:15> Subjective - Date & Time of Evaluation Date of Evaluation: 11/10/18 Time of Evaluation: 08:00 - Subjective Subjective: PGY-[address] Dilip Baez. Patient seen and evaluated at bedside. Pts blood glucose elevated this morning given ISS protocol. Patient denies any knee pain at this time. Denies fever, chills, nausea, vomiting, abdominal pain, diarrhea, chest pain, and shortness of breath. Objective - Vital Signs/Intake and Output Vital Signs (last 24 hours): Temp Pulse Resp BP Pulse Ox 97.9 F 82 20 131/81 95 11/10/18 15:00 11/10/18 16:28 11/10/18 15:00 11/10/18 18:14 11/10/18 18:52 Intake and Output: 11/10/18 11/11/18 18:59 06:59 Output Total 1000 Balance -1000 - Medications Medications: Current Medications Acetaminophen (Tylenol 325mg Tab) 650 mg PO Q6 PRN PRN Reason: Pain, moderate (4-7) Last Admin: 11/08/18 22:52 Dose: 650 mg Aspirin (Aspirin Chewable) 81 mg PO DAILY [facility] Last Admin: 11/10/18 09:30 Dose: 81 mg Colchicine (Colocrys) 0.6 mg PO DAILY [facility] Last Admin: 11/10/18 09:29 Dose: 0.6 mg Dextrose (Dextrose 50% Inj) 0 ml IV STAT PRN; Protocol PRN Reason: Hypoglycemia Protocol Dextrose (Glutose 15) 0 gm PO ONCE PRN; Protocol PRN Reason: Hypoglycemia Protocol Famotidine (Pepcid) 20 mg PO BID [facility] Last Admin: 11/10/18 18:14 Dose: 20 mg Furosemide (Lasix) 40 mg PO BID [facility] Last Admin: 11/10/18 18:14 Dose: 40 mg Gabapentin (Neurontin) 300 mg PO Q8H [facility] Last Admin: 11/10/18 21:16 Dose: 300 mg Glimepiride (Amaryl) 2 mg PO DAILY [facility] Last Admin: 11/10/18 09:29 Dose: 2 mg Glucagon (Glucagen Diagnostic Kit) 0 mg IM STAT PRN; Protocol PRN Reason: Hypoglycemia Protocol Hydrochlorothiazide (Hydrodiuril) 25 mg PO DAILY [facility] Last Admin: 11/10/18 09:29 Dose: 25 mg Insulin Human Regular (Novolin R) 0 unit SC ACHS [facility]; Protocol Last Admin: 11/10/18 21:17 Dose: 3 units Losartan Potassium (Cozaar) 25 mg PO DAILY [facility] Last Admin: 11/10/18 09:30 Dose: 25 mg Metoprolol Succinate (Toprol Xl) 50 mg PO DAILY [facility] Last Admin: 11/10/18 09:29 Dose: 50 mg Prednisone (Prednisone Tab) 50 mg PO ONCE ONE Stop: 11/11/18 10:01 Prednisone (Prednisone Tab) 40 mg PO ONCE ONE Stop: 11/12/18 10:01 Prednisone (Prednisone Tab) 30 mg PO ONCE ONE Stop: 11/13/18 10:01 Prednisone (Prednisone Tab) 20 mg PO ONCE ONE Stop: 11/14/18 10:01 Prednisone (Prednisone Tab) 10 mg PO ONCE ONE Stop: 11/15/18 10:01 Rivaroxaban (Xarelto) 20 mg PO DAILY [facility] Last Admin: 11/10/18 10:14 Dose: Not Given Rosuvastatin Calcium (Crestor) 5 mg PO HS [facility] Last Admin: 11/10/18 21:16 Dose: 5 mg Spironolactone (Aldactone) 12.5 mg PO BID [facility] Last Admin: 11/10/18 18:14 Dose: 12.5 mg - Labs Labs: 11/10/18 07:40 11/10/18 07:40 PT 15.4 SECONDS (9.7-12.2) H 11/07/18 22:24 INR 1.4 11/07/18 22:24 APTT 33 SECONDS (21-34) 11/07/18 22:24 - Additional Findings Additional findings: - Constitutional Appears: No Acute Distress - Head Exam Head Exam: ATRAUMATIC, NORMOCEPHALIC - Eye Exam Eye Exam: EOMI, PERRL - ENT Exam ENT Exam: Mucous Membranes Moist - Neck Exam Neck Exam: Full ROM - Respiratory Exam Respiratory Exam: Clear to Ausculation Bilateral. absent: Rales, Rhonchi, Wheezes - Cardiovascular Exam Cardiovascular Exam: REGULAR RHYTHM, +S1, +S2 - GI/Abdominal Exam GI & Abdominal Exam: Soft, Normal Bowel Sounds. absent: Distended, Guarding, Rigid, Tenderness - Extremities Exam Extremities Exam: Full ROM Additional comments: L knee non tender to palpation, No swelling. No warmth or erythema. - Neurological Exam Neurological Exam: Alert, Awake, CN II-XII Intact, Oriented x3. absent: Motor Sensory Deficit Neuro motor strength exam: Left Upper Extremity: 5, Right Upper Extremity: 5, Left Lower Extremity: 5, Right Lower Extremity: 5 - Psychiatric Exam Psychiatric exam: Normal Affect, Normal Mood - Skin Additional comments: chronic venous stasis changes to bilateral lower extremities. Assessment and Plan - Assessment and Plan (Free Text) Plan: L knee Gout - XRay Knee 11/08: No fracture or dislocation. Large suprapatellar effusion. - Colchicine 0.6mg po daily - Decadron 10mg discontinued, Prednisone taper to start tomorrow - Ice pack to be applied to left knee q4h for 30 min at a time. Transient episode of dysarthria/loss of vision -Head CT without contrast 11/09: generalized atrophy, non-specific white mater changes. No hemorrhage. (see full report) -No neurological deficits at time of exam -Monitor History of CAD - continue home meds: * Crestor 5mg PO HS * Aspirin 81mg PO HS * Metoprolol Succinate 50mg po daily History of Atrial flutter - pt with AICD - continue home meds: * Xarelto 20mg PO Daily History of HTN - continue home meds * Spironolactone 12.5mg PO BID * Cozaar 25mg PO Daily * Metoprolol Succinate 50mg po daily * HCTZ 25mg po daily History of HLD Lipid Panel: HDL 29, LDL 67, Trigly 116 - continue home meds * Crestor 5mg PO HS Uncontrolled Diabetes type 2 - HbA1c 9.2 - accucheck ACHS - insulin sliding scale - Continue home glimepiride 2mg daily - Hypoglycemia protocol -Glucose remains elevated due to steroid use, steroid taper to start tomorrow Peripheral Neuropathy - continue home medication Gabapentin 300mg q8h PPx GI: pepcid DVT: xarelto - restarted on 11/10; Lovenox 40mg SC discontinued 11/10 [facility]HD Prednisone taper to start tomorrow. If sugars improve, may be discharged with prescription for prednisone taper. Case discussed with Dr. Dilip Hopper, PGY-1 <Evans Baez - Last Filed: 11/11/18 00:56> Objective - Vital Signs/Intake and Output Vital Signs (last 24 hours): Temp Pulse Resp BP Pulse Ox 97.4 F L 70 20 113/68 95 11/10/18 23:40 11/10/18 23:40 11/10/18 23:40 11/10/18 23:40 11/10/18 23:40 Intake and Output: 11/10/18 11/11/18 18:59 06:59 Output Total 1000 Balance -1000 - Medications Medications: Current Medications Acetaminophen (Tylenol 325mg Tab) 650 mg PO Q6 PRN PRN Reason: Pain, moderate (4-7) Last Admin: 11/08/18 22:52 Dose: 650 mg Aspirin (Aspirin Chewable) 81 mg PO DAILY [facility] Last Admin: 11/10/18 09:30 Dose: 81 mg Colchicine (Colocrys) 0.6 mg PO DAILY [facility] Last Admin: 11/10/18 09:29 Dose: 0.6 mg Dextrose (Dextrose 50% Inj) 0 ml IV STAT PRN; Protocol PRN Reason: Hypoglycemia Protocol Dextrose (Glutose 15) 0 gm PO ONCE PRN; Protocol PRN Reason: Hypoglycemia Protocol Famotidine (Pepcid) 20 mg PO BID [facility] Last Admin: 11/10/18 18:14 Dose: 20 mg Furosemide (Lasix) 40 mg PO BID [facility] Last Admin: 11/10/18 18:14 Dose: 40 mg Gabapentin (Neurontin) 300 mg PO Q8H [facility] Last Admin: 11/10/18 21:16 Dose: 300 mg Glimepiride (Amaryl) 2 mg PO Q24H [facility] Glucagon (Glucagen Diagnostic Kit) 0 mg IM STAT PRN; Protocol PRN Reason: Hypoglycemia Protocol Hydrochlorothiazide (Hydrodiuril) 25 mg PO DAILY [facility] Last Admin: 11/10/18 09:29 Dose: 25 mg Insulin Human Regular (Novolin R) 0 unit SC [facility]; Protocol Last Admin: 11/10/18 21:17 Dose: 3 units Losartan Potassium (Cozaar) 25 mg PO DAILY [facility] Last Admin: 11/10/18 09:30 Dose: 25 mg Metformin HCl (Glucophage) 500 mg PO DAILY [facility] Metoprolol Succinate (Toprol Xl) 50 mg PO DAILY [facility] Last Admin: 11/10/18 09:29 Dose: 50 mg Prednisone (Prednisone Tab) 50 mg PO ONCE ONE Stop: 11/11/18 10:01 Prednisone (Prednisone Tab) 40 mg PO ONCE ONE Stop: 11/12/18 10:01 Prednisone (Prednisone Tab) 30 mg PO ONCE ONE Stop: 11/13/18 10:01 Prednisone (Prednisone Tab) 20 mg PO ONCE ONE Stop: 11/14/18 10:01 Prednisone (Prednisone Tab) 10 mg PO ONCE ONE Stop: 11/15/18 10:01 Rivaroxaban (Xarelto) 20 mg PO DAILY [facility] Last Admin: 11/10/18 10:14 Dose: Not Given Rosuvastatin Calcium (Crestor) 5 mg PO HS [facility] Last Admin: 11/10/18 21:16 Dose: 5 mg Spironolactone (Aldactone) 12.5 mg PO BID [facility] Last Admin: 11/10/18 18:14 Dose: 12.5 mg - Labs Labs: 11/10/18 07:40 11/10/18 07:40 PT 15.4 SECONDS (9.7-12.2) H 11/07/18 22:24 INR 1.4 11/07/18 22:24 APTT 33 SECONDS (21-34) 11/07/18 22:24 Attending/Attestation - Attestation I have personally seen and examined this patient.: Yes I have fully participated in the care of the patient.: Yes I have reviewed all pertinent clinical information, including history, physical exam and plan: Yes Notes (Text): 11/11/18 00:55 Addendum entered and electronically signed by Evans Baez MD 11/11/18 00:32: This is a late entry. Care of this patient was gone over in detail with resident Dr. Frida Hopper. Evans Baez D.O.
--- NOTE | 2018-11-11 00:32 | CP.PCM.PCO ---
Physician Communication Note - Physician Communication Note Physician Communication Note: Please see above
[2018-11-11] MEDS: (Novolin R) Insulin Human Regular 100 units/ml vial SC SCH ×2 (08:30→13:02)
[2018-11-11 08:35] LABS: BASO % 0.1 % (0.0-2.0); HEMOGLOBIN 16.6 g/dL (12.0-18.0); LYMPH # 1.9 K/uL (1.0-4.3); LYMPH % 16.9 % (20.0-40.0); MEAN CELL VOLUME 88.4 fL (80.0-94.0); MEAN CORPUSCULAR HEMOGLOBIN 28.9 pg (27.0-31.0); MEAN CORPUSCULAR HGB CONC 32.7 g/dL (33.0-37.0); MEAN PLATELET VOLUME 9.7 fL (7.2-11.7); MONO # 1.1 K/uL (0.0-0.8); MONO % 9.4 % (0.0-10.0); NEUT # 8.5 K/uL (1.8-7.0); NEUT % 73.6 % (50.0-75.0); NRBC % 0.1 % (0.0-2.0); RBC 5.73 Mil/uL (4.40-5.90); WHITE BLOOD COUNT 11.5 K/uL (4.8-10.8)
[2018-11-11] MEDS: Metoprolol Succinate 50 mg XL Tab PO SCH (09:17)
[2018-11-11 09:22] LABS: ALB/GLOB RATIO 0.9 (1.0-2.1); ALBUMIN 3.7 g/dL (3.5-5.0); ALT/SGPT 30 U/L (21-72); AST/SGOT 31 U/L (17-59); BLOOD UREA NITROGEN 37 mg/dL (9-20); CALCIUM 8.1 mg/dl (8.6-10.4); GFR NON-AFRICAN AMERICAN > 60
--- NOTE | 2018-11-11 10:48 | CP.PCM.DIS ---
Provider - Provider Date of Admission: 11/08/18 02:59 Attending physician: Dre Serrano MD Time Spent in preparation of Discharge (in minutes): 35 Diagnosis - Discharge Diagnosis (1) Gout Status: Acute Hospital Course - Lab Results Lab Results: Most Recent Lab Values WBC 11.5 K/uL (4.8-10.8) H 11/11/18 08:24 RBC 5.73 Mil/uL (4.40-5.90) 11/11/18 08:24 Hgb 16.6 g/dL (12.0-18.0) 11/11/18 08:24 Hct 50.6 % (35.0-51.0) 11/11/18 08:24 MCV 88.4 fL (80.0-94.0) 11/11/18 08:24 MCH 28.9 pg (27.0-31.0) 11/11/18 08:24 MCHC 32.7 g/dL (33.0-37.0) L 11/11/18 08:24 RDW 15.0 % (11.5-14.5) H 11/11/18 08:24 Plt Count 166 K/uL (130-400) 11/11/18 08:24 MPV 9.7 fL (7.2-11.7) 11/11/18 08:24 Neut % (Auto) 73.6 % (50.0-75.0) 11/11/18 08:24 Lymph % (Auto) 16.9 % (20.0-40.0) L 11/11/18 08:24 [place] % (Auto) 9.4 % (0.0-10.0) 11/11/18 08:24 Eos % (Auto) 0.0 % (0.0-4.0) 11/11/18 08:24 Baso % (Auto) 0.1 % (0.0-2.0) 11/11/18 08:24 Neut # (Auto) 8.5 K/uL (1.8-7.0) H 11/11/18 08:24 Lymph # (Auto) 1.9 K/uL (1.0-4.3) 11/11/18 08:24 [place] # (Auto) 1.1 K/uL (0.0-0.8) H 11/11/18 08:24 Eos # (Auto) 0.0 K/uL (0.0-0.7) 11/11/18 08:24 Baso # (Auto) 0.0 K/uL (0.0-0.2) 11/11/18 08:24 Neutrophils % (Manual) 91 % (50-75) H 11/10/18 07:40 Band Neutrophils % 1 % (0-2) 11/10/18 07:40 Lymphocytes % (Manual) 5 % (20-40) L 11/10/18 07:40 Reactive Lymphs % 2 % (0-0) H 11/09/18 06:24 Monocytes % (Manual) 3 % (0-10) 11/10/18 07:40 Platelet Estimate Normal (NORMAL) 11/10/18 07:40 Large Platelets Present 11/10/18 07:40 RBC Morphology Normal 11/09/18 06:24 Polychromasia Slight 11/10/18 07:40 Hypochromasia (manual) Slight 11/10/18 07:40 Anisocytosis (manual) Slight 11/10/18 07:40 PT 15.4 SECONDS (9.7-12.2) H 11/07/18 22:24 INR 1.4 11/07/18 22:24 APTT 33 SECONDS (21-34) 11/07/18 22:24 Sodium 135 mmol/L (132-148) 11/11/18 08:24 Potassium 4.4 mmol/L (3.6-5.2) 11/11/18 08:24 Chloride 90 mmol/L (98-107) L 11/11/18 08:24 Carbon Dioxide 37 mmol/L (22-30) H 11/11/18 08:24 Anion Gap 12 (10-20) 11/11/18 08:24 BUN 37 mg/dL (9-20) H 11/11/18 08:24 Creatinine 1.1 mg/dL (0.8-1.5) 11/11/18 08:24 Est GFR ( Amer) > 60 11/11/18 08:24 Est GFR (Non-Af Amer) > 60 11/11/18 08:24 POC Glucose (mg/dL) 344 mg/dL (65-110) H 11/11/18 06:37 Random Glucose 312 mg/dL (75-110) H D 11/11/18 08:24 Hemoglobin A1c 9.2 % (4.2-6.5) H D 11/08/18 07:42 Uric Acid 11.0 mg/dL (3.5-8.5) H 11/08/18 07:42 Calcium 8.1 mg/dl (8.6-10.4) L 11/11/18 08:24 Total Bilirubin 0.5 mg/dL (0.2-1.3) 11/11/18 08:24 AST 31 U/L (17-59) 11/11/18 08:24 ALT 30 U/L (21-72) 11/11/18 08:24 Alkaline Phosphatase 95 U/L (38-126) 11/11/18 08:24 Total Creatine Kinase 74 U/L (55-170) 11/07/18 22:24 CK-MB (Mass) 0.78 ng/mL (0.0-3.38) 11/07/18 22:24 Troponin I 0.0720 ng/mL (0.00-0.120) 11/07/18 22:24 NT-Pro-B Natriuret Pep 1570 pg/mL (0-900) H 11/07/18 22:24 Total Protein 7.6 g/dL (6.3-8.3) 11/11/18 08:24 Albumin 3.7 g/dL (3.5-5.0) 11/11/18 08:24 Globulin 3.9 gm/dL (2.2-3.9) 11/11/18 08:24 Albumin/Globulin Ratio 0.9 (1.0-2.1) L 11/11/18 08:24 Triglycerides 116 mg/dL (0-149) 11/08/18 07:42 Cholesterol 120 mg/dL (0-199) 11/08/18 07:42 LDL Cholesterol Direct 67 mg/dL (0-129) 11/08/18 07:42 HDL Cholesterol 29 mg/dL (30-70) L 11/08/18 07:42 Urine Color Yellow (YELLOW) 11/08/18 08:42 Urine Clarity Clear (Clear) 11/08/18 08:42 Urine pH 5.0 (5.0-8.0) 11/08/18 08:42 Ur Specific [place] 1.012 (1.003-1.030) 11/08/18 08:42 Urine Protein Negative mg/dL (NEGATIVE) 11/08/18 08:42 Urine Glucose (UA) Normal mg/dL (Normal) 11/08/18 08:42 Urine Ketones Negative mg/dL (NEGATIVE) 11/08/18 08:42 Urine Blood 1+ (NEGATIVE) H 11/08/18 08:42 Urine Nitrate Negative (NEGATIVE) 11/08/18 08:42 Urine Bilirubin Negative (NEGATIVE) 11/08/18 08:42 Urine Urobilinogen 2.0 mg/dL (0.2-1.0) 11/08/18 08:42 Ur Leukocyte Esterase 1+ Brian/uL (Negative) H 11/08/18 08:42 Urine WBC (Auto) 11 /hpf (0-5) H 11/08/18 08:42 Urine RBC (Auto) 6 /hpf (0-3) H 11/08/18 08:42 Ur Squamous Epith Cells 2 /hpf (0-5) 11/08/18 08:42 Hyaline Casts 6-10 /lpf (0-2) H 11/08/18 08:42 Influenza Typ A,B (EIA) Negative for flu a/b (NEGATIVE) 11/07/18 22:30 - Hospital Course Hospital Course: On Admission: Pt is a 68yo M with PMH of HTN, CHF with AICD, a flutter, CAD, DMII, HLD, gout who presents to the ED complaining of L knee pain for 3 days. He reports an intense, intermittent pain in the L knee that has worsened over the past 3 days. He reports taking tylenol at home with minimal relief. He rates the pain 10/10 and says it is worse with walking. He reports that yesterday, he was unable to walk and had associated fever, chills, sweating, and dizziness. He says he usually ambulates at home without difficulty and uses home O2. He denies shortness of breath, chest pain, abdominal pain, nausea, vomiting, diarrhea, dysuria. Patient admitted for L knee gout exacerbation. He was treated with colchicine 0.6mg daily and decadron 10mg daily and ice packs daily. XRay Knee Xray on 11/08 showed No fracture or dislocation. Large suprapatellar effusion. (see full report) Knee pain improved and patient felt better. Patient's sugars increased secondary to steroid use. He was treated with RISS and home med of amaryl 2mg. Prednisone taper was started on 11/11/18. He was also placed on Metformin to help further control his sugars. Glucose decreased to 310 on day of discharge. On 11/09 patient complained of a transient episode of dysarthria and loss of vision. A Head CT without contrast was obtained, which showed generalized atrophy, non-specific white mater changes. No hemorrhage. (see full report). Patient has no residual symptoms. Discharge instructions: You must follow up with the [facility] ([phone]) or [facility] ([phone]). Call to make an appointment within one week of discharge. You have a cardiology appointment at [facility] tomorrow 11/12/18. You will be provided with prescription for the following: Prednisone taper 10mg 4 tab once on 11/12 3 tab once on 11/13 2 tab once on 11/14 1 tab once on 11/15 Metformin 1000mg Twice daily Glimepiride 2mg PO daily Metoprolol succinate 50mg daily Aspirin 81mg daily Gabapentin 300mg Q8H Furosemide 40mg PO BID Atorvastatin 10mg PO HS Xarelto 20mg PO daily Losartan 25mg PO daily HCTZ 25mg PO daily Spironolactone 12.5 mg PO BID Continue to ice your left knee(for 30 minutes every 4 to 6 hours) and elevate the left knee. You must cut down on red meat, alcohol, and high fructose corn syrup to prevent future gout attacks. Return to emergency room for new or worsening symptoms. Discharge Exam - Additional Findings Additional findings: Appears: No Acute Distress - Head Exam Head Exam: ATRAUMATIC, NORMOCEPHALIC - Eye Exam Eye Exam: EOMI, PERRL - ENT Exam ENT Exam: Mucous Membranes Moist - Neck Exam Neck Exam: Full ROM - Respiratory Exam Respiratory Exam: Clear to Ausculation Bilateral. absent: Rales, Rhonchi, Wheezes - Cardiovascular Exam Cardiovascular Exam: REGULAR RHYTHM, +S1, +S2 - GI/Abdominal Exam GI & Abdominal Exam: Soft, Normal Bowel Sounds. absent: Distended, Guarding, Rigid, Tenderness - Extremities Exam Extremities Exam: Full ROM Additional comments: L knee non tender to palpation, No swelling. No warmth or erythema. - Neurological Exam Neurological Exam: Alert, Awake, CN II-XII Intact, Oriented x3. absent: Motor Sensory Deficit Neuro motor strength exam: Left Upper Extremity: 5, Right Upper Extremity: 5, Left Lower Extremity: 5, Right Lower Extremity: 5 - Psychiatric Exam Psychiatric exam: Normal Affect, Normal Mood - Skin Additional comments: chronic venous stasis changes to bilateral lower extremities. Discharge Plan - Discharge Medications Prescriptions: Aspirin [Aspirin Chewable] 81 mg PO DAILY #14 chew Atorvastatin [Lipitor] 10 mg PO HS 14 Days #30 tab Furosemide [Lasix] 40 mg PO BID 14 Days tab Gabapentin [Neurontin] 300 mg PO Q8H #42 cap Glimepiride [amaRYL] 2 mg PO DAILY #14 tab hydroCHLOROthiazide [Hydrodiuril] 25 mg PO DAILY 14 Days #30 tab Losartan [Cozaar] 25 mg PO DAILY #14 tab MetFORMIN [glucoPHAGE] 1,000 mg PO BID #28 tab Metoprolol Succinate XL [Toprol XL] 50 mg PO DAILY #14 tab Rivaroxaban [Xarelto] 20 mg PO DAILY #14 tab - Follow Up Plan Condition: GOOD Disposition: HOME/ ROUTINE Instructions: Gout, Heart Healthy Diet, Lifestyle Changes to Manage Gout, Heart Failure, Adult (DC), Low Purine Diet Additional Instructions: Patient is stable for discharge. You must follow up with the [facility] at [facility] ([phone]) or [facility] ([phone]). Call to make an appointment within one week of discharge. You have a cardiology appointment at [facility] tomorrow 11/12/18. You will be provided with prescription for the following: Prednisone 10mg 4 tab once on 11/12 3 tab once on 11/13 2 tab once on 11/14 1 tab once on 11/15 Metformin 1000mg Twice daily Glimepiride 2mg PO daily Metoprolol succinate 50mg daily Aspirin 81mg daily Gabapentin 300mg Q8H Furosemide 40mg PO BID Atorvastatin 10mg PO HS Xarelto 20mg PO daily Losartan 25mg PO daily HCTZ 25mg PO daily Spironolactone 12.5 mg PO BID Continue to ice your left knee(for 30 minutes every 4 to 6 hours) and elevate the left knee. You must cut down on red meat, alcohol, and high fructose corn syrup to prevent future gout attacks. Return to emergency room for new or worsening symptoms. El paciente est estable para el brian. Debe realizar un seguimiento en el [facility] en [facility] ([phone]) o en la [facility] ([phone]). Llame para hacer kamla bonita dentro de kamla semana de brian. Usted recibir kamla receta para lo siguiente: Prednisona 10 mg 4 pestaas kamla vez en 11/12 3 pestaas kamla vez en 11/13 2 pestaas kamla vez en 11/14 1 pestaa kamla vez en 11/15 Metformina 1000mg dos veses al sari Glimepirida 2 mg PO diario Metoprolol succinato 50 mg al da Aspirina 81mg al sari Gabapentina 300mg Q8H Furosemida 40mg PO BID Colchicina 0.6mg PO diario Atorvastatina 10 mg PO HS Xarelto 20mg PO diario Losartan 25mg PO diario HCTZ 25 mg PO diario Espironolactona 12.5 mg PO BID Contine aplicando hielo a olson [place] (kimo 30 minutos cada 4 a 6 horas) y levante la rodilla [place]quier[place]. Debe reducir la carne maurizio, el alcohol y el jarabe de farzaenh con alto contenido de fructosa para evitar futuros ataques de gota. Regrese a la kimberly de emergencias para los sntomas nuevos o que empeoran. Referrals: [facility] at [facility] [Outside]
[2018-11-11 15:50] VITALS: BP 141/86; PULSE 81; TEMP 97.8; O2SAT 95
== END 2018-11-11 16:31 | disposition home or self-care (01) ==
LOC: C.ER 21:52 → C.9E 11-08 02:59 → C.5S 11-08 03:23
PROVIDERS: ADMIT Internal Medicine; ATTEND Internal Medicine
DX: I11.0 Hypertensive heart disease with heart failure (principal); M10.9 Gout, unspecified; I50.9 Heart failure, unspecified; E11.65 Type 2 diabetes mellitus with hyperglycemia; T38.0X5A Adverse effect of glucocorticoids and synthetic analogues, initial encounter; Z90.49 Acquired absence of other specified parts of digestive tract; Z95.0 Presence of cardiac pacemaker; I48.92 Unspecified atrial flutter; M25.562 Pain in left knee; E78.00 Pure hypercholesterolemia, unspecified; E78.5 Hyperlipidemia, unspecified; H54.7 Unspecified visual loss; I25.10 Atherosclerotic heart disease of native coronary artery without angina pectoris; J45.909 Unspecified asthma, uncomplicated
CPT/HCPCS: 36415; 70450; 71045; 73562; 80053; 80061; 81001; 82550; 82553; 82948; 83036; 83880; 84484; 84550; 85025; 85610; 85730; 87040; 87086; 87804; 93005; 96374; 96375; 97110; 97162; 99285; G0378; G8978; G8979; G8980; J1650; J1885; J1940; J2270; J8540

== ENCOUNTER 2019-01-22 10:10 | Inpatient (IN) | payer OTHER ==
[2019-01-22 10:26] VITALS: BMI 37.5
[2019-01-22] MEDS ORDERED: Sodium Chloride 0.9% 500 ML IV ONE ×2 (11:35→11:36)
[2019-01-22 11:48] LABS: VENOUS BLOOD GAS BASE EXCESS 8.1 mmol/L (0.0-2.0); VENOUS BLOOD GAS PCO2 58 mmHg (40-60); VENOUS BLOOD GAS PO2 36 mm/Hg (30-55); VENOUS BLOOD PH 7.39 (7.32-7.43)
[2019-01-22 11:53] LABS: BASO # 0.1 K/uL (0.0-0.2); BASO % 0.6 % (0.0-2.0); EOS # 0.1 K/uL (0.0-0.7); EOS % 0.7 % (0.0-4.0); HEMOGLOBIN 15.1 g/dL (12.0-18.0); LYMPH # 1.4 K/uL (1.0-4.3); MEAN CELL VOLUME 87.2 fL (80.0-94.0); MEAN CORPUSCULAR HEMOGLOBIN 29.5 pg (27.0-31.0); MEAN CORPUSCULAR HGB CONC 33.8 g/dL (33.0-37.0); MEAN PLATELET VOLUME 9.7 fL (7.2-11.7); MONO # 0.7 K/uL (0.0-0.8); MONO % 7.1 % (0.0-10.0); NEUT # 7.3 K/uL (1.8-7.0); NEUT % 76.6 % (50.0-75.0); NRBC % 0.2 % (0.0-2.0); RBC 5.11 Mil/uL (4.40-5.90); WHITE BLOOD COUNT 9.5 K/uL (4.8-10.8)
[2019-01-22 11:57] LABS: INR 1.3; PROTHROMBIN TIME 13.7 SECONDS (9.7-12.2)
[2019-01-22 12:03] LABS: ALBUMIN 3.6 g/dL (3.5-5.0); CALCIUM 8.5 mg/dl (8.6-10.4)
[2019-01-22 12:12] LABS: TROPONIN I 0.05 ng/mL (0.00-0.120)
--- NOTE | 2019-01-22 12:30 | RAD ---
Date of service: 01/22/2019 PROCEDURE: CHEST RADIOGRAPH, 1 VIEW HISTORY: chest pain COMPARISON: 11/07/2018 FINDINGS: LUNGS: There are low lung volumes. No focal consolidation. PLEURA: No pneumothorax or pleural effusion. CARDIOVASCULAR: Persistent severe cardiomegaly. There is stable position of left-sided permanent pacing device no aortic atherosclerotic calcifications present. OSSEOUS STRUCTURES: Within normal limits for the patient's age. VISUALIZED UPPER ABDOMEN: Normal. OTHER FINDINGS: There is chronic elevation of the left hemidiaphragm. IMPRESSION: Persistent severe cardiomegaly. No acute findings.
[2019-01-22] MEDS ORDERED: Sodium Chloride 0.9% 1,000 ML IV ONE (13:34)
--- NOTE | 2019-01-22 13:39 | RAD ---
Date of service: 01/22/2019 PROCEDURE: Radiographs of the Left Shoulder HISTORY: injury COMPARISON: No prior. FINDINGS: BONES: Normal. No fracture. JOINTS: [id number] osteoarthritic changes. Narrowing of the subacromial space P SOFT TISSUES: Normal. OTHER FINDINGS: None. IMPRESSION: No evidence of acute fracture or dislocation. [id number] osteoarthritis.
--- NOTE | 2019-01-22 13:44 | RAD ---
PROCEDURE: Left Hand Radiographs. HISTORY: injury COMPARISON: None. FINDINGS: BONES: Normal. No fracture. JOINTS: Arthritic degenerative changes. SOFT TISSUES: Normal. OTHER FINDINGS: None. IMPRESSION: No evidence of acute fracture or dislocation.
--- NOTE | 2019-01-22 13:45 | RAD ---
Date of service: 01/22/2019 PROCEDURE: Left Wrist Radiographs. HISTORY: injury COMPARISON: None. FINDINGS: BONES: No evidence of acute fracture. JOINTS: Arthritic degenerative changes. No dislocation. SOFT TISSUES: Normal. OTHER FINDINGS: None. IMPRESSION: No evidence of acute fracture or dislocation.
[2019-01-22 14:13] LABS: ARTERIAL BLOOD GAS HCO3 28.1 mmol/L (21-28); ARTERIAL BLOOD GAS O2 SAT 99.7 % (95-98); ARTERIAL BLOOD GAS PCO2 48 mm/Hg (35-45); ARTERIAL BLOOD GAS PO2 115 mm/Hg (80-100); ARTERIAL BLOOD GAS TCO2 31.2 mmol/L (22-28)
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
[2019-01-22] MEDS ORDERED: Dextrose 50% SYRINGE Inj (50 ml) IV PRN (14:56)
[2019-01-22] MEDS ORDERED: Glucagon Recombinant 1 mg Inj IM PRN (14:56)
[2019-01-22] MEDS: Sodium Chloride 0.9% 1,000 ML IV SCH (15:26)
[2019-01-22] MEDS: (Novolin R) Insulin Human Regular 100 units/ml vial SC SCH ×2 (17:28→23:34)
[2019-01-23 03:04] LABS: BARBITURATES, UR NEGATIVE (NEGATIVE); BENZODIAZEPINES, UR NEGATIVE (NEGATIVE); OPIATES, UR NEGATIVE (NEGATIVE); PHENCYCLIDINE, UR NEGATIVE (NEGATIVE)
[2019-01-23 07:48] LABS: BASO % 0.5 % (0.0-2.0); EOS # 0.1 K/uL (0.0-0.7); EOS % 1.3 % (0.0-4.0); HEMOGLOBIN 14.6 g/dL (12.0-18.0); LYMPH # 1.8 K/uL (1.0-4.3); LYMPH % 24.1 % (20.0-40.0); MEAN CELL VOLUME 87.4 fL (80.0-94.0); MEAN CORPUSCULAR HEMOGLOBIN 29.9 pg (27.0-31.0); MEAN CORPUSCULAR HGB CONC 34.2 g/dL (33.0-37.0); MEAN PLATELET VOLUME 9.6 fL (7.2-11.7); MONO # 0.7 K/uL (0.0-0.8); MONO % 9.3 % (0.0-10.0); NEUT # 4.9 K/uL (1.8-7.0); NEUT % 64.8 % (50.0-75.0); RBC 4.88 Mil/uL (4.40-5.90); RED CELL DISTRIBUTION WIDTH 14.4 % (11.5-14.5); WHITE BLOOD COUNT 7.6 K/uL (4.8-10.8)
[2019-01-23 08:17] LABS: ALB/GLOB RATIO 0.9 (1.0-2.1); ALBUMIN 3.3 g/dL (3.5-5.0); CALCIUM 8.4 mg/dl (8.6-10.4)
[2019-01-23] MEDS: (Novolin R) Insulin Human Regular 100 units/ml vial SC SCH ×4 (08:44→21:24)
[2019-01-23] MEDS: Metoprolol Succinate 50 mg XL Tab PO SCH ×2 (09:42→11:11)
[2019-01-23] MEDS: Sodium Chloride 0.9% 1,000 ML IV SCH (09:44)
--- NOTE | 2019-01-23 14:34 | CP.PCM.PN ---
<Bradley Beatty - Last Filed: 01/23/19 22:57> Subjective - Date & Time of Evaluation Date of Evaluation: 01/23/19 Time of Evaluation: 16:22 - Subjective Subjective: HOSPITALIST SERVICE Pt s/e at bedside, Pt feels much improved since yesterday and would like to go home, pt denies any syncopal episodes today, says hes able to walk around the room. Pt understands he must wait to have his MUGS scan and further cardio workup. denies cp sob fc nv, Objective - Vital Signs/Intake and Output Vital Signs (last 24 hours): Temp Pulse Resp BP Pulse Ox 97.5 F L 92 H 18 108/79 94 L 01/23/19 07:25 01/23/19 08:00 01/23/19 07:25 01/23/19 07:25 01/23/19 07:25 Intake and Output: 01/23/19 01/23/19 06:59 18:59 Intake Total 1200 Output Total 302 Balance 898 - Medications Medications: Current Medications Acetaminophen (Tylenol 325mg Tab) 650 mg PO Q6 PRN PRN Reason: Pain, severe (8-10) Last Admin: 01/23/19 01:50 Dose: 650 mg Aspirin (Aspirin Chewable) 81 mg PO DAILY [facility] Last Admin: 01/23/19 09:42 Dose: 81 mg Dextrose (Dextrose 50% Inj) 0 ml IV STAT PRN; Protocol PRN Reason: Hypoglycemia Protocol Dextrose (Glutose 15) 0 gm PO ONCE PRN; Protocol PRN Reason: Hypoglycemia Protocol Gabapentin (Neurontin) 300 mg PO Q8H [facility] Last Admin: 01/23/19 14:24 Dose: 300 mg Glucagon (Glucagen Diagnostic Kit) 0 mg IM STAT PRN; Protocol PRN Reason: Hypoglycemia Protocol Hydrochlorothiazide (Hydrodiuril) 25 mg PO DAILY [facility] Last Admin: 01/23/19 11:11 Dose: 25 mg Sodium Chloride (Sodium Chloride 0.9%) 1,000 mls @ 50 mls/hr IV .Q20H [facility] Last Admin: 01/23/19 09:44 Dose: Not Given Dextrose (Dextrose 5% In Water 1000 Ml) 1,000 mls @ 0 mls/hr IV .Q0M PRN; Protocol PRN Reason: Hypoglycemia Protocol Insulin Human Regular (Novolin R) 0 unit SC [facility]; Protocol Last Admin: 01/23/19 14:24 Dose: 4 unit Losartan Potassium (Cozaar) 25 mg PO DAILY [facility] Last Admin: 01/23/19 11:10 Dose: 25 mg Metoprolol Succinate (Toprol Xl) 50 mg PO DAILY [facility] Last Admin: 01/23/19 11:11 Dose: 50 mg Rivaroxaban (Xarelto) 20 mg PO DAILY [facility] Last Admin: 01/23/19 09:43 Dose: Not Given Rosuvastatin Calcium (Crestor) 5 mg PO HS [facility] Last Admin: 01/22/19 22:40 Dose: 5 mg Spironolactone (Aldactone) 25 mg PO BID [facility] - Labs Labs: 01/23/19 07:42 01/23/19 07:42 PT 13.7 SECONDS (9.7-12.2) H 01/22/19 11:41 INR 1.3 01/22/19 11:41 APTT 34 SECONDS (21-34) 01/22/19 11:41 - Additional Findings Additional findings: - Constitutional Appears: No Acute Distress - Head Exam Head Exam: ATRAUMATIC, NORMOCEPHALIC - Eye Exam Eye Exam: EOMI, Normal appearance. absent: Scleral icterus - ENT Exam ENT Exam: Mucous Membranes Moist, Normal Exam - Neck Exam Neck exam: Positive for: Normal Inspection. Negative for: Tenderness - Respiratory Exam Respiratory Exam: Clear to Auscultation Bilateral, NORMAL BREATHING PATTERN. a bsent: Rales, Rhonchi, Wheezes, Stridor - Cardiovascular Exam Cardiovascular Exam: RRR, +S1, +S2 - GI/Abdominal Exam GI & Abdominal Exam: Organomegaly (liver 3 fingerbreaths caudal). absent: Tenderness - Extremities Exam Extremities exam: Positive for: pedal edema, pedal pulses present Additional comments: skin changes consistent with venous stasis - Back Exam Back exam: NORMAL INSPECTION - Neurological Exam Neurological exam: Alert, CN II-XII Intact, Oriented x3, Reflexes Normal - Psychiatric Exam Psychiatric exam: Normal Affect, Normal Mood - Skin Skin Exam: Rash (bilateral shins) Assessment and Plan - Assessment and Plan (Free Text) Assessment: 68M admitted for syncope and hypotension Hypotension -resolved, SBP now >100 -Crit Care consulted Dr Sarita Baez -holding home antiHTN until tmrw AM -BNP 1240 -Dr Newton cardiology consulted, f/u recs Echo, poor quality- [place] able to assess LV EF f/u MUGA Syncope s/p FOOSH -Head CT without contrast 11/09: generalized atrophy, non-specific white mater changes. No hemorrhage. (see full report) -No neurological deficits at time of exam -Monitor History of CAD Crestor 5mg PO HS Aspirin 81mg PO HS start Metoprolol Succinate 50mg po daily tmrw AM History of Atrial flutter - pt with AICD - continue home meds: * Xarelto 20mg PO Daily History of HTN - continue home meds Spironolactone 12.5mg PO BID Cozaar 25mg PO Daily Metoprolol Succinate 50mg po daily HCTZ 25mg po daily Lasix 20 po daily History of HLD Lipid Panel - continue home meds * Crestor 5mg PO HS Uncontrolled Diabetes type 2 - f/u HbA1c - accucheck ACHS - insulin sliding scale: moderate - hold home glimepiride 2mg daily - Hypoglycemia protocol Peripheral Neuropathy - continue home medication Gabapentin 300mg q8h Hx of Gout - hold NSAIDs - consider starting allopurinol - f/u uric acid PPx GI: pepcid DVT: xarelto HHD <Kervin Oshea - Last Filed: 01/24/19 07:14> Objective - Vital Signs/Intake and Output Vital Signs (last 24 hours): Temp Pulse Resp BP Pulse Ox 97.9 F 85 20 97/63 L 95 01/23/19 23:42 01/24/19 00:39 01/23/19 23:42 01/23/19 23:42 01/23/19 23:42 Intake and Output: 01/24/19 01/24/19 06:59 18:59 Intake Total 500 Output Total 600 Balance -100 - Medications Medications: Current Medications Acetaminophen (Tylenol 325mg Tab) 650 mg PO Q6 PRN PRN Reason: Pain, severe (8-10) Last Admin: 01/23/19 01:50 Dose: 650 mg Aspirin (Aspirin Chewable) 81 mg PO DAILY [facility] Last Admin: 01/23/19 09:42 Dose: 81 mg Dextrose (Dextrose 50% Inj) 0 ml IV STAT PRN; Protocol PRN Reason: Hypoglycemia Protocol Dextrose (Glutose 15) 0 gm PO ONCE PRN; Protocol PRN Reason: Hypoglycemia Protocol Furosemide (Lasix) 20 mg PO DAILY [facility] Gabapentin (Neurontin) 300 mg PO Q8H [facility] Last Admin: 01/24/19 05:48 Dose: 300 mg Glucagon (Glucagen Diagnostic Kit) 0 mg IM STAT PRN; Protocol PRN Reason: Hypoglycemia Protocol Hydrochlorothiazide (Hydrodiuril) 25 mg PO DAILY [facility] Last Admin: 01/23/19 11:11 Dose: 25 mg Dextrose (Dextrose 5% In Water 1000 Ml) 1,000 mls @ 0 mls/hr IV .Q0M PRN; Protocol PRN Reason: Hypoglycemia Protocol Insulin Human Regular (Novolin R) 0 unit SC [facility]; Protocol Last Admin: 01/23/19 21:24 Dose: Not Given Losartan Potassium (Cozaar) 25 mg PO DAILY [facility] Last Admin: 01/23/19 11:10 Dose: 25 mg Metoprolol Succinate (Toprol Xl) 50 mg PO DAILY [facility] Last Admin: 01/23/19 11:11 Dose: 50 mg Rivaroxaban (Xarelto) 20 mg PO DAILY [facility] Last Admin: 01/23/19 09:43 Dose: Not Given Rosuvastatin Calcium (Crestor) 5 mg PO HS [facility] Last Admin: 01/23/19 21:23 Dose: 5 mg Spironolactone (Aldactone) 25 mg PO BID [facility] Last Admin: 01/23/19 17:01 Dose: 25 mg - Labs Labs: 01/23/19 07:42 01/23/19 07:42 PT 13.7 SECONDS (9.7-12.2) H 01/22/19 11:41 INR 1.3 01/22/19 11:41 APTT 34 SECONDS (21-34) 01/22/19 11:41 Attending/Attestation - Attestation I have personally seen and examined this patient.: Yes I have fully participated in the care of the patient.: Yes I have reviewed all pertinent clinical information, including history, physical exam and plan: Yes Notes (Text): seen and examined by me with the resident 1.Recurrent syncope and dizziness 2.Hypotensive on admission 3.Acute renal insufficiency-resolved 4.chronic systolic CHF-stable,s/p AICD in 2017 5.Aflutter 6.DM 7.HTN Plan discussed with the resident. Sex Therapist DR Newton recommending for a MUGA scan.
[2019-01-23 16:10] VITALS: RESP 20
[2019-01-24] MEDS: Metoprolol Succinate 50 mg XL Tab PO SCH (09:03)
[2019-01-24] MEDS: (Novolin R) Insulin Human Regular 100 units/ml vial SC SCH ×4 (09:39→22:20)
[2019-01-24 09:40] LABS: BASO # 0.1 K/uL (0.0-0.2); BASO % 0.7 % (0.0-2.0); EOS # 0.1 K/uL (0.0-0.7); EOS % 1.4 % (0.0-4.0); HEMOGLOBIN 14.8 g/dL (12.0-18.0); LYMPH # 1.7 K/uL (1.0-4.3); LYMPH % 21.1 % (20.0-40.0); MEAN CORPUSCULAR HEMOGLOBIN 29.9 pg (27.0-31.0); MEAN CORPUSCULAR HGB CONC 34.4 g/dL (33.0-37.0); MEAN PLATELET VOLUME 9.4 fL (7.2-11.7); MONO # 0.7 K/uL (0.0-0.8); MONO % 8.8 % (0.0-10.0); NEUT # 5.5 K/uL (1.8-7.0); NRBC % 0.1 % (0.0-2.0); RBC 4.94 Mil/uL (4.40-5.90); WHITE BLOOD COUNT 8.1 K/uL (4.8-10.8)
[2019-01-24 09:55] LABS: ALBUMIN 3.6 g/dL (3.5-5.0); ALT/SGPT 16 U/L (21-72); AST/SGOT 32 U/L (17-59); BLOOD UREA NITROGEN 20 mg/dL (9-20); CALCIUM 8.8 mg/dl (8.6-10.4); GFR NON-AFRICAN AMERICAN > 60; HDL CHOLESTEROL 23 mg/dL (30-70); URIC ACID 8.9 mg/dL (3.5-8.5)
[2019-01-24 10:05] LABS: LDL CHOLESTEROL 51 mg/dL (0-129)
--- NOTE | 2019-01-24 12:04 | CARD ---
APPROVED REPORT Date of service: 01/23/2019 EXAM: Two-dimensional and M-mode echocardiogram with Doppler and color Doppler. Other Information Quality : Technically LimitedRhythm : NSR INDICATION Atrial Fibrillation Chest Pain Syncope Congestive Heart Failure RISK FACTORS Hypertension Hyperlipidemia Diabetes Aortic Valve AoV Peak Fqhoyzom526.2cm/Elmer Peak GR.6mmHgAI P 1/2 [id number] Mitral Valve MV E Jtwvlwxe82.0cm/sMV A Hkweflcz53.5cm/sE/A ratio1.0 TDI E/Lateral E'0.0E/Medial E'0.0 <Conclusion> Suboptimal and technically very limited study Left ventricle: thickness: normal; size: normal; No pericardial effusion Cannot credibly comment on the rest of the study Suggest a LUC
--- NOTE | 2019-01-24 18:05 | CP.PCM.PN ---
<JurgenleviBradley - Last Filed: 01/24/19 18:06> Subjective - Date & Time of Evaluation Date of Evaluation: 01/24/19 Time of Evaluation: 17:58 - Subjective Subjective: HOSPITALIST SERVICE Pt s/e at bedside, pt says he did not take his antihypertensive Rx today bc of a low BP. Pt denies any acute complaints overnight, denies syncope, SOB CP FC [place]. Spoke to Pt abut possible f/u @ [facility] heart failure clinic, pt is agreeable Objective - Vital Signs/Intake and Output Vital Signs (last 24 hours): Temp Pulse Resp BP Pulse Ox 97.9 F 77 20 123/66 97 01/24/19 16:02 01/24/19 16:27 01/24/19 16:02 01/24/19 16:02 01/24/19 16:02 Intake and Output: 01/24/19 01/24/19 06:59 18:59 Intake Total 500 Output Total 600 Balance -100 - Medications Medications: Current Medications Acetaminophen (Tylenol 325mg Tab) 650 mg PO Q6 PRN PRN Reason: Pain, severe (8-10) Last Admin: 01/23/19 01:50 Dose: 650 mg Aspirin (Aspirin Chewable) 81 mg PO DAILY [facility] Last Admin: 01/24/19 09:39 Dose: 81 mg Dextrose (Dextrose 50% Inj) 0 ml IV STAT PRN; Protocol PRN Reason: Hypoglycemia Protocol Dextrose (Glutose 15) 0 gm PO ONCE PRN; Protocol PRN Reason: Hypoglycemia Protocol Furosemide (Lasix) 20 mg PO DAILY [facility] Last Admin: 01/24/19 09:03 Dose: Not Given Gabapentin (Neurontin) 300 mg PO Q8H [facility] Last Admin: 01/24/19 14:23 Dose: 300 mg Glucagon (Glucagen Diagnostic Kit) 0 mg IM STAT PRN; Protocol PRN Reason: Hypoglycemia Protocol Hydrochlorothiazide (Hydrodiuril) 25 mg PO DAILY [facility] Last Admin: 01/24/19 09:03 Dose: Not Given Dextrose (Dextrose 5% In Water 1000 Ml) 1,000 mls @ 0 mls/hr IV .Q0M PRN; Protocol PRN Reason: Hypoglycemia Protocol Insulin Human Regular (Novolin R) 0 unit SC ACHS [facility]; Protocol Last Admin: 01/24/19 17:15 Dose: 4 units Losartan Potassium (Cozaar) 25 mg PO DAILY [facility] Last Admin: 01/24/19 09:02 Dose: Not Given Metoprolol Succinate (Toprol Xl) 50 mg PO DAILY [facility] Last Admin: 01/24/19 09:03 Dose: Not Given Rivaroxaban (Xarelto) 20 mg PO DAILY [facility] Last Admin: 01/24/19 09:03 Dose: Not Given Rosuvastatin Calcium (Crestor) 5 mg PO HS [facility] Last Admin: 01/23/19 21:23 Dose: 5 mg Spironolactone (Aldactone) 25 mg PO BID [facility] Last Admin: 01/24/19 17:52 Dose: 25 mg - Labs Labs: 01/24/19 09:32 01/24/19 09:32 PT 13.7 SECONDS (9.7-12.2) H 01/22/19 11:41 INR 1.3 01/22/19 11:41 APTT 34 SECONDS (21-34) 01/22/19 11:41 - Additional Findings Additional findings: - Constitutional Appears: No Acute Distress - Head Exam Head Exam: ATRAUMATIC, NORMOCEPHALIC - Eye Exam Eye Exam: EOMI, Normal appearance. absent: Scleral icterus - ENT Exam ENT Exam: Mucous Membranes Moist, Normal Exam - Neck Exam Neck exam: Positive for: Normal Inspection. Negative for: Tenderness - Respiratory Exam Respiratory Exam: Clear to Auscultation Bilateral, NORMAL BREATHING PATTERN. absent: Rales, Rhonchi, Wheezes, Stridor - Cardiovascular Exam Cardiovascular Exam: RRR, +S1, +S2 - GI/Abdominal Exam GI & Abdominal Exam: Organomegaly (liver 3 fingerbreaths caudal). absent: Tenderness - Extremities Exam Extremities exam: Positive for: pedal edema, pedal pulses present Additional comments: skin changes consistent with venous stasis - Back Exam Back exam: NORMAL INSPECTION - Neurological Exam Neurological exam: Alert, CN II-XII Intact, Oriented x3, Reflexes Normal - Psychiatric Exam Psychiatric exam: Normal Affect, Normal Mood - Skin Skin Exam: Rash (bilateral shins) Assessment and Plan - Assessment and Plan (Free Text) Assessment: 68M admitted for syncope and hypotension Hypotension -resolved, SBP now >100 -Crit Care consulted Dr Sarita Baez -holding home antiHTN until tmrw AM -BNP 1240 -Dr Newton cardiology consulted, f/u recs Echo, poor quality- luis mley able to assess LV EF f/u MUGA Syncope s/p FOOSH -Head CT without contrast 11/09: generalized atrophy, non-specific white mater changes. No hemorrhage. (see full report) -No neurological deficits at time of exam -Monitor History of CAD Crestor 5mg PO HS Aspirin 81mg PO HS start Metoprolol Succinate 50mg po daily tmrw AM History of Atrial flutter - pt with AICD - continue home meds: * Xarelto 20mg PO Daily History of HTN - continue home meds Spironolactone 12.5mg PO BID Cozaar 25mg PO Daily Metoprolol Succinate 50mg po daily HCTZ 25mg po daily Lasix 20 po daily History of HLD Lipid Panel, elevated trigly - continue home meds * Crestor 5mg PO HS Uncontrolled Diabetes type 2 - 11 HbA1c - accucheck ACHS - insulin sliding scale: high - hold home glimepiride 2mg daily and Metformin for MUGA - Hypoglycemia protocol Peripheral Neuropathy - continue home medication Gabapentin 300mg q8h Hx of Gout - hold NSAIDs - consider starting allopurinol - elevated uric acid PPx GI: pepcid DVT: xarelto HHD Dispo: Pt to be dc home pending MUGA tmrw AM <Kervin Oshea - Last Filed: 01/24/19 18:48> Objective - Vital Signs/Intake and Output Vital Signs (last 24 hours): Temp Pulse Resp BP Pulse Ox 97.9 F 77 20 123/66 97 01/24/19 16:02 01/24/19 16:27 01/24/19 16:02 01/24/19 16:02 01/24/19 16:02 Intake and Output: 01/24/19 01/24/19 06:59 18:59 Intake Total 500 Output Total 600 Balance -100 - Medications Medications: Current Medications Acetaminophen (Tylenol 325mg Tab) 650 mg PO Q6 PRN PRN Reason: Pain, severe (8-10) Last Admin: 01/23/19 01:50 Dose: 650 mg Aspirin (Aspirin Chewable) 81 mg PO DAILY [facility] Last Admin: 01/24/19 09:39 Dose: 81 mg Dextrose (Dextrose 50% Inj) 0 ml IV STAT PRN; Protocol PRN Reason: Hypoglycemia Protocol Dextrose (Glutose 15) 0 gm PO ONCE PRN; Protocol PRN Reason: Hypoglycemia Protocol Furosemide (Lasix) 20 mg PO DAILY [facility] Last Admin: 01/24/19 09:03 Dose: Not Given Gabapentin (Neurontin) 300 mg PO Q8H [facility] Last Admin: 01/24/19 14:23 Dose: 300 mg Glucagon (Glucagen Diagnostic Kit) 0 mg IM STAT PRN; Protocol PRN Reason: Hypoglycemia Protocol Hydrochlorothiazide (Hydrodiuril) 25 mg PO DAILY [facility] Last Admin: 01/24/19 09:03 Dose: Not Given Dextrose (Dextrose 5% In Water 1000 Ml) 1,000 mls @ 0 mls/hr IV .Q0M PRN; Protocol PRN Reason: Hypoglycemia Protocol Insulin Human Regular (Novolin R) 0 unit SC ACHS [facility]; Protocol Last Admin: 01/24/19 17:15 Dose: 4 units Losartan Potassium (Cozaar) 25 mg PO DAILY [facility] Last Admin: 01/24/19 09:02 Dose: Not Given Metoprolol Succinate (Toprol Xl) 50 mg PO DAILY [facility] Last Admin: 01/24/19 09:03 Dose: Not Given Rivaroxaban (Xarelto) 20 mg PO DAILY [facility] Last Admin: 01/24/19 09:03 Dose: Not Given Rosuvastatin Calcium (Crestor) 5 mg PO HS [facility] Last Admin: 01/23/19 21:23 Dose: 5 mg Spironolactone (Aldactone) 25 mg PO BID [facility] Last Admin: 01/24/19 17:52 Dose: 25 mg - Labs Labs: 01/24/19 09:32 01/24/19 09:32 PT 13.7 SECONDS (9.7-12.2) H 01/22/19 11:41 INR 1.3 01/22/19 11:41 APTT 34 SECONDS (21-34) 01/22/19 11:41 Attending/Attestation - Attestation I have personally seen and examined this patient.: Yes I have fully participated in the care of the patient.: Yes I have reviewed all pertinent clinical information, including history, physical exam and plan: Yes Notes (Text): no complain,no dizziness,no syncope after admission,BP improved,started back on his home meds Follow MUGA scan een and examined by me with the resident 1.Recurrent syncope and dizziness 2.Hypotensive on admission 3.Acute renal insufficiency-resolved 4.chronic systolic CHF-stable,s/p AICD in 2017 5.Aflutter 6.DM 7.HTN
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
[2019-01-25 07:21] LABS: BASO # 0.1 K/uL (0.0-0.2); BASO % 0.6 % (0.0-2.0); EOS # 0.1 K/uL (0.0-0.7); HEMOGLOBIN 15.3 g/dL (12.0-18.0); LYMPH # 2.2 K/uL (1.0-4.3); LYMPH % 25.9 % (20.0-40.0); MEAN CORPUSCULAR HEMOGLOBIN 30.3 pg (27.0-31.0); MEAN CORPUSCULAR HGB CONC 34.9 g/dL (33.0-37.0); MEAN PLATELET VOLUME 9.5 fL (7.2-11.7); MONO # 0.8 K/uL (0.0-0.8); MONO % 8.9 % (0.0-10.0); NEUT # 5.4 K/uL (1.8-7.0); NEUT % 63.6 % (50.0-75.0); NRBC % 0.1 % (0.0-2.0); RBC 5.03 Mil/uL (4.40-5.90); RED CELL DISTRIBUTION WIDTH 14.3 % (11.5-14.5); WHITE BLOOD COUNT 8.5 K/uL (4.8-10.8)
[2019-01-25 07:43] LABS: ALBUMIN 3.7 g/dL (3.5-5.0); ALT/SGPT 18 U/L (21-72); AST/SGOT 35 U/L (17-59); BLOOD UREA NITROGEN 19 mg/dL (9-20); CALCIUM 8.7 mg/dl (8.6-10.4); GFR NON-AFRICAN AMERICAN > 60
[2019-01-25] MEDS: (Novolin R) Insulin Human Regular 100 units/ml vial SC SCH ×2 (08:07→12:33)
--- NOTE | 2019-01-25 08:11 | CP.PCM.PN ---
Subjective - Date & Time of Evaluation Date of Evaluation: 01/25/19 Time of Evaluation: 08:09 - Subjective Subjective: HOSPITALIST SERVICE Pt s/e at bedside Objective - Vital Signs/Intake and Output Vital Signs (last 24 hours): Temp Pulse Resp BP Pulse Ox 98.0 F 82 20 127/71 96 01/25/19 07:07 01/25/19 07:07 01/25/19 07:07 01/25/19 07:07 01/25/19 07:17 Intake and Output: 01/25/19 01/25/19 06:59 18:59 Output Total 450 Balance -450 - Medications Medications: Current Medications Acetaminophen (Tylenol 325mg Tab) 650 mg PO Q6 PRN PRN Reason: Pain, severe (8-10) Last Admin: 01/23/19 01:50 Dose: 650 mg Aspirin (Aspirin Chewable) 81 mg PO DAILY [facility] Last Admin: 01/24/19 09:39 Dose: 81 mg Dextrose (Dextrose 50% Inj) 0 ml IV STAT PRN; Protocol PRN Reason: Hypoglycemia Protocol Dextrose (Glutose 15) 0 gm PO ONCE PRN; Protocol PRN Reason: Hypoglycemia Protocol Furosemide (Lasix) 20 mg PO DAILY [facility] Gabapentin (Neurontin) 300 mg PO Q8H [facility] Last Admin: 01/25/19 06:00 Dose: 300 mg Glucagon (Glucagen Diagnostic Kit) 0 mg IM STAT PRN; Protocol PRN Reason: Hypoglycemia Protocol Hydrochlorothiazide (Hydrodiuril) 25 mg PO DAILY [facility] Dextrose (Dextrose 5% In Water 1000 Ml) 1,000 mls @ 0 mls/hr IV .Q0M PRN; Protocol PRN Reason: Hypoglycemia Protocol Insulin Human Regular (Novolin R) 0 unit SC ACHS [facility]; Protocol Last Admin: 01/25/19 08:07 Dose: 2 units Losartan Potassium (Cozaar) 25 mg PO DAILY [facility] Metoprolol Succinate (Toprol Xl) 50 mg PO DAILY [facility] Last Admin: 01/24/19 09:03 Dose: Not Given Rivaroxaban (Xarelto) 20 mg PO DAILY [facility] Last Admin: 01/24/19 09:03 Dose: Not Given Rosuvastatin Calcium (Crestor) 5 mg PO HS [facility] Last Admin: 01/24/19 21:54 Dose: 5 mg Spironolactone (Aldactone) 25 mg PO BID [facility] Last Admin: 01/24/19 17:52 Dose: 25 mg - Labs Labs: 01/25/19 07:03 01/25/19 07:03 PT 13.7 SECONDS (9.7-12.2) H 01/22/19 11:41 INR 1.3 01/22/19 11:41 APTT 34 SECONDS (21-34) 01/22/19 11:41
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
[2019-01-25] MEDS: Metoprolol Succinate 50 mg XL Tab PO SCH (12:42)
[2019-01-25 16:09] VITALS: BP 102/54; PULSE 61; TEMP 98.4; O2SAT 95
[2019-01-26 16:20] LABS: OXYCODONE SCREEN negative
== END 2019-01-25 17:56 | disposition home or self-care (01) | DRG 194 ==
LOC: C.ER 10:10 → C.9E 14:03 → C.5S 16:43
PROVIDERS: ADMIT Internal Medicine; ATTEND Internal Medicine
DX: I11.0 Hypertensive heart disease with heart failure (principal); N17.9 Acute kidney failure, unspecified; E11.65 Type 2 diabetes mellitus with hyperglycemia; E11.40 Type 2 diabetes mellitus with diabetic neuropathy, unspecified; I48.92 Unspecified atrial flutter; I50.23 Acute on chronic systolic (congestive) heart failure; E78.00 Pure hypercholesterolemia, unspecified; J45.909 Unspecified asthma, uncomplicated; M10.9 Gout, unspecified; Z95.0 Presence of cardiac pacemaker; I87.8 Other specified disorders of veins; R55 Syncope and collapse; I25.10 Atherosclerotic heart disease of native coronary artery without angina pectoris

== ENCOUNTER 2019-01-28 10:15 | Inpatient (IN) | payer MEDICAID, OTHER ==
[2019-01-28 10:15] VITALS: BMI 37.5
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
[2019-01-28 10:51] LABS: BASO % 0.3 % (0.0-2.0); EOS # 0.1 K/uL (0.0-0.7); EOS % 0.8 % (0.0-4.0); LYMPH # 3.4 K/uL (1.0-4.3); LYMPH % 22.6 % (20.0-40.0); MEAN CORPUSCULAR HEMOGLOBIN 29.8 pg (27.0-31.0); MEAN CORPUSCULAR HGB CONC 33.9 g/dL (33.0-37.0); MEAN PLATELET VOLUME 9.6 fL (7.2-11.7); MONO # 1.2 K/uL (0.0-0.8); MONO % 8.1 % (0.0-10.0); NEUT # 10.4 K/uL (1.8-7.0); NEUT % 68.2 % (50.0-75.0); NRBC % 0.3 % (0.0-2.0); RBC 5.92 Mil/uL (4.40-5.90); RED CELL DISTRIBUTION WIDTH 14.6 % (11.5-14.5)
[2019-01-28 10:52] LABS: HEMOGLOBIN 17.6 g/dL (12.0-18.0); WHITE BLOOD COUNT 15.2 K/uL (4.8-10.8)
[2019-01-28 11:00] LABS: INR 1.2; PROTHROMBIN TIME 13.6 SECONDS (9.7-12.2)
[2019-01-28 11:09] LABS: ALB/GLOB RATIO 1.1 (1.0-2.1); ALBUMIN 4.5 g/dL (3.5-5.0); CALCIUM 9.5 mg/dl (8.6-10.4)
[2019-01-28] MEDS ORDERED: Sodium Chloride 0.9% 1,000 ML IV ONE (11:14)
[2019-01-28 11:15] LABS: TROPONIN I 0.047 ng/mL (0.00-0.120)
[2019-01-28] MEDS ORDERED: Vancomycin 1 gm/NS 200 ml 1 GM/200 ML BAG IVPB ONE (11:32)
[2019-01-28] MEDS ORDERED: Piperacillin/Tazobact 3.375 gm 100 ML IVPB STA (11:32)
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
--- NOTE | 2019-01-28 12:25 | RAD ---
Date of service: 01/28/2019 PROCEDURE: CHEST RADIOGRAPH, 1 VIEW HISTORY: chest pain COMPARISON: 01/22/2019 FINDINGS: LUNGS: The lungs are well inflated and clear. PLEURA: No pneumothorax or pleural effusion. CARDIOVASCULAR: Persistent severe cardiomegaly. There is stable position of left-sided permanent pacing device. No aortic atherosclerotic calcifications present. OSSEOUS STRUCTURES: Within normal limits for the patient's age. VISUALIZED UPPER ABDOMEN: Normal. OTHER FINDINGS: There is chronic elevation of the left hemidiaphragm. IMPRESSION: No acute findings.
[2019-01-28] MEDS ORDERED: Dextrose 50% SYRINGE Inj (50 ml) IV PRN (13:23)
[2019-01-28] MEDS ORDERED: Glucagon Recombinant 1 mg Inj IM PRN (13:23)
[2019-01-28] MEDS ORDERED: Albuterol-Ipratrop 3 mg / 0.5 (3 ml) UD INH STA (13:56)
[2019-01-28] MEDS ORDERED: Albuterol-Ipratrop 3 mg / 0.5 (3 ml) UD ONE (14:16)
[2019-01-28] MEDS ORDERED: Digoxin 250 mcg (0.25 mg) Tab PO STA (16:25)
[2019-01-28 17:22] LABS: CK-MB 1.56 ng/mL (0.0-3.38); TROPONIN I 0.057 ng/mL (0.00-0.120)
[2019-01-28] MEDS: (Novolin R) Insulin Human Regular 100 units/ml vial SC SCH ×2 (17:59→22:20)
[2019-01-28 23:41] LABS: CK-MB 1.08 ng/mL (0.0-3.38); TROPONIN I 0.065 ng/mL (0.00-0.120)
[2019-01-29 07:18] LABS: BASO # 0.1 K/uL (0.0-0.2); BASO % 0.6 % (0.0-2.0); EOS # 0.1 K/uL (0.0-0.7); EOS % 1.2 % (0.0-4.0); LYMPH # 1.6 K/uL (1.0-4.3); LYMPH % 18.5 % (20.0-40.0); MEAN CELL VOLUME 87.9 fL (80.0-94.0); MEAN CORPUSCULAR HEMOGLOBIN 30.2 pg (27.0-31.0); MEAN CORPUSCULAR HGB CONC 34.4 g/dL (33.0-37.0); MEAN PLATELET VOLUME 9.3 fL (7.2-11.7); MONO # 0.8 K/uL (0.0-0.8); NEUT # 5.9 K/uL (1.8-7.0); NEUT % 69.7 % (50.0-75.0); RBC 4.68 Mil/uL (4.40-5.90); RED CELL DISTRIBUTION WIDTH 14.3 % (11.5-14.5); WHITE BLOOD COUNT 8.5 K/uL (4.8-10.8)
[2019-01-29 07:25] LABS: HEMOGLOBIN 14.1 g/dL (12.0-18.0)
[2019-01-29 07:36] LABS: ALBUMIN 3.3 g/dL (3.5-5.0); CALCIUM 8.3 mg/dl (8.6-10.4)
--- NOTE | 2019-01-29 08:00 | CP.PCM.PN ---
<Clem Jacobs - Last Filed: 01/29/19 18:30> Subjective - Date & Time of Evaluation Date of Evaluation: 01/29/19 Time of Evaluation: 07:45 - Subjective Subjective: Medicine progress note for Dr. Oshea Pt seen and examined at bedside. Pt reports resolution of symptoms. Only complains of left hand and left knee pain due to fall after prior discharge earlier in january 2019. This contradicts his initial statement which was that he did not fall between prior admission and this admission. Pt denies hitting his head during afore mentioned fall. Denies fever, chills, chest pain, sob, palpitations, abdominal pain, n/v/d, headache, dizziness, visual changes, lightheadedness. Pt with 7 beats of vtach overnight, asymptomatic. Objective - Vital Signs/Intake and Output Vital Signs (last 24 hours): Temp Pulse Resp BP Pulse Ox 98.1 F 87 20 105/68 95 01/28/19 23:30 01/28/19 23:30 01/28/19 23:30 01/28/19 23:30 01/28/19 23:30 Intake and Output: 01/29/19 01/29/19 06:59 18:59 Output Total 250 Balance -250 - Medications Medications: Current Medications Aspirin (Ecotrin) 81 mg PO DAILY [facility] Carvedilol (Coreg) 3.125 mg PO BID [facility] Dextrose (Dextrose 50% Inj) 0 ml IV STAT PRN; Protocol PRN Reason: Hypoglycemia Protocol Dextrose (Glutose 15) 0 gm PO ONCE PRN; Protocol PRN Reason: Hypoglycemia Protocol Digoxin (Lanoxin) 0.25 mg PO STAT STA Stop: 01/29/19 07:56 Digoxin (Digoxin) 0.125 mg PO DAILY [facility] Glucagon (Glucagen Diagnostic Kit) 0 mg IM STAT PRN; Protocol PRN Reason: Hypoglycemia Protocol Dextrose (Dextrose 5% In Water 1000 Ml) 1,000 mls @ 0 mls/hr IV .Q0M PRN; Protocol PRN Reason: Hypoglycemia Protocol Insulin Human Regular (Novolin R) 0 unit SC [facility]; Protocol Last Admin: 01/28/19 22:20 Dose: Not Given Rivaroxaban (Xarelto) 20 mg PO DAILY [facility] Rosuvastatin Calcium (Crestor) 5 mg PO [facility] Last Admin: 01/28/19 21:44 Dose: 5 mg - Labs Labs: 01/29/19 07:06 01/29/19 07:06 PT 13.6 SECONDS (9.7-12.2) H 01/28/19 10:43 INR 1.2 01/28/19 10:43 APTT 35 SECONDS (21-34) H 01/28/19 10:43 - Additional Findings Additional findings: - Constitutional Appears: Non-toxic, No Acute Distress - Head Exam Head Exam: ATRAUMATIC, NORMAL INSPECTION - Eye Exam Eye Exam: EOMI, Normal appearance - ENT Exam ENT Exam: Mucous Membranes Moist - Respiratory Exam Respiratory Exam: Decreased Breath Sounds, absent: Rales, Rhonchi, Respiratory Distress, Wheezing - Cardiovascular Exam Cardiovascular Exam: Irregular Rhythm, +S1, +S2 - GI/Abdominal Exam GI & Abdominal Exam: Normal Bowel Sounds, Soft (obese abdomen). absent: Distended, Firm, Guarding, Rebound, Rigid, Tenderness - Extremities Exam Extremities exam: Positive for: pedal pulses present, pedal edema (chronic venous stasis). Negative for: calf tenderness, tenderness (+) left hand swelling, no ecchymosis, 2+ radial pulse, sensation normal and intact. Movement impaired secondary to soft tissue swelling, and pain. (+) left knee swelling, no ecchymosis, 2+ distal pulses, sensation normal and intact. Extension impaired secondary to soft tissue swelling, and pain. - Neurological Exam Neurological exam: Alert, Oriented x3 - Psychiatric Exam Psychiatric exam: Normal Affect, Normal Mood - Skin Skin Exam: Dry, Normal Color, Warm Assessment and Plan - Assessment and Plan (Free Text) Assessment: 68M admitted for syncope and hypotension Plan: Atrial fibrillation with RVR on initial presentation Xarelto 20 mg PO daily tomorrow as well Tele monitor Cardiology, Dr. Vernon, consulted. Case discussed: Pt is clinically dry and may be dizzy from hypotension. Recs Coreg, digoxin for rate control. Reducing home losartan and aldactone doses Digoxin 0.25 mg PO tonight, goal of maintaining pt on 0.125 mg PO daily Coreg 3.125 mg PO BID Dyspnea with cough Hx HFrF, with AICD MUGA scan 01/25/19 shows EF approximately 25%, Pt with severely reduced EF (Echo LVEF 10% in 2017) and with AICD. Home meds adjusted: No longer on metoprolol XL at all Coreg 3.125 mg PO BID Aldactone 25 mg PO today and it will continue once daily tomorrow Continue Digoxin 0.25 mg PO today (second daily dose), will continue with 0.125 mg PO daily for rate control Losartan 12.5 mg PO to start tomorrow morning. CXR shows pulmonary vascular congestion, cardiomegaly; similar to previous CXR. BNP 2270 on admission Troponin x 3 normal Cardiology, Dr. Vernon, consulted Daily Is and Os 1.5L fluid restriction, 2g sodium restriction Pt should follow up with Heart Failure clinic at [facility] with Dr. Mustapha Calderon, . Pt should call to make appointment. Dizziness, resolved Likely multifactorial due to HFrEF/hypotension/Afib Head CT without contrast 11/09: generalized atrophy, non-specific white mater changes. No hemorrhage. (see full report) No neurological deficits at time of exam Continue to monitor Acute kidney injury BUN/Cr is 30/1.7 Likely due to hypoperfusion due to low BP Similar presentation to prior admission (01/22/19) Continue to monitor and manage hypotension No IV Fluids at this time due to severely reduced CHF Avoid nephrotoxic medications Pt to hold home Metformin until he follows up with his PMD or head of measurement & insights Leukocytosis, resolved 8.5 today, likely reactive on initial presentation S/p Zosyn 3.375g x1 and Vancomycin 1g x1 in the ED Afebrile Continue to monitor Hx of fall Left hand and knee pain, improving Left hand XR 01/29: normal Left knee XR 01/29: normal Left wrist XR 01/29: normal Continue RICE History of CAD Crestor 5mg PO HS Aspirin 81mg PO daily Hold home Metoprolol succinate 25 mg PO BID Coreg as above History of HTN Medications as above History of HLD Lipid panel 01/24/19 shows hypertriglyceridemia 152 and HDL low at 23 Continue home Crestor 5mg PO HS Uncontrolled Diabetes type 2 11 HbA1c 01/24/19 Accucheck ACHS ISS medium Hold home Glimepiride and Metformin Pt to hold home Metformin for at least 48 hours after resolution of MELECIO or until he follows up with his PMD or head of measurement & insights Can continue home dose Glimepiride on discharge Hypoglycemia protocol Peripheral Neuropathy Home Gabapentin adjusted: Gabapentin 100 mg PO BID will start today PPx GI: no indicated VTE: SCDs, chemical anticoagulation CI'd due to pt being on Xarelto 20 mg PO daily HHD, 2g sodium, 1.5L restriction Dispo: PT/OT eval. Planned discharge tomorrow, pending BP is stable on new medication regimen. Pt needs to be informed of new regimen and provided with pr escriptions prior to discharge. Pt should be instructed to spread his medication administration out to avoid times of hypotension. Pt should follow up with Heart Failure clinic at [facility] with Dr. Mustapha Calderon, . <Kervin Oshea - Last Filed: 01/30/19 16:19> Objective - Vital Signs/Intake and Output Vital Signs (last 24 hours): Temp Pulse Resp BP Pulse Ox 98 F 70 20 100/67 96 01/30/19 07:51 01/30/19 07:51 01/30/19 07:51 01/30/19 07:51 01/30/19 07:51 Intake and Output: 01/30/19 01/30/19 06:59 18:59 Intake Total 480 Output Total 300 700 Balance -300 -220 - Medications Medications: Current Medications Aspirin (Ecotrin) 81 mg PO DAILY [facility] Last Admin: 01/30/19 09:26 Dose: 81 mg Carvedilol (Coreg) 3.125 mg PO BID [facility] Last Admin: 01/30/19 09:26 Dose: 3.125 mg Dextrose (Dextrose 50% Inj) 0 ml IV STAT PRN; Protocol PRN Reason: Hypoglycemia Protocol Dextrose (Glutose 15) 0 gm PO ONCE PRN; Protocol PRN Reason: Hypoglycemia Protocol Digoxin (Digoxin) 0.125 mg PO DAILY@1800 [facility] Gabapentin (Neurontin) 100 mg PO BID [facility] Last Admin: 01/30/19 09:26 Dose: 100 mg Glucagon (Glucagen Diagnostic Kit) 0 mg IM STAT PRN; Protocol PRN Reason: Hypoglycemia Protocol Dextrose (Dextrose 5% In Water 1000 Ml) 1,000 mls @ 0 mls/hr IV .Q0M PRN; Protocol PRN Reason: Hypoglycemia Protocol Insulin Human Regular (Novolin R) 0 unit SC [facility]; Protocol Last Admin: 01/30/19 12:41 Dose: 4 unit Lidocaine (Lidocaine 5%) 0 gm TOP DAILY PRN PRN Reason: LEFT KNEE PAIN Last Admin: 03/23/19 11:55 Dose: 1 applic Losartan Potassium (Cozaar) 12.5 mg PO DAILY [facility] Last Admin: 01/30/19 09:25 Dose: 12.5 mg Rivaroxaban (Xarelto) 20 mg PO DAILY [facility] Last Admin: 01/30/19 09:25 Dose: 20 mg Rosuvastatin Calcium (Crestor) 5 mg PO HS [facility] Last Admin: 01/29/19 21:25 Dose: 5 mg Spironolactone (Aldactone) 25 mg PO BID [facility] Tramadol HCl (Ultram) 25 mg PO TID PRN PRN Reason: Pain, severe (8-10) Last Admin: 01/30/19 11:42 Dose: 25 mg - Labs Labs: 01/30/19 07:16 01/30/19 07:16 PT 13.6 SECONDS (9.7-12.2) H 01/28/19 10:43 INR 1.2 01/28/19 10:43 APTT 35 SECONDS (21-34) H 01/28/19 10:43 Attending/Attestation - Attestation I have personally seen and examined this patient.: Yes I have fully participated in the care of the patient.: Yes I have reviewed all pertinent clinical information, including history, physical exam and plan: Yes Notes (Text): seen and examined. Has left knee and wrist pain. x rays negative. seen by PT possible discharge tomorrow if he is ok
[2019-01-29] MEDS ORDERED: Digoxin 250 mcg (0.25 mg) Tab PO ONE (08:15)
[2019-01-29] MEDS: (Novolin R) Insulin Human Regular 100 units/ml vial SC SCH ×4 (08:32→21:47)
--- NOTE | 2019-01-29 12:51 | RAD ---
Date of service: 01/29/2019 PROCEDURE: Left Wrist Radiographs. HISTORY: hx of fall COMPARISON: None. FINDINGS: BONES: Normal. No fracture. JOINTS: Normal. No dislocation. SOFT TISSUES: Normal. OTHER FINDINGS: None. IMPRESSION: Normal left wrist radiographs.
--- NOTE | 2019-01-29 12:51 | RAD ---
Date of service: 01/29/2019 PROCEDURE: Left Knee Radiographs. HISTORY: Pain. COMPARISON: None. FINDINGS: BONES: Normal. No fracture. JOINTS: Normal. No osteoarthritis. JOINT EFFUSION: None. OTHER FINDINGS: None. IMPRESSION: Normal radiographs of the left knee.
--- NOTE | 2019-01-29 12:53 | RAD ---
PROCEDURE: Left Hand Radiographs. HISTORY: hx of fall COMPARISON: None. FINDINGS: BONES: Bone alignment is normal. There is no acute displaced fracture or bone destruction. There is diffuse bone demineralization. JOINTS: Normal. No osteoarthritic changes. SOFT TISSUES: Normal. OTHER FINDINGS: None. IMPRESSION: No acute displaced fracture or dislocation.
[2019-01-29 14:32] LABS: SQUAMOUS EPITHIAL 1 /hpf (0-5); URINE BACTERIA RARE (<OCC); URINE BILIRUBIN NEGATIVE (NEGATIVE); URINE BLOOD NEGATIVE (NEGATIVE); URINE CLARITY Hazy (Clear); URINE COLOR Yellow (YELLOW); URINE GLUCOSE (UA) NORMAL (Normal); URINE LEUKOCYTE ESTERASE NEG Leu/uL (Negative); URINE PROTEIN NEGATIVE (NEGATIVE)
--- NOTE | 2019-01-30 05:33 | CON ---
DATE: 01/29/2019 CARDIOLOGY CONSULTATION REQUESTED BY: Hospitalist group. LOCATION: Room 557 A. HISTORY OF PRESENT ILLNESS: Requested to see this 68-year-old male known to us from the clinic with history of severe congestive heart failure, status post automatic implantable defibrillator, atrial fibrillation etc. who recently was discharged and after a bout of congestive heart failure and dizziness and readmitted with syncope and hypotension etc. Since arrival here, he appears now to be stable. His atrial fibrillation with rapid ventricular response was addressed with the use of cardioactive medication including IV diltiazem; however, his blood pressure dropped and this was discontinued. Since yesterday, he was started on digoxin, carvedilol etc. and appears to be much more stable. Continuous cardiac monitoring shows the atrial fibrillation is now with moderate ventricular response. PAST MEDICAL HISTORY: As mentioned above, hypertension, congestive heart failure, atrial fibrillation, on anticoagulants. He actually was supposed to come to the clinic yesterday; however, he came to the emergency room instead and he was admitted after syncopal episode as mentioned. The case was extensively discussed with the medical staff. PHYSICAL EXAMINATION: GENERAL: Reveals an elderly male, very, very pleasant. During my exam, he appears no distress whatsoever. The only complaint was pain in the left hand and wrist after a few days ago. X-rays of these areas were negative for fracture or dislocation. VITAL SIGNS: Blood pressure at the present time is about 103/71. Continuous cardiac monitoring shows heart rate of about 89 and temperature is normal. SKIN: Warm, dry. No cyanosis or edema. HEAD, EARS, NOSE, AND THROAT: Appears unremarkable for his age. NECK: Supple. Jugular veins appear nondistended. LUNGS: No significant adventitious sounds. CHEST: Shows defibrillator, pulse generator in the left infraclavicular area. HEART: Heart sounds irregularly irregular with a minimal systolic murmur which is chronic. ABDOMEN: Soft. No organomegaly. EXTREMITIES: Lower extremities, no edema during my exam. LABORATORY DATA: Chest x-ray: Cardiomegaly, however, lung limon are clear. No evidence of any pulmonary congestion. A pulse generator in the left infraclavicular area. EKG: Atrial fibrillation with rapid ventricular response on arrival here; however since he is now on beta blockers as well as digoxin, the rate is now under control. IMPRESSION: Severe congestive heart failure, chronic atrial fibrillation, and implantable automatic defibrillator. CONCLUSION AND SUGGESTION: The case was discussed with the medical staff. We will continue beta red, digoxin and anticoagulants in the form for Xarelto which he is now taking without any problems. He is also on small amount of losartan 12.5 mg and spironolactone. We will try to prevent any over diuresis that had created some problems in the recent past. Darius Vernon MD
[2019-01-30 07:29] LABS: BASO # 0.1 K/uL (0.0-0.2); BASO % 0.6 % (0.0-2.0); EOS # 0.1 K/uL (0.0-0.7); LYMPH # 1.6 K/uL (1.0-4.3); LYMPH % 17.9 % (20.0-40.0); MEAN CELL VOLUME 88.6 fL (80.0-94.0); MEAN CORPUSCULAR HEMOGLOBIN 30.3 pg (27.0-31.0); MEAN CORPUSCULAR HGB CONC 34.2 g/dL (33.0-37.0); MEAN PLATELET VOLUME 9.2 fL (7.2-11.7); MONO # 0.9 K/uL (0.0-0.8); MONO % 10.2 % (0.0-10.0); NEUT # 6.5 K/uL (1.8-7.0); NEUT % 70.3 % (50.0-75.0); RBC 4.64 Mil/uL (4.40-5.90); RED CELL DISTRIBUTION WIDTH 14.1 % (11.5-14.5); WHITE BLOOD COUNT 9.2 K/uL (4.8-10.8)
[2019-01-30 07:48] LABS: ALBUMIN 3.5 g/dL (3.5-5.0); ALT/SGPT 18 U/L (21-72); AST/SGOT 25 U/L (17-59); BLOOD UREA NITROGEN 25 mg/dL (9-20); CALCIUM 8.8 mg/dl (8.6-10.4); GFR NON-AFRICAN AMERICAN 55
[2019-01-30] MEDS: (Novolin R) Insulin Human Regular 100 units/ml vial SC SCH ×4 (08:22→22:01)
[2019-01-30] MEDS: Losartan 12.5 MG TAB PO SCH (09:25)
[2019-01-30] MEDS ORDERED: Lidocaine 2% Jelly (Uro-Jet) TOP ONE (09:41)
[2019-01-30] MEDS: Tramadol 25 mg PO PRN (11:42)
[2019-01-30] MEDS: Lidocaine 5% Oint(35 gm) TOP PRN (11:55)
--- NOTE | 2019-01-30 12:31 | CP.PCM.PN ---
<Kellie Morrison - Last Filed: 01/30/19 15:15> Subjective - Date & Time of Evaluation Date of Evaluation: 01/30/19 Time of Evaluation: 09:31 - Subjective Subjective: PGY-1 Kellie Morrison D.O. Medicine progress note for Dr. Oshea's service: Patient was seen and examined this morning. He says that his left knee is hurt ing him more and he is unable to walk. He says that the swelling has increased and he wants some [place] to rub on it. His left arm continues to hurt too. He denies SOB and is breathing comfortably on room air. Objective - Vital Signs/Intake and Output Vital Signs (last 24 hours): Temp Pulse Resp BP Pulse Ox 98 F 70 20 100/67 96 01/30/19 07:51 01/30/19 07:51 01/30/19 07:51 01/30/19 07:51 01/30/19 07:51 Intake and Output: 01/30/19 01/30/19 06:59 18:59 Output Total 300 Balance -300 - Medications Medications: Current Medications Aspirin (Ecotrin) 81 mg PO DAILY [facility] Last Admin: 01/30/19 09:26 Dose: 81 mg Carvedilol (Coreg) 3.125 mg PO BID [facility] Last Admin: 01/30/19 09:26 Dose: 3.125 mg Dextrose (Dextrose 50% Inj) 0 ml IV STAT PRN; Protocol PRN Reason: Hypoglycemia Protocol Dextrose (Glutose 15) 0 gm PO ONCE PRN; Protocol PRN Reason: Hypoglycemia Protocol Digoxin (Digoxin) 0.125 mg PO DAILY@1800 [facility] Gabapentin (Neurontin) 100 mg PO BID [facility] Last Admin: 01/30/19 09:26 Dose: 100 mg Glucagon (Glucagen Diagnostic Kit) 0 mg IM STAT PRN; Protocol PRN Reason: Hypoglycemia Protocol Dextrose (Dextrose 5% In Water 1000 Ml) 1,000 mls @ 0 mls/hr IV .Q0M PRN; Protocol PRN Reason: Hypoglycemia Protocol Insulin Human Regular (Novolin R) 0 unit SC [facility]; Protocol Last Admin: 01/30/19 08:22 Dose: 2 unit Lidocaine (Lidocaine 5%) 0 gm TOP DAILY PRN PRN Reason: LEFT KNEE PAIN Last Admin: 01/30/19 11:55 Dose: 1 applic Losartan Potassium (Cozaar) 12.5 mg PO DAILY [facility] Last Admin: 01/30/19 09:25 Dose: 12.5 mg Rivaroxaban (Xarelto) 20 mg PO DAILY [facility] Last Admin: 01/30/19 09:25 Dose: 20 mg Rosuvastatin Calcium (Crestor) 5 mg PO HS [facility] Last Admin: 01/29/19 21:25 Dose: 5 mg Spironolactone (Aldactone) 25 mg PO DAILY [facility] Last Admin: 01/30/19 09:26 Dose: 25 mg Tramadol HCl (Ultram) 25 mg PO TID PRN PRN Reason: Pain, severe (8-10) Last Admin: 01/30/19 11:42 Dose: 25 mg - Labs Labs: 01/30/19 07:16 01/30/19 07:16 PT 13.6 SECONDS (9.7-12.2) H 01/28/19 10:43 INR 1.2 01/28/19 10:43 APTT 35 SECONDS (21-34) H 01/28/19 10:43 - Constitutional Appears: No Acute Distress - Head Exam Head Exam: ATRAUMATIC, NORMAL INSPECTION - Eye Exam Eye Exam: EOMI, Normal appearance - ENT Exam ENT Exam: Mucous Membranes Moist - Respiratory Exam Respiratory Exam: Clear to Ausculation Bilateral, NORMAL BREATHING PATTERN - Cardiovascular Exam Cardiovascular Exam: Irregular Rhythm, +S1, +S2 - GI/Abdominal Exam GI & Abdominal Exam: Soft. absent: Tenderness - Extremities Exam Additional comments: L knee edema increased from yesterday, no erythema, no open lesion - Neurological Exam Neurological Exam: Alert, Awake, CN II-XII Intact, Oriented x3 Additional comments: patient unable to stand 2/2 L knee pain and swelling - Psychiatric Exam Psychiatric exam: Normal Affect, Normal Mood - Skin Skin Exam: Dry, Normal Color, Warm Assessment and Plan - Assessment and Plan (Free Text) Assessment: Patient is a 68 yo male with CHF (AICD), CAD, Afib/flutter, T2DM, HTN, HLD, and h/o gout who presented with dizziness and SOB. He was recently discharged a few days prior for similar symptoms and found to be hypotensive. This admission, patient found to be in Afib RVR and with acute kidney injury. Additionally, patient reports having a recent fall resulting in left arm and leg pain- he deneis LOC/head trauma. Patient has been admitted 8x since January 2017 to our service for CHF exacerbations with syncope. Plan: Atrial fibrillation with RVR, chronic - Monitor on telemetry - s/p Cardizem 20 mg IVP in ED--> hypotension - Xarelto 20 mg PO daily - Digoxin 0.125 mg PO daily - Coreg 3.125 mg PO BID - Cardiology consulted (Saulo)- clinically dry and may be dizzy from hypotension; Start Coreg, digoxin for rate control; Reduce home losartan and aldactone doses Syncope, s/p Fall, acute - Knee, wrist, hand Xrs: negative - Fall precautions - Lidocaine 5% ointment for knee - Ultram 25 mg PO TID PRN - PT/OT Systolic congestive heart failure (HFrEF), chronic - s/p AICD - CXR: pulmonary vascular congestion, cardiomegaly (similar to previous admission CXR) - BNP 2270 - Trop negative x3 - MUGA: EF 25% - Strict I's & O's - Daily weights - Fluid restriction 1.5 L - Aspirin 81 mg PO daily - Coreg 3.125 mg PO BID - Digoxin 0.125 mg PO daily - Aldactone 25 mg PO daily - Losartan 12.5 mg PO daily - Cardiology consulted (Saulo) Acute kidney injury, improving- suspect hypoperfusion due to CHF - BUN/Cr 29/1.7 on admission--> 25/1.3 - Continue to monitor and manage hypotension - No IVF due to severely reduced CHF - Avoid nephrotoxic medications Coronary artery disease, chronic - Crestor 5 mg PO QHS - Aspirin 81 mg PO daily Hypertension, chronic - Vitals Q6H - Coreg 3.125 mg PO BID - Aldactone 25 mg PO daily - Losartan 12.5 mg PO daily Dyslipidemia, chronic - TG 152, chol 105, LDL 51, HDL 23 - Crestor 5mg PO QHS Type 2 diabetes mellitus, poorly controlled, chronic - A1c 11 - Accuchecks ACHS - Hypoglycemia protocol - ISS medium - Hold home Glimepiride and Metformin due to MELECIO Peripheral neuropathy, chronic - Gabapentin 100 mg PO BID- decreased dose due to MELECIO Ppx: VTE: SCDs, Xarelto 20 mg PO daily GI: not indicated Diet: HHD, 2 g sodium, 1.5 L restriction Case discussed with attending, Dr. Oshea. <Kervin Oshea - Last Filed: 01/30/19 16:18> Objective - Vital Signs/Intake and Output Vital Signs (last 24 hours): Temp Pulse Resp BP Pulse Ox 98 F 70 20 100/67 96 01/30/19 07:51 01/30/19 07:51 01/30/19 07:51 01/30/19 07:51 01/30/19 07:51 Intake and Output: 01/30/19 01/30/19 06:59 18:59 Intake Total 480 Output Total 300 700 Balance -300 -220 - Medications Medications: Current Medications Aspirin (Ecotrin) 81 mg PO DAILY [facility] Last Admin: 01/30/19 09:26 Dose: 81 mg Carvedilol (Coreg) 3.125 mg PO BID [facility] Last Admin: 01/30/19 09:26 Dose: 3.125 mg Dextrose (Dextrose 50% Inj) 0 ml IV STAT PRN; Protocol PRN Reason: Hypoglycemia Protocol Dextrose (Glutose 15) 0 gm PO ONCE PRN; Protocol PRN Reason: Hypoglycemia Protocol Digoxin (Digoxin) 0.125 mg PO DAILY@1800 [facility] Gabapentin (Neurontin) 100 mg PO BID [facility] Last Admin: 01/30/19 09:26 Dose: 100 mg Glucagon (Glucagen Diagnostic Kit) 0 mg IM STAT PRN; Protocol PRN Reason: Hypoglycemia Protocol Dextrose (Dextrose 5% In Water 1000 Ml) 1,000 mls @ 0 mls/hr IV .Q0M PRN; Protocol PRN Reason: Hypoglycemia Protocol Insulin Human Regular (Novolin R) 0 unit SC [facility]; Protocol Last Admin: 01/30/19 12:41 Dose: 4 unit Lidocaine (Lidocaine 5%) 0 gm TOP DAILY PRN PRN Reason: LEFT KNEE PAIN Last Admin: 01/30/19 11:55 Dose: 1 applic Losartan Potassium (Cozaar) 12.5 mg PO DAILY [facility] Last Admin: 01/30/19 09:25 Dose: 12.5 mg Rivaroxaban (Xarelto) 20 mg PO DAILY [facility] Last Admin: 01/30/19 09:25 Dose: 20 mg Rosuvastatin Calcium (Crestor) 5 mg PO HS [facility] Last Admin: 01/29/19 21:25 Dose: 5 mg Spironolactone (Aldactone) 25 mg PO DAILY [facility] Last Admin: 01/30/19 09:26 Dose: 25 mg Tramadol HCl (Ultram) 25 mg PO TID PRN PRN Reason: Pain, severe (8-10) Last Admin: 01/30/19 11:42 Dose: 25 mg - Labs Labs: 01/30/19 07:16 01/30/19 07:16 PT 13.6 SECONDS (9.7-12.2) H 01/28/19 10:43 INR 1.2 01/28/19 10:43 APTT 35 SECONDS (21-34) H 01/28/19 10:43 Attending/Attestation - Attestation I have personally seen and examined this patient.: Yes I have fully participated in the care of the patient.: Yes I have reviewed all pertinent clinical information, including history, physical exam and plan: Yes Notes (Text): c/o left knee swelling got worse and unable to ambulate. On examination knee is swollen,visible bruising,not warm. Unlikely gout. s/p fall with left knee and left wrist injury. x ray was negative. Has significant swelling of his knee and increasing leg edema . We start back on aldactone twice a day. do CT left knee .MRI not available at this time He is not SOB,continue digoxin and coreg. PT Re evaluation unsafe discharge . pt is not able to ambulate due to knee pain
[2019-01-30] MEDS: Digoxin 125 mcg (0.125 mg) Tab PO SCH (18:10)
[2019-01-31] MEDS: Tramadol 25 mg PO PRN (02:22)
[2019-01-31 07:35] LABS: BASO # 0.1 K/uL (0.0-0.2); BASO % 0.5 % (0.0-2.0); EOS % 0.3 % (0.0-4.0); HEMOGLOBIN 14.5 g/dL (12.0-18.0); LYMPH % 17.1 % (20.0-40.0); MEAN CELL VOLUME 87.5 fL (80.0-94.0); MEAN CORPUSCULAR HEMOGLOBIN 30.1 pg (27.0-31.0); MEAN CORPUSCULAR HGB CONC 34.5 g/dL (33.0-37.0); MEAN PLATELET VOLUME 8.9 fL (7.2-11.7); MONO # 1.1 K/uL (0.0-0.8); NEUT # 8.7 K/uL (1.8-7.0); NEUT % 73.1 % (50.0-75.0); NRBC % 0.1 % (0.0-2.0); RBC 4.8 Mil/uL (4.40-5.90); RED CELL DISTRIBUTION WIDTH 14.4 % (11.5-14.5); WHITE BLOOD COUNT 11.9 K/uL (4.8-10.8)
--- NOTE | 2019-01-31 07:42 | CP.PCM.PN ---
<Maral Gregory V - Last Filed: 01/31/19 19:56> Objective - Vital Signs/Intake and Output Vital Signs (last 24 hours): Temp Pulse Resp BP Pulse Ox 97.6 F 87 20 104/64 96 01/31/19 17:09 01/31/19 17:56 01/31/19 17:09 01/31/19 17:36 01/31/19 17:09 Intake and Output: 01/31/19 02/01/19 18:59 06:59 Intake Total 340 Output Total 500 Balance -160 - Medications Medications: Current Medications Aspirin (Ecotrin) 81 mg PO DAILY [facility] Last Admin: 01/31/19 11:19 Dose: 81 mg Carvedilol (Coreg) 3.125 mg PO BID [facility] Last Admin: 01/31/19 17:56 Dose: 3.125 mg Dextrose (Dextrose 50% Inj) 0 ml IV STAT PRN; Protocol PRN Reason: Hypoglycemia Protocol Dextrose (Glutose 15) 0 gm PO ONCE PRN; Protocol PRN Reason: Hypoglycemia Protocol Digoxin (Digoxin) 0.125 mg PO DAILY@1800 [facility] Last Admin: 01/31/19 17:55 Dose: 0.125 mg Gabapentin (Neurontin) 100 mg PO BID [facility] Last Admin: 01/31/19 17:30 Dose: 100 mg Glucagon (Glucagen Diagnostic Kit) 0 mg IM STAT PRN; Protocol PRN Reason: Hypoglycemia Protocol Insulin Human Regular (Novolin R) 0 unit SC [facility]; Protocol Last Admin: 01/31/19 16:47 Dose: Not Given Lidocaine (Lidocaine 5%) 0 gm TOP DAILY PRN PRN Reason: LEFT KNEE PAIN Last Admin: 01/31/19 08:25 Dose: 1 applic Losartan Potassium (Cozaar) 12.5 mg PO DAILY [facility] Last Admin: 01/31/19 11:19 Dose: 12.5 mg Rivaroxaban (Xarelto) 20 mg PO DAILY [facility] Last Admin: 01/31/19 11:19 Dose: 20 mg Rosuvastatin Calcium (Crestor) 5 mg PO HS [facility] Last Admin: 01/30/19 22:03 Dose: 5 mg Spironolactone (Aldactone) 25 mg PO BID [facility] Last Admin: 01/31/19 17:27 Dose: Not Given Tramadol HCl (Ultram) 25 mg PO TID PRN PRN Reason: Pain, severe (8-10) Last Admin: 01/31/19 02:22 Dose: 25 mg - Labs Labs: 01/31/19 07:22 01/31/19 07:22 PT 13.6 SECONDS (9.7-12.2) H 01/28/19 10:43 INR 1.2 01/28/19 10:43 APTT 35 SECONDS (21-34) H 01/28/19 10:43 Attending/Attestation - Attestation I have personally seen and examined this patient.: Yes I have fully participated in the care of the patient.: Yes I have reviewed all pertinent clinical information, including history, physical exam and plan: Yes Notes (Text): Patient seen, examined, and case discussed with medical billing specialist. patient seen this morning. writhing pain secondary to his knee. he is unable to bend his knee in spite of tramdol and refused CT secondary to pain initially this morning. Patient given dose of Toradol 30mg IV X1; pain became better control under CT knee and ortho consult. Patient's discharge pending ability to work with physical therapy which is restricted secondary to knee pain. Assessment/Plan 1. Atrial fibrillation Assessment/Plan * Cardiology on board * Xarelto 20 mg PO daily * Digoxin 0.125 mg PO daily * Coreg 3.125 mg PO BID 2. Syncope, s/p Fall, Left Knee Pain Assessment/Plan * Orthopedic consult * CT Knee (01/31/19): medial and patellofemoral osteoarthritis of the knee. tibiotalar osteoarthritis. small to moderate joint effusion at the knee * Knee xray (01/29/19): normal radiographs * Wrist xray (01/29/19): normal radiographs * Lidocaine 5% ointment for knee-->does not relieve pain * Ultram 25 mg PO TID PRN--->does not relieve pain * Patient unable to work with PT secondary to intractable knee pain 3. Systolic congestive heart failure (HFrEF), chronic Assessment/Plan * s/p AICD * CXR: pulmonary vascular congestion, cardiomegaly (similar to previous admission CXR) * BNP 2270 * Trop negative x3 * MUGA: EF 25% * Strict I's & O's * Daily weights * Fluid restriction 1.5 L * Aspirin 81 mg PO daily * Coreg 3.125 mg PO BID * Digoxin 0.125 mg PO daily * Aldactone 25 mg PO BID * Losartan 12.5 mg PO daily * Crestor 5mg POqHS * Cardiology consulted (Saulo) on board 4. Acute kidney injury, improving- suspect hypoperfusion due to CHF Assessment/Plan * BUN/Cr 29/1.7 on admission--> 25/1.3 * Continue to monitor and manage hypotension * No IVF due to severely reduced CHF * Avoid nephrotoxic medications 5. Coronary artery disease, chronic Assessment/Plan * Crestor 5 mg PO QHS * Aspirin 81 mg PO daily * Coreg 3.125 mg PO BID * Losartan 12.5 mg PO daily 6. Hypertension, chronic Assessment/Plan * Aspirin 81 mg PO daily * Coreg 3.125 mg PO BID * Losartan 12.5 mg PO daily 7. Dyslipidemia, chronic Assessment/Plan * TG 152, chol 105, LDL 51, HDL 23 * Crestor 5mg PO QHS 8. Type 2 diabetes mellitus, poorly controlled, chronic Assessment/Plan * A1c 11 * Accuchecks ACH * Hypoglycemia protocol * ISS medium * Hold home Glimepiride and Metformin due to MELECIO 9. Peripheral neuropathy, chronic Assessment/Plan - Gabapentin 100 mg PO BID- decreased dose due to MELECIO 10. Ppx: VTE: SCDs, Xarelto 20 mg PO daily GI: not indicated Diet: HHD, 2 g sodium, 1.5 L restriction Disposition: patient has intolerable knee pain inspite of pain as needed prn; which prevents him from working with physical therapy leaving him as an unsafe discharge. will consult orthopedic. Patient completed CT scan of knee today. <Kellie Morrison - Last Filed: 01/31/19 20:36> Subjective - Date & Time of Evaluation Date of Evaluation: 01/31/19 Time of Evaluation: 07:41 - Subjective Subjective: PGY-1 Kellie Morrison D.O. Medicine progress note for Dr. Gregory's service: Patient was seen and examined this morning. Patient is complaining of significant L knee pain. He has not been able to sit or stand up. He says that his left wrist hurts as well. Denies chest pain and SOB. Objective - Vital Signs/Intake and Output Vital Signs (last 24 hours): Temp Pulse Resp BP Pulse Ox 98.7 F 96 H 20 101/67 95 01/31/19 02:20 01/31/19 04:31 03/24/19 02:20 01/31/19 02:20 01/31/19 02:20 Intake and Output: 01/31/19 01/31/19 06:59 18:59 Intake Total 610 Output Total 1370 Balance -760 - Medications Medications: Current Medications Aspirin (Ecotrin) 81 mg PO DAILY [facility] Last Admin: 01/30/19 09:26 Dose: 81 mg Carvedilol (Coreg) 3.125 mg PO BID [facility] Last Admin: 01/30/19 18:10 Dose: Not Given Dextrose (Dextrose 50% Inj) 0 ml IV STAT PRN; Protocol PRN Reason: Hypoglycemia Protocol Dextrose (Glutose 15) 0 gm PO ONCE PRN; Protocol PRN Reason: Hypoglycemia Protocol Digoxin (Digoxin) 0.125 mg PO DAILY@1800 [facility] Last Admin: 01/30/19 18:10 Dose: Not Given Gabapentin (Neurontin) 100 mg PO BID [facility] Last Admin: 01/30/19 18:09 Dose: 100 mg Glucagon (Glucagen Diagnostic Kit) 0 mg IM STAT PRN; Protocol PRN Reason: Hypoglycemia Protocol Dextrose (Dextrose 5% In Water 1000 Ml) 1,000 mls @ 0 mls/hr IV .Q0M PRN; Protocol PRN Reason: Hypoglycemia Protocol Insulin Human Regular (Novolin R) 0 unit SC [facility]; Protocol Last Admin: 01/30/19 22:01 Dose: Not Given Lidocaine (Lidocaine 5%) 0 gm TOP DAILY PRN PRN Reason: LEFT KNEE PAIN Last Admin: 01/30/19 11:55 Dose: 1 applic Losartan Potassium (Cozaar) 12.5 mg PO DAILY [facility] Last Admin: 01/30/19 09:25 Dose: 12.5 mg Rivaroxaban (Xarelto) 20 mg PO DAILY [facility] Last Admin: 01/30/19 09:25 Dose: 20 mg Rosuvastatin Calcium (Crestor) 5 mg PO HS [facility] Last Admin: 01/30/19 22:03 Dose: 5 mg Spironolactone (Aldactone) 25 mg PO BID [facility] Last Admin: 01/30/19 18:09 Dose: 25 mg Tramadol HCl (Ultram) 25 mg PO TID PRN PRN Reason: Pain, severe (8-10) Last Admin: 01/31/19 02:22 Dose: 25 mg - Labs Labs: 01/30/19 07:16 01/30/19 07:16 PT 13.6 SECONDS (9.7-12.2) H 01/28/19 10:43 INR 1.2 01/28/19 10:43 APTT 35 SECONDS (21-34) H 01/28/19 10:43 - Additional Findings Additional findings: - Constitutional Appears: No Acute Distress - Head Exam Head Exam: ATRAUMATIC, NORMAL INSPECTION - Eye Exam Eye Exam: EOMI, Normal appearance - ENT Exam ENT Exam: Mucous Membranes Moist - Respiratory Exam Respiratory Exam: Clear to Ausculation Bilateral, NORMAL BREATHING PATTERN - Cardiovascular Exam Cardiovascular Exam: Irregular Rhythm, +S1, +S2 - GI/Abdominal Exam GI & Abdominal Exam: Soft. absent: Tenderness - Extremities Exam Additional comments: L knee edema increased from yesterday, now with mild ecchymosis, no erythema, no open lesion - Neurological Exam Neurological Exam: Alert, Awake, CN II-XII Intact, Oriented x3 Additional comments: patient unable to stand 2/2 L knee pain and swelling - Psychiatric Exam Psychiatric exam: Normal Affect, Normal Mood - Skin Skin Exam: Dry, Normal Color, Warm Assessment and Plan - Assessment and Plan (Free Text) Assessment: Patient is a 68 yo male with CHF (AICD), CAD, Afib/flutter, T2DM, HTN, HLD, and h/o gout who presented with dizziness and SOB. He was recently discharged a few days prior for similar symptoms and found to be hypotensive. This admission, patient found to be in Afib RVR and with acute kidney injury. Additionally, patient reports having a recent fall resulting in left arm and leg pain- he deneis LOC/head trauma. Patient has been admitted 8x since January 2017 to our service for CHF exacerbations with syncope. Plan: Left knee pain s/p Syncope, acute, worsening - Knee, wrist, hand Xrs: negative - Fall precautions - CT: medial and patellofemoral OA of knee, tibiotalar OA, sm-mod joint effusion - Lidocaine 5% ointment for knee - Ultram 25 mg PO TID PRN - Ortho consulted (Tish) - PT/OT- pending re-eval Atrial fibrillation with RVR, chronic - Monitor on telemetry - s/p Cardizem 20 mg IVP in ED--> hypotension - Xarelto 20 mg PO daily - Digoxin 0.125 mg PO daily - Coreg 3.125 mg PO BID - Cardiology consulted (Saulo)- clinically dry and may be dizzy from hypotension; Start Coreg, digoxin for rate control; Reduce home losartan and aldactone doses Systolic congestive heart failure (HFrEF), chronic - s/p AICD - CXR: pulmonary vascular congestion, cardiomegaly (similar to previous admission CXR) - BNP 2270 - Trop negative x3 - MUGA: EF 25% - Strict I's & O's - Daily weights - Fluid restriction 1.5 L - Aspirin 81 mg PO daily - Coreg 3.125 mg PO BID - Digoxin 0.125 mg PO daily - Aldactone 25 mg PO daily - Losartan 12.5 mg PO daily - Cardiology consulted (Saulo) Acute kidney injury, improving- suspect hypoperfusion due to CHF - BUN/Cr 29/1.7 on admission--> 25/1.3 - Continue to monitor and manage hypotension - No IVF due to severely reduced CHF - Avoid nephrotoxic medications Coronary artery disease, chronic - Crestor 5 mg PO QHS - Aspirin 81 mg PO daily Hypertension, chronic - Vitals Q6H - Coreg 3.125 mg PO BID - Aldactone 25 mg PO daily - Losartan 12.5 mg PO daily Dyslipidemia, chronic - TG 152, chol 105, LDL 51, HDL 23 - Crestor 5mg PO QHS Type 2 diabetes mellitus, poorly controlled, chronic - A1c 11 - Accuchecks ACHS - BG range 150-220 - Hypoglycemia protocol - ISS medium - Hold home Glimepiride and Metformin due to MELECIO Peripheral neuropathy, chronic - Gabapentin 100 mg PO BID- decreased dose due to MELECIO Ppx: VTE: SCDs, Xarelto 20 mg PO daily GI: not indicated Diet: Heart healthy- 2 g sodium, 1.5 L restriction, low consistent carb Case discussed with attending, Dr. Gregory.
[2019-01-31 08:03] LABS: ALBUMIN 3.7 g/dL (3.5-5.0); ALT/SGPT 11 U/L (21-72); AST/SGOT 30 U/L (17-59); BLOOD UREA NITROGEN 25 mg/dL (9-20); CALCIUM 8.8 mg/dl (8.6-10.4); GFR NON-AFRICAN AMERICAN 55
[2019-01-31] MEDS: (Novolin R) Insulin Human Regular 100 units/ml vial SC SCH ×4 (08:24→21:37)
[2019-01-31] MEDS: Lidocaine 5% Oint(35 gm) TOP PRN (08:25)
[2019-01-31] MEDS: Losartan 12.5 MG TAB PO SCH (11:19)
--- NOTE | 2019-01-31 16:06 | CT ---
Date of service: 01/31/2019 PROCEDURE: CT left knee HISTORY: left knee pain and swelling,s/p fall COMPARISON: Not available TECHNIQUE: 2.5 mm contiguous axial sections were acquired through the left knee. Sagittal and coronal images were reformatted from the axial scan. Total exam DLP: 950.[address] exam was performed using 1 or more of the following dose reduction techniques: Automated exposure control, adjustment of the mA and/or kV according to patient size, and/or use of iterative reconstruction technique. FINDINGS: There is no acute fracture. There is no lytic or blastic osseous lesion. There is narrowing of the medial and patellofemoral joint spaces. There are small subchondral cysts in the patella involving both the medial and lateral articular facets. There is subchondral sclerosis of the patella and of the proximal tibia. Findings consistent with medial and patellofemoral osteoarthritis. There is a small to moderate suprapatellar bursal effusion. There is no popliteal cyst. There are subchondral cysts seen in the medial aspect of the distal tibia at the tibiotalar articulation. There is subchondral sclerosis of the medial talar dome. Consistent with osteoarthritis. IMPRESSION: Medial and patellofemoral osteoarthritis of the knee. Tibiotalar osteoarthritis. Small to moderate joint effusion at the knee.
[2019-01-31] MEDS: Digoxin 125 mcg (0.125 mg) Tab PO SCH ×2 (17:28→17:55)
--- NOTE | 2019-01-31 20:22 | CARD ---
APPROVED REPORT Date of service: 01/28/2019 EKG Measurement Heart [id number] <Conclusion> Atrial fibrillation with rapid ventricular response Left axis deviation Left ventricular hypertrophy with QRS widening ST & T wave abnormality, consider lateral ischemia Abnormal ECG
[2019-02-01 01:09] VITALS: RESP 20
[2019-02-01] MEDS: (Novolin R) Insulin Human Regular 100 units/ml vial SC SCH ×4 (07:50→22:47)
[2019-02-01 07:56] LABS: BASO % 0.4 % (0.0-2.0); EOS % 0.4 % (0.0-4.0); HEMOGLOBIN 13.8 g/dL (12.0-18.0); LYMPH # 1.8 K/uL (1.0-4.3); LYMPH % 17.2 % (20.0-40.0); MEAN CELL VOLUME 87.2 fL (80.0-94.0); MEAN CORPUSCULAR HEMOGLOBIN 30.1 pg (27.0-31.0); MEAN CORPUSCULAR HGB CONC 34.5 g/dL (33.0-37.0); MEAN PLATELET VOLUME 9.2 fL (7.2-11.7); MONO % 9.2 % (0.0-10.0); NEUT # 7.6 K/uL (1.8-7.0); NEUT % 72.8 % (50.0-75.0); RBC 4.58 Mil/uL (4.40-5.90); RED CELL DISTRIBUTION WIDTH 14.4 % (11.5-14.5); WHITE BLOOD COUNT 10.5 K/uL (4.8-10.8)
[2019-02-01 08:09] LABS: ALBUMIN 3.6 g/dL (3.5-5.0); CALCIUM 8.7 mg/dl (8.6-10.4)
[2019-02-01] MEDS: Losartan 12.5 MG TAB PO SCH (10:18)
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
--- NOTE | 2019-02-01 16:31 | CP.PCM.PN ---
<Clem Jacobs - Last Filed: 02/01/19 16:48> Subjective - Date & Time of Evaluation Date of Evaluation: 02/01/19 Time of Evaluation: 12:30 - Subjective Subjective: Medicine progress note for Dr. Gregory Pt seen and examined at bedside. Pt continues to complain of left hand and left knee pain, but states it is improved. Left hand swelling is much improved, with much improvement of pain. Denies fever, chills, chest pain, sob, palpitations, abdominal pain, n/v/d, headache, dizziness, visual changes, lightheadedness. Objective - Vital Signs/Intake and Output Vital Signs (last 24 hours): Temp Pulse Resp BP Pulse Ox 97.7 F 83 20 104/52 L 94 L 02/01/19 08:58 02/01/19 12:00 02/01/19 08:58 02/01/19 10:20 02/01/19 08:58 Intake and Output: 02/01/19 02/01/19 06:59 18:59 Intake Total 240 Output Total 300 Balance -60 - Medications Medications: Current Medications Acetaminophen (Tylenol 325mg Tab) 650 mg PO Q6 PRN PRN Reason: pain/inflammation of left knee Last Admin: 02/01/19 11:49 Dose: 650 mg Aspirin (Ecotrin) 81 mg PO DAILY [facility] Last Admin: 02/01/19 10:17 Dose: 81 mg Carvedilol (Coreg) 3.125 mg PO BID [facility] Last Admin: 02/01/19 10:17 Dose: 3.125 mg Dextrose (Dextrose 50% Inj) 0 ml IV STAT PRN; Protocol PRN Reason: Hypoglycemia Protocol Dextrose (Glutose 15) 0 gm PO ONCE PRN; Protocol PRN Reason: Hypoglycemia Protocol Digoxin (Digoxin) 0.125 mg PO DAILY@1800 [facility] Last Admin: 01/31/19 17:55 Dose: 0.125 mg Gabapentin (Neurontin) 100 mg PO BID [facility] Last Admin: 02/01/19 10:17 Dose: 100 mg Glucagon (Glucagen Diagnostic Kit) 0 mg IM STAT PRN; Protocol PRN Reason: Hypoglycemia Protocol Insulin Human Regular (Novolin R) 0 unit SC ACHS [facility]; Protocol Last Admin: 02/01/19 12:24 Dose: 2 unit Lidocaine (Lidocaine 5%) 0 gm TOP DAILY PRN PRN Reason: LEFT KNEE PAIN Last Admin: 01/31/19 08:25 Dose: 1 applic Losartan Potassium (Cozaar) 12.5 mg PO DAILY [facility] Last Admin: 02/01/19 10:18 Dose: 12.5 mg Rivaroxaban (Xarelto) 20 mg PO DAILY [facility] Last Admin: 02/01/19 10:17 Dose: 20 mg Rosuvastatin Calcium (Crestor) 5 mg PO HS [facility] Last Admin: 01/31/19 21:38 Dose: 5 mg Spironolactone (Aldactone) 25 mg PO BID [facility] Last Admin: 02/01/19 10:17 Dose: 25 mg Tramadol HCl (Ultram) 25 mg PO TID PRN PRN Reason: Pain, severe (8-10) Last Admin: 01/31/19 02:22 Dose: 25 mg - Labs Labs: 02/01/19 07:15 02/01/19 07:15 PT 13.6 SECONDS (9.7-12.2) H 01/28/19 10:43 INR 1.2 01/28/19 10:43 APTT 35 SECONDS (21-34) H 01/28/19 10:43 - Additional Findings Additional findings: - Constitutional Appears: No Acute Distress - Head Exam Head Exam: ATRAUMATIC, NORMAL INSPECTION - Eye Exam Eye Exam: EOMI, Normal appearance - ENT Exam ENT Exam: Mucous Membranes Moist - Respiratory Exam Respiratory Exam: Clear to Ausculation Bilateral, NORMAL BREATHING PATTERN - Cardiovascular Exam Cardiovascular Exam: Irregular Rhythm, +S1, +S2 - GI/Abdominal Exam GI & Abdominal Exam: Soft. absent: Tenderness - Extremities Exam Additional comments: L wrist swelling and trenderness; decreased ROM secondary to pain. L knee mild effusion without erythema, no open lesion; decreased ROM secondary to pain. - Neurological Exam Neurological Exam: Alert, Awake, Oriented x3 - Psychiatric Exam Psychiatric exam: Normal Affect, Normal Mood - Skin Skin Exam: Dry, Normal Color, Warm Assessment and Plan - Assessment and Plan (Free Text) Assessment: 1. Atrial fibrillation Assessment/Plan * Cardiology, Dr. Vernon, on board * Xarelto 20 mg PO daily * Digoxin 0.125 mg PO daily * Coreg 3.125 mg PO BID 2. Syncope, s/p Fall, Left Knee Pain Assessment/Plan * Orthopedic consult, Dr. Winston * F/u Left wrist CT * CT Knee (01/31/19): medial and patellofemoral osteoarthritis of the knee. tibiotalar osteoarthritis. small to moderate joint effusion at the knee * Knee xray (01/29/19): normal radiographs * Wrist xray (01/29/19): normal radiographs * Lidocaine 5% ointment for knee-->does not relieve pain * Ultram 25 mg PO TID PRN--->does not relieve pain * Patient unable to work with PT secondary to intractable knee pain 3. Systolic congestive heart failure (HFrEF), chronic Assessment/Plan * s/p AICD * CXR: pulmonary vascular congestion, cardiomegaly (similar to previous admission CXR) * BNP 2270 * Trop negative x3 * MUGA: EF 25% * Strict I's & O's * Daily weights * Fluid restriction 1.5 L * Aspirin 81 mg PO daily * Coreg 3.125 mg PO BID * Digoxin 0.125 mg PO daily * Aldactone 25 mg PO BID * Losartan 12.5 mg PO daily * Crestor 5mg PO qHS * Cardiology consulted (Saulo) on board 4. Acute kidney injury, improving- suspect hypoperfusion due to CHF Assessment/Plan * BUN/Cr 29/1.7 on admission--> 25/1.3-->38/1.6 * Continue to monitor and manage hypotension * No IVF due to severely reduced CHF * Avoid nephrotoxic medications 5. Coronary artery disease, chronic Assessment/Plan * Crestor 5 mg PO QHS * Aspirin 81 mg PO daily * Coreg 3.125 mg PO BID * Losartan 12.5 mg PO daily 6. Hypertension, chronic Assessment/Plan * Aspirin 81 mg PO daily * Coreg 3.125 mg PO BID * Losartan 12.5 mg PO daily 7. Dyslipidemia, chronic Assessment/Plan * TG 152, chol 105, LDL 51, HDL 23 * Crestor 5mg PO QHS 8. Type 2 diabetes mellitus, poorly controlled, chronic Assessment/Plan * A1c 11 * Accuchecks ACH * Hypoglycemia protocol * ISS medium * Hold home Glimepiride and Metformin due to MELECIO 9. Peripheral neuropathy, chronic Assessment/Plan - Gabapentin 100 mg PO BID- decreased dose due to MELECIO 10. Ppx: VTE: SCDs, Xarelto 20 mg PO daily GI: not indicated Diet: HHD, 2 g sodium, 1.5 L restriction Dispo: left wrist CT pending. Planned discharge tomorrow morning pending wrist CT results. Pt has a single point cane, instructed to purchase 4 pronged cane. Pt should follow up with Heart Failure clinic at [facility] with Dr. Mustapha Calderon, . <RenettaMaral cabral Rosario - Last Filed: 02/01/19 18:19> Objective - Vital Signs/Intake and Output Vital Signs (last 24 hours): Temp Pulse Resp BP Pulse Ox 97.5 F L 81 20 92/60 L 95 02/01/19 16:00 02/01/19 16:00 02/01/19 16:00 02/01/19 16:00 02/01/19 16:00 Intake and Output: 02/01/19 02/01/19 06:59 18:59 Intake Total 240 Output Total 300 Balance -60 - Medications Medications: Current Medications Acetaminophen (Tylenol 325mg Tab) 650 mg PO Q6 PRN PRN Reason: pain/inflammation of left knee Last Admin: 02/01/19 11:49 Dose: 650 mg Aspirin (Ecotrin) 81 mg PO DAILY [facility] Last Admin: 02/01/19 10:17 Dose: 81 mg Carvedilol (Coreg) 3.125 mg PO BID [facility] Last Admin: 02/01/19 10:17 Dose: 3.125 mg Dextrose (Dextrose 50% Inj) 0 ml IV STAT PRN; Protocol PRN Reason: Hypoglycemia Protocol Dextrose (Glutose 15) 0 gm PO ONCE PRN; Protocol PRN Reason: Hypoglycemia Protocol Digoxin (Digoxin) 0.125 mg PO DAILY@1800 [facility] Last Admin: 01/31/19 17:55 Dose: 0.125 mg Gabapentin (Neurontin) 100 mg PO BID [facility] Last Admin: 02/01/19 10:17 Dose: 100 mg Glucagon (Glucagen Diagnostic Kit) 0 mg IM STAT PRN; Protocol PRN Reason: Hypoglycemia Protocol Insulin Human Regular (Novolin R) 0 unit SC [facility]; Protocol Last Admin: 02/01/19 17:35 Dose: Not Given Lidocaine (Lidocaine 5%) 0 gm TOP DAILY PRN PRN Reason: LEFT KNEE PAIN Last Admin: 01/31/19 08:25 Dose: 1 applic Losartan Potassium (Cozaar) 12.5 mg PO DAILY [facility] Last Admin: 03/25/19 10:18 Dose: 12.5 mg Rivaroxaban (Xarelto) 20 mg PO DAILY [facility] Last Admin: 02/01/19 10:17 Dose: 20 mg Rosuvastatin Calcium (Crestor) 5 mg PO HS [facility] Last Admin: 01/31/19 21:38 Dose: 5 mg Spironolactone (Aldactone) 25 mg PO BID [facility] Last Admin: 02/01/19 10:17 Dose: 25 mg Tramadol HCl (Ultram) 25 mg PO TID PRN PRN Reason: Pain, severe (8-10) Last Admin: 01/31/19 02:22 Dose: 25 mg - Labs Labs: 02/01/19 07:15 02/01/19 07:15 PT 13.6 SECONDS (9.7-12.2) H 01/28/19 10:43 INR 1.2 01/28/19 10:43 APTT 35 SECONDS (21-34) H 01/28/19 10:43 Attending/Attestation - Attestation I have personally seen and examined this patient.: Yes I have fully participated in the care of the patient.: Yes I have reviewed all pertinent clinical information, including history, physical exam and plan: Yes Notes (Text): Patient seen, examined, and case discussed with medical customer service representative. patient seen this morning. Patient's knee pain improved status post one dose of Toradol. Physical therapy recommended for him 4 pronged walking cane. Orthopedic consult came and evaluated patient; noted outpatient follow-up regarding knee; but given left wrist pain on exam; recommended for CT scan. Patient is awaiting official read on CT scan to plan for possible discharge. in light of creatinine increase, Bre held the adactone. Will continue to monitor the patient. Assessment/Plan 1. Atrial fibrillation Assessment/Plan * Cardiology on board * Xarelto 20 mg PO daily * Digoxin 0.125 mg PO daily * Coreg 3.125 mg PO BID 2. Syncope, s/p Fall, Left Knee Pain Left Wrist Pain Assessment/Plan * Orthopedic consult help appreciated * CT Knee (01/31/19): medial and patellofemoral osteoarthritis of the knee. tibiotalar osteoarthritis. small to moderate joint effusion at the knee * Knee xray (01/29/19): normal radiographs * Wrist xray (01/29/19): normal radiographs * Lidocaine 5% ointment for knee-->does not relieve pain * Ultram 25 mg PO TID PRN--->does not relieve pain * Patient unable to work with PT secondary to intractable knee pain * awaiting CT scan of upper extremity 3. Systolic congestive heart failure (HFrEF), chronic Assessment/Plan * s/p AICD * CXR: pulmonary vascular congestion, cardiomegaly (similar to previous admission CXR) * BNP 2270 * Trop negative x3 * MUGA: EF 25% * Strict I's & O's * Daily weights * Fluid restriction 1.5 L * Aspirin 81 mg PO daily * Coreg 3.125 mg PO BID * Digoxin 0.125 mg PO daily * Aldactone 25 mg PO BID held given creatinine increase * Losartan 12.5 mg PO daily * Crestor 5mg POqHS * Cardiology consulted (Saulo) on board 4. Acute kidney injury, improving- suspect hypoperfusion due to CHF Assessment/Plan * held aldactone * Continue to monitor and manage hypotension * No IVF due to severely reduced CHF * Avoid nephrotoxic medications 5. Coronary artery disease, chronic Assessment/Plan * Crestor 5 mg PO QHS * Aspirin 81 mg PO daily * Coreg 3.125 mg PO BID * hold Losartan 12.5 mg PO daily * hold aldactone 6. Hypertension, chronic Assessment/Plan * Aspirin 81 mg PO daily * Coreg 3.125 mg PO BID * hold Losartan 12.5 mg PO daily 7. Dyslipidemia, chronic Assessment/Plan * TG 152, chol 105, LDL 51, HDL 23 * Crestor 5mg PO QHS 8. Type 2 diabetes mellitus, poorly controlled, chronic Assessment/Plan * A1c 11 * Accuchecks ACH * Hypoglycemia protocol * ISS medium * Hold home Glimepiride and Metformin due to MELECIO 9. Peripheral neuropathy, chronic Assessment/Plan - Gabapentin 100 mg PO BID- decreased dose due to MELECIO 10. Ppx: VTE: SCDs, Xarelto 20 mg PO daily GI: not indicated Diet: HHD, 2 g sodium, 1.5 L restriction Disposition: Pending CT scan of wrist given tenderness on exam per orthopedic
[2019-02-01] MEDS: Digoxin 125 mcg (0.125 mg) Tab PO SCH (19:00)
[2019-02-01 19:01] VITALS: PULSE 82
--- NOTE | 2019-02-01 23:05 | PN ---
DATE: 02/01/2019 LOCATION: Room 55A. SUBJECTIVE: He remains relatively stable in bed. No shortness of breath noted in bed. However, there appears to be some increased edema in both lower extremities. The left forearm and wrist is in the self cast type because of severe pain after a fall requiring entry to the hospital. X-rays that were done were negative for any fracture or dislocation in the area. He denies any dizziness. No shortness of breath right now in bed. Denies any diarrhea or nausea. Rest of the review of systems otherwise negative. PHYSICAL EXAMINATION: GENERAL: The patient is alert, oriented, laughing at times, in no distress, in bed at this point. VITAL SIGNS: Blood pressure the latest one that was taken not long ago was about 92/60. Early this morning, it was 140/52, pulse is in the 80s, irregularly irregular. SKIN: Warm and dry. EXTREMITIES: There is some slight edema in the lower extremities, feet and ankles, but nothing spectacular yet. HEAD, EARS, NOSE, AND THROAT: Basically unremarkable. LUNGS: Clinically clear at this moment. NECK: Jugular veins nondistended. HEART: Sounds normal in intensity and irregular. ABDOMEN: Mildly obese. CENTRAL NERVOUS SYSTEM: Intact. LABORATORY DATA: Today, the CBC is basically normal. Glucose mildly elevated, but he is diabetic and getting all his diabetic treatments here. Potassium is normal at 4, sodium at 134, BUN and creatinine mildly elevated at 1.6 and 38. IMPRESSION: Severe endstage biventricular failure, status post automatic implantable defibrillator, atrial fibrillation. PLAN: At this point in time, they are introducing his medications slowly. Atrial fibrillation with rate control with use of the beta-red, carvedilol as well as digoxin and anticoagulation with Xarelto that he is personally taking. I was told that the ejection fraction via MUGA scan was in the range of about 25 or so, which remained severe, however, improved from previous ones that was in the teens. I am sure that in no time we will have to introduce a loop diuretic like furosemide or bumetanide. Darius Vernon MD
--- NOTE | 2019-02-02 07:00 | CP.PCM.DIS ---
<Clem Jacobs - Last Filed: 02/02/19 22:12> Provider - Provider Date of Admission: 01/28/19 11:43 Attending physician: Maral Gregory DO Consults: 01/28/19 16:15 Inpatient BACTERIOLOGY PROFESSOR Core Measures Referral Routine Comment: Physician Instructions: Reason For Exam: CHF 01/28/19 16:20 Cardiology Consult Routine Comment: Consulting Provider: Darius Vernon Consulting Physician: Darius Vernon Reason for Consult: severe HFrEF, afib with rvr, known to you 01/31/19 09:41 Orthopedic Consult Routine Comment: pending CT knee Consulting Provider: Alan Winston Consulting Physician: Alan Winston Reason for Consult: s/p fall, left knee pain, unable to bend at knee Time Spent in preparation of Discharge (in minutes): 35 Diagnosis - Discharge Diagnosis (1) HFrEF (heart failure with reduced ejection fraction) Status: Chronic (2) MELECIO (acute kidney injury) Status: Acute (3) Degenerative joint disease of knee, left Status: Chronic (4) Left wrist sprain Status: Acute (5) Peripheral neuropathy Status: Chronic (6) AICD (automatic cardioverter/defibrillator) present Status: Chronic (7) History of diabetes mellitus Status: Chronic (8) Hypotension Status: Resolved Hospital Course - Lab Results Lab Results: Micro Results 01/28/19 13:33 Blood Blood Culture - Preliminary NO GROWTH AFTER 4 DAYS 01/28/19 13:33 Blood Blood Culture - Preliminary NO GROWTH AFTER 4 DAYS Most Recent Lab Values WBC 10.5 K/uL (4.8-10.8) 02/01/19 07:15 RBC 4.58 Mil/uL (4.40-5.90) 02/01/19 07:15 Hgb 13.8 g/dL (12.0-18.0) 02/01/19 07:15 Hct 40.0 % (35.0-51.0) 02/01/19 07:15 MCV 87.2 fL (80.0-94.0) 02/01/19 07:15 MCH 30.1 pg (27.0-31.0) 02/01/19 07:15 MCHC 34.5 g/dL (33.0-37.0) 02/01/19 07:15 RDW 14.4 % (11.5-14.5) 02/01/19 07:15 Plt Count 196 K/uL (130-400) 02/01/19 07:15 MPV 9.2 fL (7.2-11.7) 02/01/19 07:15 Neut % (Auto) 72.8 % (50.0-75.0) 02/01/19 07:15 Lymph % (Auto) 17.2 % (20.0-40.0) L 02/01/19 07:15 [place] % (Auto) 9.2 % (0.0-10.0) 02/01/19 07:15 Eos % (Auto) 0.4 % (0.0-4.0) 02/01/19 07:15 Baso % (Auto) 0.4 % (0.0-2.0) 02/01/19 07:15 Neut # (Auto) 7.6 K/uL (1.8-7.0) H 02/01/19 07:15 Lymph # (Auto) 1.8 K/uL (1.0-4.3) 02/01/19 07:15 [place] # (Auto) 1.0 K/uL (0.0-0.8) H 02/01/19 07:15 Eos # (Auto) 0.0 K/uL (0.0-0.7) 02/01/19 07:15 Baso # (Auto) 0.0 K/uL (0.0-0.2) 02/01/19 07:15 PT 13.6 SECONDS (9.7-12.2) H 01/28/19 10:43 INR 1.2 01/28/19 10:43 APTT 35 SECONDS (21-34) H 01/28/19 10:43 Sodium 134 mmol/L (132-148) 02/01/19 07:15 Potassium 4.0 mmol/L (3.6-5.2) 02/01/19 07:15 Chloride 94 mmol/L (98-107) L 02/01/19 07:15 Carbon Dioxide 35 mmol/L (22-30) H 02/01/19 07:15 Anion Gap 9 (10-20) L 02/01/19 07:15 BUN 38 mg/dL (9-20) H 02/01/19 07:15 Creatinine 1.6 mg/dL (0.8-1.5) H 02/01/19 07:15 Est GFR ( Amer) 52 02/01/19 07:15 Est GFR (Non-Af Amer) 43 02/01/19 07:15 POC Glucose (mg/dL) 183 mg/dL (65-110) H 02/01/19 22:09 Random Glucose 143 mg/dL (75-110) H 02/01/19 07:15 Calcium 8.7 mg/dl (8.6-10.4) 02/01/19 07:15 Phosphorus 3.9 mg/dL (2.5-4.5) 02/01/19 07:15 Magnesium 1.9 mg/dL (1.6-2.3) 02/01/19 07:15 Total Bilirubin 1.3 mg/dL (0.2-1.3) 02/01/19 07:15 AST 38 U/L (17-59) 02/01/19 07:15 ALT 18 U/L (21-72) L D 02/01/19 07:15 Alkaline Phosphatase 116 U/L (38-126) 02/01/19 07:15 Total Creatine Kinase 48 U/L (55-170) L 01/28/19 23:02 CK-MB (Mass) 1.08 ng/mL (0.0-3.38) 01/28/19 23:02 Troponin I 0.0650 ng/mL (0.00-0.120) 01/28/19 23:02 NT-Pro-B Natriuret Pep 2270 pg/mL (0-900) H 01/28/19 10:43 Total Protein 7.2 g/dL (6.3-8.3) 02/01/19 07:15 Albumin 3.6 g/dL (3.5-5.0) 02/01/19 07:15 Globulin 3.6 gm/dL (2.2-3.9) 02/01/19 07:15 Albumin/Globulin Ratio 1.0 (1.0-2.1) 02/01/19 07:15 Urine Color Yellow (YELLOW) 01/29/19 14:19 Urine Clarity Hazy (Clear) 01/29/19 14:19 Urine pH 5.0 (5.0-8.0) 01/29/19 14:19 Ur Specific [place] 1.014 (1.003-1.030) 01/29/19 14:19 Urine Protein Negative mg/dL (NEGATIVE) 01/29/19 14:19 Urine Glucose (UA) Normal mg/dL (Normal) 01/29/19 14:19 Urine Ketones Negative mg/dL (NEGATIVE) 01/29/19 14:19 Urine Blood Negative (NEGATIVE) 01/29/19 14:19 Urine Nitrate Negative (NEGATIVE) 01/29/19 14:19 Urine Bilirubin Negative (NEGATIVE) 01/29/19 14:19 Urine Urobilinogen 2.0 mg/dL (0.2-1.0) 01/29/19 14:19 Ur Leukocyte Esterase Neg Brian/uL (Negative) 01/29/19 14:19 Urine WBC (Auto) 4 /hpf (0-5) 01/29/19 14:19 Urine RBC (Auto) < 1 /hpf (0-3) 01/29/19 14:19 Ur Squamous Epith Cells 1 /hpf (0-5) 01/29/19 14:19 Urine Bacteria Rare (<OCC) 01/29/19 14:19 - Hospital Course Hospital Course: On admission: Pt is a 68yo M with PMH of HTN, CHF with AICD, a flutter, CAD, DMII, HLD, gout who presents to the ED for dizziness and difficulty breathing since 5 am this morning. Pt was recently hospitalized at [facility] (01/22-11/27) for similar symptoms. He also endorses cough productive of white sputum today, with chills and diaphoresis at times. Denies new falls, numbness or tingling, fevers, chest pain, abdominal pain, n/v/d, hematochezia, melena. He did not take any of his medications today. Pt with history of syncopal episode on prior admission, imaging normal at that time. Pt noted to be in atrial fibrillation with RVR in the ED, rate controlled with cardizem 20 mg IVP but with subsequent hypotension: 79/44. HR 90 Currently, pt has no complaints except for chronic left wrist pain and left knee pain from the fall prior to 01/22/19 admission. Blood pressure currently, 103/63. HR 100 Hospital course: Pt's previous MUGA scan reviewed and showed 25% EF, which was improved from 2017 echo which showed 10%. Pt restarted on home xarelto. CXR shows pulmonary vascular congestion, cardiomegaly; similar to previous CXR; BNP 2270. Cardiology, Dr. Vernon, consulted. Started on low dose coreg bid, and was loaded with digoxin prior to starting low dose daily. Pt also started on Aldactone, home losartan was decreased. Pt responded well with this new regimen, without episodes of symptomatic hypotension. Troponin x3 negative. Pt also presented with mild MELECIO, which improved with adjustment of antihypertensive medications. Pt may have component of CKD at baseline. Pt with complaints of left swelling and pain, as well as left knee pain and swelling; secondary to fall prior to admission, denies head trauma. Orthopedic surgery, Dr. Winston, consulted as pt with persistent pain despite RICE treatment. CT Knee (01/31/19): medial and patellofemoral osteoarthritis of the knee. tibiotalar osteoarthritis. small to moderate joint effusion at the knee. CT L wrist shows no acute fx, mild arthritic changes of radiocarpal joint, likely wrist sprain. Conservative management as per Ortho, no intervention needed at this time. Pt's symptoms improved with RICE prior to discharge, and he is able to ambulate with single pointed cane although rolling walker was recommended due to left wrist pain. Prior to discharge pt provided with rolling walker. On discharge interview, pt reports significant improvement of left wrist, knee pain and swelling. Pt is ambulatory with cane on the floors, without dyspnea. Pt denies fever, chills, chest pain, sob, palpitations, abdominal pain, n/v/d, dizziness, headache, lightheadedness, dysuria, hematuria. Instructions explained to pt prior to discharge: Patient should follow up with primary medical doctor, or [facility], within 2 weeks of discharge. Please call [phone] for appointment. Patient should follow up with Dr. Darius Vernon, cardiology, within 2 weeks of discharge. Patient should follow up with Heart Failure clinic at [facility] with Dr. Mustapha Calderon, . Call to make appointment. This is a summary of hospital course. Please see EMR for full details. Discharge Exam - Head Exam Head Exam: ATRAUMATIC Discharge Plan - Discharge Medications Prescriptions: Atorvastatin [Lipitor] 10 mg PO HS 14 Days #30 tab Carvedilol [Coreg] 3.125 mg PO BID #60 tab Digoxin 0.125 mg PO DAILY #30 tab Gabapentin [Neurontin] 100 mg PO BID #60 cap Losartan [Cozaar] 12.5 mg PO DAILY #30 tab Rivaroxaban [Xarelto] 20 mg PO DAILY #14 tab Spironolactone [Aldactone] 25 mg PO BID #60 tab - Follow Up Plan Condition: STABLE Disposition: HOME/ ROUTINE Instructions: Atrial Fibrillation (DC), Heart Failure and Atrial Fibrillation Additional Instructions: Patient is medically stable for discharge home as per Dr. Gregory Patient's prescriptions should be taken as follows: Aspirin 81 mg 1 tab by mouth once daily, 8 am. Xarelto 20 mg 1 tab by mouth once daily, 8 am. Digoxin 0.125 mg 1 tab by mouth once daily, 8 am. Carvedilol 3.125 mg 1 tab by mouth twice daily, 10 am and 10 pm. Losartan 12.5 mg 1 tab by mouth once daily, 12 noon. Spironalactone 25 mg 1 tab by mouth twice daily, 8 am and 8 pm. Gabapentin 100 mg 1 tab by mouth twice daily, 10 am and 10 pm. Lipitor 10 mg 1 tab by mouth once nightly at bedtime. Metformin 1000 mg 1 tab by mouth twice daily, 10 am and 10 pm. Amaryl 2 mg 1 tab by mouth once daily, 8 am. Patient should not take Metformin or Losartan for 24 hours after discharge, can resume on 02/04/19. Patient should follow up with primary medical doctor, or [facility], within 2 weeks of discharge. Please call [phone] for appointment. Patient should follow up with Dr. Darius Vernon, cardiology, within 2 weeks of discharge. Patient should follow up with Heart Failure clinic at [facility] with Dr. Mustapha Calderon, . Call to make appointment. Patient provided with rolling walker, prior to discharge. Should symptoms worsen, please head to the nearest Emergency Department for further evaluation. Instructed explained to Patient who understands and agrees with discharge plan. El paciente est mdicamente estable para el brian hospitalaria segn el Dr. Hoover er Las prescripciones del paciente deben tomarse de la siguiente manera: Aspirina 81 mg 1 comprimido por va oral kamla vez al da, 8 am. Xarelto 20 mg 1 ficha por va oral kamla vez al da, 8 am. Digoxin 0.125 mg 1 comprimido por va oral kamla vez al da, 8 am. Carvedilol 3.125 mg 1 lengeta por va oral dos veces al da, 10 a.m. y 10 p.m. Losartan 12.5 mg 1 ficha por va oral kamla vez al da, a las 12 del medioda. Spironalactone 25 mg 1 comprimido por va oral dos veces al da, de 8 a.m. y 8 p.m. Gabapentin 100 mg 1 comprimido por va oral dos veces al da, 10 a.m. y 10 p.m. Lipitor 10 mg 1 ficha por va oral kamla vez por la noche a la hora de acostarse. Metformina 1000 mg 1 comprimido por va oral dos veces al da, 10 a.m. y 10 p.m. Amaryl 2 mg 1 ficha por va oral kamla vez al da, 8 am. El paciente no debe jonathan Metformin o Losartan kimo las 24 horas posteriores al brian; puede reanudarse el 04/02/19. El paciente debe hacer un seguimiento con el monica parra o el [facility], dentro de las 2 semanas posteriores al brian. Por favor llame al para kamla bonita. El paciente debe realizar un seguimiento con el Dr. Darius Snider, cardiologa, dentro de las 2 semanas posteriores al brian. El paciente debe realizar un seguimiento en la clnica de insuficiencia cardaca en el [facility] con el Dr. Mustapha Calderon, . Llamar para concertar bnoita. Paciente provisto de andador rodante, antes del brian. Si los sntomas empeoran, dirjase al servicio de urgencias ms cercano para kamla evaluacin adicional. Explicado al paciente que entiende y est de acuerdo con el plan de brian. Referrals: Darius Vernon MD [Staff Provider] - <Maral Gregory V - Last Filed: 02/03/19 21:13> Provider - Provider Date of Admission: 01/28/19 11:43 Attending physician: Maral Gregory, DO Consults: 01/28/19 16:15 Inpatient BACTERIOLOGY PROFESSOR Core Measures Referral Routine Comment: Physician Instructions: Reason For Exam: CHF 01/28/19 16:20 Cardiology Consult Routine Comment: Consulting Provider: Darius Vernon Consulting Physician: Darius Vernon Reason for Consult: severe HFrEF, afib with rvr, known to you 01/31/19 09:41 Orthopedic Consult Routine Comment: pending CT knee Consulting Provider: Alan Winston Consulting Physician: Alan Winston Reason for Consult: s/p fall, left knee pain, unable to bend at knee Hospital Course - Lab Results Lab Results: Micro Results 01/28/19 13:33 Blood Blood Culture - Final NO GROWTH AFTER 5 DAYS 01/28/19 13:33 Blood Gram Stain - Final TEST NOT PERFORMED 01/28/19 13:33 Blood Blood Culture - Final NO GROWTH AFTER 5 DAYS 01/28/19 13:33 Blood Gram Stain - Final TEST NOT PERFORMED Most Recent Lab Values WBC 10.7 K/uL (4.8-10.8) 02/02/19 07:22 RBC 4.73 Mil/uL (4.40-5.90) 02/02/19 07:22 Hgb 14.3 g/dL (12.0-18.0) 02/02/19 07:22 Hct 41.7 % (35.0-51.0) 02/02/19 07:22 MCV 88.1 fL (80.0-94.0) 02/02/19 07:22 MCH 30.2 pg (27.0-31.0) 02/02/19 07:22 MCHC 34.3 g/dL (33.0-37.0) 02/02/19 07:22 RDW 14.2 % (11.5-14.5) 02/02/19 07:22 Plt Count 203 K/uL (130-400) 02/02/19 07:22 MPV 9.2 fL (7.2-11.7) 02/02/19 07:22 Neut % (Auto) 77.1 % (50.0-75.0) H 02/02/19 07:22 Lymph % (Auto) 14.4 % (20.0-40.0) L 02/02/19 07:22 [place] % (Auto) 7.8 % (0.0-10.0) 02/02/19 07:22 Eos % (Auto) 0.4 % (0.0-4.0) 02/02/19 07:22 Baso % (Auto) 0.3 % (0.0-2.0) 02/02/19 07:22 Neut # (Auto) 8.3 K/uL (1.8-7.0) H 02/02/19 07:22 Lymph # (Auto) 1.5 K/uL (1.0-4.3) 02/02/19 07:22 [place] # (Auto) 0.8 K/uL (0.0-0.8) 02/02/19 07:22 Eos # (Auto) 0.0 K/uL (0.0-0.7) 02/02/19 07:22 Baso # (Auto) 0.0 K/uL (0.0-0.2) 02/02/19 07:22 PT 13.6 SECONDS (9.7-12.2) H 01/28/19 10:43 INR 1.2 01/28/19 10:43 APTT 35 SECONDS (21-34) H 01/28/19 10:43 Sodium 135 mmol/L (132-148) 02/02/19 07:22 Potassium 4.4 mmol/L (3.6-5.2) 02/02/19 07:22 Chloride 95 mmol/L (98-107) L 02/02/19 07:22 Carbon Dioxide 36 mmol/L (22-30) H 02/02/19 07:22 Anion Gap 8 (10-20) L 02/02/19 07:22 BUN 40 mg/dL (9-20) H 02/02/19 07:22 Creatinine 1.3 mg/dL (0.8-1.5) 02/02/19 07:22 Est GFR ( Amer) > 60 02/02/19 07:22 Est GFR (Non-Af Amer) 55 02/02/19 07:22 POC Glucose (mg/dL) 261 mg/dL (65-110) H 02/02/19 12:01 Random Glucose 154 mg/dL (75-110) H 02/02/19 07:22 Calcium 8.8 mg/dl (8.6-10.4) 02/02/19 07:22 Phosphorus 3.6 mg/dL (2.5-4.5) 02/02/19 07:22 Magnesium 2.1 mg/dL (1.6-2.3) 02/02/19 07:22 Total Bilirubin 1.0 mg/dL (0.2-1.3) 02/02/19 07:22 AST 30 U/L (17-59) 02/02/19 07:22 ALT 10 U/L (21-72) L D 02/02/19 07:22 Alkaline Phosphatase 141 U/L (38-126) H D 02/02/19 07:22 Total Creatine Kinase 48 U/L (55-170) L 01/28/19 23:02 CK-MB (Mass) 1.08 ng/mL (0.0-3.38) 01/28/19 23:02 Troponin I 0.0650 ng/mL (0.00-0.120) 01/28/19 23:02 NT-Pro-B Natriuret Pep 2270 pg/mL (0-900) H 01/28/19 10:43 Total Protein 7.5 g/dL (6.3-8.3) 02/02/19 07:22 Albumin 3.7 g/dL (3.5-5.0) 02/02/19 07:22 Globulin 3.8 gm/dL (2.2-3.9) 02/02/19 07:22 Albumin/Globulin Ratio 1.0 (1.0-2.1) 02/02/19 07:22 Urine Color Yellow (YELLOW) 01/29/19 14:19 Urine Clarity Hazy (Clear) 01/29/19 14:19 Urine pH 5.0 (5.0-8.0) 01/29/19 14:19 Ur Specific [place] 1.014 (1.003-1.030) 01/29/19 14:19 Urine Protein Negative mg/dL (NEGATIVE) 01/29/19 14:19 Urine Glucose (UA) Normal mg/dL (Normal) 01/29/19 14:19 Urine Ketones Negative mg/dL (NEGATIVE) 01/29/19 14:19 Urine Blood Negative (NEGATIVE) 01/29/19 14:19 Urine Nitrate Negative (NEGATIVE) 01/29/19 14:19 Urine Bilirubin Negative (NEGATIVE) 01/29/19 14:19 Urine Urobilinogen 2.0 mg/dL (0.2-1.0) 01/29/19 14:19 Ur Leukocyte Esterase Neg Brian/uL (Negative) 01/29/19 14:19 Urine WBC (Auto) 4 /hpf (0-5) 01/29/19 14:19 Urine RBC (Auto) < 1 /hpf (0-3) 01/29/19 14:19 Ur Squamous Epith Cells 1 /hpf (0-5) 01/29/19 14:19 Urine Bacteria Rare (<OCC) 01/29/19 14:19 Discharge Exam - Head Exam Head Exam: NORMAL INSPECTION - Eye Exam Eye Exam: EOMI - ENT Exam ENT Exam: Mucous Membranes Moist - Respiratory Exam Respiratory Exam: Clear to PA & Lateral, NORMAL BREATHING PATTERN - Cardiovascular Exam Cardiovascular Exam: REGULAR RHYTHM, +S1, +S2 - GI/Abdominal Exam GI & Abdominal Exam: Normal Bowel Sounds, Soft Additional comments: no tenderness no rebound no guarding - Extremities Exam Additional comments: edema trace bilateral left wrist in splint swelling over the knees reduce remarkably no tenderness on palpation - Neurological Exam Neurological exam: Alert, Oriented x3 - Psychiatric Exam Psychiatric exam: Normal Affect, Normal Mood - Skin Skin Exam: Dry, Normal Color, Warm Clinical Quality Measures - CQM - Heart Failure Ejection Fraction: Less Than 40 % Left Ventricular Function to be assessed after discharge: Yes JOSELUIS Inhibitor Prescribed: No Contraindication/Reason for not providing: on arb Beta-Elissa Prescribed: Carvedilol Angiotensin II Receptor Elissa Prescribed: Yes AnticoagulationTherapy for Atrial Fibrillation/Atrialflutter: Yes Contraindication/Reason for not providing: xarelto Aldosterone Antagonist Prescribed: Yes Hydralazine Nitrate Prescribed: No Contraindication/Reason for not providing: not clinically indicated Implantable Cardioverter Defibrillator Therapy: No Contraindication/Reason for not providing: not clinically indicated Cardiac Resynchronization Therapy Prescribed: No Contraindication/Reason for not providing: not clinically indicated Will be discharged to: Home Follow Up Date (must be within 7 days from discharge): 02/09/19 Follow Up Time: 09:00 - Date & Time of Discharge Summary Date of Discharge Summary: 02/02/19 Attending/Attestation - Attestation I have personally seen and examined this patient.: Yes I have fully participated in the care of the patient.: Yes I have reviewed all pertinent clinical information, including history, physical exam and plan: Yes Notes (Text): Patient seen, examined and case discussed with day-time resident. Patient seen and evaluated by orthopedic. patient stable for discharge. Patient to follow-up with cardiology outpatient in regards to his heart failure. This is a summary of patient's hospitalization. Please EMR for full detail of record. Discharge Diagnoses: 1. Atrial fibrillation-->stable Assessment/Plan * Cardiology on board * Xarelto 20 mg PO daily * Digoxin 0.125 mg PO daily * Coreg 3.125 mg PO BID 2. Syncope, s/p Fall, Left Knee Pain Left Wrist Pain Assessment/Plan * Orthopedic consult help appreciated * CT Knee (01/31/19): medial and patellofemoral osteoarthritis of the knee. tibiotalar osteoarthritis. small to moderate joint effusion at the knee * CT upper extremity reviewed * Knee xray (01/29/19): normal radiographs * Wrist xray (01/29/19): normal radiographs * Lidocaine 5% ointment for knee-->does not relieve pain * Ultram 25 mg PO TID PRN--->does not relieve pain * Patient unable to work with PT secondary to intractable knee pain 3. Systolic congestive heart failure (HFrEF), chronic Assessment/Plan * s/p AICD * CXR: pulmonary vascular congestion, cardiomegaly (similar to previous admission CXR) * BNP 2270 * Trop negative x3 * MUGA: EF 25% * Strict I's & O's * Daily weights * Fluid restriction 1.5 L * Aspirin 81 mg PO daily * Coreg 3.125 mg PO BID * Digoxin 0.125 mg PO daily * Aldactone 25 mg PO BID held given creatinine increase * Losartan 12.5 mg PO daily * Crestor 5mg POqHS * Cardiology consulted (Saulo) on board 4. Acute kidney injury, improving- suspect hypoperfusion due to CHF Assessment/Plan * held aldactone * Continue to monitor and manage hypotension * No IVF due to severely reduced CHF * Avoid nephrotoxic medications 5. Coronary artery disease, chronic Assessment/Plan * Crestor 5 mg PO QHS * Aspirin 81 mg PO daily * Coreg 3.125 mg PO BID * hold Losartan 12.5 mg PO daily * hold aldactone 6. Hypertension, chronic Assessment/Plan * Aspirin 81 mg PO daily * Coreg 3.125 mg PO BID * hold Losartan 12.5 mg PO daily 7. Dyslipidemia, chronic Assessment/Plan * TG 152, chol 105, LDL 51, HDL 23 * Crestor 5mg PO QHS 8. Type 2 diabetes mellitus, poorly controlled, chronic Assessment/Plan * A1c 11 * Accuchecks ACH * Hypoglycemia protocol * ISS medium * Hold home Glimepiride and Metformin due to MELECIO 9. Peripheral neuropathy, chronic Assessment/Plan - Gabapentin 100 mg PO BID- decreased dose due to MELECIO 10. Ppx: VTE: SCDs, Xarelto 20 mg PO daily GI: not indicated Diet: HHD, 2 g sodium, 1.5 L restriction
[2019-02-02 07:56] LABS: ALBUMIN 3.7 g/dL (3.5-5.0); ALT/SGPT 10 U/L (21-72); AST/SGOT 30 U/L (17-59); BLOOD UREA NITROGEN 40 mg/dL (9-20); CALCIUM 8.8 mg/dl (8.6-10.4); GFR NON-AFRICAN AMERICAN 55
[2019-02-02 07:57] LABS: BASO % 0.3 % (0.0-2.0); EOS % 0.4 % (0.0-4.0); HEMOGLOBIN 14.3 g/dL (12.0-18.0); LYMPH # 1.5 K/uL (1.0-4.3); LYMPH % 14.4 % (20.0-40.0); MEAN CELL VOLUME 88.1 fL (80.0-94.0); MEAN CORPUSCULAR HEMOGLOBIN 30.2 pg (27.0-31.0); MEAN CORPUSCULAR HGB CONC 34.3 g/dL (33.0-37.0); MEAN PLATELET VOLUME 9.2 fL (7.2-11.7); MONO # 0.8 K/uL (0.0-0.8); MONO % 7.8 % (0.0-10.0); NEUT # 8.3 K/uL (1.8-7.0); NEUT % 77.1 % (50.0-75.0); RBC 4.73 Mil/uL (4.40-5.90); RED CELL DISTRIBUTION WIDTH 14.2 % (11.5-14.5); WHITE BLOOD COUNT 10.7 K/uL (4.8-10.8)
--- NOTE | 2019-02-02 07:57 | CP.PCM.PN ---
Subjective - Date & Time of Evaluation Date of Evaluation: 02/02/19 Time of Evaluation: 07:57 - Subjective Subjective: Patient seen and examined at bedside comfortable. Pain to L wrist is moderate, pain to left knee is much improved. No other complaints. Objective - Vital Signs/Intake and Output Vital Signs (last 24 hours): Temp Pulse Resp BP Pulse Ox 98.2 F 81 20 101/63 95 02/01/19 23:35 02/02/19 00:54 02/01/19 23:35 02/01/19 23:35 02/01/19 23:35 Intake and Output: 02/02/19 02/02/19 06:59 18:59 Output Total 250 Balance -250 - Medications Medications: Current Medications Acetaminophen (Tylenol 325mg Tab) 650 mg PO Q6 PRN PRN Reason: pain/inflammation of left knee Last Admin: 02/02/19 07:19 Dose: 650 mg Aspirin (Ecotrin) 81 mg PO DAILY COUNTS INCLUDE 234 BEDS AT THE [facility] Last Admin: 02/01/19 10:17 Dose: 81 mg Carvedilol (Coreg) 3.125 mg PO BID COUNTS INCLUDE 234 BEDS AT THE [facility] Last Admin: 02/01/19 19:00 Dose: 3.125 mg Dextrose (Dextrose 50% Inj) 0 ml IV STAT PRN; Protocol PRN Reason: Hypoglycemia Protocol Dextrose (Glutose 15) 0 gm PO ONCE PRN; Protocol PRN Reason: Hypoglycemia Protocol Digoxin (Digoxin) 0.125 mg PO DAILY@1800 COUNTS INCLUDE 234 BEDS AT THE [facility] Last Admin: 02/01/19 19:00 Dose: 0.125 mg Gabapentin (Neurontin) 100 mg PO BID COUNTS INCLUDE 234 BEDS AT THE [facility] Last Admin: 02/01/19 19:00 Dose: 100 mg Glucagon (Glucagen Diagnostic Kit) 0 mg IM STAT PRN; Protocol PRN Reason: Hypoglycemia Protocol Insulin Human Regular (Novolin R) 0 unit [place] [facility]; Protocol Last Admin: 02/01/19 22:47 Dose: Not Given Lidocaine (Lidocaine 5%) 0 gm TOP DAILY PRN PRN Reason: LEFT KNEE PAIN Last Admin: 01/31/19 08:25 Dose: 1 applic Losartan Potassium (Cozaar) 12.5 mg PO DAILY COUNTS INCLUDE 234 BEDS AT THE [facility] Last Admin: 02/01/19 10:18 Dose: 12.5 mg Rivaroxaban (Xarelto) 20 mg PO DAILY COUNTS INCLUDE 234 BEDS AT THE [facility] Last Admin: 02/01/19 10:17 Dose: 20 mg Rosuvastatin Calcium (Crestor) 5 mg PO HS COUNTS INCLUDE 234 BEDS AT THE [facility] Last Admin: 02/01/19 22:28 Dose: 5 mg Spironolactone (Aldactone) 25 mg PO BID MAL Last Admin: 02/01/19 19:00 Dose: Not Given Tramadol HCl (Ultram) 25 mg PO TID PRN PRN Reason: Pain, severe (8-10) Last Admin: 01/31/19 02:22 Dose: 25 mg - Labs Labs: 02/01/19 07:15 02/02/19 07:22 PT 13.6 SECONDS (9.7-12.2) H 01/28/19 10:43 INR 1.2 01/28/19 10:43 APTT 35 SECONDS (21-34) H 01/28/19 10:43 - Extremities Exam Additional comments: L wrist: diffuse tenderness wrist splint intact sensation and motor intact MN/UN/RN radial pulse intact L knee: mild diffuse tenderness mild swelling sensation intact SP/DP/TN motor intact EHL/FHL/TA/G pedal pulse intact calves soft NT b/l Assessment and Plan (1) Degenerative joint disease of knee, left Assessment & Plan: Continue with conservative management f/u in office as outpatient call for appt Status: Acute (2) Left wrist sprain Assessment & Plan: CT L wrist shows no acute fx, mild arthritic changes of radiocarpal joint, likely wrist sprain continue with conservative mgmt wrist splint immobilization, anti-inflammatory medications no MRI needed at this time may f/u in office as outpt above d/w Dr. Winston in agreement Status: Acute
[2019-02-02 08:07] VITALS: BP 121/78; PULSE 77; TEMP 97.9; O2SAT 96
[2019-02-02] MEDS: (Novolin R) Insulin Human Regular 100 units/ml vial SC SCH ×2 (08:25→12:58)
--- NOTE | 2019-02-03 09:22 | CT ---
Date of service: 02/01/2019 PROCEDURE: CT left wrist HISTORY: wrist:pain after fall, attn scaphoid/1st MCP joint COMPARISON: Not available TECHNIQUE: 1.25 mm contiguous axial sections were acquired through the left wrist. Sagittal and coronal images were reformatted from the axial scan. Total exam DLP: 160.03 mGy-cm. This CT exam was performed using 1 or more of the following dose reduction techniques: Automated exposure control, adjustment of the mA and/or kV according to patient size, and/or use of iterative reconstruction technique. FINDINGS: There is no acute fracture. The joint spaces and articular surfaces are preserved. There is no lytic or blastic osseous lesion. There is a small intraosseous cystic structure in the there is a small cystic structure in the distal pole of the scaphoid, likely related to degenerative arthritis. The scapholunate interval is normal. There is no significant soft tissue swelling. IMPRESSION: No acute fracture. The preliminary findings for this examination were reported by [facility] at 7:52 p.m. on 02/01/2019. There is concurrence of this report with the preliminary findings.
== END 2019-02-02 14:34 | disposition home or self-care (01) | DRG 469 ==
LOC: C.ER 10:15 → C.9E 11:43 → C.5S 14:13
PROVIDERS: ADMIT Hospitalist; ATTEND Hospitalist
DX: N17.9 Acute kidney failure, unspecified (principal); I47.2 Ventricular tachycardia; E11.40 Type 2 diabetes mellitus with diabetic neuropathy, unspecified; I13.0 Hypertensive heart and chronic kidney disease with heart failure and stage 1 through stage 4 chronic kidney disease, or unspecified chronic kidney disease; I48.2 Chronic atrial fibrillation; I50.22 Chronic systolic (congestive) heart failure; E11.65 Type 2 diabetes mellitus with hyperglycemia; R55 Syncope and collapse; E78.1 Pure hyperglyceridemia; M10.9 Gout, unspecified; I25.10 Atherosclerotic heart disease of native coronary artery without angina pectoris; E78.00 Pure hypercholesterolemia, unspecified; Z79.4 Long term (current) use of insulin; Z95.810 Presence of automatic (implantable) cardiac defibrillator; M17.12 Unilateral primary osteoarthritis, left knee; Z79.01 Long term (current) use of anticoagulants; M25.462 Effusion, left knee; N18.9 Chronic kidney disease, unspecified